=== PATIENT | male | born 1945 | race Caucasian/White ===

== ENCOUNTER 2017-02-03 13:15 | Emergency (ER) | payer OTHER ==
[~2017-02-03] VITALS: Wt 72.0 kg
[~2017-02-03 13:15] MED LIST: FAMO10TA84 PO; GABA100C14 PO
[2017-02-03] MEDS ORDERED: ESOM40CA PO (14:13)
[2017-02-03] MEDS ORDERED: SUCR1TAB56 PO (14:14)
[2017-02-03] MEDS ORDERED: LORA0.5T PO (14:16)
[2017-02-03] MEDS ORDERED: TAMS0.4C2 PO (14:16)
[2017-02-03] MEDS ORDERED: SOD CHLORIDE 0.9% 1,000 ML IV STA (14:27)
[2017-02-03 15:00] LABS: ADD SCAN DIFF NO
[2017-02-03 15:04] LABS: HEMATOCRIT 37.8 % (42.0-52.0); HEMOGLOBIN 12.3 g/dl (14.0-18.0); MEAN CORPUSCULAR HEMOGLOBIN 26.3 pg (29.0-33.0); MEAN CORPUSCULAR HGB CONC 32.5 g/dl (32.0-37.0); MEAN CORPUSCULAR VOLUME 80.8 fl (82.0-101.0); PLATELET COUNT 204 10^3/UL (140-415); RED BLOOD COUNT 4.68 10^6/ul (4.70-6.10); RED CELL DISTRIBUTION WIDTH 15.9 % (11.5-14.5); WHITE BLOOD COUNT 13.4 10^3/ul (4.8-10.8)
[2017-02-03 15:12] LABS: ALBUMIN 3.2 g/dl (3.3-4.9)
[2017-02-03 15:15] LABS: ALBUMIN/GLOBULIN RATIO 0.8; BILIRUBIN,INDIRECT 0.4 mg/dl (0-1.1); BILIRUBIN,TOTAL 0.4 mg/dl (0.2-1.3); CALCIUM 8.5 mg/dl (8.4-10.2); CREATININE 1.13 mg/dl (0.61-1.24); TOTAL PROTEIN 7.2 g/dl (6.1-8.1)
--- NOTE | 2017-02-03 15:30 | RADRPT ---
PROCEDURE: XR Chest. CLINICAL INDICATION: Stroke TECHNIQUE: Chest AP portable. COMPARISON: 06/12/2013 FINDINGS: The mediastinal structures are unremarkable. There is calcification of the thoracic aorta (consiste nt with atherosclerosis). There is mild cardiomegaly. There is pulmonary venous hypertension. There is bibasilar subsegmental atelectasis. The pleural spaces are unremarkable. There are senescent ch anges of the axial skeleton. IMPRESSION: Mild cardiomegaly Mild pulmonary venous hypertension Bibasilar subsegmental atelectasis RPTAT: HGDB .Daniel Brown MD, Date Time Electronically viewed and signed by .Daniel Brown MD, on 02/03/2017 15:30 .B/
--- NOTE | 2017-02-03 16:02 | RADRPT ---
PROCEDURE: CT brain without contrast CLINICAL INDICATION: Stroke TECHNIQUE: CT of the brain without contrast performed on a multidetector CT scanner, with multiplan ar reformats. One or more of the following dose reduction techniques were used: Automated exposure control, adjustment in mA and / or kV according to patient size, use of iterative reconstructive jass hnique. CTDIvol = 45 mGy; DLP = 720 mGy-cm. COMPARISON: None available FINDINGS: No acute intracranial hemorrhage is identified. No extra-axial fluid collection is seen. There is no mass effect. No midline shift is identified. Ventricles and sulci are mildly enlarged compatible with generalized volume loss. The density of the brain appears unremarkable and echavarria-white differentiation is grossly preserved. Osseous structures are unremarkable. Mastoid air cells and imaged paranasal sinuses grossly clear. IMPRESSION: 1. No acute intracranial pathology identified. 2. Mild generalized volume loss. RPTAT: VV .Freedom Calix MD, MD Date Time Electronically viewed and signed by .Freedom Calix MD, on 02/03/2017 16:02 .O/
[2017-02-03 16:44] LABS: ANISOCYTOSIS 1+; LYMPHOCYTES # 2.4 10^3/ul (0.8-2.9); MONOCYTE # 0.3 10^3/ul (0.3-0.9); NEUTROPHIL # 10.2 10^3/ul (1.6-7.5); PLATELET ESTIMATE PLT APPEAR ADEQUATE
[2017-02-03 17:00] VITALS: BP 175/99; PULSE 88; RESP 19
[2017-02-03] MEDS ORDERED: HYDROmorphONE 1 MG/ML SYG IV STA (17:47)
[2017-02-03] MEDS ORDERED: ONDANSETRON 4 MG INJ IV STA (17:47)
[2017-02-03] MEDS ORDERED: FAMOTIDINE 20 MG INJ IV STA (17:47)
--- NOTE | 2017-02-03 18:58 | ERD ---
ER Documentation Chief Complaint Date/Time DATE: 02/03/17 TIME: 18:57 Chief Complaint GEN WEAKNESS AND RECENT TRAVEL FROM [facility] AND HAD CVA 1WK. LETHARGIC HPI This is a 71-year-old man who just arrived here on Monday night from [facility]. The patient is here with his family because they are uncertain of the workup that he had there. He said that last week he was admitted there for several days for a syncopal workup that did not reveal anything particular. However, the patient's family states that he is been more sleepy lately and seems like he is slurring his words for the past 8 days. Patient does not complain of any focal neurological complaints. The patient is somewhat sleepy now because he took 3 of his sleeping pills last night and did not take until early this morning. The patient has a history of chronic insomnia. Patient is denying any weakness or focal neurological complaints no blurry vision no speech change according to him. He has had 3 days of watery diarrhea nonbloody. He denied abdominal pain initially but at the end of his workup states he is having some mid abdominal pain now described as crampy ROS All systems reviewed and are negative except as per history of present illness. Medications Home Meds Reported Medications Tamsulosin Hcl* (Tamsulosin Hcl*) 0.4 Mg Cap.er.24h, 0.4 MG PO HS, CAP 02/03/17 Lorazepam* (Lorazepam*) 0.5 Mg Tablet, 0.5 MG PO HS Y for ANXIETY, TAB 02/03/17 Sucralfate* (Carafate*) 1 Gm Tab, 1 GM PO AC MEALS AND BEDTIME, TAB 02/03/17 Esomeprazole Mag Trihydrate (Nexium) 40 Mg Capsule.dr, 40 MG PO AC BREAKFAST, # 30 CAP 02/03/17 Gabapentin* (Gabapentin*) 100 Mg Capsule, 100 MG PO DAILY 06/12/13 Discontinued Reported Medications Famotidine* (Famotidine*) 10 Mg Tablet, 10 MG PO DAILY 06/12/13 Allergies Allergies: Coded Allergies: Penicillins (Verified Allergy, Mild, 02/03/17) morphine (Verified Allergy, Mild, 02/03/17) aspirin (Verified Allergy, Unknown, RASHES, 06/12/13) Uncoded Allergies: ASA (Allergy, Unknown, 07/02/07) PMhx/Soc History of Surgery: Yes (PROSTATE, SMALL PIECE OF SMALL INTESTINE.) Anesthesia Reaction: No Hx Neurological Disorder: No Hx Respiratory Disorders: No Hx Cardiac Disorders: No Hx Psychiatric Problems: No Hx Miscellaneous Medical Probl: Yes (GERD, ULCER) Hx Alcohol Use: No (Occasional) Hx Substance Use: No Hx Tobacco Use: No Smoking Status: Never smoker FmHx Family History: No coronary disease Physical Exam Vitals Vital Signs Date Time Temp Pulse Resp B/P Pulse Ox O2 Delivery O2 Flow Rate FiO2 02/03/17 17:00 88 19 175/99 97 Room Air 02/03/17 13:23 99.6 82 20 185/87 95 Physical Exam Const: Well-developed, well-nourished Head: Atraumatic, normocephalic Eyes: Normal Conjunctiva, PERRLA, EOMI, normal sclera, no nystagmus ENT: Normal External Ears, Nose and Mouth, moist mucus membranes. Neck: Full range of motion. No meningismus, no lymphadenopathy. Resp: Clear to auscultation bilaterally, no wheezing, rhonchi, rales Cardio: Regular rate and rhythm, no murmurs, S1 S2 present Abd: Soft, non tender x 4, non distended. Normal bowel sounds, no guarding or rebound, no pulsitile abdominal masses or bruits Skin: No petechiae or rashes, no ecchymosis , no maculopapular rash Back: No midline or flank tenderness Ext: No cyanosis, or edema, FROM x 4, normal inspection, neurovascularly intact x 4 Neur: Awake and alert, STR 5/5 x 4, sensation intact x 4, no focal findings, cerebellum intact Psych: Normal Mood and Affect, somewhat sleepy After complaining of abdominal pain: Abdomen: Mild tenderness to the mid abdominal region no rebound Result Diagram: 02/03/17 1457 02/03/17 1457 Results 24 hrs Laboratory Tests Test 02/03/17 14:57 White Blood Count 13.410^3/ul Red Blood Count 4.6810^6/ul Hemoglobin 12.3g/dl Hematocrit 37.8% Mean Corpuscular Volume 80.8fl Mean Corpuscular Hemoglobin 26.3pg Mean Corpuscular Hemoglobin Concent 32.5g/dl Red Cell Distribution Width 15.9% Platelet Count 16038^3/UL Mean Platelet Volume 10.0fl Neutrophils % 76.0% Lymphocytes % 18.0% Reactive Lymphocytes % 4.0% Monocytes % 2.0% Neutrophils # 10.210^3/ul Lymphocytes # 2.410^3/ul Monocytes # 0.310^3/ul Platelet Estimate PLT APPEAR ADEQUATE Anisocytosis 1+ Sodium Level 137mmol/L Potassium Level 4.0mmol/L Chloride Level 101mmol/L Carbon Dioxide Level 24mmol/L Anion Gap 16 Blood Urea Nitrogen 22mg/dl Creatinine 1.13mg/dl Glucose Level 127mg/dl Calcium Level 8.5mg/dl Total Bilirubin 0.4mg/dl Direct Bilirubin 0.00mg/dl Indirect Bilirubin 0.4mg/dl Aspartate Amino Transf (AST/SGOT) 16IU/L Alanine Aminotransferase (ALT/SGPT) 36IU/L Alkaline Phosphatase 139IU/L Total Protein 7.2g/dl Albumin 3.2g/dl Globulin 4.00g/dl Albumin/Globulin Ratio 0.80 Current Medications Medications (Trade) Dose Ordered Sig/Anabelle Route PRN Reason Start Time Stop Time Status Last Admin Dose Admin Sodium Chloride (NS) 1,000 ml @ 1,000 mls/hr Q1H STAT IV 02/03/17 14:27 02/03/17 15:26 DC 02/03/17 15:01 Ondansetron HCl (Zofran Inj) 4 mg ONCE STAT IV 02/03/17 17:47 02/03/17 17:48 DC 02/03/17 17:53 Famotidine (Pepcid Iv) 20 mg ONCE STAT IV 02/03/17 17:47 02/03/17 17:48 DC 02/03/17 17:53 Hydromorphone HCl (Dilaudid) 0.5 mg ONCE STAT IV 02/03/17 17:47 02/03/17 17:48 DC 02/03/17 17:53 Procedures/MDM Family's main concern is that the patient had a stroke or a missed diagnosis and they wanted him checked out see if anything was missed. PROCEDURE: CT brain without contrast CLINICAL INDICATION: Stroke TECHNIQUE: CT of the brain without contrast performed on a multidetector CT scanner, with multiplanar reformats. One or more of the following dose reduction techniques were used: Automated exposure control, adjustment in mA and / or kV according to patient size, use of iterative reconstructive technique. CTDIvol = 45 mGy; DLP = 720 mGy-cm. COMPARISON: None available FINDINGS: No acute intracranial hemorrhage is identified. No extra-axial fluid collection is seen. There is no mass effect. No midline shift is identified. Ventricles and sulci are mildly enlarged compatible with generalized volume loss. The density of the brain appears unremarkable and echavarria-white differentiation is grossly preserved. Osseous structures are unremarkable. Mastoid air cells and imaged paranasal sinuses grossly clear. IMPRESSION: 1. No acute intracranial pathology identified. 2. Mild generalized volume loss. RPTAT: VV .Freedom Calix MD, Date Time Electronically viewed and signed by .Freedom Calix MD, MD on 02/03/2017 16:02 .O/ CC: DINESH CHACON DO PROCEDURE: XR Chest. CLINICAL INDICATION: Stroke TECHNIQUE: Chest AP portable. COMPARISON: 06/12/2013 FINDINGS: The mediastinal structures are unremarkable. There is calcification of the thoracic aorta (consistent with atherosclerosis). There is mild cardiomegaly. There is pulmonary venous hypertension. There is bibasilar subsegmental atelectasis. The pleural spaces are unremarkable. There are senescent changes of the axial skeleton. IMPRESSION: Mild cardiomegaly Mild pulmonary venous hypertension Bibasilar subsegmental atelectasis RPTAT: HGDB .Daniel Brown MD, MD Date Time Electronically viewed and signed by .Daniel Brown MD, on 02/03/2017 15:30 .B/ CC: DINESH CHACON DO PROCEDURE: CT abdomen and pelvis without contrast. CLINICAL INDICATION: Abdominal pain in a patient with history of gastroesophageal reflux, ulcer and prostate carcinoma TECHNIQUE: CT scan of the abdomen and pelvis without contrast was performed on a multislice CT scanner utilizing axial imaging from the lung bases through the pubis symphysis. The patient was scanned without intravenous contrast. Sagittal and coronal reformatted images were made. The CTDIvol is 13.35 mGy and the DLP is 724.19 mGycm. One of the following 3 dose reduction techniques were used during this CT examination: automated exposure control; adjustment of the mA and /or kV according to patient size; or use of iterative reconstruciton technique. COMPARISON: CT abdomen pelvis dated 07/19/2007 FINDINGS: The lung bases are remarkable for right middle lobe and lingular interstitial changes. This may represent atelectasis or early infiltrates. The heart size demonstrates mild cardiomegaly. Vascular calcifications are present of the thoracic aorta and the coronary arteries. No pericardial or pleural effusion is present. The visualized liver demonstrates mild diffuse fatty infiltration. A large hepatic hypodense lesion is present in the left lobe which measures 5.8 cm AP by 6 cm in transverse dimensions. This is incompletely evaluated without contrast and recommend either a dynamic CT or MR of the liver to further evaluate. The visualized spleen, pancreas, and gallbladder are normal. No evidence for intrahepatic or extrahepatic biliary ductal dilatation is noted. The bilateral adrenal glands are normal. The bilateral kidneys are normal. No evidence for hydroureter nephrosis or nephroureterolithiasis is present. The visualized bowel is normal without evidence for obstruction. The appendix is normal. The anastomotic sutures are noted in the mid abdomen compatible with prior small bowel resection for previously noted small bowel obstruction. The aorta demonstrates vascular calcifications without aneurysmal dilatation. The visualized pelvis demonstrates an irregular fluid collection immediately superior to the left reservoir poor for patient's known penile implants. This fluid collection measures approximately 5.2 cm AP by 5.3 cm transverse by 6.3 cm in superior inferior dimensions. This may represent a nonfunctioning and leaking rising for correlation and follow up clinically is advised. Within the pelvis, the bilateral penile implants appear retracted in position to the base of the penis when compared with prior study. The visualized pelvis demonstrates status post prostatectomy changes. The urinary bladder appears decompressed. The imaged osseous structures demonstrate mild spondylosis of the imaged spine. IMPRESSION: 1. Fluid collection 5.2 cm AP by 5.3 cm transverse by 6.3 cm superior inferior dimensions in the left ellen pelvis immediately superior to the reservoir for the penile implant. Recommend correlation with disruption of integrity of reservoir. 2. Retraction of the penile implants to the base of the penis. 3. Large hypodense 5.8 cm AP by 6.0 cm in transverse dimension hepatic lesion. Consider dynamic CT or MR of the liver to further evaluate. 4. Mild cardiomegaly and atherosclerotic vascular disease 5. Degenerative spondylosis of the imaged spine. RPTAT: HDC .Debbie Jang MD, MD Date Time Electronically viewed and signed by .Debbie Jang MD, MD on 02/03/2017 19: 34 .C/ CC: DINESH CHACON DO The patient has left the ER. Apparently he was tired of waiting for his tests and decided to leave. Spoke with urology pmo consultant about the above CT scan finding Dr. Dolan and he will review the CT scan tomorrow. He is unsure what is actually happening with his implant. Does have mild elevated white blood count but nothing else was found acutely hopefully he will return for reevaluation The patient has eloped Departure Diagnosis: Primary Impression: Generalized weakness Additional Impression: Abdominal pain Abdominal location: generalized Qualified Code: R10.84 - Generalized abdominal pain Condition: Fair DINESH CHACON DO Feb 03, 2017 18:58
--- NOTE | 2017-02-03 19:34 | RADRPT ---
PROCEDURE: CT abdomen and pelvis without contrast. CLINICAL INDICATION: Abdominal pain in a patient with history of gastroesophageal reflux, ulcer an d prostate carcinoma TECHNIQUE: CT scan of the abdomen and pelvis without contrast was performed on a multislice CT [facility] utilizing axial imaging from the lung bases through the pubis symphysis. The patient was scann ed without intravenous contrast. Sagittal and coronal reformatted images were made. The CTDIvol is 13.35 mGy and the DLP is 724.19 mGycm. One of the following 3 dose reduction techniques were used during this CT examination: automated exp osure control; adjustment of the mA and /or kV according to patient size; or use of iterative recons truciton technique. COMPARISON: CT abdomen pelvis dated 07/19/2007 FINDINGS: The lung bases are remarkable for right middle lobe and lingular interstitial changes. This may rep resent atelectasis or early infiltrates. The heart size demonstrates mild cardiomegaly. Vascular c alcifications are present of the thoracic aorta and the coronary arteries. No pericardial or pleura l effusion is present. The visualized liver demonstrates mild diffuse fatty infiltration. A large hepatic hypodense lesion is present in the left lobe which measures 5.8 cm AP by 6 cm in transverse dimensions. This is inc ompletely evaluated without contrast and recommend either a dynamic CT or MR of the liver to further evaluate. The visualized spleen, pancreas, and gallbladder are normal. No evidence for intrahepatic or extrah epatic biliary ductal dilatation is noted. The bilateral adrenal glands are normal. The bilateral kidneys are normal. No evidence for hydrour eter nephrosis or nephroureterolithiasis is present. The visualized bowel is normal without evidence for obstruction. The appendix is normal. The anast omotic sutures are noted in the mid abdomen compatible with prior small bowel resection for previous ly noted small bowel obstruction. The aorta demonstrates vascular calcifications without aneurysmal dilatation. The visualized pelvis demonstrates an irregular fluid collection immediately superior to the left re servoir poor for patient's known penile implants. This fluid collection measures approximately 5.2 cm AP by 5.3 cm transverse by 6.3 cm in superior inferior dimensions. This may represent a nonfunct ioning and leaking rising for correlation and follow up clinically is advised. Within the pelvis, t he bilateral penile implants appear retracted in position to the base of the penis when compared wit h prior study. The visualized pelvis demonstrates status post prostatectomy changes. The urinary b ladder appears decompressed. The imaged osseous structures demonstrate mild spondylosis of the imaged spine. IMPRESSION: 1. Fluid collection 5.2 cm AP by 5.3 cm transverse by 6.3 cm superior inferior dimensions in the le ft ellen pelvis immediately superior to the reservoir for the penile implant. Recommend correlation w ith disruption of integrity of reservoir. 2. Retraction of the penile implants to the base of the penis. 3. Large hypodense 5.8 cm AP by 6.0 cm in transverse dimension hepatic lesion. Consider dynamic CT or MR of the liver to further evaluate. 4. Mild cardiomegaly and atherosclerotic vascular disease 5. Degenerative spondylosis of the imaged spine. RPTAT: HDC .Debbie Jang MD, Date Time Electronically viewed and signed by .Debbie Jang MD, on 02/03/2017 19:34 .C/
== END 2017-02-03 23:38 | disposition left against medical advice (07) ==
LOC: E/R 13:15
DX: R53.1 Weakness (principal); R40.2142 Coma scale, eyes open, spontaneous, at arrival to emergency department; R10.84 Generalized abdominal pain; Z85.46 Personal history of malignant neoplasm of prostate
CPT/HCPCS: 36415; 70450; 71010; 74176; 80053; 85025; 96374; 96375; 99285; J1170; J2405; J7030

== ENCOUNTER 2018-02-04 20:06 | Emergency (ER) | END 2018-02-05 03:30 | disposition home or self-care (01) ==

== ENCOUNTER 2018-02-21 20:21 | Emergency (ER) | END 2018-02-21 23:46 | disposition home or self-care (01) ==

== ENCOUNTER 2018-03-05 11:56 | Emergency (ER) | END 2018-03-05 16:11 | disposition home or self-care (01) ==

== ENCOUNTER 2018-06-08 15:08 | Emergency (ER) | END 2018-06-08 21:09 | disposition home or self-care (01) ==

== ENCOUNTER 2019-02-13 18:42 | Inpatient (IN) | payer OTHER ==
[~2019-02-13] VITALS: Ht 170.2 cm; Wt 73.6 kg
[~2019-02-13 18:42] MED LIST changes: +ACET-141 PO; +BENA20TA4 PO; +ESOM40CA PO; -FAMO10TA84 PO; +HYDR-3980 PO; +HYDR-843 PO; +LORA0.5T PO; +NAPR-985 PO; +OMEP40CA6 PO; +ONDA4TAB14 PO; +PRED20TA PO; +SUCR1TAB56 PO; +TAMS0.4C2 PO
[2019-02-13 18:50] VITALS: Ht 170.2 cm; Wt 73.6 kg
[2019-02-13] MEDS ORDERED: SOD CHLORIDE 0.9% 500 ML IV STA (23:00)
[2019-02-13] MEDS ORDERED: HYDROmorphONE 1 MG/ML SYG IV STA (23:00)
[2019-02-13] MEDS ORDERED: ONDANSETRON 4 MG INJ IV STA (23:00)
[2019-02-13] MEDS ORDERED: COMBIG5 BOTH EYES (23:56)
[2019-02-13] MEDS ORDERED: HYDR12.53 PO (23:56)
[2019-02-13] MEDS ORDERED: FURO20TA3 PO (23:56)
[2019-02-13] MEDS ORDERED: BENA40TA56 PO (23:56)
[2019-02-13] MEDS ORDERED: ISOS60TA PO (23:56)
[2019-02-13] MEDS ORDERED: METO-429 PO (23:56)
[2019-02-13] MEDS ORDERED: MULT-105 PO (23:58)
--- NOTE | 2019-02-14 02:43 | ERD ---
ER Documentation Chief Complaint Chief Complaint center abd pain x 3 weeks, vomiting today, BM yesterday HPI This is a very pleasant 73-year-old male comes in with abdominal pain for 3 weeks and vomiting said he has had some coffee-ground in it. Bowel movement yesterday. Pain is mild to moderate intensity no exacerbating relieving factors. Denies any chills. Denies any other current issues. ROS All systems reviewed and are negative except as per history of present illness. Medications Home Meds Active Scripts Ondansetron (Ondansetron Odt) 4 Mg Tab.rapdis, 4 MG PO Q6H PRN for NAUSEA AND/OR VOMITING, #10 TAB Prov:WILLIAM MELCHOR MD 02/21/18 Hydrocodone/Acetaminophen ([place] 10-325 Tablet) 1 Each Tablet, 1 TAB PO Q6H PRN for PAIN, #7 TAB Prov:WILLIAM MELCHOR MD 02/21/18 Omeprazole* (Omeprazole*) 40 Mg Capsule.dr, 40 MG PO DAILY, #30 CAP Prov:DINESH CHACON DO 02/05/18 Reported Medications Multivitamin with Minerals (Multivitamins with Minerals) 1 Each Tablet, 1 EACH PO DAILY, TAB 02/13/19 Brimonidine/Timolol* (Combigan*) 5 Ml Drops, 1 DROP BOTH EYES BID, BOTTLE 02/13/19 Hydrochlorothiazide (Hydrochlorothiazide) 12.5 Mg Capsule, 12.5 MG PO DAILY for 30 Days, #30 02/13/19 Isosorbide Mononitrate* (Isosorbide Mononitrate*) 60 Mg Tab.er.24h, 60 MG PO DAILY for 30 Days, #30 02/13/19 Furosemide* (Furosemide*) 20 Mg Tablet, 20 MG PO BID for 30 Days, #60 02/13/19 Metoprolol Tartrate* (Lopressor*) 50 Mg Tab, 50 MG PO BID for 30 Days, #60 02/13/19 Benazepril Hcl* (Benazepril Hcl*) 40 Mg Tablet, 40 MG PO DAILY for 90 Days, #90 02/13/19 Tamsulosin Hcl* (Tamsulosin Hcl*) 0.4 Mg Cap.er.24h, 0.4 MG PO HS, CAP 02/03/17 Lorazepam* (Lorazepam*) 0.5 Mg Tablet, 0.5 MG PO HS PRN for ANXIETY, TAB 02/03/17 Gabapentin* (Gabapentin*) 100 Mg Capsule, 400 MG PO TID 06/12/13 Discontinued Reported Medications Benazepril Hcl* (Benazepril Hcl*) 20 Mg Tablet, 20 MG PO DAILY, #30 TAB 02/21/18 Sucralfate* (Carafate*) 1 Gm Tab, 1 GM PO AC MEALS AND BEDTIME, TAB 02/03/17 Esomeprazole Mag Trihydrate (Nexium) 40 Mg Capsule.dr, 40 MG PO AC BREAKFAST, #3 0 CAP 02/03/17 Discontinued Scripts Naproxen* (Naprosyn*) 500 Mg Tablet, 500 MG PO BID PRN for PAIN AND/OR INFLAMMATION, #30 TAB Prov:RYAN LAI MD 06/08/18 Acetaminophen* (Acetaminophen*) 500 MG Extra Strength Tablet, 500 MG PO Q4H PRN for PAIN AND OR ELEVATED TEMP, #30 TAB Prov:ATTILA BIGGS PA-C 03/05/18 Hydroxyzine Hcl* (Hydroxyzine Hcl*) 25 Mg Tablet, 25 MG PO Q8H PRN for ITCHING, #30 TAB Prov:ATTILA BIGGS PA-C 03/05/18 Prednisone* (Prednisone*) 20 Mg Tab, 60 MG PO DAILY for 5 Days, TAB Prov:WILLIAM MELCHOR MD 02/21/18 Hydrocodone/Acetaminophen (Manns Choice 10-325 Tablet) 1 Each Tablet, 1 TAB PO Q6H PRN for PAIN, #20 TAB Prov:DINESH CHACON DO 02/05/18 Allergies Allergies: Coded Allergies: No Known Allergy (Unverified , 02/13/19) PMhx/Soc History of Surgery: Yes (prostate sx, biopsy of small intestine,penile implant) Anesthesia Reaction: No Hx Neurological Disorder: No Hx Respiratory Disorders: No Hx Cardiac Disorders: Yes (HTN) Hx Psychiatric Problems: No Hx Miscellaneous Medical Probl: Yes (GERD, PUD, prostate cancer,SBO) Hx Alcohol Use: No Hx Substance Use: No Hx Tobacco Use: No Smoking Status: Never smoker Physical Exam Vitals Vital Signs Date Temp Pulse Resp B/P (MAP) Pulse Ox O2 O2 Flow FiO2 Time Delivery Rate 02/14/19 98.3 59 20 128/69 100 Room Air 02:21 (88) 02/13/19 98.3 68 20 171/91 96 Room Air 22:23 (117) 02/13/19 98.3 69 20 179/79 96 18:50 (112) Physical Exam Const: No acute distress Head: Atraumatic Eyes: Normal Conjunctiva ENT: Normal External Ears, Nose and Mouth. Neck: Full range of motion. No meningismus. Resp: Clear to auscultation bilaterally Cardio: Regular rate and rhythm, no murmurs Abd: Soft, non tender, non distended. Normal bowel sounds Skin: No petechiae or rashes Back: No midline or flank tenderness Ext: No cyanosis, or edema Neur: Awake and alert Psych: Normal Mood and Affect Result Diagram: 02/13/19222002/13/192220 Results 24 hrs Laboratory Tests Test 02/13/19 22:21 White Blood Count 10.7 10^3/ul Red Blood Count 3.77 10^6/ul Hemoglobin 7.7 g/dl Hematocrit 26.1 % Mean Corpuscular Volume 69.2 fl Mean Corpuscular Hemoglobin 20.4 pg Mean Corpuscular Hemoglobin Concent 29.5 g/dl Red Cell Distribution Width 21.6 % Platelet Count 653 10^3/UL Mean Platelet Volume 9.2 fl Immature Granulocytes % 0.600 % Neutrophils % 68.3 % Lymphocytes % 22.5 % Monocytes % 5.9 % Eosinophils % 2.2 % Basophils % 0.5 % Nucleated Red Blood Cells % 0.0 /100WBC Immature Granulocytes # 0.060 10^3/ul Neutrophils # 7.3 10^3/ul Lymphocytes # 2.4 10^3/ul Monocytes # 0.6 10^3/ul Eosinophils # 0.2 10^3/ul Basophils # 0.1 10^3/ul Nucleated Red Blood Cells # 0.0 10^3/ul Sodium Level 142 mmol/L Potassium Level 3.9 mmol/L Chloride Level 108 mmol/L Carbon Dioxide Level 22 mmol/L Anion Gap 12 Blood Urea Nitrogen 16 mg/dl Creatinine 1.19 mg/dl Est Glomerular Filtrat Rate mL/min mL/min Glucose Level 106 mg/dl Calcium Level 9.1 mg/dl Total Bilirubin 0.0 mg/dl Direct Bilirubin 0.00 mg/dl Indirect Bilirubin 0.0 mg/dl Aspartate Amino Transf (AST/SGOT) 31 IU/L Alanine Aminotransferase (ALT/SGPT) 12 IU/L Alkaline Phosphatase 142 IU/L Troponin I < 0.012 ng/ml Total Protein 8.2 g/dl Albumin 3.6 g/dl Globulin 4.60 g/dl Albumin/Globulin Ratio 0.78 Lipase 170 U/L Current Medications Medications Dose Sig/Anabelle Start Time Status Last (Trade) Ordered Route PRN Stop Time Admin Dose Reason Admin Sodium 500 ml @ Q1H STAT 02/13/19 DC 02/13/19 Chloride 500 mls/hr IV 23:00 23:09 02/13/19 23:59 1 mg ONCE STAT 02/13/19 DC 02/13/19 Hydromorphone IV 23:00 23:09 HCl 02/13/19 23:02 (Dilaudid) Ondansetron 4 mg ONCE STAT 02/13/19 DC 02/13/19 HCl (Zofran IV 23:00 23:09 Inj) 02/13/19 23:02 Procedures/MDM EKG: Rate/Rhythm: [Normal Sinus Rhythm] QRS, ST, T-waves: [No changes consistent w/ acute ischemia] Impression: [No evidence of ischemia or arrhythmia] Chest X-ray 1V Interpreted by me: Soft Tissue: No acute ab normalities Bones: No acute abnormalities Mediastinum/Cardiac Silhouette/Lungs: [No acute abnormalities] Medical decision makin-year-old male with possible upper GI bleed. Given Protonix and Dilaudid here. I do not feel he is active gastritis has not vomited here in the ER. But his H&H is low. Type and cross for 1 unit. Patient will be admitted here after the IPA cleared for total observation admission. Hospitalist made aware. Departure Diagnosis: Primary Impression: Abdominal pain Abdominal location: unspecified location Qualified Codes: R10.9 - Unspecified abdominal pain Condition: Serious PAT PEREZ Feb 14, 2019 02:43
[2019-02-14 02:50] VITALS: BP 143/74; PULSE 63; RESP 18
[2019-02-14] MEDS ORDERED: morphine 4 MG/ML VIAL IV ONE (04:32)
[2019-02-14 08:08] VITALS: BP 159/72; PULSE 72; RESP 18
--- NOTE | 2019-02-14 08:17 | HP ---
Date/Time of Note Date/Time of Note DATE: 02/14/19 TIME: 08:09 Assessment/Plan VTE Prophylaxis Risk score (from [facility] [place] risk: 6 SCD applied (from [facility] [place] No SCD contraindicated: low risk/ambulating Pharmacological prophylaxis: NA/contraindicated Pharm contraindication: bleeding Lines/Catheters IV Catheter Type (from [facility]): Saline Lock Assessment/Plan Assessment/Plan 1. Upper GI Bleed, likely gastric in origin -PPI -GI Consult -transfusing PRBCs 2. History of gastritis: See #1 3. History of prostate cancer, status post prostatectomy -Patient also with a history of penile implant -No acute issue Result Diagram: 02/14/190 02/14/190 Results 24hrs Laboratory Tests Test 02/13/19 22:21 02/14/19 04:40 White Blood Count 10.7 7.6 # Red Blood Count 3.77 L 3.35 L Hemoglobin 7.7 L 6.8 *L Hematocrit 26.1 L 23.2 L Mean Corpuscular Volume 69.2 L 69.3 L Mean Corpuscular Hemoglobin 20.4 L 20.3 L Mean Corpuscular Hemoglobin Concent 29.5 L 29.3 L Red Cell Distribution Width 21.6 H 21.5 H Platelet Count 653 #H 568 H Mean Platelet Volume 9.2 9.5 Immature Granulocytes % 0.600 H 0.400 Neutrophils % 68.3 64.3 Lymphocytes % 22.5 26.3 Monocytes % 5.9 6.5 Eosinophils % 2.2 2.2 Basophils % 0.5 0.3 Nucleated Red Blood Cells % 0.0 0.0 Immature Granulocytes # 0.060 H 0.030 Neutrophils # 7.3 4.9 Lymphocytes # 2.4 2.0 Monocytes # 0.6 0.5 Eosinophils # 0.2 0.2 Basophils # 0.1 0.0 Nucleated Red Blood Cells # 0.0 0.0 Sodium Level 142 141 Potassium Level 3.9 3.7 Chloride Level 108 111 H Carbon Dioxide Level 22 24 Anion Gap 12 6 Blood Urea Nitrogen 16 15 Creatinine 1.19 0.98 Est Glomerular Filtrat Rate mL/min Glucose Level 106 95 Calcium Level 9.1 8.1 L Total Bilirubin 0.0 L 0.0 L Direct Bilirubin 0.00 0.00 Indirect Bilirubin 0.0 0.0 Aspartate Amino Transf (AST/SGOT) 31 43 Alanine Aminotransferase (ALT/SGPT) 12 L 20 Alkaline Phosphatase 142 H 105 Troponin I < 0.012 Total Protein 8.2 H 6.8 # Albumin 3.6 3.1 L Globulin 4.60 H 3.70 H Albumin/Globulin Ratio 0.78 0.83 Lipase 170 Iron Level 18 L Total Iron Binding Capacity 280 Percent Iron Saturation 6 L Ferritin 31.8 HPI/ROS Admit Date/Time Admit Date/Time Feb 14, 2019 at 01:56 Hx of Present Illness This is a 73-year-old male with a history of GERD, prostate cancer status post prostatectomy, penile implant, SBO who presents the ER complaining of abdominal pain and vomiting. Abdominal pain is been going on for more than a week. It is mainly located in the epigastric area. He has been vomiting since yesterday, with emesis described as coffee colored. Denied BRBPR or dark stool.. When he presented to ER, he was found to be anemic with a hemoglobin of 7.4, MCV 69. Currently receiving blood transfusion PMH/Family/Social Past Medical History Medical History: other (See HPI) Medications Current Medications Pantoprazole 80 mg/Sodium Chloride 100 ml @ 10 mls/hr Q10H IV ; Start 02/14/19 at 06:00 Ondansetron HCl (Zofran Inj) 4 mg Q6H PRN IV NAUSEA AND/OR VOMITING; Start 02/14/19 at 05:30 Coded Allergies: No Known Allergy (Unverified , 02/13/19) Past Surgical History Past Surgical Hx: other (See HPI) Family History Significant Family History: no pertinent family hx Social History Alcohol Use: none Smoking Status: Never smoker Drug Use: none Exam/Review of Systems Vital Signs Vitals Vital Signs Date Temp Pulse Resp B/P (MAP) Pulse Ox O2 O2 Flow FiO2 Time Delivery Rate 02/14/19 2.0 03:56 02/14/19 98.6 63 18 143/74 100 02:50 (97) 02/14/19 Room Air 02:21 Intake and Output 02/13/19 02/13/19 02/14/19 1515:00 23:00 07:00 OutputOutput Total 150 ml BalanceBalance -150 ml Exam Constitutional: other (Slightly anxious. Otherwise no acute distress) Psych: no complaints, nl mood/affect Head: normocephalic, atraumatic Eyes: EOMI, PERRL Respiratory: clear to auscultation, normal air movement Cardiovascular: regular rate and rhythm, nl pulses Gastrointestinal: soft, other Extremities: normal pulses PAT QUEEN MD Feb 14, 2019 08:17
[2019-02-14] MEDS: morphine 2 MG INJ IV PRN ×5 (08:27→22:21)
[2019-02-14] MEDS: PANTOPRAZOLE IV 80 MG in SOD CHLORIDE 0.9% 100 ML IV SCH ×2 (10:07→16:06)
[2019-02-14 14:51] VITALS: BP 164/76; PULSE 80; RESP 18
[2019-02-14 15:00] VITALS: BP 140/70
--- NOTE | 2019-02-14 15:14 | CONS ---
Assessment/Plan Assessment/Plan Hospital Course (Demo Recall) Summary Assessment and Plan: Assessment: Epigastric/Chest pain Coffee-ground emesis/melena -R/o PUD vs hemorrhagic gastritis versus other Microcytic anemia Recent excessive NSAIDs use Cystic structure within the left lobe of the liver, decreased in size compared with 02/05/2018. History of prostate cancer status post prostatectomy History of penile implant History of small bowel obstruction with surgical repair Plan: Monitor H/H transfuse for hemoglobin less than 7.5 Continue PPI drip/We will add Carafate p.o. 4 times daily EGD after cardiac clearance is obtained- Endoscopy - risks/benefits/alternatives/indications of procedure and sedation/anesthesia discussed with patient who states understanding and gives informed consent to proceed. Patient seen in collaboration with Dr. Yuan CC: EARNESTINE YUAN MD ; Consultation Date/Type/Reason Admit Date/Time Feb 14, 2019 at 01:56 Date/Time of Note DATE: 02/14/19 TIME: 15:09 Hx of Present Illness This is a 73-year-old male with past medical history of prostate cancer status post prostatectomy, penile implant and small bowel obstruction with surgical repair who presented to the emergency department complaining of upper abdominal pain and coffee-ground emesis nausea/vomiting x3 weeks patient notes recently emesis noted to be dark described as coffee-ground he additionally admits to black stools are not for the past 3 weeks. Labs obtained in the ER show a hemoglobin of 7.7, hematocrit 26.1, MCV 69.2, MCH 20.4 was rechecked this morning hemoglobin is noted to be 6.8 hematocrit 23.2 MCV 69.3 platelets are 568 and normal LFTs today. Has been consulted for further evaluation, at time of examination patient complains of shortness of breath, chest pain/epigastric pain. He states he has been taking 4 tablets of ibuprofen daily x4 weeks. Physical exam patient complains of epigastric pain worse with deep palpation additionally complains of chest pain again worse with pushing on the sternum he denies hematochezia, constipation, or diarrhea. Discussed plan for EGD reviewed risk/benefits of both sedation and procedure he verbalized understanding is agreeable to EGD. However given chest pain we must rule out cardiac etiology and will need cardiac clearance. Thus far troponin x1 has been completed and is negative. Given history, chest pain likely secondary to underlying gastric etiology, however to be safe we must proceed with cardiac clearance. Past Medical History Medical History: other (See HPI) Home Meds Active Scripts Ondansetron (Ondansetron Odt) 4 Mg Tab.rapdis, 4 MG PO Q6H PRN for NAUSEA AND/OR VOMITING, #10 TAB Prov:WILLIAM MELCHOR MD 02/21/18 Hydrocodone/Acetaminophen (Wysox 10-325 Tablet) 1 Each Tablet, 1 TAB PO Q6H PRN for PAIN, #7 TAB Prov:WILLIAM MELCHOR MD 02/21/18 Omeprazole* (Omeprazole*) 40 Mg Capsule.dr, 40 MG PO DAILY, #30 CAP Prov:DINESH CHACON DO 02/05/18 Reported Medications Multivitamin with Minerals (Multivitamins with Minerals) 1 Each Tablet, 1 EACH PO DAILY, TAB 02/13/19 Brimonidine/Timolol* (Combigan*) 5 Ml Drops, 1 DROP BOTH EYES BID, BOTTLE 02/13/19 Hydrochlorothiazide (Hydrochlorothiazide) 12.5 Mg Capsule, 12.5 MG PO DAILY for 30 Days, #30 02/13/19 Isosorbide Mononitrate* (Isosorbide Mononitrate*) 60 Mg Tab.er.24h, 60 MG PO DAILY for 30 Days, #30 02/13/19 Furosemide* (Furosemide*) 20 Mg Tablet, 20 MG PO BID for 30 Days, #60 02/13/19 Metoprolol Tartrate* (Lopressor*) 50 Mg Tab, 50 MG PO BID for 30 Days, #60 02/13/19 Benazepril Hcl* (Benazepril Hcl*) 40 Mg Tablet, 40 MG PO DAILY for 90 Days, #90 02/13/19 Tamsulosin Hcl* (Tamsulosin Hcl*) 0.4 Mg Cap.er.24h, 0.4 MG PO HS, CAP 02/03/17 Lorazepam* (Lorazepam*) 0.5 Mg Tablet, 0.5 MG PO HS PRN for ANXIETY, TAB 02/03/17 Gabapentin* (Gabapentin*) 100 Mg Capsule, 400 MG PO TID 06/12/13 Discontinued Reported Medications Benazepril Hcl* (Benazepril Hcl*) 20 Mg Tablet, 20 MG PO DAILY, #30 TAB 02/21/18 Sucralfate* (Carafate*) 1 Gm Tab, 1 GM PO AC MEALS AND BEDTIME, TAB 02/03/17 Esomeprazole Mag Trihydrate (Nexium) 40 Mg Capsule.dr, 40 MG PO AC BREAKFAST, #30 CAP 02/03/17 Discontinued Scripts Naproxen* (Naprosyn*) 500 Mg Tablet, 500 MG PO BID PRN for PAIN AND/OR INFLAMMATION, #30 TAB Prov:RYAN LAI MD 06/08/18 Acetaminophen* (Acetaminophen*) 500 MG Extra Strength Tablet, 500 MG PO Q4H PRN for PAIN AND OR ELEVATED TEMP, #30 TAB Prov:ATTILA BIGGS PA-C 03/05/18 Hydroxyzine Hcl* (Hydroxyzine Hcl*) 25 Mg Tablet, 25 MG PO Q8H PRN for ITCHING, #30 TAB Prov:ATTILA BIGGS PA-C 03/05/18 Prednisone* (Prednisone*) 20 Mg Tab, 60 MG PO DAILY for 5 Days, TAB Prov:WILLIAM MELCHOR MD 02/21/18 Hydrocodone/Acetaminophen (Wysox 10-325 Tablet) 1 Each Tablet, 1 TAB PO Q6H PRN for PAIN, #20 TAB Prov:DINESH CHACON DO 02/05/18 Medications Current Medications Pantoprazole 80 mg/Sodium Chloride 100 ml @ 10 mls/hr Q10H IV Last administered on 02/14/19at 10:07; Admin Dose 10 MLS/HR; Start 02/14/19 at 06:00 Ondansetron HCl (Zofran Inj) 4 mg Q6H PRN IV NAUSEA AND/OR VOMITING; Start 02/14/19 at 05:30 Morphine Sulfate (morphine) 2 mg Q4H PRN IV SEVERE PAIN LEVEL 7-10 Last administered on 02/14/19at 12:44; Admin Dose 2 MG; Start 02/14/19 at 08:30 Allergies: Coded Allergies: No Known Allergy (Unverified , 02/13/19) Past Surgical History Past Surgical Hx: other (See HPI) Social History Alcohol Use: none Smoking Status: Never smoker Drug Use: none Exam/Review of Systems Exam Vitals Vital Signs Date Temp Pulse Resp B/P (MAP) Pulse Ox O2 O2 Flow FiO2 Time Delivery Rate 02/14/19 98.0 80 18 164/76 98 Nasal 3.0 14:51 (105) Cannula Intake and Output 02/13/19 02/13/19 02/14/19 1515:00 23:00 07:00 OutputOutput Total 150 ml BalanceBalance -150 ml Exam PHYSICAL EXAMINATION: GENERAL: Alert & oriented x 3, O2 in place SKIN: No lesions HEAD: Normocephalic, atraumatic, no tenderness. EYES: Pupils equal reactive to light and accommodation, no discharge. EARS/NOSE AND THROAT: Ears normal, nose normal, oropharynx normal NECK: Supple, no masses CHEST: Inspection within normal limits. CARDIOVASCULAR: Heart: Regular rate and rhythm RESPIRATORY: Lungs clear to auscultation GASTROINTESTINAL AND LIVER: Abdomen: Soft, epigastric/chest pain, non-distended, no hernias, no masses, no organomegaly, no ascites, no guarding, no rebound tenderness, normoactive bowel sounds. Rectal: Deferred. Results Result Diagram: 02/14/19 04402/14/19 0440 Results 24hrs Laboratory Tests Test 02/13/19 22:21 02/14/19 04:40 White Blood Count 10.7 7.6 # Red Blood Count 3.77 L 3.35 L Hemoglobin 7.7 L 6.8 *L Hematocrit 26.1 L 23.2 L Mean Corpuscular Volume 69.2 L 69.3 L Mean Corpuscular Hemoglobin 20.4 L 20.3 L Mean Corpuscular Hemoglobin Concent 29.5 L 29.3 L Red Cell Distribution Width 21.6 H 21.5 H Platelet Count 653 #H 568 H Mean Platelet Volume 9.2 9.5 Immature Granulocytes % 0.600 H 0.400 Neutrophils % 68.3 64.3 Lymphocytes % 22.5 26.3 Monocytes % 5.9 6.5 Eosinophils % 2.2 2.2 Basophils % 0.5 0.3 Nucleated Red Blood Cells % 0.0 0.0 Immature Granulocytes # 0.060 H 0.030 Neutrophils # 7.3 4.9 Lymphocytes # 2.4 2.0 Monocytes # 0.6 0.5 Eosinophils # 0.2 0.2 Basophils # 0.1 0.0 Nucleated Red Blood Cells # 0.0 0.0 Sodium Level 142 141 Potassium Level 3.9 3.7 Chloride Level 108 111 H Carbon Dioxide Level 22 24 Anion Gap 12 6 Blood Urea Nitrogen 16 15 Creatinine 1.19 0.98 Est Glomerular Filtrat Rate mL/min Glucose Level 106 95 Calcium Level 9.1 8.1 L Total Bilirubin 0.0 L 0.0 L Direct Bilirubin 0.00 0.00 Indirect Bilirubin 0.0 0.0 Aspartate Amino Transf (AST/SGOT) 31 43 Alanine Aminotransferase (ALT/SGPT) 12 L 20 Alkaline Phosphatase 142 H 105 Troponin I < 0.012 Total Protein 8.2 H 6.8 # Albumin 3.6 3.1 L Globulin 4.60 H 3.70 H Albumin/Globulin Ratio 0.78 0.83 Lipase 170 Iron Level 18 L Total Iron Binding Capacity 280 Percent Iron Saturation 6 L Ferritin 31.8 Medications Medication Current Medications Pantoprazole 80 mg/Sodium Chloride 100 ml @ 10 mls/hr Q10H IV Last administered on 02/14/19at 10:07; Admin Dose 10 MLS/HR; Start 02/14/19 at 06:00 Ondansetron HCl (Zofran Inj) 4 mg Q6H PRN IV NAUSEA AND/OR VOMITING; Start 02/14/19 at 05:30 Morphine Sulfate (morphine) 2 mg Q4H PRN IV SEVERE PAIN LEVEL 7-10 Last administered on 02/14/19at 12:44; Admin Dose 2 MG; Start 02/14/19 at 08:30 RICKY TY Feb 14, 2019 15:14
--- NOTE | 2019-02-14 15:17 | PN ---
Date/Time of Note Date/Time of Note DATE: 02/14/19 TIME: 15:11 Assessment/Plan VTE Prophylaxis Risk score (from [facility] [place])>0 risk: 3 SCD applied (from [facility] [place]): Yes Pharmacological prophylaxis: other Pharm contraindication: bleeding Lines/Catheters IV [facility] ([facility] Peripheral IV Assessment/Plan Assessment/Plan 1. Epigastric pain with upper GI Bleed, gastritis versus PUD, on protonix, follow up with GI 2. Anemia due to GI bleeding, acute, follow up with H/H, transfuse as needed 3. HTN, 4. History of prostate cancer, status post prostatectomy Result Diagram: 02/14/190 02/14/19439 Results 24hrs Laboratory Tests Test 02/13/19 22:21 02/14/19 04:40 White Blood Count 10.7 7.6 # Red Blood Count 3.77 L 3.35 L Hemoglobin 7.7 L 6.8 *L Hematocrit 26.1 L 23.2 L Mean Corpuscular Volume 69.2 L 69.3 L Mean Corpuscular Hemoglobin 20.4 L 20.3 L Mean Corpuscular Hemoglobin Concent 29.5 L 29.3 L Red Cell Distribution Width 21.6 H 21.5 H Platelet Count 653 #H 568 H Mean Platelet Volume 9.2 9.5 Immature Granulocytes % 0.600 H 0.400 Neutrophils % 68.3 64.3 Lymphocytes % 22.5 26.3 Monocytes % 5.9 6.5 Eosinophils % 2.2 2.2 Basophils % 0.5 0.3 Nucleated Red Blood Cells % 0.0 0.0 Immature Granulocytes # 0.060 H 0.030 Neutrophils # 7.3 4.9 Lymphocytes # 2.4 2.0 Monocytes # 0.6 0.5 Eosinophils # 0.2 0.2 Basophils # 0.1 0.0 Nucleated Red Blood Cells # 0.0 0.0 Sodium Level 142 141 Potassium Level 3.9 3.7 Chloride Level 108 111 H Carbon Dioxide Level 22 24 Anion Gap 12 6 Blood Urea Nitrogen 16 15 Creatinine 1.19 0.98 Est Glomerular Filtrat Rate mL/min Glucose Level 106 95 Calcium Level 9.1 8.1 L Total Bilirubin 0.0 L 0.0 L Direct Bilirubin 0.00 0.00 Indirect Bilirubin 0.0 0.0 Aspartate Amino Transf (AST/SGOT) 31 43 Alanine Aminotransferase (ALT/SGPT) 12 L 20 Alkaline Phosphatase 142 H 105 Troponin I < 0.012 Total Protein 8.2 H 6.8 # Albumin 3.6 3.1 L Globulin 4.60 H 3.70 H Albumin/Globulin Ratio 0.78 0.83 Lipase 170 Iron Level 18 L Total Iron Binding Capacity 280 Percent Iron Saturation 6 L Ferritin 31.8 Subjective 24 Hr Interval Summary Free Text/Dictation epigastric pain involving central chest, radiates to the back, along with nausea Exam/Review of Systems Exam Vitals Vital Signs Date Temp Pulse Resp B/P (MAP) Pulse Ox O2 O2 Flow FiO2 Time Delivery Rate 02/14/19 98.0 80 18 164/76 98 Nasal 3.0 14:51 (105) Cannula Intake and Output 02/13/19 02/13/19 02/14/19 1515:00 23:00 07:00 OutputOutput Total 150 ml BalanceBalance -150 ml Constitutional: alert, oriented, well developed Head: normocephalic, atraumatic Eyes: nl conjunctiva, EOMI, nl lids ENMT: nl external ears & nose, nl lips & teeth, nl nasal mucosa & septum Neck: supple, non-tender Respiratory: clear to auscultation, normal air movement; No congested cough, No crackles/rales, No diminished breath sounds, No intercostal retraction, No labored breathing, No respirations, No tactile fremitus, No wheezing, No other Cardiovascular: regular rate and rhythm, nl pulses; No bruits, No diastolic murmur, No edema, No gallop, No irregular rhythm, No jugular venous distention (JVD), No murmurs/extra sounds, No rub, No systolic murmur, No S3, No S4, No other Gastrointestinal: soft, nl liver, spleen, other (epigastric tenderness) Musculoskeletal: nl extremities to inspection Extremities: normal pulses; No calf tenderness, No cyanosis, No clubbing, No edema, No pitting pedal edema, No palpable cord, No tenderness, No other Neurological: [employer] II-XII intact, nl mental status, nl speech, nl strength Results Results 24hrs Laboratory Tests Test 02/13/19 22:21 02/14/19 04:40 White Blood Count 10.7 7.6 # Red Blood Count 3.77 L 3.35 L Hemoglobin 7.7 L 6.8 *L Hematocrit 26.1 L 23.2 L Mean Corpuscular Volume 69.2 L 69.3 L Mean Corpuscular Hemoglobin 20.4 L 20.3 L Mean Corpuscular Hemoglobin Concent 29.5 L 29.3 L Red Cell Distribution Width 21.6 H 21.5 H Platelet Count 653 #H 568 H Mean Platelet Volume 9.2 9.5 Immature Granulocytes % 0.600 H 0.400 Neutrophils % 68.3 64.3 Lymphocytes % 22.5 26.3 Monocytes % 5.9 6.5 Eosinophils % 2.2 2.2 Basophils % 0.5 0.3 Nucleated Red Blood Cells % 0.0 0.0 Immature Granulocytes # 0.060 H 0.030 Neutrophils # 7.3 4.9 Lymphocytes # 2.4 2.0 Monocytes # 0.6 0.5 Eosinophils # 0.2 0.2 Basophils # 0.1 0.0 Nucleated Red Blood Cells # 0.0 0.0 Sodium Level 142 141 Potassium Level 3.9 3.7 Chloride Level 108 111 H Carbon Dioxide Level 22 24 Anion Gap 12 6 Blood Urea Nitrogen 16 15 Creatinine 1.19 0.98 Est Glomerular Filtrat Rate mL/min Glucose Level 106 95 Calcium Level 9.1 8.1 L Total Bilirubin 0.0 L 0.0 L Direct Bilirubin 0.00 0.00 Indirect Bilirubin 0.0 0.0 Aspartate Amino Transf (AST/SGOT) 31 43 Alanine Aminotransferase (ALT/SGPT) 12 L 20 Alkaline Phosphatase 142 H 105 Troponin I < 0.012 Total Protein 8.2 H 6.8 # Albumin 3.6 3.1 L Globulin 4.60 H 3.70 H Albumin/Globulin Ratio 0.78 0.83 Lipase 170 Iron Level 18 L Total Iron Binding Capacity 280 Percent Iron Saturation 6 L Ferritin 31.8 Medications Medication Current Medications Pantoprazole 80 mg/Sodium Chloride 100 ml @ 10 mls/hr Q10H IV Last administered on 02/14/19at 10:07; Admin Dose 10 MLS/HR; Start 02/14/19 at 06:00 Ondansetron HCl (Zofran Inj) 4 mg Q6H PRN IV NAUSEA AND/OR VOMITING; Start 02/14/19 at 05:30 Morphine Sulfate (morphine) 2 mg Q4H PRN IV SEVERE PAIN LEVEL 7-10 Last administered on 02/14/19at 12:44; Admin Dose 2 MG; Start 02/14/19 at 08:30 KARIME MARKS MD Feb 14, 2019 15:17
--- NOTE | 2019-02-14 15:49 | RADRPT ---
Vent Rate: 78 bpm RR Interval: 772 msec MN Interval: 191 msec QRS Duration: 80 msec QT Interval: 370 msec QTC Interval: 421 msec P-R-T [place]: -1 - 60 - 65 degrees Sinus rhythm...normal P axis, V-rate 50- 99 Anteroseptal infarct, age indeterminate...Q >35mS, T neg, V1-V2 Electronically Signed By: Nick Vilchis
[2019-02-14] MEDS: SUCRALFATE (100 MG/ML) 10ML CUP PO SCH ×2 (16:53→20:35)
[2019-02-14] MEDS: D5W-0.45 NACL + KCL 10 MEQ 1,000 ML IV SCH (17:43)
[2019-02-14] MEDS: ONDANSETRON 4 MG INJ IV PRN (17:58)
[2019-02-14 20:05] VITALS: BP 166/71; PULSE 84; RESP 16
[2019-02-14] MEDS ORDERED: PANTOPRAZOLE 40 MG INJ IV SCH (21:00)
[2019-02-15] VITALS (14 sets, daily range): BP systolic 140–173; BP diastolic 59–81; PULSE 71–85; RESP 16–26
[2019-02-15] MEDS: morphine 2 MG INJ IV PRN ×2 (02:31→05:57)
[2019-02-15] MEDS: PANTOPRAZOLE IV 80 MG in SOD CHLORIDE 0.9% 100 ML IV SCH ×3 (02:37→16:49)
[2019-02-15] MEDS: D5W-0.45 NACL + KCL 10 MEQ 1,000 ML IV SCH (07:36)
[2019-02-15] MEDS: SUCRALFATE (100 MG/ML) 10ML CUP PO SCH ×4 (08:20→20:15)
[2019-02-15] MEDS: HYDROmorphONE 1 MG/ML SYG IV PRN ×4 (08:56→20:17)
[2019-02-15] MEDS ORDERED: FUROSEMIDE 20 MG INJ IV ONE (09:00)
--- NOTE | 2019-02-15 09:05 | CONS ---
Assessment/Plan Assessment/Plan Hospital Course (Demo Recall) Chest pain: In setting of epigastric pain/tenderness, upper GI bleed/anemia, suspect this is related to GI pathology such as esophagitis. No objective evidence of ischemia as EKG is normal and trops are negative x 3 despite ongoing constant pain. Acute on ?chronic ?diastolic CHF: on lasix at home so presumably some history of CHF. Pt denies. Had IVF and transfusions and has very mild CHF on exam with normal JVP but some crackles. One dose of lasix should be enough to optimize him for this afternoon. Upper GI bleed Anemia: s/p 2 units HTN Prostate ca -stop IVF -lasix 20mg IV x 1 -should be optimized for EGD this afternoon. He is at intermediate risk for a low risk procedure and can proceed -restart home meds including lasix and antiHTN meds after EGD Consultation Date/Type/Reason Admit Date/Time Feb 14, 2019 at 01:56 Date of Consultation: Feb 15, 2019 Type of Consult Cardiology Reason for Consultation Chest pain, pre-procedural evaluation Requesting Provider: KARIME MARKS MD Date/Time of Note DATE: 02/15/19 TIME: 08:58 Hx of Present Illness 73 yo M with a h/o HTN, probable chronic diastolic CHF (on lasix), prostate ca, who presented with epigastric/chest pain with coffee ground emesis and anemia. He has since required 2 units PRBCs.An premises technician was used for Kiswahili. He complains of significant epigastric and chest pain. It is worse in the epigastric region. His chest feels like it is burning. No prior h/o CAD, NC. He denies "heart problems" but presumably has CHF as he is on lasix. No dyspnea, orthopnea at this time. per HPI Past Medical History per HPI Home Meds Active Scripts Ondansetron (Ondansetron Odt) 4 Mg Tab.rapdis, 4 MG PO Q6H PRN for NAUSEA AND/OR VOMITING, #10 TAB Prov:WILLIAM MELCHOR MD 02/21/18 Hydrocodone/Acetaminophen ([place] 10-325 Tablet) 1 Each Tablet, 1 TAB PO Q6H PRN for PAIN, #7 TAB Prov:WILLIAM MELCHOR MD 02/21/18 Omeprazole* (Omeprazole*) 40 Mg Capsule., 40 MG PO DAILY, #30 CAP Prov:DINESH CHACON DO 02/05/18 Reported Medications Multivitamin with Minerals (Multivitamins with Minerals) 1 Each Tablet, 1 EACH PO DAILY, TAB 02/13/19 Brimonidine/Timolol* (Combigan*) 5 Ml Drops, 1 DROP BOTH EYES BID, BOTTLE 02/13/19 Hydrochlorothiazide (Hydrochlorothiazide) 12.5 Mg Capsule, 12.5 MG PO DAILY for 30 Days, #30 02/13/19 Isosorbide Mononitrate* (Isosorbide Mononitrate*) 60 Mg Tab.er.24h, 60 MG PO DAILY for 30 Days, #30 02/13/19 Furosemide* (Furosemide*) 20 Mg Tablet, 20 MG PO BID for 30 Days, #60 02/13/19 Metoprolol Tartrate* (Lopressor*) 50 Mg Tab, 50 MG PO BID for 30 Days, #60 02/13/19 Benazepril Hcl* (Benazepril Hcl*) 40 Mg Tablet, 40 MG PO DAILY for 90 Days, #90 02/13/19 Tamsulosin Hcl* (Tamsulosin Hcl*) 0.4 Mg Cap.er.24h, 0.4 MG PO HS, CAP 02/03/17 Lorazepam* (Lorazepam*) 0.5 Mg Tablet, 0.5 MG PO HS PRN for ANXIETY, TAB 02/03/17 Gabapentin* (Gabapentin*) 100 Mg Capsule, 400 MG PO TID 06/12/13 Discontinued Reported Medications Benazepril Hcl* (Benazepril Hcl*) 20 Mg Tablet, 20 MG PO DAILY, #30 TAB 02/21/18 Sucralfate* (Carafate*) 1 Gm Tab, 1 GM PO AC MEALS AND BEDTIME, TAB 02/03/17 Esomeprazole Mag Trihydrate (Nexium) 40 Mg Capsule.dr, 40 MG PO AC BREAKFAST, #30 CAP 02/03/17 Discontinued Scripts Naproxen* (Naprosyn*) 500 Mg Tablet, 500 MG PO BID PRN for PAIN AND/OR INFLAMMATION, #30 TAB Prov:RYAN LAI MD 06/08/18 Acetaminophen* (Acetaminophen*) 500 MG Extra Strength Tablet, 500 MG PO Q4H PRN for PAIN AND OR ELEVATED TEMP, #30 TAB Prov:ATTILA BIGGS PA-C 03/05/18 Hydroxyzine Hcl* (Hydroxyzine Hcl*) 25 Mg Tablet, 25 MG PO Q8H PRN for ITCHING, #30 TAB Prov:ATTILA BIGGS PA-C 03/05/18 Prednisone* (Prednisone*) 20 Mg Tab, 60 MG PO DAILY for 5 Days, TAB Prov:WILLIAM MELCHOR MD 02/21/18 Hydrocodone/Acetaminophen ([place] 10-325 Tablet) 1 Each Tablet, 1 TAB PO Q6H PRN for PAIN, #20 TAB Prov:DINESH CHACON DO 02/05/18 Medications Current Medications Pantoprazole 80 mg/Sodium Chloride 100 ml @ 10 mls/hr Q10H IV Last admi nistered on 02/15/19at 02:37; Admin Dose 10 MLS/HR; Start 02/14/19 at 06:00 Ondansetron HCl (Zofran Inj) 4 mg Q6H PRN IV NAUSEA AND/OR VOMITING Last administered on 02/14/19at 17:58; Admin Dose 4 MG; Start 02/14/19 at 05:30 Sucralfate (Carafate Susp) 1 gm QID PO Last administered on 02/15/19at 08:20; Admin Dose 1 GM; Start 02/14/19 at 17:00 Potassium Chloride/Dextrose/ Sod Cl 1,000 ml @ 75 mls/hr [id number] IV Last administered on 02/15/19at 07:36; Admin Dose 75 MLS/HR; Start 02/14/19 at 17:30 Hydromorphone HCl (Dilaudid) 1 mg Q3H PRN IV SEVERE PAIN LEVEL 7-10; Start 02/15/19 at 08:30 Allergies: Coded Allergies: No Known Allergy (Unverified , 02/13/19) Past Surgical History Past Surgical Hx: other (See HPI) Social History Alcohol Use: none Smoking Status: Never smoker Drug Use: none Exam/Review of Systems Vital Signs Vitals Vital Signs Date Temp Pulse Resp B/P (MAP) Pulse Ox O2 O2 Flow FiO2 Time Delivery Rate 02/15/19 98.0 74 18 152/78 92 Room Air 08:10 (102) 02/14/19 3.0 14:51 Intake and Output 02/14/19 02/14/19 02/15/19 1515:00 23:00 07:00 IntakeIntake Total 70 ml 75 ml OutputOutput Total 450 ml 400 ml BalanceBalance -450 ml 70 ml -325 ml Exam Constitutional: alert, distress (mild) Head: normocephalic, atraumatic ENMT: No intubated Neck: supple; No jvd Respiratory: crackles/rales (to 1/3 lungs); No clear to auscultation Cardiovascular: regular rate and rhythm, systolic murmur (2/6 YOSELIN); No edema Gastrointestinal: soft; No non-tender (tender epigastric ), No distended Neurological: nl mental status, nl speech Labs Result Diagram: 02/15/1944602/15/19446 Results 24hrs Laboratory Tests Test 02/14/19 15:38 02/14/19 18:16 02/14/19 20:15 02/15/19 04:47 Troponin I < 0.012 < 0.012 Hemoglobin 9.8 #L 9.3 L Hematocrit 31.8 #L 29.9 L White Blood Count 8.0 Red Blood Count 4.21 #L Mean Corpuscular 71.0 L Volume Mean Corpuscular 22.1 L Hemoglobin Mean Corpuscular 31.1 L Hemoglobin Concen t Red Cell 23.8 H Distribution Width Platelet Count 520 H Mean Platelet 8.8 Volume Immature 0.600 H Granulocytes % Neutrophils % 69.0 Lymphocytes % 21.3 Monocytes % 7.3 Eosinophils % 1.4 Basophils % 0.4 Nucleated Red 0.0 Blood Cells % Immature 0.050 H Granulocytes # Neutrophils # 5.5 Lymphocytes # 1.7 Monocytes # 0.6 Eosinophils # 0.1 Basophils # 0.0 Nucleated Red 0.0 Blood Cells # Sodium Level 140 Potassium Level 4.0 Chloride Level 109 Carbon Dioxide 23 Level Anion Gap 8 Blood Urea 15 Nitrogen Creatinine 0.82 Est Glomerular Filtrat Rate mL/min Glucose Level 106 Calcium Level 8.2 L Test 02/15/19 06:47 Lab Scanned BLOOD TRANSFUSIO Report N Medications Medications Current Medications Pantoprazole 80 mg/Sodium Chloride 100 ml @ 10 mls/hr Q10H IV Last administered on 02/15/19at 02:37; Admin Dose 10 MLS/HR; Start 02/14/19 at 06:00 Ondansetron HCl (Zofran Inj) 4 mg Q6H PRN IV NAUSEA AND/OR VOMITING Last administered on 02/14/19at 17:58; Admin Dose 4 MG; Start 02/14/19 at 05:30 Sucralfate (Carafate Susp) 1 gm QID PO Last administered on 02/15/19at 08:20; Admin Dose 1 GM; Start 02/14/19 at 17:00 Potassium Chloride/Dextrose/ Sod Cl 1,000 ml @ 75 mls/hr [id number] IV Last administered on 02/15/19at 07:36; Admin Dose 75 MLS/HR; Start 02/14/19 at 17:30 Hydromorphone HCl (Dilaudid) 1 mg Q3H PRN IV SEVERE PAIN LEVEL 7-10; Start 02/15/19 at 08:30 JOSUE BARRY Feb 15, 2019 09:05
[2019-02-15] MEDS: ONDANSETRON 4 MG INJ IV PRN (11:01)
--- NOTE | 2019-02-15 12:34 | RADRPT ---
Echocardiogram Report Patient Name: OLI PRITCHARDPatient ID: [id number] : 1945 (73y 2m)Study Date: 02/15/2019 10:09:31 AM Gender: MAccession #: [id number] Tech: Pat Booker RDCS Location: [facility] Ref.Physician: JOSUE BETH Height(Cm): BSA: Weight(Kg): Quality: AdequateAccount #: Procedures: Echocardiographic Report: Transthoracic echocardiogram with complete 2D, M-Mode, and doppler examination. Indications: Congestive Heart Failure. Measurements: 2D/M Mode Doppler Measurement Value Normal Range Measurement Value Normal Range LVIDd 2D 4.2 [ 4.2 - 5.8 ] cm AV Peak Cornelio 1.7 [ 100.0 - 170.0 ] cm/sec LVIDs 2D 2.4 [ 2.5 - 4.0 ] cm AV Peak PG 11.0 [ 2.0 - 9.0 ] mmHg LVPWd 2D 1.2 [ 0.6 - 1.0 ] cm LVOT Peak Cornelio 1.0 [ 70.0 - 110.0 ] cm/sec IVSd 2D 1.1 [ 0.6 - 1.0 ] cm LVOT Peak PG 4.0 [ 2.0 - 6.0 ] mmHg AoR Diam 2D 3.0 [ 2.6 - 3.4 ] cm MV E Peak Cornelio 0.6 [ 60.0 - 130.0 ] cm/sec EDV 2D 77.3 [ 62.0 - 150.0 ] ml MV A Peak Cornelio 0.7 [ 100.0 - 120.0 ] cm/sec ESV 2D 19.3 [ 21.0 - 61.0 ] ml MV E/A 0.9 [ 0.8 - 1.5 ] ratio EF 2D 75.0 [ 52.0 - 72.0 ] percent MV Decel Time 264 [ 104 - 258 ] msec LA Dimen 2D 3.1 [ 3.0 - 4.0 ] cm Lat E` Cornelio 0.1 [ 10.0 - 15.0 ] cm/sec Lateral E/E` 9.1 [ 1.0 - 2.0 ] ratio MV E/A 0.9 [ 0.8 - 1.5 ] ratio TR Peak Cornelio 2.8 [ 100.0 - 280.0 ] cm/sec TR Peak PG 32.0 mmHg RVSP 35.0 [ 10.0 - 36.0 ] mmHg RA Pressure 3.0 mmHg Findings: Left Ventricle: Normal left ventricular systolic function. Normal left ventricular cavity size. Mild concentric left ventricular hypertrophy. Ejection fraction is visually estimated at 60 %. Tissue Doppler/Mitral Doppler indices are consistent with impaired relaxation (Stage I diastolic dysfunction). Right Ventricle: Normal right ventricular size. Normal right ventricular systolic function. Left Atrium: There is mild enlargement of left atrium. Right Atrium: The right atrium is normal in size. Mitral Valve: Normal appearance and function of the mitral valve with trace physiologic regurgitation. Aortic Valve: Normal appearance of the aortic valve. No significant aortic stenosis or insufficiency. Tricuspid Valve: Normal appearance of the tricuspid valve. Estimated peak PA systolic pressure 35 mmHg. There is trace tricuspid regurgitation. Pulmonic Valve: Pulmonic valve not well visualized. Pericardium: Normal pericardium with no significant pericardial effusion. Aorta: Normal aortic root. IVC: Normal size and normal respiratory collapse consistent with normal right atrial pressure. Conclusions: Normal left ventricular systolic function. Normal left ventricular cavity size. Mild concentric left ventricular hypertrophy. Ejection fraction is visually estimated at 60 %. Tissue Doppler/Mitral Doppler indices are consistent with impaired relaxation (Stage I diastolic dysfunction). No significant valvular stenosis or regurgitation seen. Estimated peak PA systolic pressure 35 mmHg. Normal size and normal respiratory collapse consistent with normal right atrial pressure. Electronically Signed By: Josue Beth 2019-02-15 12:33:16 PDT
--- NOTE | 2019-02-15 13:50 | PREAC ---
Date/Time of Note Date/Time of Note DATE: 02/15/19 TIME: 13:48 Anesthesia Eval and Record Evaluation Time Pre-Procedure Interview DATE: 02/15/19 TIME: 13:48 Age 73 Sex male NPO: 8 hrs Preoperative diagnosis UGI bleeding Planned procedure EGD Past Medical History Past Medical History: Includes Cardio: HTN Renal: Other (prostate cancer) Surgery & Anesthesia Issues No known issue Meds Anticoagulation: No Beta Maik within 24 hr: No Reason Beta Maik not given: Pt. not on B-Maik Active Scripts Ondansetron (Ondansetron Odt) 4 Mg Tab.rapdis, 4 MG PO Q6H PRN for NAUSEA AND/OR VOMITING, #10 TAB Prov:WILLIAM MELCHOR MD 02/21/18 Hydrocodone/Acetaminophen ([place] 10-325 Tablet) 1 Each Tablet, 1 TAB PO Q6H PRN for PAIN, #7 TAB Prov:WILLIAM MELCHOR MD 02/21/18 Omeprazole* (Omeprazole*) 40 Mg Capsule.dr, 40 MG PO DAILY, #30 CAP Prov:DINESH CHACON DO 02/05/18 Reported Medications Multivitamin with Minerals (Multivitamins with Minerals) 1 Each Tablet, 1 EACH PO DAILY, TAB 02/13/19 Brimonidine/Timolol* (Combigan*) 5 Ml Drops, 1 DROP BOTH EYES BID, BOTTLE 02/13/19 Hydrochlorothiazide (Hydrochlorothiazide) 12.5 Mg Capsule, 12.5 MG PO DAILY for 30 Days, #30 02/13/19 Isosorbide Mononitrate* (Isosorbide Mononitrate*) 60 Mg Tab.er.24h, 60 MG PO DAILY for 30 Days, #30 02/13/19 Furosemide* (Furosemide*) 20 Mg Tablet, 20 MG PO BID for 30 Days, #60 02/13/19 Metoprolol Tartrate* (Lopressor*) 50 Mg Tab, 50 MG PO BID for 30 Days, #60 02/13/19 Benazepril Hcl* (Benazepril Hcl*) 40 Mg Tablet, 40 MG PO DAILY for 90 Days, #90 02/13/19 Tamsulosin Hcl* (Tamsulosin Hcl*) 0.4 Mg Cap.er.24h, 0.4 MG PO HS, CAP 02/03/17 Lorazepam* (Lorazepam*) 0.5 Mg Tablet, 0.5 MG PO HS PRN for ANXIETY, TAB 02/03/17 Gabapentin* (Gabapentin*) 100 Mg Capsule, 400 MG PO TID 06/12/13 Discontinued Reported Medications Benazepril Hcl* (Benazepril Hcl*) 20 Mg Tablet, 20 MG PO DAILY, #30 TAB 02/21/18 Sucralfate* (Carafate*) 1 Gm Tab, 1 GM PO AC MEALS AND BEDTIME, TAB 02/03/17 Esomeprazole Mag Trihydrate (Nexium) 40 Mg Capsule.dr, 40 MG PO AC BREAKFAST, #30 CAP 02/03/17 Discontinued Scripts Naproxen* (Naprosyn*) 500 Mg Tablet, 500 MG PO BID PRN for PAIN AND/OR INFLAMMATION, #30 TAB Prov:RYAN LAI MD 06/08/18 Acetaminophen* (Acetaminophen*) 500 MG Extra Strength Tablet, 500 MG PO Q4H PRN for PAIN AND OR ELEVATED TEMP, #30 TAB Prov:ATTILA BIGGS PA-C 03/05/18 Hydroxyzine Hcl* (Hydroxyzine Hcl*) 25 Mg Tablet, 25 MG PO Q8H PRN for ITCHING, #30 TAB Prov:ATTILA BIGGS PA-C 03/05/18 Prednisone* (Prednisone*) 20 Mg Tab, 60 MG PO DAILY for 5 Days, TAB Prov:WILLIAM MELCHOR MD 02/21/18 Hydrocodone/Acetaminophen ([place] 10-325 Tablet) 1 Each Tablet, 1 TAB PO Q6H PRN for PAIN, #20 TAB Prov:DINESH CHACON DO 02/05/18 Current Medications Pantoprazole 80 mg/Sodium Chloride 100 ml @ 10 mls/hr Q10H IV Last administered on 02/15/19at 12:02; Admin Dose 10 MLS/HR; Start 02/14/19 at 06:00 Ondansetron HCl (Zofran Inj) 4 mg Q6H PRN IV NAUSEA AND/OR VOMITING Last administered on 02/15/19at 11:01; Admin Dose 4 MG; Start 02/14/19 at 05:30 Sucralfate (Carafate Susp) 1 gm QID PO Last administered on 02/15/19at 12:01; Admin Dose 1 GM; Start 02/14/19 at 17:00 Hydromorphone HCl (Dilaudid) 1 mg Q3H PRN IV SEVERE PAIN LEVEL 7-10 Last administered on 02/15/19at 12:02; Admin Dose 1 MG; Start 02/15/19 at 08:30 Meds reviewed: Yes Allergies Coded Allergies: No Known Allergy (Unverified , 02/13/19) Allergies Reviewed: Yes Labs/Studies Labs Reviewed: Reviewed by anesthesiologist Result Diagram: 02/15/19 0447 02/15/19 0447 Laboratory Tests 02/15/19 04:47 test: N/A Studies: ECG (sr), CXR (b/l marking) Pre-procedure Exam Last vitals Vital Signs Date Temp Pulse Resp B/P (MAP) Pulse Ox O2 O2 Flow FiO2 Time Delivery Rate 02/15/19 98.0 74 18 152/78 92 Room Air 08:10 (102) 02/14/19 3.0 14:51 Airway: Adequate mouth opening Mallampati: Mallampati I Teeth: Normal Lung: Normal Heart: Normal ASA Physical Status ASA physical status: 2 Emergency: None Planned Anesthetic General/MAC: MAC Planned Pain Management Parenteral pain med Pre-operative Attestations Prior to commencing anesthesia and surgery, the patient was re-evaluated, there was verification of: *The patient's identity *The results of appropriate recent lab work and preoperative vital signs *The above evaluation not changing prior to induction *Anesthetic plan, risk benefits, alternative and complications discussed with patient/family; questions answered; patient/family understands, accepts and wis hes to proceed. OLAYINKA AGUILAR MD Feb 15, 2019 13:50
[2019-02-15] MEDS ORDERED: PROPOFOL 20 ML ONE (14:48)
--- NOTE | 2019-02-15 15:07 | HPN ---
Date/Time of Note Date/Time of Note DATE: 02/15/19 TIME: 15:07 Interval H&P Admission Note Pt. seen H&P reviewed: No system changes JUDY ROSAS Feb 15, 2019 15:07
[2019-02-15] MEDS ORDERED: HYDROmorphONE 1 MG/5 ML IV SYRINGE IV ONE (15:21)
[2019-02-15] MEDS ORDERED: FENTAnyl 50 MCG/ML VIAL IV PRN ×3 (15:30)
[2019-02-15] MEDS ORDERED: HYDROmorphONE 1 MG/5 ML IV SYRINGE IV PRN ×3 (15:30)
[2019-02-15] MEDS ORDERED: HYDROCODONE/APAP (10/325) TAB PO PRN (16:00)
[2019-02-15] MEDS ORDERED: LORAZEPAM 0.5 MG TAB PO PRN (16:00)
--- NOTE | 2019-02-15 16:03 | PN ---
Date/Time of Note Date/Time of Note DATE: 02/15/19 TIME: 16:01 Assessment/Plan VTE Prophylaxis Risk score (from [facility])>0 risk: 3 SCD applied (from [facility]): Yes Pharmacological prophylaxis: other Pharm contraindication: bleeding Lines/Catheters IV Catheter Type (from [facility]): Peripheral IV Assessment/Plan Assessment/Plan 1. Peptic ulcer disease, on protonix and carafate, start liquid diet 2. Anemia due to GI bleeding, acute, follow up with H/H, transfuse as needed 3. HTN, resume metoprolol and benazepril 4. History of prostate cancer, status post prostatectomy, on flomax 5. Glaucoma, on eye drops Result Diagram: 02/15/1944602/15/19446 Results 24hrs Laboratory Tests Test 02/14/19 18:16 02/14/19 20:15 02/15/19 04:47 02/15/19 06:47 Hemoglobin 9.8 #L 9.3 L Hematocrit 31.8 #L 29.9 L Troponin I < 0.012 White Blood Count 8.0 Red Blood Count 4.21 #L Mean Corpuscular 71.0 L Volume Mean Corpuscular 22.1 L Hemoglobin Mean Corpuscular 31.1 L Hemoglobin Concen t Red Cell 23.8 H Distribution Width Platelet Count 520 H Mean Platelet 8.8 Volume Immature 0.600 H Granulocytes % Neutrophils % 69.0 Lymphocytes % 21.3 Monocytes % 7.3 Eosinophils % 1.4 Basophils % 0.4 Nucleated Red 0.0 Blood Cells % Immature 0.050 H Granulocytes # Neutrophils # 5.5 Lymphocytes # 1.7 Monocytes # 0.6 Eosinophils # 0.1 Basophils # 0.0 Nucleated Red 0.0 Blood Cells # Sodium Level 140 Potassium Level 4.0 Chloride Level 109 Carbon Dioxide 23 Level Anion Gap 8 Blood Urea 15 Nitrogen Creatinine 0.82 Est Glomerular Filtrat Rate mL/min Glucose Level 106 Calcium Level 8.2 L Lab Scanned BLOOD TRANSFUSIO Report N Subjective 24 Hr Interval Summary Free Text/Dictation epigastric pain Exam/Review of Systems Exam Vitals Vital Signs Date Temp Pulse Resp B/P (MAP) Pulse Ox O2 O2 Flow FiO2 Time Delivery Rate 02/15/19 82 20 158/70 95 Room Air 15:38 (99) 02/15/19 98.3 15:15 02/14/19 3.0 14:51 Intake and Output 02/14/19 02/14/19 02/15/19 1515:00 23:00 07:00 IntakeIntake Total 70 ml 75 ml OutputOutput Total 450 ml 400 ml BalanceBalance -450 ml 70 ml -325 ml Constitutional: alert, oriented, well developed Psych: no complaints, nl mood/affect Head: normocephalic, atraumatic Eyes: nl conjunctiva, EOMI, nl lids ENMT: nl external ears & nose, nl lips & teeth, nl nasal mucosa & septum Neck: supple, non-tender Respiratory: clear to auscultation, normal air movement; No congested cough, No crackles/rales, No diminished breath sounds, No intercostal retraction, No labored breathing, No respirations, No tactile fremitus, No wheezing, No other Cardiovascular: regular rate and rhythm, nl pulses; No bruits, No diastolic murmur, No edema, No gallop, No irregular rhythm, No jugular venous distention (JVD), No murmurs/extra sounds, No rub, No systolic murmur, No S3, No S4, No other Gastrointestinal: soft, nl liver, spleen, tender (epigastric tenderness) Musculoskeletal: nl extremities to inspection Extremities: normal pulses; No calf tenderness, No cyanosis, No clubbing, No edema, No pitting pedal edema, No palpable cord, No tenderness, No other Neurological: REVERSER II-XII intact, nl mental status, nl speech, nl strength Results Results 24hrs Laboratory Tests Test 02/14/19 18:16 02/14/19 20:15 02/15/19 04:47 02/15/19 06:47 Hemoglobin 9.8 #L 9.3 L Hematocrit 31.8 #L 29.9 L Troponin I < 0.012 White Blood Count 8.0 Red Blood Count 4.21 #L Mean Corpuscular 71.0 L Volume Mean Corpuscular 22.1 L Hemoglobin Mean Corpuscular 31.1 L Hemoglobin Concen t Red Cell 23.8 H Distribution Width Platelet Count 520 H Mean Platelet 8.8 Volume Immature 0.600 H Granulocytes % Neutrophils % 69.0 Lymphocytes % 21.3 Monocytes % 7.3 Eosinophils % 1.4 Basophils % 0.4 Nucleated Red 0.0 Blood Cells % Immature 0.050 H Granulocytes # Neutrophils # 5.5 Lymphocytes # 1.7 Monocytes # 0.6 Eosinophils # 0.1 Basophils # 0.0 Nucleated Red 0.0 Blood Cells # Sodium Level 140 Potassium Level 4.0 Chloride Level 109 Carbon Dioxide 23 Level Anion Gap 8 Blood Urea 15 Nitrogen Creatinine 0.82 Est Glomerular Filtrat Rate mL/min Glucose Level 106 Calcium Level 8.2 L Lab Scanned BLOOD TRANSFUSIO Report N Medications Medication Current Medications Pantoprazole 80 mg/Sodium Chloride 100 ml @ 10 mls/hr Q10H IV Last administered on 02/15/19at 12:02; Admin Dose 10 MLS/HR; Start 02/14/19 at 06:00 Ondansetron HCl (Zofran Inj) 4 mg Q6H PRN IV NAUSEA AND/OR VOMITING Last administered on 02/15/19at 11:01; Admin Dose 4 MG; Start 02/14/19 at 05:30 Sucralfate (Carafate Susp) 1 gm QID PO Last administered on 02/15/19at 12:01; Admin Dose 1 GM; Start 02/14/19 at 17:00 Hydromorphone HCl (Dilaudid) 1 mg Q3H PRN IV SEVERE PAIN LEVEL 7-10 Last administered on 02/15/19at 12:02; Admin Dose 1 MG; Start 02/15/19 at 08:30 Hydromorphone HCl (Dilaudid) 0.2 mg PACU PRN IV MILD PAIN 1-3; Start 02/15/19 at 15:30; Stop 02/15/19 at 19:30 Hydromorphone HCl (Dilaudid) 0.4 mg PACU PRN IV MOD PAIN 4-6 Last administered on 02/15/19at 15:26; Admin Dose 0.4 MG; Start 02/15/19 at 15:30; Stop 02/15/19 at 19:30 Hydromorphone HCl (Dilaudid) 0.6 mg PACU PRN IV SEVERE PAIN 7-10; Start 02/15/19 at 15:30; Stop 02/15/19 at 19:30 Fentanyl (Sublimaze) 25 mcg PACU ORDER PRN IV MILD PAIN 1-3; Start 02/15/19 at 15:30; Stop 02/15/19 at 19:30 Fentanyl (Sublimaze) 50 mcg PACU ORDER PRN IV MOD PAIN 4-6; Start 02/15/19 at 15:30; Stop 02/15/19 at 19:30 Fentanyl (Sublimaze) 75 mcg PACU ORDER PRN IV SEVERE PAIN 7-10; Start 02/15/19 at 15:30; Stop 02/15/19 at 19:30 KARIME MARKS MD Feb 15, 2019 16:03
[2019-02-15] MEDS: BENAZEPRIL 40 MG TAB PO SCH (16:15)
[2019-02-15] MEDS: GABAPENTIN 400 MG CAP PO SCH (20:14)
[2019-02-15] MEDS: TAMSULOSIN (SR) 0.4 MG CAP PO SCH (20:14)
[2019-02-15] MEDS: METOPROLOL 50 MG TAB PO SCH (20:15)
[2019-02-15] MEDS: BRIMONIDINE 0.2%-TIMOLOL 0.5% 5ML OPH BOTH EYES SCH (20:16)
[2019-02-15] MEDS ORDERED: FUROSEMIDE 20 MG TAB PO SCH (21:00)
[2019-02-15] MEDS ORDERED: HYDROmorphONE 1 MG/ML SYG IV ONE (22:30)
[2019-02-16] MEDS: HYDROmorphONE 1 MG/ML SYG IV PRN ×7 (00:21→23:54)
[2019-02-16 02:19] VITALS: BP 145/70; PULSE 80; RESP 18
[2019-02-16] MEDS: PANTOPRAZOLE IV 80 MG in SOD CHLORIDE 0.9% 100 ML IV SCH (02:29)
[2019-02-16 07:17] VITALS: BP 146/70; PULSE 77; RESP 15
[2019-02-16] MEDS: SUCRALFATE (100 MG/ML) 10ML CUP PO SCH ×4 (08:32→20:47)
[2019-02-16] MEDS: BENAZEPRIL 40 MG TAB PO SCH (08:33)
[2019-02-16] MEDS: METOPROLOL 50 MG TAB PO SCH ×2 (08:33→20:48)
[2019-02-16] MEDS: ISOSORBIDE MONONITRATE(SR)60 MG TAB PO SCH (08:34)
[2019-02-16] MEDS: GABAPENTIN 400 MG CAP PO SCH ×3 (08:34→20:47)
--- NOTE | 2019-02-16 09:44 | PN ---
Date/Time of Note Date/Time of Note DATE: 02/16/19 TIME: 09:39 Assessment/Plan VTE Prophylaxis Risk score (from Nsg)>0 risk: 2 SCD applied (from Nsg): Yes Pharmacological prophylaxis: other (scds) Lines/Catheters IV Catheter Type (from Nrsg): Peripheral IV Assessment/Plan Hospital Course Summary Assessment and Plan: Assessment: Epigastric/Chest pain EGD 02/15/19 2 gastric ulcers shallow, less than 1 cm, clean base. No current bleeding and no biopsies obtained Coffee-ground emesis/melena -R/o PUD vs hemorrhagic gastritis versus other Microcytic anemia Recent excessive NSAIDs use Cystic structure within the left lobe of the liver, decreased in size compared with 02/05/2018. History of prostate cancer status post prostatectomy History of penile implant History of small bowel obstruction with surgical repair Plan: PPI BID x4 weeks Carafate QID x4 weeks Increase to soft diet Repeat EGD 6 weeks to verify ulcer healing Will order Ct with liver protocol to further assess cystic structure within the left lobe of the liver Patient seen in collaboration with Dr. Yuan Subjective: Course reviewed with nursing staff Patient interviewed and examined All labs, imaging and other results reviewed The patient restingin bed c/o pain with urination, and some epigastric/cp- taking [place] with good relief. Discussed need to avoid NSAIDs- take ppi bid and carafate x4 weeks- pt verbalized understanding PHYSICAL EXAMINATION: GENERAL: Alert & oriented x 3, O2 in place SKIN: No lesions HEAD: Normocephalic, atraumatic, no tenderness. EYES: Pupils equal reactive to light and accommodation, no discharge. EARS/NOSE AND THROAT: Ears normal, nose normal, oropharynx normal NECK: Supple, no masses CHEST: Inspection within normal limits. CARDIOVASCULAR: Heart: Regular rate and rhythm RESPIRATORY: Lungs clear to auscultation GASTROINTESTINAL AND LIVER: Abdomen: Soft, epigastric/chest pain, non-distended, no hernias, no masses, no organomegaly, no ascites, no guarding, no rebound tenderness, normoactive bowel sounds. Rectal: Deferred. Result Diagram: 02/16/19 0439 02/16/19 0439 Results 24hrs Laboratory Tests Test 02/16/19 04:39 White Blood Count 9.9 # Red Blood Count 4.51 L Hemoglobin 10.0 L Hematocrit 32.8 L Mean Corpuscular Volume 72.7 L Mean Corpuscular Hemoglobin 22.2 L Mean Corpuscular Hemoglobin Concent 30.5 L Red Cell Distribution Width 23.8 H Platelet Count 551 H Mean Platelet Volume 9.2 Immature Granulocytes % 0.300 Neutrophils % 73.1 Lymphocytes % 17.6 Monocytes % 7.8 Eosinophils % 0.9 Basophils % 0.3 Nucleated Red Blood Cells % 0.0 Immature Granulocytes # 0.030 Neutrophils # 7.2 Lymphocytes # 1.7 Monocytes # 0.8 Eosinophils # 0.1 Basophils # 0.0 Nucleated Red Blood Cells # 0.0 Sodium Level 138 Potassium Level 3.9 Chloride Level 104 Carbon Dioxide Level 24 Anion Gap 10 Blood Urea Nitrogen 17 Creatinine 0.88 Est Glomerular Filtrat Rate mL/min Glucose Level 107 Calcium Level 8.9 Exam/Review of Systems Exam Vitals Vital Signs Date Temp Pulse Resp B/P (MAP) Pulse Ox O2 O2 Flow FiO2 Time Delivery Rate 02/16/19 98.1 77 15 146/70 100 Room Air 07:17 (95) 02/16/19 2.0 02:19 Intake and Output 02/15/19 02/15/19 02/16/19 1515:00 23:00 07:00 IntakeIntake Total 200 ml 890 ml 325 ml OutputOutput Total 800 ml 550 ml 450 ml BalanceBalance -600 ml 340 ml -125 ml Results Results 24hrs Laboratory Tests Test 02/16/19 04:39 White Blood Count 9.9 # Red Blood Count 4.51 L Hemoglobin 10.0 L Hematocrit 32.8 L Mean Corpuscular Volume 72.7 L Mean Corpuscular Hemoglobin 22.2 L Mean Corpuscular Hemoglobin Concent 30.5 L Red Cell Distribution Width 23.8 H Platelet Count 551 H Mean Platelet Volume 9.2 Immature Granulocytes % 0.300 Neutrophils % 73.1 Lymphocytes % 17.6 Monocytes % 7.8 Eosinophils % 0.9 Basophils % 0.3 Nucleated Red Blood Cells % 0.0 Immature Granulocytes # 0.030 Neutrophils # 7.2 Lymphocytes # 1.7 Monocytes # 0.8 Eosinophils # 0.1 Basophils # 0.0 Nucleated Red Blood Cells # 0.0 Sodium Level 138 Potassium Level 3.9 Chloride Level 104 Carbon Dioxide Level 24 Anion Gap 10 Blood Urea Nitrogen 17 Creatinine 0.88 Est Glomerular Filtrat Rate mL/min Glucose Level 107 Calcium Level 8.9 Medications Medication Current Medications Pantoprazole 80 mg/Sodium Chloride 100 ml @ 10 mls/hr Q10H IV Last administered on 02/16/19 02:29; Admin Dose 10 MLS/HR; Start 02/14/19 at 06:00 Ondansetron HCl (Zofran Inj) 4 mg Q6H PRN IV NAUSEA AND/OR VOMITING Last administered on 02/15/19 11:01; Admin Dose 4 MG; Start 02/14/19 at 05:30 Sucralfate (Carafate Susp) 1 gm QID PO Last administered on 02/16/19 08:32; Admin Dose 1 GM; Start 02/14/19 at 17:00 Hydromorphone HCl (Dilaudid) 1 mg Q3H PRN IV SEVERE PAIN LEVEL 7-10 Last administered on 02/16/19 06:18; Admin Dose 1 MG; Start 02/15/19 at 08:30 Benazepril HCl (Lotensin) 40 mg DAILY PO Last administered on 02/16/19 08:33; Admin Dose 40 MG; Start 02/15/19 at 16:00 Brimonidine/ Timolol (Combigan Oph) 1 drop BID BOTH EYES ; Start 02/15/19 at 21:00 Gabapentin (Neurontin) 400 mg TID PO Last administered on 02/16/19 08:34; Admin Dose 400 MG; Start 02/15/19 at 21:00 Acetaminophen/ Hydrocodone Bitart ([place] (10/325)) 1 tab Q6H PRN PO MILD TO MODERATE PAIN; Start 02/15/19 at 16:00 Isosorbide Mononitrate (Imdur) 60 mg DAILY PO Last administered on 02/16/19 08:34; Admin Dose 60 MG; Start 02/16/19 at 09:00 Lorazepam (Ativan) 0.5 mg HS PRN PO ANXIETY; Start 02/15/19 at 16:00 Metoprolol Tartrate (Lopressor) 50 mg BID PO Last administered on 02/16/19 08:33; Admin Dose 50 MG; Start 02/15/19 at 21:00 Tamsulosin HCl (Flomax) 0.4 mg HS PO Last administered on 02/15/19 20:14; Admin Dose 0.4 MG; Start 02/15/19 at 21:00 RICKY TY Feb 16, 2019 09:44
[2019-02-16] MEDS: BRIMONIDINE 0.2%-TIMOLOL 0.5% 5ML OPH BOTH EYES SCH ×2 (10:30→20:53)
--- NOTE | 2019-02-16 11:59 | CONS ---
Assessment/Plan Assessment/Plan Hospital Course (Demo Recall) Chest pain: Ruled out for cardiac etiology. Likely referred from gastric ulcers. No EGD report available so unclear if also esophageal pathology. Resolved Acute on chronic diastolic CHF: on lasix at home so presumably some history of CHF. Pt denies. Had IVF and transfusions and has very mild CHF on exam, now resolved after stopping fluids and one dose of IV lasix. Upper GI bleed secondary to PUD Anemia: s/p 2 units HTN Prostate ca -lasix 20mg PO daily (can go back to BID home dose on discharge) -metoprolol 50mg BID -benazepril 40mg -imdur 60mg Consultation Date/Type/Reason Admit Date/Time Feb 14, 2019 at 09:06 Initial Consult Date 02/15/19 Type of Consult Cardiology Requesting Provider: KARIME MARKS MD Date/Time of Note DATE: 02/16/19 TIME: 11:55 24 HR Interval Summary Free Text/Dictation EGD showed gastric ulcers. Still with epigastric pain but no chest pain. No SOB. Exam/Review of Systems Vital Signs Vitals Vital Signs Date Temp Pulse Resp B/P (MAP) Pulse Ox O2 O2 Flow FiO2 Time Delivery Rate 02/16/19 98.1 77 15 146/70 100 Room Air 07:17 (95) 02/16/19 2.0 02:19 Intake and Output 02/15/19 02/15/19 02/16/19 1515:00 23:00 07:00 IntakeIntake Total 200 ml 890 ml 325 ml OutputOutput Total 800 ml 550 ml 450 ml BalanceBalance -600 ml 340 ml -125 ml Exam Constitutional: alert, oriented Psych: no complaints, nl mood/affect Neck: supple; No jvd Respiratory: clear to auscultation; No crackles/rales Cardiovascular: regular rate and rhythm; No edema Gastrointestinal: soft; No non-tender (epigastric tenderness), No distended Neurological: nl mental status, nl speech Labs Result Diagram: 02/16/1943802/16/19438 Results 24hrs Laboratory Tests Test 02/16/19 04:39 White Blood Count 9.9 # Red Blood Count 4.51 L Hemoglobin 10.0 L Hematocrit 32.8 L Mean Corpuscular Volume 72.7 L Mean Corpuscular Hemoglobin 22.2 L Mean Corpuscular Hemoglobin Concent 30.5 L Red Cell Distribution Width 23.8 H Platelet Count 551 H Mean Platelet Volume 9.2 Immature Granulocytes % 0.300 Neutrophils % 73.1 Lymphocytes % 17.6 Monocytes % 7.8 Eosinophils % 0.9 Basophils % 0.3 Nucleated Red Blood Cells % 0.0 Immature Granulocytes # 0.030 Neutrophils # 7.2 Lymphocytes # 1.7 Monocytes # 0.8 Eosinophils # 0.1 Basophils # 0.0 Nucleated Red Blood Cells # 0.0 Sodium Level 138 Potassium Level 3.9 Chloride Level 104 Carbon Dioxide Level 24 Anion Gap 10 Blood Urea Nitrogen 17 Creatinine 0.88 Est Glomerular Filtrat Rate mL/min Glucose Level 107 Calcium Level 8.9 Medications Medications Current Medications Ondansetron HCl (Zofran Inj) 4 mg Q6H PRN IV NAUSEA AND/OR VOMITING Last administered on 02/15/19 11:01; Admin Dose 4 MG; Start 02/14/19 at 05:30 Sucralfate (Carafate Susp) 1 gm QID PO Last administered on 02/16/19 08:32; Admin Dose 1 GM; Start 02/14/19 at 17:00 Hydromorphone HCl (Dilaudid) 1 mg Q3H PRN IV SEVERE PAIN LEVEL 7-10 Last administered on 02/16/19 11:51; Admin Dose 1 MG; Start 02/15/19 at 08:30 Benazepril HCl (Lotensin) 40 mg DAILY PO Last administered on 02/16/19 08:33; Admin Dose 40 MG; Start 02/15/19 at 16:00 Brimonidine/ Timolol (Combigan Oph) 1 drop BID BOTH EYES Last administered on 02/16/19 10:30; Admin Dose 1 DROP; Start 02/15/19 at 21:00 Gabapentin (Neurontin) 400 mg TID PO Last administered on 02/16/19 08:34; Admin Dose 400 MG; Start 02/15/19 at 21:00 Acetaminophen/ Hydrocodone Bitart ([place] (10/325)) 1 tab Q6H PRN PO MILD TO MODERATE PAIN; Start 02/15/19 at 16:00 Isosorbide Mononitrate (Imdur) 60 mg DAILY PO Last administered on 02/16/19 08:34; Admin Dose 60 MG; Start 02/16/19 at 09:00 Lorazepam (Ativan) 0.5 mg HS PRN PO ANXIETY; Start 02/15/19 at 16:00 Metoprolol Tartrate (Lopressor) 50 mg BID PO Last administered on 02/16/19at 08:33; Admin Dose 50 MG; Start 02/15/19 at 21:00 Tamsulosin HCl (Flomax) 0.4 mg HS PO Last administered on 02/15/19at 20:14; Admin Dose 0.4 MG; Start 02/15/19 at 21:00 Pantoprazole (Protonix Tab) 40 mg BID@06,18 PO ; Start 02/16/19 at 18:00 JOSUE BARRY Feb 16, 2019 11:59
[2019-02-16] MEDS: FUROSEMIDE 20 MG TAB PO SCH (12:18)
--- NOTE | 2019-02-16 12:31 | PN ---
Date/Time of Note Date/Time of Note DATE: 02/16/19 TIME: 12:31 Objective Vitals Vital Signs Date Temp Pulse Resp B/P (MAP) Pulse Ox O2 O2 Flow FiO2 Time Delivery Rate 02/16/19 98.1 77 15 146/70 100 Room Air 07:17 (95) 02/16/19 2.0 02:19 Intake and Output 02/15/19 02/15/19 02/16/19 1515:00 23:00 07:00 IntakeIntake Total 200 ml 890 ml 325 ml OutputOutput Total 800 ml 550 ml 450 ml BalanceBalance -600 ml 340 ml -125 ml Results Result Diagram: 02/16/19 0439 02/16/19 0439 Medications Medications Current Medications Ondansetron HCl (Zofran Inj) 4 mg Q6H PRN IV NAUSEA AND/OR VOMITING Last administered on 02/15/19 11:01; Admin Dose 4 MG; Start 02/14/19 at 05:30 Sucralfate (Carafate Susp) 1 gm QID PO Last administered on 02/16/19 12:18; Admin Dose 1 GM; Start 02/14/19 at 17:00 Hydromorphone HCl (Dilaudid) 1 mg Q3H PRN IV SEVERE PAIN LEVEL 7-10 Last administered on 02/16/19 11:51; Admin Dose 1 MG; Start 02/15/19 at 08:30 Benazepril HCl (Lotensin) 40 mg DAILY PO Last administered on 02/16/19 08:33; Admin Dose 40 MG; Start 02/15/19 at 16:00 Brimonidine/ Timolol (Combigan Oph) 1 drop BID BOTH EYES Last administered on 02/16/19 10:30; Admin Dose 1 DROP; Start 02/15/19 at 21:00 Gabapentin (Neurontin) 400 mg TID PO Last administered on 02/16/19 12:18; Admin Dose 400 MG; Start 02/15/19 at 21:00 Acetaminophen/ Hydrocodone Bitart ([place] (10/325)) 1 tab Q6H PRN PO MILD TO MODERATE PAIN; Start 02/15/19 at 16:00 Isosorbide Mononitrate (Imdur) 60 mg DAILY PO Last administered on 02/16/19 08:34; Admin Dose 60 MG; Start 02/16/19 at 09:00 Lorazepam (Ativan) 0.5 mg HS PRN PO ANXIETY; Start 02/15/19 at 16:00 Metoprolol Tartrate (Lopressor) 50 mg BID PO Last administered on 02/16/19at 08:33; Admin Dose 50 MG; Start 02/15/19 at 21:00 Tamsulosin HCl (Flomax) 0.4 mg HS PO Last administered on 02/15/19at 20:14; Admin Dose 0.4 MG; Start 02/15/19 at 21:00 Pantoprazole (Protonix Tab) 40 mg BID@06,18 PO ; Start 02/16/19 at 18:00 Furosemide (Lasix) 20 mg DAILY@0600 PO Last administered on 02/16/19at 12:18; Admin Dose 20 MG; Start 02/16/19 at 12:00 VTE Prophylaxis Risk score (from [facility])>0 risk: 3 SCD applied (from [facility]): Yes Lines/Catheters IV Catheter Type: Jane in Place: No Assessment/Plan Hospital Course Subjective Patient still had pretty severe abdominal pain this morning however slightly well-controlled Objective Physical exam General: Patient is laying in bed and answers questions appropriately Mentation: Patient is alert and oriented 4, Head: Normocephalic atraumatic Eyes: EOMI, pupils reactive to light Neck: Supple, nontender, midline Respiratory: Clear to auscultation bilaterally Cardiovascular: regular rate, no obvious murmurs Gastrointestinal: tender to palpation, bowel sounds heard. Neurological: Moves all extremities spontaneously Skin: No new skin lesions Assessment and plan Epigastric abdominal pain -Secondary to gastric ulcers -Pain management as needed -PPI and Carafate Anemia -Secondary to GI bleed -Continue to monitor H&H -No acute bleeding seen on in the upper endoscopy Hypertension -Continue home meds History of prostate cancer, continue home meds Glaucoma -Continue home meds Acute on chronic diastolic CHF -Cardiology consulted, medications adjusted Chest pain -Cardiology consulted, resolved Disposition -Continue current medications, assess for improvement abdominal pain before discharge RYAN JAUREGUI Feb 16, 2019 12:31
[2019-02-16] MEDS ORDERED: IOHEXOL 350MG/ML 50 ML BTL ONE (12:39)
[2019-02-16] MEDS ORDERED: SOD CHLORIDE 0.9% 100 ML ONE (12:39)
[2019-02-16] MEDS ORDERED: IOHEXOL 100 ML ONE (12:39)
[2019-02-16 15:29] VITALS: BP 148/76; PULSE 71; RESP 14
[2019-02-16] MEDS: ONDANSETRON 4 MG INJ IV PRN (17:38)
[2019-02-16] MEDS: PANTOPRAZOLE (EC) 40 MG TAB PO SCH (17:39)
[2019-02-16 19:40] VITALS: BP 137/66; PULSE 72; RESP 15
[2019-02-16] MEDS: TAMSULOSIN (SR) 0.4 MG CAP PO SCH (20:47)
[2019-02-17 02:37] VITALS: BP 143/69; PULSE 60; RESP 15
[2019-02-17] MEDS: HYDROmorphONE 1 MG/ML SYG IV PRN ×3 (03:09→09:11)
[2019-02-17] MEDS: FUROSEMIDE 20 MG TAB PO SCH (06:07)
[2019-02-17] MEDS: PANTOPRAZOLE (EC) 40 MG TAB PO SCH (06:07)
[2019-02-17 07:15] VITALS: BP 161/78; PULSE 72; RESP 16
[2019-02-17] MEDS: ISOSORBIDE MONONITRATE(SR)60 MG TAB PO SCH (09:03)
[2019-02-17] MEDS: GABAPENTIN 400 MG CAP PO SCH ×2 (09:03→12:56)
[2019-02-17] MEDS: METOPROLOL 50 MG TAB PO SCH (09:04)
[2019-02-17] MEDS: BENAZEPRIL 40 MG TAB PO SCH (09:05)
[2019-02-17] MEDS: BRIMONIDINE 0.2%-TIMOLOL 0.5% 5ML OPH BOTH EYES SCH (09:05)
[2019-02-17] MEDS: SUCRALFATE (100 MG/ML) 10ML CUP PO SCH ×2 (09:06→12:56)
--- NOTE | 2019-02-17 10:16 | PDOCDIS ---
Discharge Instructions CONDITION [id number] Patient Condition: [id number] Good HOME CARE INSTRUCTIONS: [id number] Diet Instructions: [id number] Regular ACTIVITY: [id number] Activity Restrictions: [id number] No Restrictions FOLLOW UP/APPOINTMENTS Follow-up Plan FOLLOW UP WITH YOUR PCP IN 1-2 WEEKS DELFINA REILLY Feb 17, 2019 10:16
[2019-02-17] MEDS ORDERED: LIDOCAINE/MYLANTA 4 ML (PO SYG) PO ONE (11:00)
[2019-02-17] MEDS: ONDANSETRON 4 MG INJ IV PRN (11:10)
--- NOTE | 2019-02-17 11:25 | CONS ---
Assessment/Plan Assessment/Plan Hospital Course (Demo Recall) Chest pain: Ruled out for cardiac etiology. Likely referred from gastric ulcers. No EGD report available so unclear if also esophageal pathology. Resolved Acute on chronic diastolic CHF: on lasix at home so presumably some history of CHF. Pt denies. Had IVF and transfusions and has very mild CHF on exam, now resolved after stopping fluids and one dose of IV lasix. Upper GI bleed secondary to PUD Anemia: s/p 2 units HTN Prostate ca -lasix 20mg PO daily (can go back to BID home dose on discharge) -metoprolol 50mg BID -benazepril 40mg -imdur 60mg -ok for d/c from cardiac perspective Consultation Date/Type/Reason Admit Date/Time Feb 14, 2019 at 09:06 Initial Consult Date 02/15/19 Type of Consult Cardiology Requesting Provider: KARIME MARKS MD Date/Time of Note DATE: 02/17/19 TIME: 11:24 24 HR Interval Summary Free Text/Dictation No events. No chest pain. Still with abdominal pain. Exam/Review of Systems Vital Signs Vitals Vital Signs Date Temp Pulse Resp B/P (MAP) Pulse Ox O2 O2 Flow FiO2 Time Delivery Rate 02/17/19 98.0 72 16 161/78 96 Room Air 07:15 (105) 02/16/19 2.0 02:19 Intake and Output 02/16/19 02/16/19 02/17/19 1515:00 23:00 07:00 IntakeIntake Total 505 ml 200 ml OutputOutput Total 400 ml 1 ml BalanceBalance 105 ml 200 ml -1 ml Exam Constitutional: alert, oriented Psych: no complaints, nl mood/affect Head: normocephalic, atraumatic Neck: supple; No jvd Respiratory: clear to auscultation; No crackles/rales Cardiovascular: regular rate and rhythm; No edema Gastrointestinal: soft; No non-tender (tender epigastric), No distended Neurological: nl mental status, nl speech Labs Result Diagram: 02/17/19 0439 02/17/19 0439 Results 24hrs Laboratory Tests Test 02/17/19 04:39 White Blood Count 6.6 # Red Blood Count 4.50 L Hemoglobin 9.9 L Hematocrit 32.7 L Mean Corpuscular Volume 72.7 L Mean Corpuscular Hemoglobin 22.0 L Mean Corpuscular Hemoglobin Concent 30.3 L Red Cell Distribution Width 24.8 H Platelet Count 557 H Mean Platelet Volume 9.2 Immature Granulocytes % 0.300 Neutrophils % 57.3 Lymphocytes % 27.9 Monocytes % 10.4 Eosinophils % 3.5 Basophils % 0.6 Nucleated Red Blood Cells % 0.0 Immature Granulocytes # 0.020 Neutrophils # 3.8 Lymphocytes # 1.8 Monocytes # 0.7 Eosinophils # 0.2 Basophils # 0.0 Nucleated Red Blood Cells # 0.0 Sodium Level 139 Potassium Level 4.0 Chloride Level 102 Carbon Dioxide Level 30 Anion Gap 7 Blood Urea Nitrogen 19 Creatinine 1.01 Est Glomerular Filtrat Rate mL/min Glucose Level 110 Calcium Level 8.8 Phosphorus Level 4.3 Magnesium Level 2.3 Medications Medications Current Medications Ondansetron HCl (Zofran Inj) 4 mg Q6H PRN IV NAUSEA AND/OR VOMITING Last administered on 02/17/19 11:10; Admin Dose 4 MG; Start 02/14/19 at 05:30 Sucralfate (Carafate Susp) 1 gm QID PO Last administered on 02/17/19 09:06; Admin Dose 1 GM; Start 02/14/19 at 17:00 Benazepril HCl (Lotensin) 40 mg DAILY PO Last administered on 02/17/19 09:05; Admin Dose 40 MG; Start 02/15/19 at 16:00 Brimonidine/ Timolol (Combigan Oph) 1 drop BID BOTH EYES Last administered on 02/17/19 09:05; Admin Dose 1 DROP; Start 02/15/19 at 21:00 Gabapentin (Neurontin) 400 mg TID PO Last administered on 02/17/19 09:03; Admin Dose 400 MG; Start 02/15/19 at 21:00 Isosorbide Mononitrate (Imdur) 60 mg DAILY PO Last administered on 02/17/19 09:03; Admin Dose 60 MG; Start 02/16/19 at 09:00 Lorazepam (Ativan) 0.5 mg HS PRN PO ANXIETY; Start 02/15/19 at 16:00 Metoprolol Tartrate (Lopressor) 50 mg BID PO Last administered on 02/17/19 09:04; Admin Dose 50 MG; Start 02/15/19 at 21:00 Tamsulosin HCl (Flomax) 0.4 mg HS PO Last administered on 02/16/19at 20:47; Admin Dose 0.4 MG; Start 02/15/19 at 21:00 Pantoprazole (Protonix Tab) 40 mg BID@06,18 PO Last administered on 02/17/19at 06:07; Admin Dose 40 MG; Start 02/16/19 at 18:00 Furosemide (Lasix) 20 mg DAILY@0600 PO Last administered on 02/17/19at 06:07; Admin Dose 20 MG; Start 02/16/19 at 12:00 JOSUE BARRY Feb 17, 2019 11:25
--- NOTE | 2019-02-17 12:48 | PN ---
Date/Time of Note Date/Time of Note DATE: 02/17/19 TIME: 12:42 Assessment/Plan VTE Prophylaxis Risk score (from Nsg)>0 risk: 0 SCD applied (from Ns): No SCD contraindicated: other (scds) Pharmacological prophylaxis: other (scds) Lines/Catheters IV [facility] Type (from [facility]): Peripheral IV Urinary Cath still in place: No Assessment/Plan Hospital Course Summary Assessment and Plan: Assessment: Epigastric/Chest pain EGD 02/15/19 2 gastric ulcers shallow, less than 1 cm, clean base. No current bleeding and no biopsies obtained Coffee-ground emesis/melena -R/o PUD vs hemorrhagic gastritis versus other Microcytic anemia Recent excessive NSAIDs use Cystic structure within the left lobe of the liver, decreased in size compared with 02/05/2018. History of prostate cancer status post prostatectomy History of penile implant History of small bowel obstruction with surgical repair Plan: PPI BID x4 weeks Carafate QID x4 weeks Increase to soft diet Repeat EGD 6 weeks to verify ulcer healing CT reviewed- patient cleared for discharge from GI point of view Patient seen in collaboration with Dr. Yuan Subjective: Course reviewed with nursing staff Patient interviewed and examined All labs, imaging and other results reviewed CT reviewed- no over night events. Pt to f/u with GI after discharge No c/o n.v or overt signs of GI bleed PHYSICAL EXAMINATION: GENERAL: Alert & oriented x 3, O2 in place SKIN: No lesions HEAD: Normocephalic, atraumatic, no tenderness. EYES: Pupils equal reactive to light and accommodation, no discharge. EARS/NOSE AND THROAT: Ears normal, nose normal, oropharynx normal NECK: Supple, no masses CHEST: Inspection within normal limits. CARDIOVASCULAR: Heart: Regular rate and rhythm RESPIRATORY: Lungs clear to auscultation GASTROINTESTINAL AND LIVER: Abdomen: Soft, epigastric/chest pain, non-distended, no hernias, no masses, no organomegaly, no ascites, no guarding, no rebound tenderness, normoactive bowel sounds. Rectal: Deferred. Result Diagram: 02/17/19 0439 02/17/19 0439 Results 24hrs Laboratory Tests Test 02/17/19 04:39 White Blood Count 6.6 # Red Blood Count 4.50 L Hemoglobin 9.9 L Hematocrit 32.7 L Mean Corpuscular Volume 72.7 L Mean Corpuscular Hemoglobin 22.0 L Mean Corpuscular Hemoglobin Concent 30.3 L Red Cell Distribution Width 24.8 H Platelet Count 557 H Mean Platelet Volume 9.2 Immature Granulocytes % 0.300 Neutrophils % 57.3 Lymphocytes % 27.9 Monocytes % 10.4 Eosinophils % 3.5 Basophils % 0.6 Nucleated Red Blood Cells % 0.0 Immature Granulocytes # 0.020 Neutrophils # 3.8 Lymphocytes # 1.8 Monocytes # 0.7 Eosinophils # 0.2 Basophils # 0.0 Nucleated Red Blood Cells # 0.0 Sodium Level 139 Potassium Level 4.0 Chloride Level 102 Carbon Dioxide Level 30 Anion Gap 7 Blood Urea Nitrogen 19 Creatinine 1.01 Est Glomerular Filtrat Rate mL/min Glucose Level 110 Calcium Level 8.8 Phosphorus Level 4.3 Magnesium Level 2.3 Exam/Review of Systems Exam Vitals Vital Signs Date Temp Pulse Resp B/P (MAP) Pulse Ox O2 O2 Flow FiO2 Time Delivery Rate 02/17/19 98.0 72 16 161/78 96 Room Air 07:15 (105) 02/16/19 2.0 02:19 Intake and Output 02/16/19 02/16/19 02/17/19 1515:00 23:00 07:00 IntakeIntake Total 505 ml 200 ml OutputOutput Total 400 ml 1 ml BalanceBalance 105 ml 200 ml -1 ml Results Results 24hrs Laboratory Tests Test 02/17/19 04:39 White Blood Count 6.6 # Red Blood Count 4.50 L Hemoglobin 9.9 L Hematocrit 32.7 L Mean Corpuscular Volume 72.7 L Mean Corpuscular Hemoglobin 22.0 L Mean Corpuscular Hemoglobin Concent 30.3 L Red Cell Distribution Width 24.8 H Platelet Count 557 H Mean Platelet Volume 9.2 Immature Granulocytes % 0.300 Neutrophils % 57.3 Lymphocytes % 27.9 Monocytes % 10.4 Eosinophils % 3.5 Basophils % 0.6 Nucleated Red Blood Cells % 0.0 Immature Granulocytes # 0.020 Neutrophils # 3.8 Lymphocytes # 1.8 Monocytes # 0.7 Eosinophils # 0.2 Basophils # 0.0 Nucleated Red Blood Cells # 0.0 Sodium Level 139 Potassium Level 4.0 Chloride Level 102 Carbon Dioxide Level 30 Anion Gap 7 Blood Urea Nitrogen 19 Creatinine 1.01 Est Glomerular Filtrat Rate mL/min Glucose Level 110 Calcium Level 8.8 Phosphorus Level 4.3 Magnesium Level 2.3 Medications Medication Current Medications Ondansetron HCl (Zofran Inj) 4 mg Q6H PRN IV NAUSEA AND/OR VOMITING Last administered on 02/17/19 11:10; Admin Dose 4 MG; Start 02/14/19 at 05:30 Sucralfate (Carafate Susp) 1 gm QID PO Last administered on 02/17/19 09:06; Admin Dose 1 GM; Start 02/14/19 at 17:00 Benazepril HCl (Lotensin) 40 mg DAILY PO Last administered on 02/17/19 09:05; Admin Dose 40 MG; Start 02/15/19 at 16:00 Brimonidine/ Timolol (Combigan Oph) 1 drop BID BOTH EYES Last administered on 02/17/19 09:05; Admin Dose 1 DROP; Start 02/15/19 at 21:00 Gabapentin (Neurontin) 400 mg TID PO Last administered on 02/17/19 09:03; Admin Dose 400 MG; Start 02/15/19 at 21:00 Isosorbide Mononitrate (Imdur) 60 mg DAILY PO Last administered on 02/17/19 09:03; Admin Dose 60 MG; Start 02/16/19 at 09:00 Lorazepam (Ativan) 0.5 mg HS PRN PO ANXIETY; Start 02/15/19 at 16:00 Metoprolol Tartrate (Lopressor) 50 mg BID PO Last administered on 02/17/19 09:04; Admin Dose 50 MG; Start 02/15/19 at 21:00 Tamsulosin HCl (Flomax) 0.4 mg HS PO Last administered on 02/16/19 20:47; Admin Dose 0.4 MG; Start 02/15/19 at 21:00 Pantoprazole (Protonix Tab) 40 mg BID@06,18 PO Last administered on 02/17/19 06:07; Admin Dose 40 MG; Start 02/16/19 at 18:00 Furosemide (Lasix) 20 mg DAILY@0600 PO Last administered on 02/17/19 06:07; Admin Dose 20 MG; Start 02/16/19 at 12:00 RICKY TY Feb 17, 2019 12:48
[2019-02-17] MEDS ORDERED: CARAS PO (12:49)
--- NOTE | 2019-02-17 12:53 | DS ---
Date/Time of Note Date/Time of Note DATE: 02/17/19 TIME: 12:46 Discharge Summary Admission/Discharge Info Admit Date/Time Feb 14, 2019 at 09:06 Discharge Date/Time February 17, 2019 Discharge Diagnosis Epigastric abdominal pain -Secondary to gastric ulcers -Per son patient has a history of opioid abuse and hence have recommended discontinuation of his home [facility] -Continue home PPI, DC with Carafate Anemia secondary to acute blood loss from GI bleed-now stable -Status post 2 units of packed red blood cells -No acute bleeding seen on in the upper endoscopy -Continue PPI and Carafate Hypertension -Continue home meds History of prostate cancer, continue home meds Glaucoma -Continue home meds Acute on chronic diastolic CHF -Cardiology consultation appreciated Chest pain -Cardiology consultation appreciated Opiate abuse -Once again patient's son does report a history of opiate abuse Patient Condition: Good Hospital Course Patient is a 73-year-old male with history of hypertension, gastric ulcers, prostate cancer and opiate abuse. Patient presents with abdominal pain and anemia, patient was seen by GI and EGD showed nonbleeding gastric ulcers. Recommend patient was to continue PPI and Carafate was added. Patient continued to request assess amounts of opiates and his pain was out of proportion to his EGD findings, after discussion with patient's son it was reported that he does have a history of opiate abuse and his opiates were hence discontinued. Patient was stable for DC to home, on the day of discharge patient's vitals, labs and physical exam are stable. Home Meds Active Scripts Ondansetron (Ondansetron Odt) 4 Mg Tab.rapdis, 4 MG PO Q6H PRN for NAUSEA AND/OR VOMITING, #10 TAB Prov:WILLIAM MELCHOR MD 02/21/18 Omeprazole* (Omeprazole*) 40 Mg Capsule.dr, 40 MG PO DAILY, #30 CAP Prov:DINESH CHACON DO 02/05/18 Reported Medications Multivitamin with Minerals (Multivitamins with Minerals) 1 Each Tablet, 1 EACH PO DAILY, TAB 02/13/19 Brimonidine/Timolol* (Combigan*) 5 Ml Drops, 1 DROP BOTH EYES BID, BOTTLE 02/13/19 Hydrochlorothiazide (Hydrochlorothiazide) 12.5 Mg Capsule, 12.5 MG PO DAILY for 30 Days, #30 02/13/19 Isosorbide Mononitrate* (Isosorbide Mononitrate*) 60 Mg Tab.er.24h, 60 MG PO DAILY for 30 Days, #30 02/13/19 Furosemide* (Furosemide*) 20 Mg Tablet, 20 MG PO BID for 30 Days, #60 02/13/19 Metoprolol Tartrate* (Lopressor*) 50 Mg Tab, 50 MG PO BID for 30 Days, #60 02/13/19 Benazepril Hcl* (Benazepril Hcl*) 40 Mg Tablet, 40 MG PO DAILY for 90 Days, #90 02/13/19 Tamsulosin Hcl* (Tamsulosin Hcl*) 0.4 Mg Cap.er.24h, 0.4 MG PO HS, CAP 02/03/17 Lorazepam* (Lorazepam*) 0.5 Mg Tablet, 0.5 MG PO HS PRN for ANXIETY, TAB 02/03/17 Gabapentin* (Gabapentin*) 100 Mg Capsule, 400 MG PO TID 06/12/13 Discontinued Reported Medications Benazepril Hcl* (Benazepril Hcl*) 20 Mg Tablet, 20 MG PO DAILY, #30 TAB 02/21/18 Sucralfate* (Carafate*) 1 Gm Tab, 1 GM PO AC MEALS AND BEDTIME, TAB 02/03/17 Esomeprazole Mag Trihydrate (Nexium) 40 Mg Capsule.dr, 40 MG PO AC BREAKFAST, #30 CAP 02/03/17 Discontinued Scripts Hydrocodone/Acetaminophen ([facility] 10-325 Tablet) 1 Each Tablet, 1 TAB PO Q6H PRN for PAIN, #7 TAB Prov:WILLIAM MELCHOR MD 02/21/18 Naproxen* (Naprosyn*) 500 Mg Tablet, 500 MG PO BID PRN for PAIN AND/OR INFLAMMATION, #30 TAB Prov:RYAN LAI MD 06/08/18 Acetaminophen* (Acetaminophen*) 500 MG Extra Strength Tablet, 500 MG PO Q4H PRN for PAIN AND OR ELEVATED TEMP, #30 TAB Prov:ATTILA BIGGS PA-C 03/05/18 Hydroxyzine Hcl* (Hydroxyzine Hcl*) 25 Mg Tablet, 25 MG PO Q8H PRN for ITCHING, #30 TAB Prov:ATTILA BIGGS PA-C 03/05/18 Prednisone* (Prednisone*) 20 Mg Tab, 60 MG PO DAILY for 5 Days, TAB Prov:WILLIAM MELCHOR MD 02/21/18 Hydrocodone/Acetaminophen ([facility] 10-325 Tablet) 1 Each Tablet, 1 TAB PO Q6H PRN for PAIN, #20 TAB Prov:DINESH CHACON DO 02/05/18 Follow-up Plan FOLLOW UP WITH YOUR PCP IN 1-2 WEEKS Primary Care Provider Not On Staff Doctor Time spent on discharge: > 30 minutes DELFINA REILLY Feb 17, 2019 12:53
--- NOTE | 2019-02-18 07:31 | PAC ---
Date/Time of Note Date/Time of Note DATE: 02/16/19 TIME: 07:31 Post-Anesthesia Notes Post-Anesthesia Note Last documented vital signs Vital Signs Date Temp Pulse Resp B/P (MAP) Pulse Ox O2 O2 Flow FiO2 Time Delivery Rate 02/17/19 98.0 72 16 161/78 96 Room Air 07:15 (105) 02/16/19 2.0 02:19 Activity: WNL Respiratory function: WNL Cardiovascular function: WNL Mental status: Baseline Pain reasonably controlled: Yes Hydration appropriate: Yes Nausea/Vomiting absent: No OLAYINKA AGUILAR MD Feb 18, 2019 07:31
== END 2019-02-17 13:15 | disposition home or self-care (01) | DRG 377 ==
LOC: E/R 18:42 → MS1 02-14 01:56 → OBSVTOIN 02-14 09:06
PROVIDERS: ADMIT Internal Medicine; ATTEND Internal Medicine
PROC: 0DB68ZX Excision of Stomach, Via Natural or Artificial Opening Endoscopic, Diagnostic (ICD-10-PCS; principal; 2019-02-15 17:00)
DX: K25.4 Chronic or unspecified gastric ulcer with hemorrhage (principal); I50.33 Acute on chronic diastolic (congestive) heart failure; D50.0 Iron deficiency anemia secondary to blood loss (chronic); Z85.46 Personal history of malignant neoplasm of prostate; I11.0 Hypertensive heart disease with heart failure; H40.9 Unspecified glaucoma
CPT/HCPCS: 36415; 36430; 71045; 74176; 74178; 80048; 80053; 82728; 83540; 83690; 83735; 84100; 84484; 85014; 85018; 85025; 86850; 86900; 86901; 86920; 93005; 93306; 96374; 96375; C9113; G0378; J1170; J1940; J2270; J2405; J3480; J7040; P9016; Q9967

== ENCOUNTER 2019-03-03 10:40 | Inpatient (IN) | payer OTHER ==
[~2019-03-03] VITALS: Ht 167.6 cm; Wt 66.0 kg
[~2019-03-03 10:40] MED LIST changes: -ACET-141 PO; -BENA20TA4 PO; +BENA40TA56 PO; +CARAS PO; +COMBIG5 BOTH EYES; -ESOM40CA PO; +FURO20TA3 PO; -HYDR-3980 PO; -HYDR-843 PO; +HYDR12.53 PO; +ISOS60TA PO; +METO-429 PO; +MULT-105 PO; -NAPR-985 PO; -PRED20TA PO; -SUCR1TAB56 PO
[2019-03-03 10:50] VITALS: Ht 167.6 cm; Wt 66.0 kg
[2019-03-03] MEDS ORDERED: ONDANSETRON 4 MG INJ IV STA (12:31)
[2019-03-03] MEDS ORDERED: SOD CHLORIDE 0.9% 500 ML IV STA (12:31)
[2019-03-03] MEDS ORDERED: SOD CHLORIDE 0.9% 1,000 ML IV SCH (15:26)
[2019-03-03] MEDS ORDERED: ALBUTEROL/IPRATROPIUM (NEB) 3 ML AMP HHN PRN (15:30)
[2019-03-03] MEDS ORDERED: NACL 0.9% 3 ML SYG IV SCH (15:30)
--- NOTE | 2019-03-03 15:40 | CONS ---
Assessment/Plan Assessment/Plan Assessment/Plan (Daily) 1. acute kidney injury due to severe prerenal azotemia + ATN 2. HYponatremia due to Hypovolemic Hyponatremia 3. Severe metabolic acidosis with HCo3 13 4. h/o HTN 5. Intractable nausea/vomiting Plan: s/p IVF NS in ED, S/p one ampoule of NaHCo3 50mEQ given in ED< will start pt on IV bicarbonate drip 100mEQ in D5W at 80 cc/hr Expecting Cr to improve with IVF hydration Renal US to assess for CKD, ot rule out hydronephrosis Continue other Rx for gastric ulcer Thanks for consultation, I will continue to follow up Consultation Date/Type/Reason Admit Date/Time 03/03/2019 Date of Consultation: March 03, 2019 Type of Consult NEPHROLOGY Reason for Consultation Hyponatremia, Acute on chronic renal failure , Metabolic acidosis Requesting Provider: DAMASO ZHENG Date/Time of Note DATE: 03/03/19 TIME: 15:40 Hx of Present Illness 73-year-old male past medical history of gastric ulcers, CHF, anemia, opioid a buse, hypertension, possible pulmonary fibrosis, prostate cancer, glaucoma, who comes in today with different symptoms. He has been complaining of some vomiting symptoms nonbloody non-bilious for the last 3 to 4 days. pt was recently admitted at [facility] from February 14 to February 17, 2019. At that time he was treated for GI bleeding and received blood transfusion at that time and was diagnosed with gastric ulcers at that time, pt had a last Cr of 1.0 on discharge, This time he presented with BUN/Cr 30/3.34, Na 130, HCo3 13- ABG showed PH 7.23 with HCO3 12- Renal has been consulted for Acute kidney injury, Hyponatremia and severe metabolic acidosis. Constitutional: poor po Eyes: no complaints ENT: no complaints Respiratory: no complaints Cardiovascular: no complaints Gastrointestinal: pain, nausea, vomiting Genitourinary: no complaints Musculoskeletal: no complaints Skin: no complaints Neurologic: no complaints Endocrine: no complaints Lymphatic: no complaints Psychological: no complaints Immunologic: no complaints Past Medical History Medical History: hypertension, other (Gastric ulcer recently diagnosed on last admission , h/O GI bleeding ) Home Meds Active Scripts Sucralfate* (Carafate*) 1 Gm/10 Ml Susp, 1 GM PO QID, #60 BOTTLE Prov:DELFINA REILLY 02/17/19 Ondansetron (Ondansetron Odt) 4 Mg Tab.rapdis, 4 MG PO Q6H PRN for NAUSEA AND/OR VOMITING, #10 TAB Prov:WILLIAM MELCHOR MD 02/21/18 Omeprazole* (Omeprazole*) 40 Mg Capsule.dr, 40 MG PO DAILY, #30 CAP Prov:DINESH CHACON DO 02/05/18 Reported Medications Multivitamin with Minerals (Multivitamins with Minerals) 1 Each Tablet, 1 EACH PO DAILY, TAB 02/13/19 Brimonidine/Timolol* (Combigan*) 5 Ml Drops, 1 DROP BOTH EYES BID, BOTTLE 02/13/19 Hydrochlorothiazide (Hydrochlorothiazide) 12.5 Mg Capsule, 12.5 MG PO DAILY for 30 Days, #30 02/13/19 Isosorbide Mononitrate* (Isosorbide Mononitrate*) 60 Mg Tab.er.24h, 60 MG PO DAILY for 30 Days, #30 02/13/19 Furosemide* (Furosemide*) 20 Mg Tablet, 20 MG PO BID for 30 Days, #60 02/13/19 Metoprolol Tartrate* (Lopressor*) 50 Mg Tab, 50 MG PO BID for 30 Days, #60 02/13/19 Benazepril Hcl* (Benazepril Hcl*) 40 Mg Tablet, 40 MG PO DAILY for 90 Days, #90 02/13/19 Tamsulosin Hcl* (Tamsulosin Hcl*) 0.4 Mg Cap.er.24h, 0.4 MG PO HS, CAP 02/03/17 Lorazepam* (Lorazepam*) 0.5 Mg Tablet, 0.5 MG PO HS PRN for ANXIETY, TAB 02/03/17 Gabapentin* (Gabapentin*) 100 Mg Capsule, 400 MG PO TID 06/12/13 Medications Current Medications IV Flush (NS 3 ml) 3 ml PER PROTOCOL IV ; Start 03/03/19 at 15:30; Status UNV Ondansetron HCl (Zofran Inj) 4 mg Q6H PRN IV NAUSEA/VOMITING; Start 03/03/19 at 15:30; Status UNV Acetaminophen (Tylenol Tab) 650 mg Q6H PRN PO .PAIN 1-3 OR TEMP; Start 03/03/19 at 15:30; Status UNV Acetaminophen/ Hydrocodone Bitart ([place] (5/325)) 1 tab Q6H PRN PO .MOD PAIN 4- 6; Start 03/03/19 at 15:30; Status UNV Morphine Sulfate (morphine) 2 mg Q4H PRN IV .SEVERE PAIN 7-10; Start 03/03/19 at 15:30; Status UNV Docusate Sodium (Colace) 100 mg Q12H PRN PO .CONSTIPATION; Start 03/03/19 at 15:30; Status UNV Magnesium Hydroxide (Milk Of Mag) 30 ml DAILY PRN PO .CONSTIPATION; Start 03/03/19 at 15:30; Status UNV Lorazepam (Ativan) 0.5 mg Q6H PRN IV ANXIETY; Start 03/03/19 at 15:30; Status UNV Sodium Chloride 1,000 ml @ 100 mls/hr Q10H IV ; Start 03/03/19 at 15:26; Status UNV Albuterol/ Ipratropium (Duoneb) 3 ml Q4H RESP THERAPY PRN HHN SHORTNESS OF BREATH; Start 03/03/19 at 15:30; Status UNV Hydralazine HCl (Apresoline) 10 mg Q6H PRN IV ELEVATED BLOOD PRESSURE; Start 03/03/19 at 15:30; Status UNV Nitroglycerin (Nitroglycerin (Sl Tab) 0.4 Mg) 1 tab Q5M PRN SL ANGINA; Start 03/03/19 at 15:30; Status UNV Brimonidine/ Timolol (Combigan Oph) 1 drop BID BOTH EYES ; Start 03/03/19 at 21: 00; Status UNV Isosorbide Mononitrate (Imdur) 60 mg DAILY PO ; Start 03/04/19 at 09:00; Status UNV Metoprolol Tartrate (Lopressor) 50 mg BID PO ; Start 03/03/19 at 21:00; Status UNV Miscellaneous Information 1 each DAILY PO ; Start 03/04/19 at 09:00; Status UNV Miscellaneous Information 40 mg DAILY PO ; Start 03/04/19 at 09:00; Status UNV Allergies: Coded Allergies: No Known Allergy (Unverified , 03/03/19) Past Surgical History Past Surgical Hx: endoscopy (EGD on last admission ), other Family History Significant Family History: no pertinent family hx Social History Alcohol Use: none Smoking Status: Never smoker Drug Use: none Exam/Review of Systems Exam Vitals Vital Signs Date Temp Pulse Resp B/P (MAP) Pulse Ox O2 O2 Flow FiO2 Time Delivery Rate 03/03/19 76 17 162/69 100 Room Air 14:44 (100) 03/03/19 97.5 10:50 Constitutional: alert Psych: no complaints Head: normocephalic Eyes: nl conjunctiva ENMT: nl external ears & nose Neck: supple, non-tender Respiratory: clear to auscultation, diminished breath sounds Cardiovascular: regular rate and rhythm, nl pulses Gastrointestinal: soft, non-tender Musculoskeletal: nl extremities to inspection Extremities: normal pulses Neurological: FORMING ACID DUMPER II-XII intact, nl mental status, nl speech, nl strength Skin: nl turgor Lymph: nl lymph nodes Results Result Diagram: 03/03/19 1251 03/03/19 1250 Results 24hrs Laboratory Tests Test 03/03/19 12:50 03/03/19 12:51 Sodium Level 130 L Potassium Level 4.8 Chloride Level 99 Carbon Dioxide Level 13 L Anion Gap 18 H Blood Urea Nitrogen 30 H Creatinine 3.34 H Est Glomerular Filtrat Rate mL/min Glucose Level 108 Calcium Level 8.3 L Total Bilirubin 0.0 L Direct Bilirubin 0.00 Indirect Bilirubin 0.0 Aspartate Amino Transf (AST/SGOT) 32 Alanine Aminotransferase (ALT/SGPT) 12 L Alkaline Phosphatase 78 Total Protein 7.5 Albumin 3.7 Globulin 3.80 H Albumin/Globulin Ratio 0.97 Lipase 123 White Blood Count 11.7 #H Red Blood Count 4.44 L Hemoglobin 10.2 L Hematocrit 33.2 L Mean Corpuscular Volume 74.8 L Mean Corpuscular Hemoglobin 23.0 L Mean Corpuscular Hemoglobin Concent 30.7 L Red Cell Distribution Width 25.2 H Platelet Count 329 # Mean Platelet Volume 9.8 Immature Granulocytes % 0.800 H Neutrophils % 76.2 Lymphocytes % 14.2 L Monocytes % 8.1 Eosinophils % 0.6 Basophils % 0.1 Nucleated Red Blood Cells % 0.0 Immature Granulocytes # 0.090 H Neutrophils # 8.9 H Lymphocytes # 1.7 Monocytes # 0.9 Eosinophils # 0.1 Basophils # 0.0 Nucleated Red Blood Cells # 0.0 Urine Color STRAW Urine Clarity SLIGHTLY CLOUDY A Urine pH 5.0 Urine Specific [place] 1.012 Urine Ketones NEGATIVE Urine Nitrite NEGATIVE Urine Bilirubin NEGATIVE Urine Urobilinogen NEGATIVE Urine Leukocyte Esterase NEGATIVE Urine Microscopic RBC 1 Urine Microscopic WBC 3 Urine Squamous Epithelial Cells FEW Urine Bacteria FEW A Urine Hemoglobin 2+ H Urine Glucose NEGATIVE Urine Total Protein 1+ H Medications Medication Current Medications IV Flush (NS 3 ml) 3 ml PER PROTOCOL IV ; Start 03/03/19 at 15:30; Status UNV Ondansetron HCl (Zofran Inj) 4 mg Q6H PRN IV NAUSEA/VOMITING; Start 03/03/19 at 15:30; Status UNV Acetaminophen (Tylenol Tab) 650 mg Q6H PRN PO .PAIN 1-3 OR TEMP; Start 03/03/19 at 15:30; Status UNV Acetaminophen/ Hydrocodone Bitart ([place] (5/325)) 1 tab Q6H PRN PO .MOD PAIN 4- 6; Start 03/03/19 at 15:30; Status UNV Morphine Sulfate (morphine) 2 mg Q4H PRN IV .SEVERE PAIN 7-10; Start 03/03/19 at 15:30; Status UNV Docusate Sodium (Colace) 100 mg Q12H PRN PO .CONSTIPATION; Start 03/03/19 at 15:30; Status UNV Magnesium Hydroxide (Milk Of Mag) 30 ml DAILY PRN PO .CONSTIPATION; Start 03/03/19 at 15:30; Status UNV Lorazepam (Ativan) 0.5 mg Q6H PRN IV ANXIETY; Start 03/03/19 at 15:30; Status UNV Sodium Chloride 1,000 ml @ 100 mls/hr Q10H IV ; Start 03/03/19 at 15:26; Status UNV Albuterol/ Ipratropium (Duoneb) 3 ml Q4H RESP THERAPY PRN HHN SHORTNESS OF BREATH; Start 03/03/19 at 15:30; Status UNV Hydralazine HCl (Apresoline) 10 mg Q6H PRN IV ELEVATED BLOOD PRESSURE; Start 03/03/19 at 15:30; Status UNV Nitroglycerin (Nitroglycerin (Sl Tab) 0.4 Mg) 1 tab Q5M PRN SL ANGINA; Start 03/03/19 at 15:30; Status UNV Brimonidine/ Timolol (Combigan Oph) 1 drop BID BOTH EYES ; Start 03/03/19 at 21:00; Status UNV Isosorbide Mononitrate (Imdur) 60 mg DAILY PO ; Start 03/04/19 at 09:00; Status UNV Metoprolol Tartrate (Lopressor) 50 mg BID PO ; Start 03/03/19 at 21:00; Status UNV Miscellaneous Information 1 each DAILY PO ; Start 03/04/19 at 09:00; Status UNV Miscellaneous Information 40 mg DAILY PO ; Start 03/04/19 at 09:00; Status UNV SERINA NORIEGA MD March 03, 2019 15:40
--- NOTE | 2019-03-03 16:18 | ERD ---
ER Documentation Chief Complaint Chief Complaint BIB RA FOR EVAL OF AP X 4 DAYS. HPI 73-year-old male brought in by rescue for evaluation of vomiting for the past 4 days. Pain is mild to moderate intensity no exacerbating relieving factors. Is diffuse in location. Denies any fevers chills. Denies vomiting. Has felt nauseous. Denies any other current problems. ROS All systems reviewed and are negative except as per history of present illness. Medications Home Meds Active Scripts Sucralfate* (Carafate*) 1 Gm/10 Ml Susp, 1 GM PO QID, #60 BOTTLE Prov:TOMMIEDELFINA PHAN 02/17/19 Ondansetron (Ondansetron Odt) 4 Mg Tab.rapdis, 4 MG PO Q6H PRN for NAUSEA AND/OR VOMITING, #10 TAB Prov:WILLIAM MELCHOR MD 02/21/18 Omeprazole* (Omeprazole*) 40 Mg Capsule.dr, 40 MG PO DAILY, #30 CAP Prov:DINESH CHACON DO 02/05/18 Reported Medications Multivitamin with Minerals (Multivitamins with Minerals) 1 Each Tablet, 1 EACH PO DAILY, TAB 02/13/19 Brimonidine/Timolol* (Combigan*) 5 Ml Drops, 1 DROP BOTH EYES BID, BOTTLE 02/13/19 Hydrochlorothiazide (Hydrochlorothiazide) 12.5 Mg Capsule, 12.5 MG PO DAILY for 30 Days, #30 02/13/19 Isosorbide Mononitrate* (Isosorbide Mononitrate*) 60 Mg Tab.er.24h, 60 MG PO DAILY for 30 Days, #30 02/13/19 Furosemide* (Furosemide*) 20 Mg Tablet, 20 MG PO BID for 30 Days, #60 02/13/19 Metoprolol Tartrate* (Lopressor*) 50 Mg Tab, 50 MG PO BID for 30 Days, #60 02/13/19 Benazepril Hcl* (Benazepril Hcl*) 40 Mg Tablet, 40 MG PO DAILY for 90 Days, #90 02/13/19 Tamsulosin Hcl* (Tamsulosin Hcl*) 0.4 Mg Cap.er.24h, 0.4 MG PO HS, CAP 02/03/17 Lorazepam* (Lorazepam*) 0.5 Mg Tablet, 0.5 MG PO HS PRN for ANXIETY, TAB 02/03/17 Gabapentin* (Gabapentin*) 100 Mg Capsule, 400 MG PO TID 06/12/13 Allergies Allergies: Coded Allergies: No Known Allergy (Unverified , 03/03/19) PMhx/Soc History of Surgery: Yes (PROSTATECTOMY,PENILE IMPLANT,SMALL INTESTINE BX ) Anesthesia Reaction: No Hx Neurological Disorder: No Hx Respiratory Disorders: No Hx Cardiac Disorders: Yes (htn) Hx Psychiatric Problems: No Hx Miscellaneous Medical Probl: No Hx Alcohol Use: No Hx Substance Use: No Hx Tobacco Use: No Smoking Status: Never smoker Physical Exam Vitals Vital Signs Date Temp Pulse Resp B/P (MAP) Pulse Ox O2 O2 Flow FiO2 Time Delivery Rate 03/03/19 76 17 162/69 100 Room Air 14:44 (100) 03/03/19 72 17 159/79 100 Room Air 12:44 (105) 03/03/19 97.5 75 19 139/65 96 10:50 (89) Physical Exam Const: No acute distress Head: Atraumatic Eyes: Normal Conjunctiva ENT: Normal External Ears, Nose and Mouth. Neck: Full range of motion. No meningismus. Resp: Clear to auscultation bilaterally Cardio: Regular rate and rhythm, no murmurs Abd: Soft, non tender, non distended. Normal bowel sounds Skin: No petechiae or rashes Back: No midline or flank tenderness Ext: No cyanosis, or edema Neur: Awake and alert Psych: Normal Mood and Affect Result Diagram: 03/03/19 1251 03/03/19 1250 Results 24 hrs Laboratory Tests Test 03/03/19 12:50 03/03/19 12:51 Sodium Level 130 mmol/L Potassium Level 4.8 mmol/L Chloride Level 99 mmol/L Carbon Dioxide Level 13 mmol/L Anion Gap 18 Blood Urea Nitrogen 30 mg/dl Creatinine 3.34 mg/dl Est Glomerular Filtrat Rate mL/min mL/min Glucose Level 108 mg/dl Calcium Level 8.3 mg/dl Total Bilirubin 0.0 mg/dl Direct Bilirubin 0.00 mg/dl Indirect Bilirubin 0.0 mg/dl Aspartate Amino Transf (AST/SGOT) 32 IU/L Alanine Aminotransferase (ALT/SGPT) 12 IU/L Alkaline Phosphatase 78 IU/L Total Protein 7.5 g/dl Albumin 3.7 g/dl Globulin 3.80 g/dl Albumin/Globulin Ratio 0.97 Lipase 123 U/L White Blood Count 11.7 10^3/ul Red Blood Count 4.44 10^6/ul Hemoglobin 10.2 g/dl Hematocrit 33.2 % Mean Corpuscular Volume 74.8 fl Mean Corpuscular Hemoglobin 23.0 pg Mean Corpuscular Hemoglobin Concent 30.7 g/dl Red Cell Distribution Width 25.2 % Platelet Count 329 10^3/UL Mean Platelet Volume 9.8 fl Immature Granulocytes % 0.800 % Neutrophils % 76.2 % Lymphocytes % 14.2 % Monocytes % 8.1 % Eosinophils % 0.6 % Basophils % 0.1 % Nucleated Red Blood Cells % 0.0 /100WBC Immature Granulocytes # 0.090 10^3/ul Neutrophils # 8.9 10^3/ul Lymphocytes # 1.7 10^3/ul Monocytes # 0.9 10^3/ul Eosinophils # 0.1 10^3/ul Basophils # 0.0 10^3/ul Nucleated Red Blood Cells # 0.0 10^3/ul Urine Color STRAW Urine Clarity SLIGHTLY CLOUDY Urine pH 5.0 Urine Specific [place] 1.012 Urine Ketones NEGATIVE mg/dL Urine Nitrite NEGATIVE mg/dL Urine Bilirubin NEGATIVE mg/dL Urine Urobilinogen NEGATIVE mg/dL Urine Leukocyte Esterase NEGATIVE [place]/ul Urine Microscopic RBC 1 /HPF Urine Microscopic WBC 3 /HPF Urine Squamous Epithelial Cells FEW /HPF Urine Bacteria FEW /HPF Urine Hemoglobin 2+ mg/dL Urine Glucose NEGATIVE mg/dL Urine Total Protein 1+ mg/dl Free Thyroxine 1.26 ng/dl Current Medications Medications Dose Sig/Anabelle Start Time Status Last (Trade) Ordered Route PRN Stop Time Admin Dose Reason Admin Sodium 500 ml @ Q1H STAT 03/03/19 DC 03/03/19 Chloride 500 mls/hr IV 12:31 12:43 03/03/19 13:30 Ondansetron 4 mg ONCE STAT 03/03/19 DC 03/03/19 HCl (Zofran IV 12:31 12:44 Inj) 03/03/19 12:34 IV Flush 3 ml PER 03/03/19 (NS 3 ml) PROTOCOL IV 15:30 Ondansetron 4 mg Q6H PRN 03/03/19 HCl (Zofran IV 15:30 Inj) NAUSEA/VOMITI NG 650 mg Q6H PRN 03/03/19 Acetaminophen PO .PAIN 1-3 15:30 (Tylenol OR TEMP Tab) 1 tab Q6H PRN 03/03/19 Acetaminophen PO .MOD PAIN 15:30 / 4-6 Hydrocodone Bitart ([place] (5/325)) Morphine 2 mg Q4H PRN 03/03/19 Sulfate IV .SEVERE 15:30 (morphine) PAIN 7-10 Docusate 100 mg Q12H PRN 03/03/19 Sodium PO 15:30 (Colace) .CONSTIPATION Magnesium 30 ml DAILY PRN 03/03/19 Hydroxide PO 15:30 (Milk Of Mag) .CONSTIPATION Lorazepam 0.5 mg Q6H PRN 03/03/19 (Ativan) IV ANXIETY 15:30 Sodium 1,000 ml @ Q10H IV 03/03/19 Chloride 100 mls/hr 15:26 Albuterol/ 3 ml Q4H RESP 03/03/19 Ipratropium THERAPY PRN 15:30 (Duoneb) HHN SHORTNESS OF BREATH Hydralazine 10 mg Q6H PRN 03/03/19 HCl IV ELEVATED 15:30 (Apresoline) BLOOD PRESSURE 1 tab Q5M PRN 03/03/19 Nitroglycerin SL ANGINA 15:30 (Nitroglyceri n (Sl Tab) 0.4 Mg) 1 drop BID BOTH 03/03/19 Brimonidine/ EYES 21:00 Timolol (Combigan Oph) Isosorbide 60 mg DAILY PO 03/04/19 Mononitrate 09:00 (Imdur) Metoprolol 50 mg BID PO 03/03/19 Tartrate 21:00 (Lopressor) 1 tab DAILY PO 03/04/19 Multivitamins 09:00 / Minerals (Theragran-M) 40 mg DAILY PO 03/04/19 Pantoprazole 09:00 (Protonix Tab) Procedures/MDM EKG: Rate/Rhythm: [Normal Sinus Rhythm] QRS, ST, T-waves: [No changes consistent w/ acute ischemia] Impression: [No evidence of ischemia or arrhythmia] Chest X-ray 1V Interpreted by me: Soft Tissue: No acute abnormalities Bones: No acute abnormalities Mediastinum/Cardiac Silhouette/Lungs: [No acute abnormalities] CT shows no acute process. Please see radiologist full dictation for report. Medical decision makin-year male with acute abdominal pain he does not have evidence of surgical abdomen, however his creatinine has more than tripled in the 2 weeks since he has been here. I feel the patient has acute renal failure. I spoke to the [facility] physician and feel the patient should be admitted here. Hospitalist made aware of admission. Departure Diagnosis: Primary Impression: Abdominal pain Abdominal location: unspecified location Qualified Codes: R10.9 - Un specified abdominal pain Additional Impression: Acute renal failure (ARF) Acute renal failure type: unspecified Qualified Codes: N17.9 - Acute kidney failure, unspecified Condition: Serious PAT PEREZ March 03, 2019 16:18
[2019-03-03] MEDS: morphine 2 MG INJ IV PRN ×2 (17:29→20:42)
[2019-03-03 17:38] VITALS: BP 174/81; PULSE 77; RESP 18
--- NOTE | 2019-03-03 18:59 | HP ---
Date/Time of Note Date/Time of Note DATE: 03/03/19 TIME: 18:58 Assessment/Plan VTE Prophylaxis SCD applied (from Nsg): Yes Pharmacological prophylaxis: other Lines/Catheters IV Catheter Type (from Nrsg): Peripheral IV Urinary Cath still in place: No Assessment/Plan Hospital Course Assessment and plan: 73-year-old male coming in with vomiting and acute kidney injury. #Vomiting/BORIS: Suspect his vomiting is secondary to BORIS. Unclear why patient has developed worsening creatinine levels in the last 2 weeks. Again his last known creatinine here at this hospital was February 17, 2019 at that time was 1.0 -Admit patient, aggressive IV fluid hydration, will obtain renal consult -Get PT OT and speech therapy consult as well, check TSH A1c lipid panel -Hold home nephrotoxic medication such as MARLENA inhibitor. #Epigastric pain: Suspect secondary to history of gastric ulcers. No signs of any upper or lower GI bleeding -Restart patient's home Carafate, PPI IV twice daily -Monitor CBC, consider GI consult. Hemoglobin presently stable #Opioid abuse: Counseled on cessation, hold all opiates #CHF: Monitor for now #History of hypertension: Blood pressure stable, monitor for now #History prostate cancer: Monitor for now Result Diagram: 03/03/19 1251 03/03/19 1250 Results 24hrs Laboratory Tests Test 03/03/19 12:50 03/03/19 12:51 Sodium Level 130 L Potassium Level 4.8 Chloride Level 99 Carbon Dioxide Level 13 L Anion Gap 18 H Blood Urea Nitrogen 30 H Creatinine 3.34 H Est Glomerular Filtrat Rate mL/min Glucose Level 108 Calcium Level 8.3 L Total Bilirubin 0.0 L Direct Bilirubin 0.00 Indirect Bilirubin 0.0 Aspartate Amino Transf (AST/SGOT) 32 Alanine Aminotransferase (ALT/SGPT) 12 L Alkaline Phosphatase 78 Total Protein 7.5 Albumin 3.7 Globulin 3.80 H Albumin/Globulin Ratio 0.97 Lipase 123 White Blood Count 11.7 #H Red Blood Count 4.44 L Hemoglobin 10.2 L Hematocrit 33.2 L Mean Corpuscular Volume 74.8 L Mean Corpuscular Hemoglobin 23.0 L Mean Corpuscular Hemoglobin Concent 30.7 L Red Cell Distribution Width 25.2 H Platelet Count 329 # Mean Platelet Volume 9.8 Immature Granulocytes % 0.800 H Neutrophils % 76.2 Lymphocytes % 14.2 L Monocytes % 8.1 Eosinophils % 0.6 Basophils % 0.1 Nucleated Red Blood Cells % 0.0 Immature Granulocytes # 0.090 H Neutrophils # 8.9 H Lymphocytes # 1.7 Monocytes # 0.9 Eosinophils # 0.1 Basophils # 0.0 Nucleated Red Blood Cells # 0.0 Urine Color STRAW Urine Clarity SLIGHTLY CLOUDY A Urine pH 5.0 Urine Specific [place] 1.012 Urine Ketones NEGATIVE Urine Nitrite NEGATIVE Urine Bilirubin NEGATIVE Urine Urobilinogen NEGATIVE Urine Leukocyte Esterase NEGATIVE Urine Microscopic RBC 1 Urine Microscopic WBC 3 Urine Squamous Epithelial Cells FEW Urine Bacteria FEW A Urine Hemoglobin 2+ H Urine Glucose NEGATIVE Urine Total Protein 1+ H Free Thyroxine 1.26 HPI/ROS Admit Date/Time Admit Date/Time 03/03/2019 ROS 73-year-old male past medical history of gastric ulcers, CHF, anemia, opioid abuse, hypertension, possible pulmonary fibrosis, prostate cancer, glaucoma, who comes in today with different symptoms. He has been complaining of some vo miting symptoms nonbloody non-bilious for the last 3 to 4 days. He is also had some generalized abdominal pain. He is also been having some constipation. No signs of any upper or lower GI bleeding, no hematuria, no nausea, no diarrhea no chest pain. Patient has had some mild shortness of breath and some coughing symptoms. With the patient came in today he was found with creatinine 3.5. Denies taking any new medications. Patient was last here to our hospital last month from February 14 to February 17, 2019. At that time he was treated for GI bleeding and received blood transfusion at that time and was diagnosed with gastric ulcers at that time, although it is possible patient may have had a history of this in the past. At that time more importantly his creatinine was 1.0. PMH/Family/Social Past Medical History Medications Current Medications IV Flush (NS 3 ml) 3 ml PER PROTOCOL IV ; Start 03/03/19 at 15:30 Ondansetron HCl (Zofran Inj) 4 mg Q6H PRN IV NAUSEA/VOMITING; Start 03/03/19 at 15:30 Acetaminophen (Tylenol Tab) 650 mg Q6H PRN PO .PAIN 1-3 OR TEMP; Start 03/03/19 at 15:30 Acetaminophen/ Hydrocodone Bitart ([place] (5/325)) 1 tab Q6H PRN PO .MOD PAIN 4- 6; Start 03/03/19 at 15:30 Morphine Sulfate (morphine) 2 mg Q4H PRN IV .SEVERE PAIN 7-10 Last administered on 03/03/19at 17:29; Admin Dose 2 MG; Start 03/03/19 at 15:30 Docusate Sodium (Colace) 100 mg Q12H PRN PO .CONSTIPATION; Start 03/03/19 at 15:30 Magnesium Hydroxide (Milk Of Mag) 30 ml DAILY PRN PO .CONSTIPATION; Start 03/03/19 at 15:30 Lorazepam (Ativan) 0.5 mg Q6H PRN IV ANXIETY; Start 03/03/19 at 15:30 Sodium Chloride 1,000 ml @ 100 mls/hr Q10H IV Last administered on 03/03/19at 17:29; Admin Dose 100 MLS/HR; Start 03/03/19 at 15:26 Albuterol/ Ipratropium (Duoneb) 3 ml Q4H RESP THERAPY PRN HHN SHORTNESS OF BREATH; Start 03/03/19 at 15:30 Hydralazine HCl (Apresoline) 10 mg Q6H PRN IV ELEVATED BLOOD PRESSURE; Start 03/03/19 at 15:30 Nitroglycerin (Nitroglycerin (Sl Tab) 0.4 Mg) 1 tab Q5M PRN SL ANGINA; Start 03/03/19 at 15:30 Brimonidine/ Timolol (Combigan Oph) 1 drop BID BOTH EYES ; Start 03/03/19 at 21:00 Isosorbide Mononitrate (Imdur) 60 mg DAILY PO ; Start 03/04/19 at 09:00 Metoprolol Tartrate (Lopressor) 50 mg BID PO ; Start 03/03/19 at 21:00 Multivitamins/ Minerals (Theragran-M) 1 tab DAILY PO ; Start 03/04/19 at 09:00 Pantoprazole (Protonix Tab) 40 mg DAILY PO ; Start 03/04/19 at 09:00 Coded Allergies: No Known Allergy (Unverified , 03/03/19) Past Surgical History Past Surgical Hx: other (Penile implant, intestine surgery, prostatectomy) Family History Significant Family History: no pertinent family hx Social History Alcohol Use: none Smoking Status: Never smoker Drug Use: none Exam/Review of Systems Vital Signs Vitals Vital Signs Date Temp Pulse Resp B/P (MAP) Pulse Ox O2 O2 Flow FiO2 Time Delivery Rate 03/03/19 98.4 77 18 174/81 99 Room Air 17:38 (112) Exam Exam Gen: No acute distress Head: Atraumatic Eyes: Normal Conjunctiva ENT: Normal External Ears, Nose and Mouth. Neck: Full range of motion. No meningismus. Resp: Clear to auscultation bilaterally Cardio: Regular rate and rhythm, no murmurs Abd: Soft, positive epigastric tenderness, non distended. Normal bowel sounds Ext: No lower extremity edema bilaterally Neuro: No focal deficits DAMASO ZHENG March 03, 2019 18:59
[2019-03-03] MEDS ORDERED: GUAIFENESIN 20 MG/ML 5ML CUP PO PRN (19:30)
[2019-03-03] MEDS ORDERED: CEPASTAT LOZENGE MT PRN (19:30)
[2019-03-03] MEDS: ONDANSETRON 4 MG INJ IV PRN (19:43)
[2019-03-03 19:52] VITALS: BP 130/65; PULSE 78; RESP 18
[2019-03-03] MEDS: SUCRALFATE 1 GM TAB PO SCH ×2 (20:37→23:26)
[2019-03-03] MEDS: METOPROLOL 50 MG TAB PO SCH (20:41)
[2019-03-03] MEDS: NA BICARBONATE 8.4% 50 ML SYG IV ONE ×2 (20:44→23:00)
[2019-03-03] MEDS: PANTOPRAZOLE 40 MG INJ IV SCH (20:46)
[2019-03-03] MEDS: BRIMONIDINE 0.2%-TIMOLOL 0.5% 5ML OPH BOTH EYES SCH (20:51)
[2019-03-03] MEDS ORDERED: SODIUM BICARBONATE IV SCH (21:30)
[2019-03-03] MEDS ORDERED: SOD CHLORIDE 0.9% IV SCH (21:30)
[2019-03-03] MEDS ORDERED: SODIUM BICARBONATE IV ONE (22:30)
[2019-03-03] MEDS ORDERED: SOD CHLORIDE 0.9% IV ONE (22:30)
[2019-03-03] MEDS: NITROGLYCERIN (SL) 0.4 MG TAB SL PRN (22:47)
[2019-03-03] MEDS ORDERED: NITROGLYCERIN (SL) 0.4 MG TAB SL PRN (23:00)
[2019-03-03] MEDS: SODIUM BICARBONATE (IV ADD) 100 MEQ in DEXTROSE 5% 1,000 ML IV SCH (23:22)
[2019-03-04] MEDS: morphine 2 MG INJ IV PRN ×3 (00:36→09:30)
[2019-03-04 01:57] VITALS: BP 138/67; PULSE 60; RESP 16
[2019-03-04] MEDS: HYDROCODONE/APAP (5/325) TAB PO PRN ×4 (03:31→22:55)
[2019-03-04] MEDS: PANTOPRAZOLE 40 MG INJ IV SCH ×2 (05:27→17:53)
[2019-03-04] MEDS: ONDANSETRON 4 MG INJ IV PRN ×2 (05:27→11:55)
[2019-03-04] MEDS: LORAZEPAM 2 MG INJ IV PRN ×2 (07:42→14:48)
[2019-03-04 08:00] VITALS: BP 165/75; PULSE 65; RESP 19
[2019-03-04] MEDS ORDERED: PANTOPRAZOLE (EC) 40 MG TAB PO SCH (09:00)
[2019-03-04] MEDS: BRIMONIDINE 0.2%-TIMOLOL 0.5% 5ML OPH BOTH EYES SCH ×2 (09:00→22:55)
[2019-03-04] MEDS: MULTIVITAMINS/MINERALS TAB PO SCH (09:30)
[2019-03-04] MEDS: SUCRALFATE 1 GM TAB PO SCH ×4 (09:30→20:54)
[2019-03-04] MEDS: SODIUM BICARBONATE (IV ADD) 100 MEQ in DEXTROSE 5% 1,000 ML IV SCH ×2 (09:30→12:57)
[2019-03-04] MEDS: METOPROLOL 50 MG TAB PO SCH ×2 (09:30→20:56)
[2019-03-04] MEDS: ISOSORBIDE MONONITRATE(SR)60 MG TAB PO SCH (09:31)
--- NOTE | 2019-03-04 10:05 | CONS ---
Assessment/Plan Assessment/Plan Assessment/Plan (Daily) 1. acute kidney injury due to severe prerenal azotemia + ATN 2. HYponatremia due to Hypovolemic Hyponatremia 3. Severe metabolic acidosis with HCo3 13 4. h/o HTN 5. Intractable nausea/vomiting Plan: BUN/Cr went upto 37/4.1, Na 133, HCo3 19- Contnue bicarbonate drip 100mEQ in D5W at 80 cc/hr Renally dose all medications, monitor electrolytes and replace as needed Renal US unremarkable, normal size kidneys with normal echogenicity will follow up Consultation Date/Type/Reason Admit Date/Time March 03, 2019 at 14:55 Initial Consult Date 03/03/19 Type of Consult NEPHROLOGY Requesting Provider: DAMASO ZHENG Date/Time of Note DATE: 03/04/19 TIME: 10:05 Exam/Review of Systems Exam Vitals Vital Signs Date Temp Pulse Resp B/P (MAP) Pulse Ox O2 O2 Flow FiO2 Time Delivery Rate 03/04/19 98.0 65 19 165/75 100 08:00 (105) 03/04/19 2.0 02:22 03/04/19 Nasal 01:57 Cannula Intake and Output 03/03/19 03/03/19 03/04/19 1515:00 23:00 07:00 IntakeIntake Total 500 ml 1330 ml BalanceBalance 500 ml 1330 ml Exam Constitutional: alert Respiratory: clear to auscultation, diminished breath sounds Cardiovascular: regular rate and rhythm, nl pulses Gastrointestinal: soft, non-tender Musculoskeletal: nl extremities to inspection Extremities: normal pulses Neurological: COAL UNLOADER II-XII intact, nl mental status, nl speech, nl strength Results Result Diagram: 03/04/19 0430 03/04/19 043 Results 24hrs Laboratory Tests Test 03/03/19 12:50 03/03/19 12:51 03/03/19 18:40 03/03/19 23:12 Sodium Level 130 L Potassium Level 4.8 Chloride Level 99 Carbon Dioxide 13 L Level Anion Gap 18 H Blood Urea 30 H Nitrogen Creatinine 3.34 H Est Glomerular Filtrat Rate mL/min Glucose Level 108 Calcium Level 8.3 L Total Bilirubin 0.0 L Direct Bilirubin 0.00 Indirect 0.0 Bilirubin Aspartate Amino 32 Transf (AST/SGOT ) Alanine 12 L Aminotransferase (ALT/SGPT) Alkaline 78 Phosphatase Total Protein 7.5 Albumin 3.7 Globulin 3.80 H Albumin/Globulin 0.97 Ratio Lipase 123 White Blood 11.7 #H Count Red Blood Count 4.44 L Hemoglobin 10.2 L Hematocrit 33.2 L Mean Corpuscular 74.8 L Volume Mean Corpuscular 23.0 L Hemoglobin Mean Corpuscular 30.7 L Hemoglobin Haley nt Red Cell 25.2 H Distribution Width Platelet Count 329 # Mean Platelet 9.8 Volume Immature 0.800 H Granulocytes % Neutrophils % 76.2 Lymphocytes % 14.2 L Monocytes % 8.1 Eosinophils % 0.6 Basophils % 0.1 Nucleated Red 0.0 Blood Cells % Immature 0.090 H Granulocytes # Neutrophils # 8.9 H Lymphocytes # 1.7 Monocytes # 0.9 Eosinophils # 0.1 Basophils # 0.0 Nucleated Red 0.0 Blood Cells # Urine Color STRAW Urine Clarity SLIGHTLY CLOUDY A Urine pH 5.0 Urine Specific 1.012 [place] Urine Ketones NEGATIVE Urine Nitrite NEGATIVE Urine Bilirubin NEGATIVE Urine NEGATIVE Urobilinogen Urine Leukocyte NEGATIVE Esterase Urine 1 Microscopic RBC Urine 3 Microscopic WBC Urine Squamous FEW Epithelial Cells Urine Bacteria FEW A Urine Hemoglobin 2+ H Urine Glucose NEGATIVE Urine Total 1+ H Protein Free Thyroxine 1.26 Blood Gas Blood arterial Specimen Source Arterial Blood 03/03/2019 7:00: Date Drawn 57 PM Arterial Blood 7.232 *L pH (Temp corrected) Arterial Blood 32.4 L pCO2 (Temp correct) Arterial Blood 118.2 H pO2 (Temp corrected) Arterial Blood 13.3 L HCO3 Arterial Blood -13.0 L Base Excess Arterial Blood 97.8 Oxygen Saturatio n Nish Test ACCEPTAB Arterial Blood Right Radial Gas Puncture Site Arterial 0.5 Blood Carboxyhem oglobin Arterial Blood 0.1 Methemoglobin Blood Gas A-a O2 36.0 H Differential Oxyhemoglobin 97.2 Percent Blood Gas 37.0 Temperature Blood Gas Actual 19 Respiration Rate Blood Gas NASAL CANNULA Modality FiO2 27.0 Blood Gas O SHEFALI WHITAKER Critical Value Read Back Blood Gas KB Notified Whom Blood Gas 03/03/2019 7:09: Notified Time 33 PM Creatine Kinase 201 H Creatine Kinase 3.0 Index Creatinine 6.08 H Kinase MB (Mass) Troponin I < 0.012 Test 03/04/19 04:30 White Blood 6.8 # Count Red Blood Count 3.74 L Hemoglobin 8.5 L Hematocrit 27.0 L Mean Corpuscular 72.2 L Volume Mean Corpuscular 22.7 L Hemoglobin Mean Corpuscular 31.5 L Hemoglobin Haley nt Red Cell 25.1 H Distribution Width Platelet Count 295 Mean Platelet 10.5 H Volume Immature 0.700 H Granulocytes % Neutrophils % 59.6 Lymphocytes % 23.8 Monocytes % 13.1 H Eosinophils % 2.4 Basophils % 0.4 Nucleated Red 0.0 Blood Cells % Immature 0.050 H Granulocytes # Neutrophils # 4.1 Lymphocytes # 1.6 Monocytes # 0.9 Eosinophils # 0.2 Basophils # 0.0 Nucleated Red 0.0 Blood Cells # Sodium Level 133 L Potassium Level 3.7 Chloride Level 103 Carbon Dioxide 19 L Level Anion Gap 11 # Blood Urea 37 H Nitrogen Creatinine 4.11 H Est Glomerular Filtrat Rate mL/min Glucose Level 89 Hemoglobin A1c 5.9 Calcium Level 7.1 L Phosphorus Level 5.0 H Magnesium Level 2.1 Triglycerides 158 H Level Cholesterol 111 Level LDL Cholesterol, 61 Calculated HDL Cholesterol 18 L Cholesterol/HDL 6.1 Ratio Thyroid 1.680 Stimulating Hormone (TSH) Medications Medication Current Medications IV Flush (NS 3 ml) 3 ml PER PROTOCOL IV ; Start 03/03/19 at 15:30 Ondansetron HCl (Zofran Inj) 4 mg Q6H PRN IV NAUSEA/VOMITING Last administered on 03/04/19at 05:27; Admin Dose 4 MG; Start 03/03/19 at 15:30 Acetaminophen (Tylenol Tab) 650 mg Q6H PRN PO .PAIN 1-3 OR TEMP; Start 03/03/19 at 15:30 Acetaminophen/ Hydrocodone Bitart ([place] (5/325)) 1 tab Q6H PRN PO .MOD PAIN 4- 6 Last administered on 03/04/19at 03:31; Admin Dose 1 TAB; Start 03/03/19 at 15 :30 Morphine Sulfate (morphine) 2 mg Q4H PRN IV .SEVERE PAIN 7-10 Last administered on 03/04/19at 09:30; Admin Dose 2 MG; Start 03/03/19 at 15:30 Docusate Sodium (Colace) 100 mg Q12H PRN PO .CONSTIPATION; Start 03/03/19 at 15:30 Magnesium Hydroxide (Milk Of Mag) 30 ml DAILY PRN PO .CONSTIPATION; Start 03/03/19 at 15:30 Lorazepam (Ativan) 0.5 mg Q6H PRN IV ANXIETY Last administered on 03/04/19at 07:42; Admin Dose 0.5 MG; Start 03/03/19 at 15:30 Albuterol/ Ipratropium (Duoneb) 3 ml Q4H RESP THERAPY PRN HHN SHORTNESS OF BREATH; Start 03/03/19 at 15:30 Hydralazine HCl (Apresoline) 10 mg Q6H PRN IV ELEVATED BLOOD PRESSURE; Start 03/03/19 at 15:30 Nitroglycerin (Nitroglycerin (Sl Tab) 0.4 Mg) 1 tab Q5M PRN SL ANGINA Last administered on 03/03/19at 22:47; Admin Dose 1 TAB; Start 03/03/19 at 15:30 Brimonidine/ Timolol (Combigan Oph) 1 drop BID BOTH EYES ; Start 03/03/19 at 21:00 Isosorbide Mononitrate (Imdur) 60 mg DAILY PO Last administered on 03/04/19 09:31; Admin Dose 60 MG; Start 03/04/19 at 09:00 Metoprolol Tartrate (Lopressor) 50 mg BID PO Last administered on 03/04/19 09:30; Admin Dose 50 MG; Start 03/03/19 at 21:00 Multivitamins/ Minerals (Theragran-M) 1 tab DAILY PO Last administered on 03/04/19 09:30; Admin Dose 1 TAB; Start 03/04/19 at 09:00 Sucralfate (Carafate) 1 gm QID PO Last administered on 03/04/19 09:30; Admin Dose 1 GM; Start 03/03/19 at 19:30 Pantoprazole (Protonix Iv) 40 mg BID@06,18 IV Last administered on 03/04/19 05:27; Admin Dose 40 MG; Start 03/03/19 at 19:30 Phenol (Cepastat Lozenge) 1 lozenge Q1H PRN MT COUGH; Start 03/03/19 at 19:30 Guaifenesin (Robitussin Liquid Cup) 200 mg Q4H PRN PO COUGH; Start 03/03/19 at 19:30 Sodium Bicarbonate 100 meq/Dextrose 1,000 ml @ 80 mls/hr [id number] IV Last administered on 03/03/19at 23:22; Admin Dose 80 MLS/HR; Start 03/03/19 at 21:00 Nitroglycerin (Nitroglycerin (Sl Tab) 0.4 Mg) 1 tab Q5M PRN SL ANGINA; Start 03/03/19 at 23:00 SERINA NORIEGA MD March 04, 2019 10:05
--- NOTE | 2019-03-04 10:53 | RADRPT ---
Vent Rate: 59 bpm RR Interval: 0 msec GA Interval: 206 msec QRS Duration: 84 msec QT Interval: 428 msec QTC Interval: 423 msec P-R-T [place]: -18 - 28 - 33 degrees Sinus bradycardia Moderate voltage criteria for LVH, may be normal variant Borderline ECG Electronically Signed By: Aubrey Beth
[2019-03-04 14:00] VITALS: BP 130/69; PULSE 57; RESP 18
--- NOTE | 2019-03-04 18:30 | PN ---
Date/Time of Note Date/Time of Note DATE: 03/04/19 TIME: 18:28 Assessment/Plan VTE Prophylaxis Risk score (from Ns)>0 risk: 7 SCD applied (from Ns): Yes Pharmacological prophylaxis: NA/contraindicated Pharm contraindication: low risk/ambulating Lines/Catheters IV Catheter Type (from Nrsg): Peripheral IV Urinary Cath still in place: No Assessment/Plan Assessment/Plan 73-year-old man coming in with vomiting and acute kidney injury. #Vomiting/BORIS: Suspect his vomiting is secondary to BORIS. Unclear why patient has developed worsening creatinine levels in the last 2 weeks. Again his last known creatinine here at this hospital was February 17, 2019 at that time was 1.0 -Admit patient, aggressive IV fluid hydration, will obtain renal consult -Get PT OT and speech therapy consult as well, check TSH A1c lipid panel -Hold home nephrotoxic medication such as MARLENA inhibitor. - Cautiously advance diet. #Epigastric pain: Suspect secondary to history of gastric ulcers. No signs of any upper or lower GI bleeding -Restart patient's home Carafate, PPI IV twice daily -Monitor CBC, consider GI consult. Hemoglobin presently stable #Opioid abuse: Counseled on cessation, hold all opiates #CHF: Monitor for now #History of hypertension: Blood pressure stable, monitor for now #History prostate cancer: Monitor for now Result Diagram: 03/04/19 0430 03/04/19 0430 Subjective 24 Hr Interval Summary Free Text/Dictation Patient complains of burning L chest pain at rest as well as nausea and mild dysphagia. Exam/Review of Systems Exam Vitals Vital Signs Date Temp Pulse Resp B/P (MAP) Pulse Ox O2 O2 Flow FiO2 Time Delivery Rate 03/04/19 97.8 57 18 130/69 96 14:00 (89) 03/04/19 2.0 02:22 03/04/19 Nasal 01:57 Cannula Intake and Output 03/03/19 03/03/19 03/04/19 1515:00 23:00 07:00 IntakeIntake Total 500 ml 1330 ml BalanceBalance 500 ml 1330 ml Exam Gen: Well appearing man in some discomfort. Head: Atraumatic Eyes: Normal Conjunctiva ENT: Normal External Ears, Nose and Mouth. Neck: Full range of motion. No meningismus. Chest: Tender to palpation across L chest. Resp: Clear to auscultation bilaterally Cardio: Regular rate and rhythm, no murmurs Abd: Soft, positive epigastric tenderness, non distended. Normal bowel sounds Ext: No lower extremity edema bilaterally Results Results 24hrs Laboratory Tests Test 03/03/19 18:40 03/03/19 23:12 03/04/19 04:30 03/04/19 13:32 Blood Gas Blood arterial Specimen Source Arterial Blood 03/03/2019 7:00:5 Date Drawn 7 PM Arterial Blood pH 7.232 *L (Temp corrected) Arterial Blood 32.4 L pCO2 (Temp correct) Arterial Blood 118.2 H pO2 (Temp corrected) Arterial Blood 13.3 L HCO3 Arterial Blood -13.0 L Base Excess Arterial Blood 97.8 Oxygen Saturation Nish Test ACCEPTAB Arterial Blood Right Radial Gas Puncture Site Arterial 0.5 Blood Carboxyhemo globin Arterial Blood 0.1 Methemoglobin Blood Gas A-a O2 36.0 H Differential Oxyhemoglobin 97.2 Percent Blood Gas 37.0 Temperature Blood Gas Actual 19 Respiration Rate Blood Gas NASAL CANNULA Modality FiO2 27.0 Blood Gas O SHEFALI WHITAKER Critical Value Read Back Blood Gas KB Notified Whom Blood Gas 03/03/2019 7:09:3 Notified Time 3 PM Creatine Kinase 201 H Creatine Kinase 3.0 Index Creatinine Kinase 6.08 H MB (Mass) Troponin I < 0.012 < 0.012 White Blood Count 6.8 # Red Blood Count 3.74 L Hemoglobin 8.5 L Hematocrit 27.0 L Mean Corpuscular 72.2 L Volume Mean Corpuscular 22.7 L Hemoglobin Mean Corpuscular 31.5 L Hemoglobin Concen t Red Cell 25.1 H Distribution Width Platelet Count 295 Mean Platelet 10.5 H Volume Immature 0.700 H Granulocytes % Neutrophils % 59.6 Lymphocytes % 23.8 Monocytes % 13.1 H Eosinophils % 2.4 Basophils % 0.4 Nucleated Red 0.0 Blood Cells % Immature 0.050 H Granulocytes # Neutrophils # 4.1 Lymphocytes # 1.6 Monocytes # 0.9 Eosinophils # 0.2 Basophils # 0.0 Nucleated Red 0.0 Blood Cells # Sodium Level 133 L Potassium Level 3.7 Chloride Level 103 Carbon Dioxide 19 L Level Anion Gap 11 # Blood Urea 37 H Nitrogen Creatinine 4.11 H Est Glomerular Filtrat Rate mL/min Glucose Level 89 Hemoglobin A1c 5.9 Calcium Level 7.1 L Phosphorus Level 5.0 H Magnesium Level 2.1 Triglycerides 158 H Level Cholesterol Level 111 LDL Cholesterol, 61 Calculated HDL Cholesterol 18 L Cholesterol/HDL 6.1 Ratio Thyroid 1.680 Stimulating Hormone (TSH) Medications Medication Current Medications IV Flush (NS 3 ml) 3 ml PER PROTOCOL IV ; Start 03/03/19 at 15:30 Ondansetron HCl (Zofran Inj) 4 mg Q6H PRN IV NAUSEA/VOMITING Last administered on 03/04/19at 11:55; Admin Dose 4 MG; Start 03/03/19 at 15:30 Acetaminophen (Tylenol Tab) 650 mg Q6H PRN PO .PAIN 1-3 OR TEMP; Start 03/03/19 at 15:30 Acetaminophen/ Hydrocodone Bitart ([place] (5/325)) 1 tab Q6H PRN PO .MOD PAIN 4- 6 Last administered on 03/04/19at 15:52; Admin Dose 1 TAB; Start 03/03/19 at 15:30 Docusate Sodium (Colace) 100 mg Q12H PRN PO .CONSTIPATION; Start 03/03/19 at 15:30 Magnesium Hydroxide (Milk Of Mag) 30 ml DAILY PRN PO .CONSTIPATION; Start 03/03/19 at 15:30 Lorazepam (Ativan) 0.5 mg Q6H PRN IV ANXIETY Last administered on 03/04/19at 14:48; Admin Dose 0.5 MG; Start 03/03/19 at 15:30 Albuterol/ Ipratropium (Duoneb) 3 ml Q4H RESP THERAPY PRN HHN SHORTNESS OF [place]AN PAUL ATH; Start 03/03/19 at 15:30 Hydralazine HCl (Apresoline) 10 mg Q6H PRN IV ELEVATED BLOOD PRESSURE; Start 03/03/19 at 15:30 Nitroglycerin (Nitroglycerin (Sl Tab) 0.4 Mg) 1 tab Q5M PRN SL ANGINA Last administered on 03/03/19at 22:47; Admin Dose 1 TAB; Start 03/03/19 at 15:30 Brimonidine/ Timolol (Combigan Oph) 1 drop BID BOTH EYES ; Start 03/03/19 at 21:00 Isosorbide Mononitrate (Imdur) 60 mg DAILY PO Last administered on 03/04/19at 09:31; Admin Dose 60 MG; Start 03/04/19 at 09:00 Metoprolol Tartrate (Lopressor) 50 mg BID PO Last administered on 03/04/19 09:30; Admin Dose 50 MG; Start 03/03/19 at 21:00 Multivitamins/ Minerals (Theragran-M) 1 tab DAILY PO Last administered on 03/04/19 09:30; Admin Dose 1 TAB; Start 03/04/19 at 09:00 Sucralfate (Carafate) 1 gm QID PO Last administered on 03/04/19at 17:52; Admin Dose 1 GM; Start 03/03/19 at 19:30 Pantoprazole (Protonix Iv) 40 mg BID@06,18 IV Last administered on 03/04/19at 17:53; Admin Dose 40 MG; Start 03/03/19 at 19:30 Phenol (Cepastat Lozenge) 1 lozenge Q1H PRN MT COUGH; Start 03/03/19 at 19:30 Guaifenesin (Robitussin Liquid Cup) 200 mg Q4H PRN PO COUGH; Start 03/03/19 at 19:30 Sodium Bicarbonate 100 meq/Dextrose 1,000 ml @ 80 mls/hr [id number] IV Last administered on 03/04/19 12:57; Admin Dose 80 MLS/HR; Start 03/03/19 at 21:00 Nitroglycerin (Nitroglycerin (Sl Tab) 0.4 Mg) 1 tab Q5M PRN SL ANGINA; Start 03/03/19 at 23:00 ARIANA PINEDA MD March 04, 2019 18:30
[2019-03-04 20:03] VITALS: BP 155/68; PULSE 67; RESP 18
[2019-03-05] MEDS: LORAZEPAM 2 MG INJ IV PRN ×2 (00:05→11:48)
[2019-03-05] MEDS: NITROGLYCERIN (SL) 0.4 MG TAB SL PRN (00:14)
[2019-03-05] MEDS: ONDANSETRON 4 MG INJ IV PRN ×2 (02:07→07:43)
[2019-03-05 02:25] VITALS: BP 111/57; PULSE 57; RESP 18
[2019-03-05] MEDS: ACETAMINOPHEN 325 MG TAB PO PRN (02:51)
[2019-03-05] MEDS ORDERED: traMADol 50 MG TAB PO PRN (03:30)
[2019-03-05] MEDS: SODIUM BICARBONATE (IV ADD) 100 MEQ in DEXTROSE 5% 1,000 ML IV SCH (05:52)
[2019-03-05] MEDS: PANTOPRAZOLE 40 MG INJ IV SCH ×2 (05:52→18:18)
[2019-03-05] MEDS ORDERED: LORAZEPAM 2 MG INJ IV ONE (06:00)
[2019-03-05 07:32] VITALS: BP 167/73; PULSE 61; RESP 19
[2019-03-05] MEDS: METOPROLOL 50 MG TAB PO SCH ×2 (08:33→21:43)
[2019-03-05] MEDS: SUCRALFATE 1 GM TAB PO SCH ×2 (08:33→12:25)
[2019-03-05] MEDS: MULTIVITAMINS/MINERALS TAB PO SCH (08:33)
[2019-03-05] MEDS: BRIMONIDINE 0.2%-TIMOLOL 0.5% 5ML OPH BOTH EYES SCH ×2 (08:34→21:42)
[2019-03-05] MEDS: ISOSORBIDE MONONITRATE(SR)60 MG TAB PO SCH (08:35)
[2019-03-05] MEDS: HYDROCODONE/APAP (5/325) TAB PO PRN ×2 (08:39→16:52)
--- NOTE | 2019-03-05 10:13 | PN ---
Date/Time of Note Date/Time of Note DATE: 03/05/19 TIME: 10:09 Assessment/Plan VTE Prophylaxis Risk score (from Ns)>0 risk: 7 SCD applied (from Ns): Yes Pharmacological prophylaxis: NA/contraindicated Pharm contraindication: bleeding Lines/Catheters IV Catheter Type (from Nrs): Peripheral IV Urinary Cath still in place: No Assessment/Plan Assessment/Plan 73-year-old man coming in with vomiting and acute kidney injury. #BORIS: -According to son, patient was taking high doses of ibuprofen after going home. -Renal consult -Hold home nephrotoxic medication such as MARLENA inhibitor. #Epigastric pain #Vomiting - Suspect secondary to history of gastric ulcers. No signs of any upper or lower GI bleeding -According to son, patient was taking high doses of ibuprofen after going home. -Cont home Carafate, PPI IV twice daily -Hgb dropping. Pain not improving. Consult GI. #Opioid abuse: - Was started on morphine and norco on admission. Will stop morphine. - Apparently at home patient has a "pill addiction" and will take anything. #CHF: Currently not in exacerbation. #History of hypertension: Blood pressure stable, monitor for now #History prostate cancer: Monitor for now Result Diagram: 03/05/19 0507 03/05/19 0507 Subjective 24 Hr Interval Summary Free Text/Dictation Overnight the patient complained of chest pain. Got trop (negative) and EKG (no ischemic change, unchanged from prior). This morning patient ate very little from tray. Says diet worsens pain. Apparently son called and spoke to nurse; said patient was taking ibuprofen every hour at home. Son is unable to care for patient at home; requesting SNF. Exam/Review of Systems Exam Vitals Vital Signs Date Temp Pulse Resp B/P (MAP) Pulse Ox O2 O2 Flow FiO2 Time Delivery Rate 03/05/19 98.3 61 19 167/73 99 Room Air 07:32 (104) 03/04/19 2.0 02:22 Intake and Output 03/04/19 03/04/19 03/05/19 1515:00 23:00 07:00 IntakeIntake Total 520 ml 480 ml 900 ml BalanceBalance 520 ml 480 ml 900 ml Exam Gen: Well appearing man in some discomfort. Head: Atraumatic Eyes: Normal Conjunctiva ENT: Normal External Ears, Nose and Mouth. Neck: Full range of motion. No meningismus. Chest: Nontender to palpation. Resp: Clear to auscultation bilaterally Cardio: Regular rate and rhythm, no murmurs Abd: Soft, mild epigastric tenderness, non distended, no rebound tenderness. Normal bowel sounds Ext: No lower extremity edema bilaterally Results Results 24hrs Laboratory Tests Test 03/04/19 13:32 03/04/19 19:47 03/05/19 00:53 03/05/19 05:07 Troponin I < 0.012 < 0.012 < 0.012 < 0.012 White Blood Count 6.9 Red Blood Count 3.36 L Hemoglobin 7.8 L Hematocrit 24.2 L Mean Corpuscular 72.0 L Volume Mean Corpuscular 23.2 L Hemoglobin Mean Corpuscular 32.2 Hemoglobin Concent Red Cell 25.0 H Distribution Width Platelet Count 285 Mean Platelet Volume 10.4 Immature 0.400 Granulocytes % Neutrophils % 69.1 Lymphocytes % 16.6 Monocytes % 11.5 H Eosinophils % 2.0 Basophils % 0.4 Nucleated Red Blood 0.0 Cells % Immature 0.030 Granulocytes # Neutrophils # 4.8 Lymphocytes # 1.2 Monocytes # 0.8 Eosinophils # 0.1 Basophils # 0.0 Nucleated Red Blood 0.0 Cells # Sodium Level 132 L Potassium Level 3.4 L Chloride Level 99 Carbon Dioxide Level 20 L Anion Gap 13 Blood Urea Nitrogen 42 H Creatinine 4.63 H Est Glomerular Filtrat Rate mL/min Glucose Level 94 Calcium Level 6.8 L Medications Medication Current Medications IV Flush (NS 3 ml) 3 ml PER PROTOCOL IV ; Start 03/03/19 at 15:30 Ondansetron HCl (Zofran Inj) 4 mg Q6H PRN IV NAUSEA/VOMITING Last administered on 03/05/19at 07:43; Admin Dose 4 MG; Start 03/03/19 at 15:30 Acetaminophen (Tylenol Tab) 650 mg Q6H PRN PO .PAIN 1-3 OR TEMP Last administered on 03/05/19at 02:51; Admin Dose 650 MG; Start 03/03/19 at 15:30 Acetaminophen/ Hydrocodone Bitart ([place] (5/325)) 1 tab Q6H PRN PO .MOD PAIN 4- 6 Last administered on 03/05/19at 08:39; Admin Dose 1 TAB; Start 03/03/19 at 15:30 Docusate Sodium (Colace) 100 mg Q12H PRN PO .CONSTIPATION; Start 03/03/19 at 15:30 Magnesium Hydroxide (Milk Of Mag) 30 ml DAILY PRN PO .CONSTIPATION; Start 03/03/19 at 15:30 Lorazepam (Ativan) 0.5 mg Q6H PRN IV ANXIETY Last administered on 03/05/19 00:05; Admin Dose 0.5 MG; Start 03/03/19 at 15:30 Albuterol/ Ipratropium (Duoneb) 3 ml Q4H RESP THERAPY PRN HHN SHORTNESS OF BREATH; Start 03/03/19 at 15:30 Hydralazine HCl (Apresoline) 10 mg Q6H PRN IV ELEVATED BLOOD PRESSURE; Start 03/03/19 at 15:30 Nitroglycerin (Nitroglycerin (Sl Tab) 0.4 Mg) 1 tab Q5M PRN SL ANGINA Last administered on 03/05/19 00:14; Admin Dose 1 TAB; Start 03/03/19 at 15:30 Brimonidine/ Timolol (Combigan Oph) 1 drop BID BOTH EYES Last administered on 03/05/19 08:34; Admin Dose 1 DROP; Start 03/03/19 at 21:00 Isosorbide Mononitrate (Imdur) 60 mg DAILY PO Last administered on 03/05/19 08:35; Admin Dose 60 MG; Start 03/04/19 at 09:00 Metoprolol Tartrate (Lopressor) 50 mg BID PO Last administered on 03/05/19 08:33; Admin Dose 50 MG; Start 03/03/19 at 21:00 Multivitamins/ Minerals (Theragran-M) 1 tab DAILY PO Last administered on 03/05/19 08:33; Admin Dose 1 TAB; Start 03/04/19 at 09:00 Sucralfate (Carafate) 1 gm QID PO Last administered on 03/05/19 08:33; Admin Dose 1 GM; Start 03/03/19 at 19:30 Pantoprazole (Protonix Iv) 40 mg BID@06,18 IV Last administered on 03/05/19 05:52; Admin Dose 40 MG; Start 03/03/19 at 19:30 Phenol (Cepastat Lozenge) 1 lozenge Q1H PRN MT COUGH; Start 03/03/19 at 19:30 Guaifenesin (Robitussin Liquid Cup) 200 mg Q4H PRN PO COUGH; Start 03/03/19 at 19:30 Sodium Bicarbonate 100 meq/Dextrose 1,000 ml @ 80 mls/hr [id number] IV Last administered on 03/05/19at 05:52; Admin Dose 80 MLS/HR; Start 03/03/19 at 21:00 Nitroglycerin (Nitroglycerin (Sl Tab) 0.4 Mg) 1 tab Q5M PRN SL ANGINA; Start 03/03/19 at 23:00 ARIANA PINEDA MD March 05, 2019 10:13
[2019-03-05] MEDS ORDERED: HALOPERIDOL 5 MG INJ IV PRN (12:30)
--- NOTE | 2019-03-05 12:42 | CONS ---
Assessment/Plan Assessment/Plan Hospital Course (Demo Recall) Summary Assessment and Plan: Assessment: Severe epigastric pain Nausea/Vomiting Microcytic anemia Melena History of Gastric ulcers- last EGD BORIS- Followed by Nephrology CHF HTN Opioid abuse Recent excessive NSAID use Plan: Abdominal x-ray- given severe abdominal pain- r/o perforation Continue PPI/Carafate EGD tomorrow- as patient had a regular diet this am and we will await for abdominal x-ray results Endoscopy - risks/benefits/alternatives/indications of procedure and sedat ion/anesthesia discussed with patient who states understanding and gives informed consent to proceed. Attempted to call patient's son Casey Lizama - no answer, left a message to call back. Patient Seen in collaboration with Dr. Yuan CC: EARNESTINE YUAN MD ; Consultation Date/Type/Reason Admit Date/Time March 03, 2019 at 14:55 Date of Consultation: March 05, 2019 Type of Consult GI Reason for Consultation Severe epigastric pain/ Microcytic anemia Date/Time of Note DATE: 03/05/19 TIME: 12:18 Hx of Present Illness This is a 73-year-old male with past medical history of CHF, opioid abuse, hypertension, possible pulmonary fibrosis, prostate cancer, glaucoma who presented to the hospital with complaints of vomiting and abdominal pain. He was recently hospitalized in January for upper GI bleed he underwent EGD showing x 2 gastric ulcers with clean base. He was discharged on PPI and Carafate with plan to follow-up with GI doctor for repeat EGD. However after discharge according to documentation reports patient was taking excessive amounts of ibuprofen after discharge. With work-up in the ED patient found to have acute kidney injury likely due to excessive NSAID use nephrology is following. His epigastric pain has not improved since admission additionally his hemoglobin has been dropping on admission hemoglobin is 10.2 today at 7.8 patient also notes he is having black stools. GI has been consulted for further evaluation. At time evaluation patient complains of severe epigastric pain no rebound tenderness noted patient's pain seemed to improved while taking medication. Discussed plan for abdominal x-ray rule out perforation negative we will plan to move forward with EGD tomorrow as patient had a regular breakfast this morning. Review of Systems: A 12 system, review was conducted and is negative except as noted in the HPI or here. Past Medical History Medical History: hypertension, other (Gastric ulcer recently diagnosed on last admission , h/O GI bleeding ) Home Meds Active Scripts Sucralfate* (Carafate*) 1 Gm/10 Ml Susp, 1 GM PO QID, #60 BOTTLE Prov:DELFINA REILLY 02/17/19 Ondansetron (Ondansetron Odt) 4 Mg Tab.rapdis, 4 MG PO Q6H PRN for NAUSEA AND/OR VOMITING, #10 TAB Prov:WILLIAM MELCHOR MD 02/21/18 Omeprazole* (Omeprazole*) 40 Mg Capsule.dr, 40 MG PO DAILY, #30 CAP Prov:DINESH CHACON DO 02/05/18 Reported Medications Multivitamin with Minerals (Multivitamins with Minerals) 1 Each Tablet, 1 EACH PO DAILY, TAB 02/13/19 Brimonidine/Timolol* (Combigan*) 5 Ml Drops, 1 DROP BOTH EYES BID, BOTTLE 02/13/19 Hydrochlorothiazide (Hydrochlorothiazide) 12.5 Mg Capsule, 12.5 MG PO DAILY for 30 Days, #30 02/13/19 Isosorbide Mononitrate* (Isosorbide Mononitrate*) 60 Mg Tab.er.24h, 60 MG PO DAILY for 30 Days, #30 02/13/19 Furosemide* (Furosemide*) 20 Mg Tablet, 20 MG PO BID for 30 Days, #60 02/13/19 Metoprolol Tartrate* (Lopressor*) 50 Mg Tab, 50 MG PO BID for 30 Days, #60 02/13/19 Benazepril Hcl* (Benazepril Hcl*) 40 Mg Tablet, 40 MG PO DAILY for 90 Days, #90 02/13/19 Tamsulosin Hcl* (Tamsulosin Hcl*) 0.4 Mg Cap.er.24h, 0.4 MG PO HS, CAP 02/03/17 Lorazepam* (Lorazepam*) 0.5 Mg Tablet, 0.5 MG PO HS PRN for ANXIETY, TAB 02/03/17 Gabapentin* (Gabapentin*) 100 Mg Capsule, 400 MG PO TID 06/12/13 Medications Current Medications IV Flush (NS 3 ml) 3 ml PER PROTOCOL IV ; Start 03/03/19 at 15:30 Ondansetron HCl (Zofran Inj) 4 mg Q6H PRN IV NAUSEA/VOMITING Last administered on 03/05/19 07:43; Admin Dose 4 MG; Start 03/03/19 at 15:30 Acetaminophen (Tylenol Tab) 650 mg Q6H PRN PO .PAIN 1-3 OR TEMP Last administered on 03/05/19 02:51; Admin Dose 650 MG; Start 03/03/19 at 15:30 Acetaminophen/ Hydrocodone Bitart ([place] (5/325)) 1 tab Q6H PRN PO .MOD PAIN 4- 6 Last administered on 03/05/19 08:39; Admin Dose 1 TAB; Start 03/03/19 at 15:30 Docusate Sodium (Colace) 100 mg Q12H PRN PO .CONSTIPATION; Start 03/03/19 at 15:30 Magnesium Hydroxide (Milk Of Mag) 30 ml DAILY PRN PO .CONSTIPATION; Start 03/03/19 at 15:30 Lorazepam (Ativan) 0.5 mg Q6H PRN IV ANXIETY Last administered on 03/05/19 11:48; Admin Dose 0.5 MG; Start 03/03/19 at 15:30 Albuterol/ Ipratropium (Duoneb) 3 ml Q4H RESP THERAPY PRN HHN SHORTNESS OF BREATH; Start 03/03/19 at 15:30 Hydralazine HCl (Apresoline) 10 mg Q6H PRN IV ELEVATED BLOOD PRESSURE; Start 03/03/19 at 15:30 Nitroglycerin (Nitroglycerin (Sl Tab) 0.4 Mg) 1 tab Q5M PRN SL ANGINA Last administered on 03/05/19 00:14; Admin Dose 1 TAB; Start 03/03/19 at 15:30 Brimonidine/ Timolol (Combigan Oph) 1 drop BID BOTH EYES Last administered on 03/05/19 08:34; Admin Dose 1 DROP; Start 03/03/19 at 21:00 Isosorbide Mononitrate (Imdur) 60 mg DAILY PO Last administered on 03/05/19 08 :35; Admin Dose 60 MG; Start 03/04/19 at 09:00 Metoprolol Tartrate (Lopressor) 50 mg BID PO Last administered on 03/05/19 08:33; Admin Dose 50 MG; Start 03/03/19 at 21:00 Multivitamins/ Minerals (Theragran-M) 1 tab DAILY PO Last administered on 03/05/19at 08:33; Admin Dose 1 TAB; Start 03/04/19 at 09:00 Sucralfate (Carafate) 1 gm QID PO Last administered on 03/05/19at 08:33; Admin Dose 1 GM; Start 03/03/19 at 19:30 Pantoprazole (Protonix Iv) 40 mg BID@06,18 IV Last administered on 03/05/19at 0 5:52; Admin Dose 40 MG; Start 03/03/19 at 19:30 Phenol (Cepastat Lozenge) 1 lozenge Q1H PRN MT COUGH; Start 03/03/19 at 19:30 Guaifenesin (Robitussin Liquid Cup) 200 mg Q4H PRN PO COUGH; Start 03/03/19 at 19:30 Sodium Bicarbonate 100 meq/Dextrose 1,000 ml @ 80 mls/hr [id number] IV Last administered on 03/05/19at 05:52; Admin Dose 80 MLS/HR; Start 03/03/19 at 21:00 Nitroglycerin (Nitroglycerin (Sl Tab) 0.4 Mg) 1 tab Q5M PRN SL ANGINA; Start 03/03/19 at 23:00 Haloperidol (Haldol) 1 mg Q6H PRN IV agitation; Start 03/05/19 at 12:30; Status UNV Allergies: Coded Allergies: No Known Allergy (Unverified , 03/03/19) Past Surgical History Past Surgical Hx: endoscopy (EGD on last admission ), other Social History Alcohol Use: none Smoking Status: Never smoker Drug Use: none Exam/Review of Systems Exam Vitals Vital Signs Date Temp Pulse Resp B/P (MAP) Pulse Ox O2 O2 Flow FiO2 Time Delivery Rate 03/05/19 98.3 61 19 167/73 99 Room Air 07:32 (104) 03/04/19 2.0 02:22 Intake and Output 03/04/19 03/04/19 03/05/19 1515:00 23:00 07:00 IntakeIntake Total 520 ml 480 ml 900 ml BalanceBalance 520 ml 480 ml 900 ml Exam PHYSICAL EXAMINATION: GENERAL: Alert & oriented x 3, in no acute distress SKIN: No lesions HEAD: Normocephalic, atraumatic, no tenderness. EYES: Pupils equal reactive to light, no discharge. EARS/NOSE AND THROAT: Ears normal, nose normal. NECK: Supple, no masses, thyroid normal. CHEST: Inspection within normal limits. CARDIOVASCULAR: Heart: Regular rate and rhythm RESPIRATORY: Lungs clear to auscultation and percussion, no wheezing, no rubs GASTROINTESTINAL AND LIVER: Abdomen: Soft, severe epigastric pain, no organomegaly, no ascites, no guarding, no rebound tenderness, normoactive bowel sounds. Rectal: Deferred. GENITOURINARY: Male genitalia within normal limits. EXTREMITIES: No cyanosis, clubbing or edema. Results Result Diagram: 03/05/19 0507 03/05/19 0507 Results 24hrs Laboratory Tests Test 03/04/19 13:32 03/04/19 19:47 03/05/19 00:53 03/05/19 05:07 Troponin I < 0.012 < 0.012 < 0.012 < 0.012 White Blood Count 6.9 Red Blood Count 3.36 L Hemoglobin 7.8 L Hematocrit 24.2 L Mean Corpuscular 72.0 L Volume Mean Corpuscular 23.2 L Hemoglobin Mean Corpuscular 32.2 Hemoglobin Concent Red Cell 25.0 H Distribution Width Platelet Count 285 Mean Platelet Volume 10.4 Immature 0.400 Granulocytes % Neutrophils % 69.1 Lymphocytes % 16.6 Monocytes % 11.5 H Eosinophils % 2.0 Basophils % 0.4 Nucleated Red Blood 0.0 Cells % Immature 0.030 Granulocytes # Neutrophils # 4.8 Lymphocytes # 1.2 Monocytes # 0.8 Eosinophils # 0.1 Basophils # 0.0 Nucleated Red Blood 0.0 Cells # Sodium Level 132 L Potassium Level 3.4 L Chloride Level 99 Carbon Dioxide Level 20 L Anion Gap 13 Blood Urea Nitrogen 42 H Creatinine 4.63 H Est Glomerular Filtrat Rate mL/min Glucose Level 94 Calcium Level 6.8 L Medications Medication Current Medications IV Flush (NS 3 ml) 3 ml PER PROTOCOL IV ; Start 03/03/19 at 15:30 Ondansetron HCl (Zofran Inj) 4 mg Q6H PRN IV NAUSEA/VOMITING Last administered on 03/05/19at 07:43; Admin Dose 4 MG; Start 03/03/19 at 15:30 Acetaminophen (Tylenol Tab) 650 mg Q6H PRN PO .PAIN 1-3 OR TEMP Last administered on 03/05/19 02:51; Admin Dose 650 MG; Start 03/03/19 at 15:30 Acetaminophen/ Hydrocodone Bitart ([place] (5/325)) 1 tab Q6H PRN PO .MOD PAIN 4- 6 Last administered on 03/05/19 08:39; Admin Dose 1 TAB; Start 03/03/19 at 15:30 Docusate Sodium (Colace) 100 mg Q12H PRN PO .CONSTIPATION; Start 03/03/19 at 15:30 Magnesium Hydroxide (Milk Of Mag) 30 ml DAILY PRN PO .CONSTIPATION; Start 03/03/19 at 15:30 Lorazepam (Ativan) 0.5 mg Q6H PRN IV ANXIETY Last administered on 03/05/19at 11:48; Admin Dose 0.5 MG; Start 03/03/19 at 15:30 Albuterol/ Ipratropium (Duoneb) 3 ml Q4H RESP THERAPY PRN HHN SHORTNESS OF BREATH; Start 03/03/19 at 15:30 Hydralazine HCl (Apresoline) 10 mg Q6H PRN IV ELEVATED BLOOD PRESSURE; Start 03/03/19 at 15:30 Nitroglycerin (Nitroglycerin (Sl Tab) 0.4 Mg) 1 tab Q5M PRN SL ANGINA Last administered on 03/05/19 00:14; Admin Dose 1 TAB; Start 03/03/19 at 15:30 Brimonidine/ Timolol (Combigan Oph) 1 drop BID BOTH EYES Last administered on 03/05/19 08:34; Admin Dose 1 DROP; Start 03/03/19 at 21:00 Isosorbide Mononitrate (Imdur) 60 mg DAILY PO Last administered on 03/05/19 08:35; Admin Dose 60 MG; Start 03/04/19 at 09:00 Metoprolol Tartrate (Lopressor) 50 mg BID PO Last administered on 03/05/19 08:33; Admin Dose 50 MG; Start 03/03/19 at 21:00 Multivitamins/ Minerals (Theragran-M) 1 tab DAILY PO Last administered on 03/05/19 08:33; Admin Dose 1 TAB; Start 03/04/19 at 09:00 Sucralfate (Carafate) 1 gm QID PO Last administered on 03/05/19at 08:33; Admin Dose 1 GM; Start 03/03/19 at 19:30 Pantoprazole (Protonix Iv) 40 mg BID@06,18 IV Last administered on 03/05/19at 05:52; Admin Dose 40 MG; Start 03/03/19 at 19:30 Phenol (Cepastat Lozenge) 1 lozenge Q1H PRN MT COUGH; Start 03/03/19 at 19:30 Guaifenesin (Robitussin Liquid Cup) 200 mg Q4H PRN PO COUGH; Start 03/03/19 at 19:30 Sodium Bicarbonate 100 meq/Dextrose 1,000 ml @ 80 mls/hr [id number] IV Last administered on 03/05/19at 05:52; Admin Dose 80 MLS/HR; Start 03/03/19 at 21:00 Nitroglycerin (Nitroglycerin (Sl Tab) 0.4 Mg) 1 tab Q5M PRN SL ANGINA; Start 03/03/19 at 23:00 Haloperidol (Haldol) 1 mg Q6H PRN IV agitation; Start 03/05/19 at 12:30; Status RICKY COX March 05, 2019 12:28
[2019-03-05] MEDS: SUCRALFATE (100 MG/ML) 10ML CUP PO SCH ×3 (13:00→18:18)
--- NOTE | 2019-03-05 13:58 | CONS ---
Assessment/Plan Assessment/Plan Assessment/Plan (Daily) 1. acute kidney injury due to severe prerenal azotemia + ATN 2. HYponatremia due to Hypovolemic Hyponatremia 3. Severe metabolic acidosis with HCo3 13 4. h/o HTN 5. Intractable nausea/vomiting Plan: BUN/Cr went upto 37/4.1, Na 133, HCo3 19- Contnue bicarbonate drip 100mEQ in D5W at 80 cc/hr- ABG in AM and plan is to d/c it in AM depending on ABG result Renally dose all medications, monitor electrolytes and replace as needed Renal US unremarkable, normal size kidneys with normal echogenicity will follow up Consultation Date/Type/Reason Admit Date/Time March 05, 2019 at 12:15 Initial Consult Date 03/03/19 Type of Consult NEPHROLOGY Requesting Provider: DAMASO ZHENG Date/Time of Note DATE: 03/05/19 TIME: 13:58 24 HR Interval Summary Free Text/Dictation BUN/Cr went upto 42/4.63, Na 132, K 3.4, making adequate urine Exam/Review of Systems Exam Vitals Vital Signs Date Temp Pulse Resp B/P (MAP) Pulse Ox O2 O2 Flow FiO2 Time Delivery Rate 03/05/19 98.3 61 19 167/73 99 Room Air 07:32 (104) 03/04/19 2.0 02:22 Intake and Output 03/04/19 03/04/19 03/05/19 1414:59 22:59 06:59 IntakeIntake Total 520 ml 480 ml 820 ml BalanceBalance 520 ml 480 ml 820 ml Exam Constitutional: alert, awake, no acute distress Respiratory: clear to auscultation, diminished breath sounds Cardiovascular: regular rate and rhythm, nl pulses Gastrointestinal: soft, non-tender Musculoskeletal: nl extremities to inspection Extremities: normal pulses Neurological: [employer] II-XII intact, nl mental status, nl speech, nl strength Results Result Diagram: 03/05/19 0507 03/05/19 0507 Results 24hrs Laboratory Tests Test 03/04/19 19:47 03/05/19 00:53 03/05/19 05:07 Troponin I < 0.012 < 0.012 < 0.012 White Blood Count 6.9 Red Blood Count 3.36 L Hemoglobin 7.8 L Hematocrit 24.2 L Mean Corpuscular Volume 72.0 L Mean Corpuscular Hemoglobin 23.2 L Mean Corpuscular Hemoglobin Concent 32.2 Red Cell Distribution Width 25.0 H Platelet Count 285 Mean Platelet Volume 10.4 Immature Granulocytes % 0.400 Neutrophils % 69.1 Lymphocytes % 16.6 Monocytes % 11.5 H Eosinophils % 2.0 Basophils % 0.4 Nucleated Red Blood Cells % 0.0 Immature Granulocytes # 0.030 Neutrophils # 4.8 Lymphocytes # 1.2 Monocytes # 0.8 Eosinophils # 0.1 Basophils # 0.0 Nucleated Red Blood Cells # 0.0 Sodium Level 132 L Potassium Level 3.4 L Chloride Level 99 Carbon Dioxide Level 20 L Anion Gap 13 Blood Urea Nitrogen 42 H Creatinine 4.63 H Est Glomerular Filtrat Rate mL/min Glucose Level 94 Calcium Level 6.8 L Medications Medication Current Medications IV Flush (NS 3 ml) 3 ml PER PROTOCOL IV ; Start 03/03/19 at 15:30 Ondansetron HCl (Zofran Inj) 4 mg Q6H PRN IV NAUSEA/VOMITING Last administered on 03/05/19at 07:43; Admin Dose 4 MG; Start 03/03/19 at 15:30 Acetaminophen (Tylenol Tab) 650 mg Q6H PRN PO .PAIN 1-3 OR TEMP Last administered on 03/05/19at 02:51; Admin Dose 650 MG; Start 03/03/19 at 15:30 Acetaminophen/ Hydrocodone Bitart ([place] (5/325)) 1 tab Q6H PRN PO .MOD PAIN 4- 6 Last administered on 03/05/19at 08:39; Admin Dose 1 TAB; Start 03/03/19 at 15:30 Docusate Sodium (Colace) 100 mg Q12H PRN PO .CONSTIPATION; Start 03/03/19 at 15:30 Magnesium Hydroxide (Milk Of Mag) 30 ml DAILY PRN PO .CONSTIPATION; Start 03/03/19 at 15:30 Lorazepam (Ativan) 0.5 mg Q6H PRN IV ANXIETY Last administered on 03/05/19at 11:48; Admin Dose 0.5 MG; Start 03/03/19 at 15:30 Albuterol/ Ipratropium (Duoneb) 3 ml Q4H RESP THERAPY PRN HHN SHORTNESS OF BREATH; Start 03/03/19 at 15:30 Hydralazine HCl (Apresoline) 10 mg Q6H PRN IV ELEVATED BLOOD PRESSURE; Start 03/03/19 at 15:30 Brimonidine/ Timolol (Combigan Oph) 1 drop BID BOTH EYES Last administered on 03/05/19at 08:34; Admin Dose 1 DROP; Start 03/03/19 at 21:00 Isosorbide Mononitrate (Imdur) 60 mg DAILY PO Last administered on 03/05/19at 08:35; Admin Dose 60 MG; Start 03/04/19 at 09:00 Metoprolol Tartrate (Lopressor) 50 mg BID PO Last administered on 03/05/19 08:33; Admin Dose 50 MG; Start 03/03/19 at 21:00 Multivitamins/ Minerals (Theragran-M) 1 tab DAILY PO Last administered on 03/05/19at 08:33; Admin Dose 1 TAB; Start 03/04/19 at 09:00 Pantoprazole (Protonix Iv) 40 mg BID@06,18 IV Last administered on 03/05/19at 05:52; Admin Dose 40 MG; Start 03/03/19 at 19:30 Phenol (Cepastat Lozenge) 1 lozenge Q1H PRN MT COUGH; Start 03/03/19 at 19:30 Guaifenesin (Robitussin Liquid Cup) 200 mg Q4H PRN PO COUGH; Start 03/03/19 at 19:30 Sodium Bicarbonate 100 meq/Dextrose 1,000 ml @ 80 mls/hr [id number] IV Last administered on 03/05/19at 05:52; Admin Dose 80 MLS/HR; Start 03/03/19 at 21:00 Nitroglycerin (Nitroglycerin (Sl Tab) 0.4 Mg) 1 tab Q5M PRN SL ANGINA; Start 03/03/19 at 23:00 Sucralfate (Carafate Susp) 1 gm QID PO ; Start 03/05/19 at 13:00 Haloperidol (Haldol) 1 mg Q6H PRN IM agitation; Start 03/05/19 at 18:30 SERINA NORIEGA MD March 05, 2019 13:58
[2019-03-05] MEDS ORDERED: POTASSIUM CHLORIDE (SR) 20 MEQ TAB PO STA (13:59)
[2019-03-05] MEDS: HALOPERIDOL 5 MG INJ IM PRN (14:23)
[2019-03-05 14:56] VITALS: BP 175/80; PULSE 67; RESP 18
--- NOTE | 2019-03-05 20:27 | RADRPT ---
Vent Rate: 52 bpm RR Interval: 1152 msec MO Interval: 202 msec QRS Duration: 86 msec QT Interval: 435 msec QTC Interval: 405 msec P-R-T [place]: -21 - 14 - 26 degrees Sinus rhythm...normal P axis, V-rate 50- 99 Electronically Signed By: Aubrey Beth
[2019-03-05 21:00] VITALS: BP 155/70; PULSE 67; RESP 18
[2019-03-06] VITALS (17 sets, daily range): BP systolic 107–189; BP diastolic 59–92; PULSE 59–103; RESP 16–19
[2019-03-06] MEDS: HYDROCODONE/APAP (5/325) TAB PO PRN ×4 (00:13→22:39)
[2019-03-06] MEDS: LORAZEPAM 2 MG INJ IV PRN (01:54)
[2019-03-06] MEDS: hydrALAzine 20 MG INJ IV PRN ×2 (02:35→12:05)
[2019-03-06] MEDS ORDERED: FAMOTIDINE 20 MG INJ IV SCH (07:00)
--- NOTE | 2019-03-06 08:38 | CONS ---
Assessment/Plan Assessment/Plan Assessment/Plan (Daily) 1. acute kidney injury Initially thought due to severe prerenal azotemia + ATN - now pt is volume overloaded 2. HYponatremia due to Hypovolemic Hyponatremia 3. Severe metabolic acidosis with HCo3 13 4. h/o HTN 5. Intractable nausea/vomiting Plan: Crackles on lung exam, ECHO showed EF 55-60% stage I DD on last admission, BUN/Cr trending up - d/c IVF and bicarbonate drip. will give IV lasix 20mg BID for diuresis Renally dose all medications, monitor electrolytes and replace as needed Renal US unremarkable, normal size kidneys with normal echogenicity will follow up Consultation Date/Type/Reason Admit Date/Time March 05, 2019 at 12:15 Initial Consult Date 03/03/19 Type of Consult NEPHROLOGY Requesting Provider: DAMASO ZHENG Date/Time of Note DATE: 03/06/19 TIME: 08:38 24 HR Interval Summary Free Text/Dictation Crackles on lung exam, ECHO showed EF 55-60% stage I DD on last admission, BUN/Cr trending up Exam/Review of Systems Exam Vitals Vital Signs Date Temp Pulse Resp B/P (MAP) Pulse Ox O2 O2 Flow FiO2 Time Delivery Rate 03/06/19 98.5 74 18 181/84 96 Room Air 07:19 (116) 03/04/19 2.0 02:22 Intake and Output 03/05/19 03/05/19 03/06/19 1515:00 23:00 07:00 IntakeIntake Total 240 ml 1280 ml 120 ml OutputOutput Total 300 ml 500 ml 400 ml BalanceBalance -60 ml 780 ml -280 ml Exam Constitutional: alert, awake, mild SOB off oxygen Respiratory: Bilateral basilar crackles, left greater than right Cardiovascular: regular rate and rhythm, nl pulses Gastrointestinal: soft, non-tender Musculoskeletal: 1+ pitting edema, no clubbing/no cyanosis Extremities: normal pulses Neurological: DISTRIBUTION ASSOCIATE II-XII intact, nl mental status, nl speech, nl strength Results Result Diagram: 03/06/19 0452 03/06/19 0452 Results 24hrs Laboratory Tests Test 03/06/19 04:52 03/06/19 07:00 White Blood Count 11.9 #H Red Blood Count 3.91 L Hemoglobin 9.1 L Hematocrit 28.1 L Mean Corpuscular Volume 71.9 L Mean Corpuscular Hemoglobin 23.3 L Mean Corpuscular Hemoglobin Concent 32.4 Red Cell Distribution Width 25.0 H Platelet Count 381 # Mean Platelet Volume 10.5 H Immature Granulocytes % 0.500 H Neutrophils % Lymphocytes % Monocytes % Eosinophils % Basophils % Nucleated Red Blood Cells % 0.0 Immature Granulocytes # 0.060 H Neutrophils # Lymphocytes # Monocytes # Eosinophils # Basophils # Nucleated Red Blood Cells # Sodium Level 137 Potassium Level 3.7 Chloride Level 103 Carbon Dioxide Level 20 L Anion Gap 14 H Blood Urea Nitrogen 46 H Creatinine 4.85 H Est Glomerular Filtrat Rate mL/min Glucose Level 120 Calcium Level 7.7 L Blood Gas Specimen Source Blood arterial Arterial Blood Date Drawn 03/06/2019 7:50:44 AM Arterial Blood pH (Temp corrected) 7.357 Arterial Blood pCO2 (Temp correct) 40.4 Arterial Blood pO2 (Temp corrected) 54.7 *L Arterial Blood HCO3 22.2 Arterial Blood Base Excess -3.1 L Arterial Blood Oxygen Saturation 84.4 L Nish Test ACCEPTAB Arterial Blood Gas Puncture Site Right Radial Arterial Blood Carboxyhemoglobin 0.5 Arterial Blood Methemoglobin 0.1 Blood Gas A-a O2 Differential 46.7 H Oxyhemoglobin Percent 83.9 L Blood Gas Temperature 37.0 Blood Gas Modality ROOM AIR FiO2 21.0 Blood Gas Critical Value Read Back TRIP WHITAKER Blood Gas Notified Whom TM Blood Gas Notified Time 03/06/2019 7:57:35 AM Medications Medication Current Medications IV Flush (NS 3 ml) 3 ml PER PROTOCOL IV ; Start 03/03/19 at 15:30 Ondansetron HCl (Zofran Inj) 4 mg Q6H PRN IV NAUSEA/VOMITING Last administered on 03/05/19at 07:43; Admin Dose 4 MG; Start 03/03/19 at 15:30 Acetaminophen (Tylenol Tab) 650 mg Q6H PRN PO .PAIN 1-3 OR TEMP Last administered on 03/05/19at 02:51; Admin Dose 650 MG; Start 03/03/19 at 15:30 Acetaminophen/ Hydrocodone Bitart ([place] (5/325)) 1 tab Q6H PRN PO .MOD PAIN 4- 6 Last administered on 03/06/19at 00:13; Admin Dose 1 TAB; Start 03/03/19 at 15:30 Docusate Sodium (Colace) 100 mg Q12H PRN PO .CONSTIPATION; Start 03/03/19 at 15:30 Magnesium Hydroxide (Milk Of Mag) 30 ml DAILY PRN PO .CONSTIPATION; Start 03/03/19 at 15:30 Lorazepam (Ativan) 0.5 mg Q6H PRN IV ANXIETY Last administered on 03/06/19 01:54; Admin Dose 0.5 MG; Start 03/03/19 at 15:30 Albuterol/ Ipratropium (Duoneb) 3 ml Q4H RESP THERAPY PRN HHN SHORTNESS OF BREATH; Start 03/03/19 at 15:30 Hydralazine HCl (Apresoline) 10 mg Q6H PRN IV ELEVATED BLOOD PRESSURE Last administered on 03/06/19 02:35; Admin Dose 10 MG; Start 03/03/19 at 15:30 Brimonidine/ Timolol (Combigan Oph) 1 drop BID BOTH EYES Last administered on 03/05/19 21:42; Admin Dose 1 DROP; Start 03/03/19 at 21:00 Isosorbide Mononitrate (Imdur) 60 mg DAILY PO Last administered on 03/05/19 08:35; Admin Dose 60 MG; Start 03/04/19 at 09:00 Metoprolol Tartrate (Lopressor) 50 mg BID PO Last administered on 03/05/19 21:43; Admin Dose 50 MG; Start 03/03/19 at 21:00 Multivitamins/ Minerals (Theragran-M) 1 tab DAILY PO Last administered on 03/05/19 08:33; Admin Dose 1 TAB; Start 03/04/19 at 09:00 Phenol (Cepastat Lozenge) 1 lozenge Q1H PRN MT COUGH; Start 03/03/19 at 19:30 Guaifenesin (Robitussin Liquid Cup) 200 mg Q4H PRN PO COUGH; Start 03/03/19 at 19:30 Sodium Bicarbonate 100 meq/Dextrose 1,000 ml @ 50 mls/hr Q20H IV Last administered on 03/05/19 05:52; Admin Dose 80 MLS/HR; Start 03/03/19 at 21:00 Nitroglycerin (Nitroglycerin (Sl Tab) 0.4 Mg) 1 tab Q5M PRN SL ANGINA; Start 03/03/19 at 23:00 Sucralfate (Carafate Susp) 1 gm QID PO Last administered on 03/05/19at 18:18; Admin Dose 1 GM; Start 03/05/19 at 13:00 Haloperidol (Haldol) 1 mg Q6H PRN IM agitation Last administered on 03/05/19at 14:23; Admin Dose 1 MG; Start 03/05/19 at 14:30 Famotidine (Pepcid Iv) 20 mg Q48H IV Last administered on 03/06/19at 06:46; Admin Dose 20 MG; Start 03/06/19 at 07:00 SERINA NORIEGA MD March 06, 2019 08:38
[2019-03-06] MEDS ORDERED: SOD CHLORIDE 0.45% 1,000 ML IV SCH (09:00)
[2019-03-06] MEDS: SUCRALFATE (100 MG/ML) 10ML CUP PO SCH ×4 (09:29→20:14)
[2019-03-06] MEDS: MULTIVITAMINS/MINERALS TAB PO SCH (09:29)
[2019-03-06] MEDS: ISOSORBIDE MONONITRATE(SR)60 MG TAB PO SCH (09:30)
[2019-03-06] MEDS: BRIMONIDINE 0.2%-TIMOLOL 0.5% 5ML OPH BOTH EYES SCH ×2 (09:31→20:14)
[2019-03-06] MEDS: METOPROLOL 50 MG TAB PO SCH (09:31)
[2019-03-06] MEDS: ONDANSETRON 4 MG INJ IV PRN (11:35)
[2019-03-06] MEDS: FUROSEMIDE 20 MG INJ IV SCH ×2 (11:37→19:21)
[2019-03-06] MEDS: HALOPERIDOL 5 MG INJ IM PRN (11:51)
--- NOTE | 2019-03-06 14:48 | PN ---
Date/Time of Note Date/Time of Note DATE: 03/06/19 TIME: 14:36 Assessment/Plan VTE Prophylaxis Risk score (from Ns)>0 risk: 2 SCD applied (from Ns): Yes Pharmacological prophylaxis: NA/contraindicated Pharm contraindication: low risk/ambulating Lines/Catheters IV Catheter Type (from Nrs): Saline Lock Urinary Cath still in place: No Assessment/Plan Assessment/Plan 73-year-old man coming in with vomiting and acute kidney injury. #BORIS: -According to son, patient was taking high doses of ibuprofen after going home. -Renal consult -Hold home nephrotoxic medication such as MARLENA inhibitor. #Epigastric pain #Vomiting - Suspect secondary to history of gastric ulcers. No signs of any upper or lower GI bleeding -According to son, patient was taking high doses of ibuprofen after going home. -Cont home Carafate, PPI IV twice daily -Hgb dropping. Pain not improving. Consult GI. #Opioid abuse: - Was started on morphine and norco on admission. Will stop morphine. - Apparently at home patient has a "pill addiction" and will take anything. - Stephanie CRIBBER consulted. #CHF: Currently not in exacerbation. #History of hypertension: Blood pressure elevated this hospitalization. Holding ACEi due to BORIS. Will restart home HCTZ and titrate up metoprolol. #History prostate cancer: Monitor for now Result Diagram: 03/06/19 0452 03/06/19 045 Subjective 24 Hr Interval Summary Free Text/Dictation Yesterday the patient was very restless. He seems to calm down when allowed to walk around the halls. Today with occupational therapy he was ambulating well, still holds on to tpaia for support otherwise relatively independent. Exam/Review of Systems Exam Vitals Vital Signs Date Temp Pulse Resp B/P (MAP) Pulse Ox O2 O2 Flow FiO2 Time Delivery Rate 03/06/19 98.3 59 18 189/84 98 Room Air 11:30 (119) 03/06/19 2.0 09:49 Intake and Output 03/05/19 03/05/19 03/06/19 1414:59 22:59 06:59 IntakeIntake Total 320 ml 1280 ml 120 ml OutputOutput Total 300 ml 500 ml 400 ml BalanceBalance 20 ml 780 ml -280 ml Exam Gen: Well appearing man in some discomfort. Head: Atraumatic Eyes: Normal Conjunctiva ENT: Normal External Ears, Nose and Mouth. Neck: Full range of motion. No meningismus. Chest: Nontender to palpation. Resp: Clear to auscultation bilaterally Cardio: Regular rate and rhythm, no murmurs Abd: Soft, mild epigastric tenderness, non distended, no rebound tenderness. Normal bowel sounds Ext: No lower extremity edema bilaterally Neuro: Oriented to name and location only. Disoriented to year, month, day. Results Results 24hrs Laboratory Tests Test 03/06/19 04:52 03/06/19 07:00 White Blood Count 11.9 #H Red Blood Count 3.91 L Hemoglobin 9.1 L Hematocrit 28.1 L Mean Corpuscular Volume 71.9 L Mean Corpuscular Hemoglobin 23.3 L Mean Corpuscular Hemoglobin Concent 32.4 Red Cell Distribution Width 25.0 H Platelet Count 381 # Mean Platelet Volume 10.5 H Immature Granulocytes % 0.500 H Neutrophils % Segmented Neutrophils % (Manual) 81 H Lymphocytes % Lymphocytes % (Manual) 13 L Reactive Lymphocytes % (Manual) 1 H Monocytes % Monocytes % (Manual) 2 Eosinophils % Eosinophils % (Manual) 3 Basophils % Nucleated Red Blood Cells % 1 H Immature Granulocytes # 0.060 H Neutrophils # Lymphocytes (Manual) 1.5 Lymphocytes # Reactive Lymphocytes # 0.1 H Monocytes # Monocytes # (Manual) 0.2 L Eosinophils # Basophils # Nucleated Red Blood Cells # Platelet Estimate NORMAL Giant Platelets 2 H Polychromasia 3+ Hypochromasia 1+ Poikilocytosis 2+ Anisocytosis 2+ Microcytosis 1+ Spherocytes 1+ Ovalocytes 2+ Sodium Level 137 Potassium Level 3.7 Chloride Level 103 Carbon Dioxide Level 20 L Anion Gap 14 H Blood Urea Nitrogen 46 H Creatinine 4.85 H Est Glomerular Filtrat Rate mL/min Glucose Level 120 Calcium Level 7.7 L Blood Gas Specimen Source Blood arterial Arterial Blood Date Drawn 03/06/2019 7:50:44 AM Arterial Blood pH (Temp corrected) 7.357 Arterial Blood pCO2 (Temp correct) 40.4 Arterial Blood pO2 (Temp corrected) 54.7 *L Arterial Blood HCO3 22.2 Arterial Blood Base Excess -3.1 L Arterial Blood Oxygen Saturation 84.4 L Nish Test ACCEPTAB Arterial Blood Gas Puncture Site Right Radial Arterial Blood Carboxyhemoglobin 0.5 Arterial Blood Methemoglobin 0.1 Blood Gas A-a O2 Differential 46.7 H Oxyhemoglobin Percent 83.9 L Blood Gas Temperature 37.0 Blood Gas Modality ROOM AIR FiO2 21.0 Blood Gas Critical Value Read Back TRIP WHITAKER Blood Gas Notified Whom TM Blood Gas Notified Time 03/06/2019 7:57:35 AM Medications Medication Current Medications IV Flush (NS 3 ml) 3 ml PER PROTOCOL IV ; Start 03/03/19 at 15:30 Ondansetron HCl (Zofran Inj) 4 mg Q6H PRN IV NAUSEA/VOMITING Last administered on 03/06/19 11:35; Admin Dose 4 MG; Start 03/03/19 at 15:30 Acetaminophen (Tylenol Tab) 650 mg Q6H PRN PO .PAIN 1-3 OR TEMP Last administered on 03/05/19 02:51; Admin Dose 650 MG; Start 03/03/19 at 15:30 Acetaminophen/ Hydrocodone Bitart ([place] (5/325)) 1 tab Q6H PRN PO .MOD PAIN 4- 6 Last administered on 03/06/19 09:30; Admin Dose 1 TAB; Start 03/03/19 at 15:30 Docusate Sodium (Colace) 100 mg Q12H PRN PO .CONSTIPATION; Start 03/03/19 at 15:30 Magnesium Hydroxide (Milk Of Mag) 30 ml DAILY PRN PO .CONSTIPATION; Start 03/03/19 at 15:30 Albuterol/ Ipratropium (Duoneb) 3 ml Q4H RESP THERAPY PRN HHN SHORTNESS OF BREATH; Start 03/03/19 at 15:30 Hydralazine HCl (Apresoline) 10 mg Q6H PRN IV ELEVATED BLOOD PRESSURE Last administered on 03/06/19 12:05; Admin Dose 10 MG; Start 03/03/19 at 15:30 Brimonidine/ Timolol (Combigan Oph) 1 drop BID BOTH EYES Last administered on 03/06/19 09:31; Admin Dose 1 DROP; Start 03/03/19 at 21:00 Isosorbide Mononitrate (Imdur) 60 mg DAILY PO Last administered on 03/06/19 09:30; Admin Dose 60 MG; Start 03/04/19 at 09:00 Multivitamins/ Minerals (Theragran-M) 1 tab DAILY PO Last administered on 03/06/19 09:29; Admin Dose 1 TAB; Start 03/04/19 at 09:00 Phenol (Cepastat Lozenge) 1 lozenge Q1H PRN MT COUGH; Start 03/03/19 at 19:30 Guaifenesin (Robitussin Liquid Cup) 200 mg Q4H PRN PO COUGH; Start 03/03/19 at 19:30 Nitroglycerin (Nitroglycerin (Sl Tab) 0.4 Mg) 1 tab Q5M PRN SL ANGINA; Start 03/03/19 at 23:00 Sucralfate (Carafate Susp) 1 gm QID PO Last administered on 03/06/19 09:29; Admin Dose 1 GM; Start 03/05/19 at 13:00 Haloperidol (Haldol) 1 mg Q6H PRN IM agitation Last administered on 03/06/19at 11:51; Admin Dose 1 MG; Start 03/05/19 at 14:30 Famotidine (Pepcid Iv) 20 mg Q48H IV Last administered on 03/06/19at 06:46; Admin Dose 20 MG; Start 03/06/19 at 07:00 Furosemide (Lasix) 20 mg BID DIURETICS IV Last administered on 03/06/19 11:37; Admin Dose 20 MG; Start 03/06/19 at 10:30 Metoprolol Tartrate (Lopressor) 100 mg BID PO ; Start 03/06/19 at 21:00 Hydrochlorothiazide (Hydrochlorothiazide) 12.5 mg DAILY PO ; Start 03/07/19 at 09:00 ARIANA PINEDA MD March 06, 2019 14:46
[2019-03-06] MEDS ORDERED: FENTAnyl 50 MCG/ML VIAL IV PRN (17:00)
[2019-03-06] MEDS ORDERED: EPHEDrine 25 MG/5 ML SYG IV PRN (17:00)
[2019-03-06] MEDS ORDERED: ONDANSETRON 4 MG INJ IV PRN (17:00)
[2019-03-06] MEDS ORDERED: LABETALOL HCL 20MG INJ IV PRN (17:00)
[2019-03-06] MEDS ORDERED: hydrALAzine 20 MG INJ IV PRN (17:00)
--- NOTE | 2019-03-06 17:00 | PREAC ---
Date/Time of Note Date/Time of Note DATE: 03/06/19 TIME: 16:59 Anesthesia Eval and Record Evaluation Time Pre-Procedure Interview DATE: 03/06/19 TIME: 16:59 Age 73 Sex male NPO: 8 hrs Preoperative diagnosis EPIGASTRIC PAIN, ANEMIA Planned procedure EGD Past Medical History Past Medical History: Includes Cardio: HTN Renal: BORIS Heme: Anemia Recreational drugs: Other (OPIOD ABUSE) Surgery & Anesthesia Issues No known issue Meds Anticoagulation: No Beta Maik within 24 hr: No Reason Beta Maik not given: Pt. not on B-Maik Active Scripts Sucralfate* (Carafate*) 1 Gm/10 Ml Susp, 1 GM PO QID, #60 BOTTLE Prov:DELFINA REILLY 02/17/19 Ondansetron (Ondansetron Odt) 4 Mg Tab.rapdis, 4 MG PO Q6H PRN for NAUSEA AND/OR VOMITING, #10 TAB Prov:WILLIAM MELCHOR MD 02/21/18 Omeprazole* (Omeprazole*) 40 Mg Capsule.dr, 40 MG PO DAILY, #30 CAP Prov:DINESH CHACON DO 02/05/18 Reported Medications Multivitamin with Minerals (Multivitamins with Minerals) 1 Each Tablet, 1 EACH PO DAILY, TAB 02/13/19 Brimonidine/Timolol* (Combigan*) 5 Ml Drops, 1 DROP BOTH EYES BID, BOTTLE 02/13/19 Hydrochlorothiazide (Hydrochlorothiazide) 12.5 Mg Capsule, 12.5 MG PO DAILY for 30 Days, #30 02/13/19 Isosorbide Mononitrate* (Isosorbide Mononitrate*) 60 Mg Tab.er.24h, 60 MG PO DAILY for 30 Days, #30 02/13/19 Furosemide* (Furosemide*) 20 Mg Tablet, 20 MG PO BID for 30 Days, #60 02/13/19 Metoprolol Tartrate* (Lopressor*) 50 Mg Tab, 50 MG PO BID for 30 Days, #60 02/13/19 Benazepril Hcl* (Benazepril Hcl*) 40 Mg Tablet, 40 MG PO DAILY for 90 Days, #90 02/13/19 Tamsulosin Hcl* (Tamsulosin Hcl*) 0.4 Mg Cap.er.24h, 0.4 MG PO HS, CAP 02/03/17 Lorazepam* (Lorazepam*) 0.5 Mg Tablet, 0.5 MG PO HS PRN for ANXIETY, TAB 02/03/17 Gabapentin* (Gabapentin*) 100 Mg Capsule, 400 MG PO TID 06/12/13 Current Medications IV Flush (NS 3 ml) 3 ml PER PROTOCOL IV ; Start 03/03/19 at 15:30 Ondansetron HCl (Zofran Inj) 4 mg Q6H PRN IV NAUSEA/VOMITING Last administered on 03/06/19 11:35; Admin Dose 4 MG; Start 03/03/19 at 15:30 Acetaminophen (Tylenol Tab) 650 mg Q6H PRN PO .PAIN 1-3 OR TEMP Last administered on 03/05/19 02:51; Admin Dose 650 MG; Start 03/03/19 at 15:30 Acetaminophen/ Hydrocodone Bitart ([place] (5/325)) 1 tab Q6H PRN PO .MOD PAIN 4- 6 Last administered on 03/06/19 09:30; Admin Dose 1 TAB; Start 03/03/19 at 15:30 Docusate Sodium (Colace) 100 mg Q12H PRN PO .CONSTIPATION; Start 03/03/19 at 15:30 Magnesium Hydroxide (Milk Of Mag) 30 ml DAILY PRN PO .CONSTIPATION; Start 03/03/19 at 15:30 Albuterol/ Ipratropium (Duoneb) 3 ml Q4H RESP THERAPY PRN HHN SHORTNESS OF BREATH; Start 03/03/19 at 15:30 Hydralazine HCl (Apresoline) 10 mg Q6H PRN IV ELEVATED BLOOD PRESSURE Last administered on 03/06/19 12:05; Admin Dose 10 MG; Start 03/03/19 at 15:30 Brimonidine/ Timolol (Combigan Oph) 1 drop BID BOTH EYES Last administered on 03/06/19 09:31; Admin Dose 1 DROP; Start 03/03/19 at 21:00 Isosorbide Mononitrate (Imdur) 60 mg DAILY PO Last administered on 03/06/19 09:30; Admin Dose 60 MG; Start 03/04/19 at 09:00 Multivitamins/ Minerals (Theragran-M) 1 tab DAILY PO Last administered on 5/15/19at 09:29; Admin Dose 1 TAB; Start 03/04/19 at 09:00 Phenol (Cepastat Lozenge) 1 lozenge Q1H PRN MT COUGH; Start 03/03/19 at 19:30 Guaifenesin (Robitussin Liquid Cup) 200 mg Q4H PRN PO COUGH; Start 03/03/19 at 19:30 Nitroglycerin (Nitroglycerin (Sl Tab) 0.4 Mg) 1 tab Q5M PRN SL ANGINA; Start 03/03/19 at 23:00 Sucralfate (Carafate Susp) 1 gm QID PO Last administered on 03/06/19at 09:29; A dmin Dose 1 GM; Start 03/05/19 at 13:00 Haloperidol (Haldol) 1 mg Q6H PRN IM agitation Last administered on 03/06/19at 11:51; Admin Dose 1 MG; Start 03/05/19 at 14:30 Famotidine (Pepcid Iv) 20 mg Q48H IV Last administered on 03/06/19at 06:46; Admin Dose 20 MG; Start 03/06/19 at 07:00 Furosemide (Lasix) 20 mg BID DIURETICS IV Last administered on 03/06/19at 11:37; Admin Dose 20 MG; Start 03/06/19 at 10:30 Metoprolol Tartrate (Lopressor) 100 mg BID PO ; Start 03/06/19 at 21:00 Hydrochlorothiazide (Hydrochlorothiazide) 12.5 mg DAILY PO ; Start 03/07/19 at 09:00 Meds reviewed: Yes Allergies Coded Allergies: No Known Allergy (Unverified , 03/03/19) Allergies Reviewed: Yes Labs/Studies Labs Reviewed: Reviewed by anesthesiologist Result Diagram: 03/06/19 0452 03/06/19 0452 Laboratory Tests 03/06/19 04:52 test: N/A Studies: ECG, CXR Pre-procedure Exam Last vitals Vital Signs Date Temp Pulse Resp B/P (MAP) Pulse Ox O2 O2 Flow FiO2 Time Delivery Rate 03/06/19 98.3 71 19 163/92 92 Room Air 16:09 (115) 03/06/19 2.0 09:49 Airway: Adequate mouth opening, Adequate thyromental dist Mallampati: Mallampati II Teeth: Normal Lung: Normal Heart: Normal ASA Physical Status ASA physical status: 3 Emergency: None Planned Anesthetic General/MAC: MAC Planned Pain Management Parenteral pain med Pre-operative Attestations Prior to commencing anesthesia and surgery, the patient was re-evaluated, there was verification of: *The patient's identity *The results of appropriate recent lab work and preoperative vital signs *The above evaluation not changing prior to induction *Anesthetic plan, risk benefits, alternative and complications discussed with patient/family; questions answered; patient/family understands, accepts and wishes to proceed. AC HOLLAND March 06, 2019 17:00
[2019-03-06] MEDS ORDERED: LIDOCAINE 2% (SDV) 5 ML INJ ONE (17:06)
[2019-03-06] MEDS ORDERED: PROPOFOL 40 ML ONE (17:06)
--- NOTE | 2019-03-06 17:07 | HPN ---
Date/Time of Note Date/Time of Note DATE: 03/06/19 TIME: 17:06 Interval H&P Admission Note Pt. seen H&P reviewed: No system changes EARNESTINE MCKEON MD March 06, 2019 17:07
--- NOTE | 2019-03-06 17:26 | PAC ---
Date/Time of Note Date/Time of Note DATE: 03/06/19 TIME: 17:26 Post-Anesthesia Notes Post-Anesthesia Note Last documented vital signs Vital Signs Date Temp Pulse Resp B/P (MAP) Pulse Ox O2 O2 Flow FiO2 Time Delivery Rate 03/06/19 98.3 71 19 163/92 92 Room Air 17:09 (115) 03/06/19 2.0 09:49 Activity: WNL Respiratory function: WNL Cardiovascular function: WNL Mental status: Baseline Pain reasonably controlled: Yes Hydration appropriate: Yes Nausea/Vomiting absent: Yes AC HOLLAND March 06, 2019 17:26
--- NOTE | 2019-03-06 18:21 | OPPN ---
Date/Time of Note Date/Time of Note DATE: 03/06/19 TIME: 18:17 Proc Note GI Free Text/Dictation ENTERED IN ERROR PLEASE DISCARD Procedure Date 03/06/19 Pre-procedure Diagnosis ENTERED IN ERROR PLEASE DISCARD Post-procedure Diagnosis ENTERED IN ERROR PLEASE DISCARD Procedure Performed: Other (ENTERED IN ERROR PLEASE DISCARD) Surgeon see signature line Escort Blind none Anesthesia Type: other Anesthesiologist: AC HOLLAND Tourniquet Time none EBL none Transfusion required none Biopsy 1: none Grafts/Implants none Tubes/Drains none Complication(s) none Procedure Description ENTERED IN ERROR PLEASE DISCARD EARNESTINE MCKEON MD March 06, 2019 18:21
[2019-03-06] MEDS: METOPROLOL 100 MG TAB PO SCH (20:15)
[2019-03-07] VITALS (11 sets, daily range): BP systolic 139–193; BP diastolic 66–90; PULSE 54–86; RESP 16–20
[2019-03-07] MEDS: ONDANSETRON 4 MG INJ IV PRN ×2 (03:57→17:56)
[2019-03-07] MEDS ORDERED: LORAZEPAM 2 MG INJ IV ONE (04:30)
[2019-03-07] MEDS: HYDROCODONE/APAP (5/325) TAB PO PRN ×4 (04:46→23:20)
[2019-03-07] MEDS: FUROSEMIDE 20 MG INJ IV SCH ×2 (05:52→17:52)
[2019-03-07] MEDS: hydrALAzine 20 MG INJ IV PRN (06:18)
[2019-03-07] MEDS ORDERED: POTASSIUM CHLORIDE (SR) 20 MEQ TAB PO ONE (06:30)
[2019-03-07] MEDS: BRIMONIDINE 0.2%-TIMOLOL 0.5% 5ML OPH BOTH EYES SCH ×2 (08:04→21:11)
[2019-03-07] MEDS: SUCRALFATE (100 MG/ML) 10ML CUP PO SCH ×4 (08:04→20:29)
[2019-03-07] MEDS: HYDROCHLOROTHIAZIDE 12.5 MG CAP PO SCH (08:05)
[2019-03-07] MEDS: DOCUSATE SODIUM 100 MG CAP PO PRN (08:05)
[2019-03-07] MEDS: ISOSORBIDE MONONITRATE(SR)60 MG TAB PO SCH (08:05)
[2019-03-07] MEDS: METOPROLOL 100 MG TAB PO SCH ×2 (08:05→21:10)
[2019-03-07] MEDS: MULTIVITAMINS/MINERALS TAB PO SCH (08:05)
--- NOTE | 2019-03-07 11:15 | PSY ---
Date/Time of Note Date/Time of Note DATE: 03/07/19 TIME: 11:14 Psychiatric Subjective Eval Consent Pt consented to telemedicine: No Subjective Evaluation Patient location: inpatient Chief Complaint: BIB RA FOR EVAL OF AP X 4 DAYS. History of present illness Patient is a 73-year-old male with past medical history of hypertension, gastric ulcers, CHF, anemia, opioid abuse, , possible pulmonary fibrosis, prostate cancerand glaucoma, who is currently admitted for abdominal pain. A [id number] evaluation, patient is Greek-speaking only, translation done by the one-to-one staff. Patient states he is increasingly depressed and anxious, because of his severe abdominal pain. He reports feeling hopeless and helpless but denies suicidal ideation, denies irritability and contracted for safety discussed with patient about his constant use of NSAIDs, and he agreed to follow only the prescribed meds. Also discussed with patient risk and benefits of antidepressants and antianxiety and he verbalized understanding.. Past psychiatric history History of depression Hospitalization: other Medical history Problems Medical Problems: (1) Abdominal pain Status: Acute (2) Abdominal pain Status: Acute (3) Abdominal pain Status: Acute (4) Abdominal pain Status: Acute (5) Acute renal failure (ARF) Status: Acute (6) Anemia Status: Acute (7) Chest pain Status: Acute (8) Drug-seeking behavior Status: Acute (9) Esophagitis Status: Acute (10) Gastritis Status: Acute (11) Generalized weakness Status: Acute (12) Headache Status: Acute (13) Rash Status: Acute (14) Vasculitis Status: Acute Allergies: Coded Allergies: No Known Allergy (Unverified , 03/03/19) Substance Abuse Prior substance abuse treatmen: No Social History Marital status: DPA/Conservatorship: No Psychiatric Objective Eval Review of Systems: Review of Systems: Not Applicable Physical Examination: Physical Examination: Applicable Appetite: Adequate Energy: Adequate Mental Status Examination: Appearance: Groomed Eye Contact: Good Psychomotor Activity: Normal Behavior: Cooperative Speech: Clear AFFECT: Appropriate, Flat Mood: Appropriate/Full Thought Content: Normal Orientation: x4 Insight: Intact Judgement: Intact Attention Span: Distractible Laboratory Results Laboratory Tests Test 03/06/19 04:52 03/06/19 07:00 03/07/19 04:29 White Blood Count 11.9 10^3/ul 7.9 10^3/ul Red Blood Count 3.91 10^6/ul 3.75 10^6/ul Hemoglobin 9.1 g/dl 8.6 g/dl Hematocrit 28.1 % 26.9 % Mean Corpuscular Volume 71.9 fl 71.7 fl Mean Corpuscular 23.3 pg 22.9 pg Hemoglobin Mean Corpuscular 32.4 g/dl 32.0 g/dl Hemoglobin Concent Red Cell Distribution 25.0 % 25.2 % Width Platelet Count 381 10^3/UL 360 10^3/UL Mean Platelet Volume 10.5 fl 10.2 fl Immature Granulocytes % 0.500 % 0.500 % Neutrophils % % 63.1 % Segmented Neutrophils 81 % % (Manual) Lymphocytes % % 20.2 % Lymphocytes % (Manual) 13 % Reactive Lymphocytes 1 % % (Manual) Monocytes % % 14.1 % Monocytes % (Manual) 2 % Eosinophils % % 1.5 % Eosinophils % (Manual) 3 % Basophils % % 0.6 % Nucleated Red Blood Cells 1 % 0.0 /100WBC % Immature Granulocytes # 0.060 10^3/ul 0.040 10^3/ul Neutrophils # 10^3/ul 5.0 10^3/ul Lymphocytes (Manual) 1.5 10^3/ul Lymphocytes # 10^3/ul 1.6 10^3/ul Reactive Lymphocytes # 0.1 10^3/ul Monocytes # 10^3/ul 1.1 10^3/ul Monocytes # (Manual) 0.2 10^3/ul Eosinophils # 10^3/ul 0.1 10^3/ul Basophils # 10^3/ul 0.1 10^3/ul Nucleated Red Blood Cells 10^3/ul 0.0 10^3/ul # Platelet Estimate NORMAL Giant Platelets 2 % Polychromasia 3+ Hypochromasia 1+ Poikilocytosis 2+ Anisocytosis 2+ Microcytosis 1+ Spherocytes 1+ Ovalocytes 2+ Sodium Level 137 mmol/L 140 mmol/L Potassium Level 3.7 mmol/L 3.1 mmol/L Chloride Level 103 mmol/L 104 mmol/L Carbon Dioxide Level 20 mmol/L 25 mmol/L Anion Gap 14 11 Blood Urea Nitrogen 46 mg/dl 47 mg/dl Creatinine 4.85 mg/dl 4.52 mg/dl Est Glomerular Filtrat mL/min mL/min Rate mL/min Glucose Level 120 mg/dl 101 mg/dl Calcium Level 7.7 mg/dl 8.4 mg/dl Blood Gas Specimen Source Blood arterial Arterial Blood Date Drawn 03/06/2019 7:50:44 AM Arterial Blood pH 7.357 (Temp corrected) Arterial Blood pCO2 40.4 mmhg (Temp correct) Arterial Blood pO2 54.7 mmHG (Temp corrected) Arterial Blood HCO3 22.2 mmol/L Arterial Blood Base Excess -3.1 mmol/L Arterial Blood 84.4 mmHG Oxygen Saturation Nish Test ACCEPTAB Arterial Blood Gas Right Radial Puncture Site Arterial 0.5 % Blood Carboxyhemoglobin Arterial Blood 0.1 % Methemoglobin Blood Gas A-a O2 46.7 mmHg Differential Oxyhemoglobin Percent 83.9 % Blood Gas Temperature 37.0 C Blood Gas Modality ROOM AIR FiO2 21.0 % Blood Gas Critical Value TRIP RN Read Back Blood Gas Notified Whom TM Blood Gas Notified Time 03/06/2019 7:57:35 AM Total Bilirubin 0.3 mg/dl Direct Bilirubin 0.00 mg/dl Indirect Bilirubin 0.3 mg/dl Aspartate Amino 18 IU/L Transf (AST/SGOT) Alanine 17 IU/L Aminotransferase (ALT/SGPT ) Alkaline Phosphatase 77 IU/L Troponin I < 0.012 ng/ml Total Protein 6.6 g/dl Albumin 3.1 g/dl Assessment and Plan Assessment/Diagnosis Diagnosis Major depressive disorder severe recurrent without psychosis Recommendation/Plan Medication Management Lexapro 5 mg daily, and Klonopin 0.5 mg 3 times daily. Multiple antipsychotics: No Discharge Disposition: Other Legal Status: Voluntary (Does not meet criteria for 5150 hold.) JIAN GONSALVES NP March 07, 2019 11:15
[2019-03-07] MEDS: PAROXETINE 20 MG TAB PO SCH (13:10)
--- NOTE | 2019-03-07 13:40 | PN ---
Date/Time of Note Date/Time of Note DATE: 03/07/19 TIME: 13:30 Assessment/Plan VTE Prophylaxis Risk score (from Nsg)>0 risk: 2 SCD applied (from Nsg): Yes Pharmacological prophylaxis: other (scds) Lines/Catheters IV Catheter Type (from Nrsg): Saline Lock Urinary Cath still in place: No Assessment/Plan Hospital Course Summary Assessment and Plan: Assessment: Severe epigastric pain EGD 03/06/2019 Moderate distal esophagitis Moderate gastritis No evidence of gastric or duodenal ulcers Otherwise normal EGD Nausea/Vomiting Microcytic anemia Melena History of Gastric ulcers- last EGD BORIS- Followed by Nephrology CHF HTN Opioid abuse Recent excessive NSAID use Plan: Avoid opiates Review pathology when available Continue present regimen with PPI/Carafate Monitor Hgb, transfuse for HGB less than 7.5 Add MiraLAX BID PRN Patient Seen in collaboration with Dr. Yuan Subjective: Course reviewed with nursing staff Patient interviewed and examined All labs, imaging and other results reviewed The patient continues to c/o abd pain, discussed results of EGD Encouraged ambulation, sitting up in chair for meals PHYSICAL EXAMINATION: GENERAL: Alert & oriented x 3, in no acute distress SKIN: No lesions HEAD: Normocephalic, atraumatic, no tenderness. EYES: Pupils equal reactive to light, no discharge. EARS/NOSE AND THROAT: Ears normal, nose normal. NECK: Supple, no masses, thyroid normal. CHEST: Inspection within normal limits. CARDIOVASCULAR: Heart: Regular rate and rhythm RESPIRATORY: Lungs clear to auscultation and percussion, no wheezing, no rubs GASTROINTESTINAL AND LIVER: Abdomen: Soft, severe epigastric pain, no organomegaly, no ascites, no guarding, no rebound tenderness, normoactive bowel sounds. Rectal: Deferred. GENITOURINARY: Male genitalia within normal limits. EXTREMITIES: No cyanosis, clubbing or edema. Result Diagram: 03/07/19 0429 03/07/19 0429 Results 24hrs Laboratory Tests Test 03/07/19 04:29 White Blood Count 7.9 # Red Blood Count 3.75 L Hemoglobin 8.6 L Hematocrit 26.9 L Mean Corpuscular Volume 71.7 L Mean Corpuscular Hemoglobin 22.9 L Mean Corpuscular Hemoglobin Concent 32.0 Red Cell Distribution Width 25.2 H Platelet Count 360 Mean Platelet Volume 10.2 Immature Granulocytes % 0.500 H Neutrophils % 63.1 Lymphocytes % 20.2 Monocytes % 14.1 H Eosinophils % 1.5 Basophils % 0.6 Nucleated Red Blood Cells % 0.0 Immature Granulocytes # 0.040 H Neutrophils # 5.0 Lymphocytes # 1.6 Monocytes # 1.1 H Eosinophils # 0.1 Basophils # 0.1 Nucleated Red Blood Cells # 0.0 Sodium Level 140 Potassium Level 3.1 L Chloride Level 104 Carbon Dioxide Level 25 Anion Gap 11 Blood Urea Nitrogen 47 H Creatinine 4.52 H Est Glomerular Filtrat Rate mL/min Glucose Level 101 Calcium Level 8.4 Total Bilirubin 0.3 Direct Bilirubin 0.00 Indirect Bilirubin 0.3 Aspartate Amino Transf (AST/SGOT) 18 Alanine Aminotransferase (ALT/SGPT) 17 Alkaline Phosphatase 77 Troponin I < 0.012 Total Protein 6.6 Albumin 3.1 L Exam/Review of Systems Exam Vitals Vital Signs Date Temp Pulse Resp B/P (MAP) Pulse Ox O2 O2 Flow FiO2 Time Delivery Rate 03/07/19 Nasal 2.0 09:40 Cannula 03/07/19 75 139/74 08:03 (95) 03/07/19 97.5 20 95 07:22 Intake and Output 03/06/19 03/06/19 03/07/19 1515:00 23:00 07:00 IntakeIntake Total 118 ml 860 ml BalanceBalance 118 ml 860 ml Results Results 24hrs Laboratory Tests Test 03/07/19 04:29 White Blood Count 7.9 # Red Blood Count 3.75 L Hemoglobin 8.6 L Hematocrit 26.9 L Mean Corpuscular Volume 71.7 L Mean Corpuscular Hemoglobin 22.9 L Mean Corpuscular Hemoglobin Concent 32.0 Red Cell Distribution Width 25.2 H Platelet Count 360 Mean Platelet Volume 10.2 Immature Granulocytes % 0.500 H Neutrophils % 63.1 Lymphocytes % 20.2 Monocytes % 14.1 H Eosinophils % 1.5 Basophils % 0.6 Nucleated Red Blood Cells % 0.0 Immature Granulocytes # 0.040 H Neutrophils # 5.0 Lymphocytes # 1.6 Monocytes # 1.1 H Eosinophils # 0.1 Basophils # 0.1 Nucleated Red Blood Cells # 0.0 Sodium Level 140 Potassium Level 3.1 L Chloride Level 104 Carbon Dioxide Level 25 Anion Gap 11 Blood Urea Nitrogen 47 H Creatinine 4.52 H Est Glomerular Filtrat Rate mL/min Glucose Level 101 Calcium Level 8.4 Total Bilirubin 0.3 Direct Bilirubin 0.00 Indirect Bilirubin 0.3 Aspartate Amino Transf (AST/SGOT) 18 Alanine Aminotransferase (ALT/SGPT) 17 Alkaline Phosphatase 77 Troponin I < 0.012 Total Protein 6.6 Albumin 3.1 L Medications Medication Current Medications IV Flush (NS 3 ml) 3 ml PER PROTOCOL IV ; Start 03/03/19 at 15:30 Ondansetron HCl (Zofran Inj) 4 mg Q6H PRN IV NAUSEA/VOMITING Last administered on 03/07/19 03:57; Admin Dose 4 MG; Start 03/03/19 at 15:30 Acetaminophen (Tylenol Tab) 650 mg Q6H PRN PO .PAIN 1-3 OR TEMP Last administered on 03/05/19 02:51; Admin Dose 650 MG; Start 03/03/19 at 15:30 Acetaminophen/ Hydrocodone Bitart ([place] (5/325)) 1 tab Q6H PRN PO .MOD PAIN 4- 6 Last administered on 03/07/19 10:38; Admin Dose 1 TAB; Start 03/03/19 at 15:30 Docusate Sodium (Colace) 100 mg Q12H PRN PO .CONSTIPATION Last administered on 03/07/19 08:05; Admin Dose 100 MG; Start 03/03/19 at 15:30 Magnesium Hydroxide (Milk Of Mag) 30 ml DAILY PRN PO .CONSTIPATION; Start 03/03/19 at 15:30 Albuterol/ Ipratropium (Duoneb) 3 ml Q4H RESP THERAPY PRN HHN SHORTNESS OF BREATH; Start 03/03/19 at 15:30 Hydralazine HCl (Apresoline) 10 mg Q6H PRN IV ELEVATED BLOOD PRESSURE Last administered on 03/07/19 06:18; Admin Dose 10 MG; Start 03/03/19 at 15:30 Brimonidine/ Timolol (Combigan Oph) 1 drop BID BOTH EYES Last administered on 03/07/19 08:04; Admin Dose 1 DROP; Start 03/03/19 at 21:00 Isosorbide Mononitrate (Imdur) 60 mg DAILY PO Last administered on 03/07/19 08:05; Admin Dose 60 MG; Start 03/04/19 at 09:00 Multivitamins/ Minerals (Theragran-M) 1 tab DAILY PO Last administered on 03/07/19 08:05; Admin Dose 1 TAB; Start 03/04/19 at 09:00 Phenol (Cepastat Lozenge) 1 lozenge Q1H PRN MT COUGH; Start 03/03/19 at 19:30 Guaifenesin (Robitussin Liquid Cup) 200 mg Q4H PRN PO COUGH; Start 03/03/19 at 19:30 Nitroglycerin (Nitroglycerin (Sl Tab) 0.4 Mg) 1 tab Q5M PRN SL ANGINA Last administered on 03/07/19 04:09; Admin Dose 1 TAB; Start 03/03/19 at 23:00 Sucralfate (Carafate Susp) 1 gm QID PO Last administered on 03/07/19 13:10; Admin Dose 1 GM; Start 03/05/19 at 13:00 Haloperidol (Haldol) 1 mg Q6H PRN IM agitation Last administered on 03/06/19at 11:51; Admin Dose 1 MG; Start 03/05/19 at 14:30 Famotidine (Pepcid Iv) 20 mg Q48H IV Last administered on 03/06/19 06:46; Admin Dose 20 MG; Start 03/06/19 at 07:00 Furosemide (Lasix) 20 mg BID DIURETICS IV Last administered on 03/07/19 05:52; Admin Dose 20 MG; Start 03/06/19 at 10:30 Metoprolol Tartrate (Lopressor) 100 mg BID PO Last administered on 03/07/19 08 :05; Admin Dose 100 MG; Start 03/06/19 at 21:00 Hydrochlorothiazide (Hydrochlorothiazide) 12.5 mg DAILY PO Last administered on 03/07/19 08:05; Admin Dose 12.5 MG; Start 03/07/19 at 09:00 Paroxetine HCl (Paxil) 20 mg DAILY PO Last administered on 03/07/19 13:10; Admin Dose 20 MG; Start 03/07/19 at 12:00 Clonazepam (Klonopin) 0.5 mg Q8 PO ; Start 03/07/19 at 14:00 RICKY TY March 07, 2019 13:40
--- NOTE | 2019-03-07 13:47 | PN ---
Date/Time of Note Date/Time of Note DATE: 03/07/19 TIME: 13:42 Assessment/Plan VTE Prophylaxis Risk score (from Ns)>0 risk: 2 SCD applied (from Ns): Yes Pharmacological prophylaxis: NA/contraindicated Pharm contraindication: low risk/ambulating Lines/Catheters IV Catheter Type (from Nrsg): Saline Lock Urinary Cath still in place: No Assessment/Plan Assessment/Plan 73-year-old man coming in with vomiting and acute kidney injury. #BORIS: -According to son, patient was taking high doses of ibuprofen after going home. -Renal consult -Hold home nephrotoxic medication such as MARLENA inhibitor. #Epigastric pain #Vomiting - Suspect secondary to history of gastric ulcers. No signs of any upper or lower GI bleeding -According to son, patient was taking high doses of ibuprofen after going home. -Cont home Carafate, PPI BID - Continue norco prn pain. #Opioid abuse: - Was started on morphine and norco on admission. Will stop morphine. - Apparently at home patient has a "pill addiction" and will take anything. - Stephanie [employer] consulted. #CHF: Currently not in exacerbation. #History of hypertension: Blood pressure elevated this hospitalization. Holding ACEi due to BORIS. Restarted home HCTZ and titrate up metoprolol. #History prostate cancer: Outpatient followup. DVT: SCDs GI: PPI Result Diagram: 03/07/1942803/07/19428 Subjective 24 Hr Interval Summary Free Text/Dictation Very poor appetite. Did not touch breakfast or lunch today. Continues to complain of severe burning epigastric pain. Taking [place] ATC. Got EGD yesterday showing mild-moderate esophageal and gastric erythema. Biopsies taken. Otherwise patient is up ambulating without problems. Exam/Review of Systems Exam Vitals Vital Signs Date Temp Pulse Resp B/P (MAP) Pulse Ox O2 O2 Flow FiO2 Time Delivery Rate 03/07/19 Nasal 2.0 09:40 Cannula 03/07/19 75 139/74 08:03 (95) 03/07/19 97.5 20 95 07:22 Intake and Output 03/06/19 03/06/19 03/07/19 1515:00 23:00 07:00 IntakeIntake Total 118 ml 860 ml BalanceBalance 118 ml 860 ml Exam Gen: Well appearing man in some discomfort. Head: Atraumatic Eyes: Normal Conjunctiva ENT: Normal External Ears, Nose and Mouth. Neck: Full range of motion. No meningismus. Chest: Nontender to palpation. Resp: Clear to auscultation bilaterally Cardio: Regular rate and rhythm, no murmurs Abd: Soft, mild epigastric tenderness, non distended, no rebound tenderness. Normal bowel sounds Ext: No lower extremity edema bilaterally Results Results 24hrs Laboratory Tests Test 03/07/19 04:29 White Blood Count 7.9 # Red Blood Count 3.75 L Hemoglobin 8.6 L Hematocrit 26.9 L Mean Corpuscular Volume 71.7 L Mean Corpuscular Hemoglobin 22.9 L Mean Corpuscular Hemoglobin Concent 32.0 Red Cell Distribution Width 25.2 H Platelet Count 360 Mean Platelet Volume 10.2 Immature Granulocytes % 0.500 H Neutrophils % 63.1 Lymphocytes % 20.2 Monocytes % 14.1 H Eosinophils % 1.5 Basophils % 0.6 Nucleated Red Blood Cells % 0.0 Immature Granulocytes # 0.040 H Neutrophils # 5.0 Lymphocytes # 1.6 Monocytes # 1.1 H Eosinophils # 0.1 Basophils # 0.1 Nucleated Red Blood Cells # 0.0 Sodium Level 140 Potassium Level 3.1 L Chloride Level 104 Carbon Dioxide Level 25 Anion Gap 11 Blood Urea Nitrogen 47 H Creatinine 4.52 H Est Glomerular Filtrat Rate mL/min Glucose Level 101 Calcium Level 8.4 Total Bilirubin 0.3 Direct Bilirubin 0.00 Indirect Bilirubin 0.3 Aspartate Amino Transf (AST/SGOT) 18 Alanine Aminotransferase (ALT/SGPT) 17 Alkaline Phosphatase 77 Troponin I < 0.012 Total Protein 6.6 Albumin 3.1 L Medications Medication Current Medications IV Flush (NS 3 ml) 3 ml PER PROTOCOL IV ; Start 03/03/19 at 15:30 Ondansetron HCl (Zofran Inj) 4 mg Q6H PRN IV NAUSEA/VOMITING Last administered on 03/07/19at 03:57; Admin Dose 4 MG; Start 03/03/19 at 15:30 Acetaminophen (Tylenol Tab) 650 mg Q6H PRN PO .PAIN 1-3 OR TEMP Last administered on 03/05/19at 02:51; Admin Dose 650 MG; Start 03/03/19 at 15:30 Acetaminophen/ Hydrocodone Bitart ([place] (5/325)) 1 tab Q6H PRN PO .MOD PAIN 4- 6 Last administered on 03/07/19 10:38; Admin Dose 1 TAB; Start 03/03/19 at 15:30 Docusate Sodium (Colace) 100 mg Q12H PRN PO .CONSTIPATION Last administered on 03/07/19 08:05; Admin Dose 100 MG; Start 03/03/19 at 15:30 Magnesium Hydroxide (Milk Of Mag) 30 ml DAILY PRN PO .CONSTIPATION; Start 03/03/19 at 15:30 Albuterol/ Ipratropium (Duoneb) 3 ml Q4H RESP THERAPY PRN HHN SHORTNESS OF BR EATH; Start 03/03/19 at 15:30 Hydralazine HCl (Apresoline) 10 mg Q6H PRN IV ELEVATED BLOOD PRESSURE Last administered on 03/07/19 06:18; Admin Dose 10 MG; Start 03/03/19 at 15:30 Brimonidine/ Timolol (Combigan Oph) 1 drop BID BOTH EYES Last administered on 03/07/19 08:04; Admin Dose 1 DROP; Start 03/03/19 at 21:00 Isosorbide Mononitrate (Imdur) 60 mg DAILY PO Last administered on 03/07/19 08 :05; Admin Dose 60 MG; Start 03/04/19 at 09:00 Multivitamins/ Minerals (Theragran-M) 1 tab DAILY PO Last administered on 03/07/19 08:05; Admin Dose 1 TAB; Start 03/04/19 at 09:00 Phenol (Cepastat Lozenge) 1 lozenge Q1H PRN MT COUGH; Start 03/03/19 at 19:30 Guaifenesin (Robitussin Liquid Cup) 200 mg Q4H PRN PO COUGH; Start 03/03/19 at 19:30 Nitroglycerin (Nitroglycerin (Sl Tab) 0.4 Mg) 1 tab Q5M PRN SL ANGINA Last administered on 03/07/19 04:09; Admin Dose 1 TAB; Start 03/03/19 at 23:00 Sucralfate (Carafate Susp) 1 gm QID PO Last administered on 03/07/19 13:10; Admin Dose 1 GM; Start 03/05/19 at 13:00 Haloperidol (Haldol) 1 mg Q6H PRN IM agitation Last administered on 03/06/19 11:51; Admin Dose 1 MG; Start 03/05/19 at 14:30 Famotidine (Pepcid Iv) 20 mg Q48H IV Last administered on 03/06/19 06:46; Admin Dose 20 MG; Start 03/06/19 at 07:00 Furosemide (Lasix) 20 mg BID DIURETICS IV Last administered on 03/07/19 05:52; Admin Dose 20 MG; Start 03/06/19 at 10:30 Metoprolol Tartrate (Lopressor) 100 mg BID PO Last administered on 03/07/19 08:05; Admin Dose 100 MG; Start 03/06/19 at 21:00 Hydrochlorothiazide (Hydrochlorothiazide) 12.5 mg DAILY PO Last administered on 03/07/19 08:05; Admin Dose 12.5 MG; Start 03/07/19 at 09:00 Paroxetine HCl (Paxil) 20 mg DAILY PO Last administered on 03/07/19 13:10; Admin Dose 20 MG; Start 03/07/19 at 12:00 Clonazepam (Klonopin) 0.5 mg Q8 PO ; Start 03/07/19 at 14:00 ARIANA PINEDA MD March 07, 2019 13:47
[2019-03-07] MEDS: clonAZEPAM 0.5 MG TAB PO SCH ×2 (14:30→21:10)
--- NOTE | 2019-03-07 15:13 | CONS ---
Assessment/Plan Assessment/Plan Assessment/Plan (Daily) 1. acute kidney injury Initially thought due to severe prerenal azotemia + ATN - now pt is volume overloaded 2. HYponatremia due to Hypovolemic Hyponatremia 3. Severe metabolic acidosis with HCo3 13 4. h/o HTN 5. Intractable nausea/vomiting Plan: lasix 20mg IV BID, , ECHO showed EF 55-60% stage I DD on last admissionm, K 3.1, BUN/Cr 47/4.52, BP stable - KCL 40mEQ PO X 1 dose now Renally dose all medications, monitor electrolytes and replace as needed Renal US unremarkable, normal size kidneys with normal echogenicity will follow up Consultation Date/Type/Reason Admit Date/Time March 05, 2019 at 12:15 Initial Consult Date 03/03/19 Type of Consult NEPHROLOGY Requesting Provider: DAMASO ZHENG Date/Time of Note DATE: 03/07/19 TIME: 15:13 24 HR Interval Summary Free Text/Dictation K 3.1, BUN/Cr 47/4.52, BP stable Exam/Review of Systems Exam Vitals Vital Signs Date Temp Pulse Resp B/P (MAP) Pulse Ox O2 O2 Flow FiO2 Time Delivery Rate 03/07/19 Nasal 2.0 09:40 Cannula 03/07/19 75 139/74 08:03 (95) 03/07/19 97.5 20 95 07:22 Intake and Output 03/06/19 03/06/19 03/07/19 1515:00 23:00 07:00 IntakeIntake Total 118 ml 860 ml BalanceBalance 118 ml 860 ml Exam Constitutional: alert, awake, Respiratory: Bilateral basilar crackles, left greater than right Cardiovascular: regular rate and rhythm, nl pulses Gastrointestinal: soft, non-tender Musculoskeletal: 1+ pitting edema, no clubbing/no cyanosis Extremities: normal pulses 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, nl mental status, nl speech, nl strength Results Result Diagram: 03/07/1942803/07/19428 Results 24hrs Laboratory Tests Test 03/07/19 04:29 White Blood Count 7.9 # Red Blood Count 3.75 L Hemoglobin 8.6 L Hematocrit 26.9 L Mean Corpuscular Volume 71.7 L Mean Corpuscular Hemoglobin 22.9 L Mean Corpuscular Hemoglobin Concent 32.0 Red Cell Distribution Width 25.2 H Platelet Count 360 Mean Platelet Volume 10.2 Immature Granulocytes % 0.500 H Neutrophils % 63.1 Lymphocytes % 20.2 Monocytes % 14.1 H Eosinophils % 1.5 Basophils % 0.6 Nucleated Red Blood Cells % 0.0 Immature Granulocytes # 0.040 H Neutrophils # 5.0 Lymphocytes # 1.6 Monocytes # 1.1 H Eosinophils # 0.1 Basophils # 0.1 Nucleated Red Blood Cells # 0.0 Sodium Level 140 Potassium Level 3.1 L Chloride Level 104 Carbon Dioxide Level 25 Anion Gap 11 Blood Urea Nitrogen 47 H Creatinine 4.52 H Est Glomerular Filtrat Rate mL/min Glucose Level 101 Calcium Level 8.4 Total Bilirubin 0.3 Direct Bilirubin 0.00 Indirect Bilirubin 0.3 Aspartate Amino Transf (AST/SGOT) 18 Alanine Aminotransferase (ALT/SGPT) 17 Alkaline Phosphatase 77 Troponin I < 0.012 Total Protein 6.6 Albumin 3.1 L Medications Medication Current Medications IV Flush (NS 3 ml) 3 ml PER PROTOCOL IV ; Start 03/03/19 at 15:30 Ondansetron HCl (Zofran Inj) 4 mg Q6H PRN IV NAUSEA/VOMITING Last administered on 03/07/19at 03:57; Admin Dose 4 MG; Start 03/03/19 at 15:30 Acetaminophen (Tylenol Tab) 650 mg Q6H PRN PO .PAIN 1-3 OR TEMP Last administered on 03/05/19at 02:51; Admin Dose 650 MG; Start 03/03/19 at 15:30 Acetaminophen/ Hydrocodone Bitart ([place] (5/325)) 1 tab Q6H PRN PO .MOD PAIN 4- 6 Last administered on 03/07/19at 10:38; Admin Dose 1 TAB; Start 03/03/19 at 15:30 Docusate Sodium (Colace) 100 mg Q12H PRN PO .CONSTIPATION Last administered on 03/07/19at 08:05; Admin Dose 100 MG; Start 03/03/19 at 15:30 Magnesium Hydroxide (Milk Of Mag) 30 ml DAILY PRN PO .CONSTIPATION; Start 03/03/19 at 15:30 Albuterol/ Ipratropium (Duoneb) 3 ml Q4H RESP THERAPY PRN HHN SHORTNESS OF BREATH; Start 03/03/19 at 15:30 Hydralazine HCl (Apresoline) 10 mg Q6H PRN IV ELEVATED BLOOD PRESSURE Last administered on 03/07/19 06:18; Admin Dose 10 MG; Start 03/03/19 at 15:30 Brimonidine/ Timolol (Combigan Oph) 1 drop BID BOTH EYES Last administered on 03/07/19 08:04; Admin Dose 1 DROP; Start 03/03/19 at 21:00 Isosorbide Mononitrate (Imdur) 60 mg DAILY PO Last administered on 03/07/19 08:05; Admin Dose 60 MG; Start 03/04/19 at 09:00 Multivitamins/ Minerals (Theragran-M) 1 tab DAILY PO Last administered on 03/07/19 08:05; Admin Dose 1 TAB; Start 03/04/19 at 09:00 Phenol (Cepastat Lozenge) 1 lozenge Q1H PRN MT COUGH; Start 03/03/19 at 19:30 Guaifenesin (Robitussin Liquid Cup) 200 mg Q4H PRN PO COUGH; Start 03/03/19 at 19:30 Nitroglycerin (Nitroglycerin (Sl Tab) 0.4 Mg) 1 tab Q5M PRN SL ANGINA Last administered on 03/07/19 04:09; Admin Dose 1 TAB; Start 03/03/19 at 23:00 Sucralfate (Carafate Susp) 1 gm QID PO Last administered on 03/07/19 13:10; Admin Dose 1 GM; Start 03/05/19 at 13:00 Haloperidol (Haldol) 1 mg Q6H PRN IM agitation Last administered on 03/06/19 11:51; Admin Dose 1 MG; Start 03/05/19 at 14:30 Furosemide (Lasix) 20 mg BID DIURETICS IV Last administered on 03/07/19 05:52; Admin Dose 20 MG; Start 03/06/19 at 10:30 Hydrochlorothiazide (Hydrochlorothiazide) 12.5 mg DAILY PO Last administered on 03/07/19 08:05; Admin Dose 12.5 MG; Start 03/07/19 at 09:00 Paroxetine HCl (Paxil) 20 mg DAILY PO Last administered on 03/07/19 13:10; Admin Dose 20 MG; Start 5/16/19 at 12:00 Clonazepam (Klonopin) 0.5 mg Q8 PO Last administered on 03/07/19at 14:30; Admin Dose 0.5 MG; Start 03/07/19 at 14:00 Metoprolol Tartrate (Lopressor) 200 mg BID PO ; Start 03/07/19 at 21:00 Pantoprazole (Protonix Tab) 40 mg BID@06,18 PO ; Start 03/07/19 at 18:00 Polyethylene Glycol (Miralax) 17 gm BID PRN PO constipation; Start 03/07/19 at 14:00 SERINA NORIEGA MD March 07, 2019 15:13
[2019-03-07] MEDS: PANTOPRAZOLE (EC) 40 MG TAB PO SCH (17:48)
[2019-03-07] MEDS: MAGNESIUM HYDROXIDE 30ML CUP PO PRN (20:29)
[2019-03-07] MEDS: POTASSIUM CHLORIDE (SR) 20 MEQ TAB PO SCH (20:29)
[2019-03-08] VITALS (7 sets, daily range): BP systolic 152–185; BP diastolic 69–79; PULSE 54–67; RESP 16–19
[2019-03-08] MEDS ORDERED: LORAZEPAM 2 MG INJ IV ONE (02:30)
[2019-03-08] MEDS: PANTOPRAZOLE (EC) 40 MG TAB PO SCH ×2 (05:16→17:39)
[2019-03-08] MEDS: FUROSEMIDE 20 MG INJ IV SCH (05:21)
[2019-03-08] MEDS: clonAZEPAM 0.5 MG TAB PO SCH ×3 (05:23→21:02)
[2019-03-08] MEDS: HYDROCODONE/APAP (5/325) TAB PO PRN (07:45)
[2019-03-08] MEDS: ISOSORBIDE MONONITRATE(SR)60 MG TAB PO SCH (08:23)
[2019-03-08] MEDS: POTASSIUM CHLORIDE (SR) 20 MEQ TAB PO SCH ×2 (08:23→20:55)
[2019-03-08] MEDS: SUCRALFATE (100 MG/ML) 10ML CUP PO SCH ×4 (08:23→20:55)
[2019-03-08] MEDS: PAROXETINE 20 MG TAB PO SCH (08:23)
[2019-03-08] MEDS: METOPROLOL 100 MG TAB PO SCH ×2 (08:24→21:00)
[2019-03-08] MEDS: BRIMONIDINE 0.2%-TIMOLOL 0.5% 5ML OPH BOTH EYES SCH ×2 (08:24→20:55)
[2019-03-08] MEDS: MULTIVITAMINS/MINERALS TAB PO SCH (08:24)
[2019-03-08] MEDS: HYDROCHLOROTHIAZIDE 12.5 MG CAP PO SCH (08:45)
[2019-03-08] MEDS: ONDANSETRON 4 MG INJ IV PRN ×2 (09:06→18:44)
[2019-03-08] MEDS: HALOPERIDOL 5 MG INJ IM PRN (10:56)
--- NOTE | 2019-03-08 11:21 | CONS ---
Assessment/Plan Assessment/Plan Assessment/Plan (Daily) 1. acute kidney injury Initially thought due to severe prerenal azotemia + ATN - now pt is volume overloaded 2. HYponatremia due to Hypovolemic Hyponatremia 3. Severe metabolic acidosis with HCo3 13 4. h/o HTN 5. Intractable nausea/vomiting 6. Hypertensive urgency Plan: change lasix to 40mg PO BID, stop HCTZ, Uric acid, BNP< CXR in AM albs BUN/Cr 50/4.28,making good urine output , BP running high, avoid ACEI/ARB< will add Nifedipine XL 30mg po daily- one dose now , continue MTP 200mg PO BID ECHO showed EF 55-60% stage I DD on last admissionm Renally dose all medications, monitor electrolytes and replace as needed Renal US unremarkable, normal size kidneys with normal echogenicity will follow up Consultation Date/Type/Reason Admit Date/Time March 05, 2019 at 12:15 Initial Consult Date 03/03/19 Type of Consult NEPHROLOGY Requesting Provider: DAMASO ZHENG Date/Time of Note DATE: 03/08/19 TIME: 11:21 24 HR Interval Summary Free Text/Dictation BUN/Cr 50/4.28, BP stable, making good urine output Exam/Review of Systems Exam Vitals Vital Signs Date Temp Pulse Resp B/P (MAP) Pulse Ox O2 O2 Flow FiO2 Time Delivery Rate 03/08/19 97.9 65 17 185/75 93 Room Air 07:50 (111) 03/08/19 2.0 02:24 Intake and Output 03/07/19 03/07/19 03/08/19 1515:00 23:00 07:00 IntakeIntake Total 118 ml 218 ml BalanceBalance 118 ml 218 ml Exam Constitutional: alert, awake, Respiratory: Bilateral basilar crackles, left greater than right Cardiovascular: regular rate and rhythm, nl pulses Gastrointestinal: soft, non-tender Musculoskeletal: 1+ pitting edema, no clubbing/no cyanosis Extremities: normal pulses 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, nl mental status, nl speech, nl strength Results Result Diagram: 03/08/19 0453 03/08/19 0453 Results 24hrs Laboratory Tests Test 03/08/19 04:53 White Blood Count 8.3 Red Blood Count 3.92 L Hemoglobin 8.9 L Hematocrit 28.1 L Mean Corpuscular Volume 71.7 L Mean Corpuscular Hemoglobin 22.7 L Mean Corpuscular Hemoglobin Concent 31.7 L Red Cell Distribution Width 25.9 H Platelet Count 375 Mean Platelet Volume 10.5 H Immature Granulocytes % 0.400 Neutrophils % 69.8 Lymphocytes % 18.4 Monocytes % 9.8 Eosinophils % 1.2 Basophils % 0.4 Nucleated Red Blood Cells % 0.0 Immature Granulocytes # 0.030 Neutrophils # 5.8 Lymphocytes # 1.5 Monocytes # 0.8 Eosinophils # 0.1 Basophils # 0.0 Nucleated Red Blood Cells # 0.0 Sodium Level 140 Potassium Level 3.6 Chloride Level 101 Carbon Dioxide Level 28 Anion Gap 11 Blood Urea Nitrogen 50 H Creatinine 4.28 H Est Glomerular Filtrat Rate mL/min Glucose Level 123 Calcium Level 9.3 Total Bilirubin 0.3 Direct Bilirubin 0.00 Indirect Bilirubin 0.3 Aspartate Amino Transf (AST/SGOT) 17 Alanine Aminotransferase (ALT/SGPT) 23 Alkaline Phosphatase 97 Total Protein 7.2 Albumin 3.5 Medications Medication Current Medications IV Flush (NS 3 ml) 3 ml PER PROTOCOL IV ; Start 03/03/19 at 15:30 Ondansetron HCl (Zofran Inj) 4 mg Q6H PRN IV NAUSEA/VOMITING Last administered on 03/08/19 09:06; Admin Dose 4 MG; Start 03/03/19 at 15:30 Acetaminophen (Tylenol Tab) 650 mg Q6H PRN PO .PAIN 1-3 OR TEMP Last administered on 03/05/19 02:51; Admin Dose 650 MG; Start 03/03/19 at 15:30 Acetaminophen/ Hydrocodone Bitart ([place] (5/325)) 1 tab Q6H PRN PO .MOD PAIN 4- 6 Last administered on 03/08/19 07:45; Admin Dose 1 TAB; Start 03/03/19 at 15:30 Docusate Sodium (Colace) 100 mg Q12H PRN PO .CONSTIPATION Last administered on 03/07/19 08:05; Admin Dose 100 MG; Start 03/03/19 at 15:30 Magnesium Hydroxide (Milk Of Mag) 30 ml DAILY PRN PO .CONSTIPATION Last administered on 03/07/19 20:29; Admin Dose 30 ML; Start 03/03/19 at 15:30 Albuterol/ Ipratropium (Duoneb) 3 ml Q4H RESP THERAPY PRN HHN SHORTNESS OF BREATH Last administered on 03/08/19 02:11; Admin Dose 3 ML; Start 03/03/19 at 15:30 Hydralazine HCl (Apresoline) 10 mg Q6H PRN IV ELEVATED BLOOD PRESSURE Last administered on 03/07/19 06:18; Admin Dose 10 MG; Start 03/03/19 at 15:30 Brimonidine/ Timolol (Combigan Oph) 1 drop BID BOTH EYES Last administered on 03/08/19 08:24; Admin Dose 1 DROP; Start 03/03/19 at 21:00 Isosorbide Mononitrate (Imdur) 60 mg DAILY PO Last administered on 03/08/19 08:23; Admin Dose 60 MG; Start 03/04/19 at 09:00 Multivitamins/ Minerals (Theragran-M) 1 tab DAILY PO Last administered on 03/08/19 08:24; Admin Dose 1 TAB; Start 03/04/19 at 09:00 Phenol (Cepastat Lozenge) 1 lozenge Q1H PRN MT COUGH; Start 03/03/19 at 19:30 Guaifenesin (Robitussin Liquid Cup) 200 mg Q4H PRN PO COUGH; Start 03/03/19 at 19:30 Nitroglycerin (Nitroglycerin (Sl Tab) 0.4 Mg) 1 tab Q5M PRN SL ANGINA Last administered on 03/07/19 04:09; Admin Dose 1 TAB; Start 03/03/19 at 23:00 Sucralfate (Carafate Susp) 1 gm QID PO Last administered on 03/08/19 08:23; Admin Dose 1 GM; Start 03/05/19 at 13:00 Haloperidol (Haldol) 1 mg Q6H PRN IM agitation Last administered on 03/08/19 10:56; Admin Dose 1 MG; Start 03/05/19 at 14:30 Furosemide (Lasix) 20 mg BID DIURETICS IV Last administered on 03/08/19 05:21; Admin Dose 20 MG; Start 03/06/19 at 10:30 Hydrochlorothiazide (Hydrochlorothiazide) 12.5 mg DAILY PO Last administered on 03/08/19 08:45; Admin Dose 12.5 MG; Start 03/07/19 at 09:00 Paroxetine HCl (Paxil) 20 mg DAILY PO Last administered on 03/08/19 08:23; Admin Dose 20 MG; Start 03/07/19 at 12:00 Clonazepam (Klonopin) 0.5 mg Q8 PO Last administered on 03/08/19 05:23; Admin Dose 0.5 MG; Start 03/07/19 at 14:00 Metoprolol Tartrate (Lopressor) 200 mg BID PO Last administered on 03/08/19at 08:24; Admin Dose 200 MG; Start 03/07/19 at 21:00 Pantoprazole (Protonix Tab) 40 mg BID@06,18 PO Last administered on 03/08/19 05:16; Admin Dose 40 MG; Start 03/07/19 at 18:00 Polyethylene Glycol (Miralax) 17 gm BID PRN PO constipation; Start 03/07/19 at 14:00 Potassium Chloride (Klor-Con 20) 20 meq BID PO Last administered on 03/08/19at 08:23; Admin Dose 20 MEQ; Start 03/07/19 at 21:00 SERINA NORIEGA MD March 08, 2019 11:21
[2019-03-08] MEDS: MAGNESIUM HYDROXIDE 30ML CUP PO PRN (12:07)
[2019-03-08] MEDS: DOCUSATE SODIUM 100 MG CAP PO PRN (12:07)
--- NOTE | 2019-03-08 12:41 | RADRPT ---
Vent Rate: 55 bpm RR Interval: 0 msec AR Interval: 194 msec QRS Duration: 94 msec QT Interval: 414 msec QTC Interval: 396 msec P-R-T [place]: -12 - 18 - 33 degrees Sinus bradycardia Otherwise normal ECG Electronically Signed By: Aubrey Beth
[2019-03-08] MEDS: ACETAMINOPHEN 325 MG TAB PO PRN (14:04)
--- NOTE | 2019-03-08 14:22 | PN ---
Date/Time of Note Date/Time of Note DATE: 03/08/19 TIME: 14:19 Assessment/Plan VTE Prophylaxis Risk score (from Nsg)>0 risk: 2 SCD applied (from Ns): Yes Pharmacological prophylaxis: NA/contraindicated Pharm contraindication: low risk/ambulating Lines/Catheters IV Catheter Type (from Nrsg): Saline Lock Urinary Cath still in place: No Assessment/Plan Assessment/Plan 73-year-old man coming in with vomiting and acute kidney injury. #BORIS: -According to son, patient was taking high doses of ibuprofen after going home. -Renal consult -Hold home nephrotoxic medication such as MARLENA inhibitor. - Currently getting IV diuresis by Dr. Fontaine. - Nephrology following. #Epigastric pain #Vomiting - Suspect secondary to history of gastric ulcers. No signs of any upper or lower GI bleeding -According to son, patient was taking high doses of ibuprofen after going home. -Cont home Carafate, PPI BID - Continue norco prn pain. #Opioid abuse: - Was started on morphine and norco on admission. Will stop both morphine. - Apparently at home patient has a "pill addiction" and will take anything. - Stephanie MOLD SPRAYER consulted. #CHF: Currently not in exacerbation. #History of hypertension: Blood pressure elevated this hospitalization. Holding ACEi due to BORIS. Restarted home HCTZ and titrate up metoprolol. #History prostate cancer: Outpatient followup. DVT: SCDs GI: PPI Dispo: Plan for discharge to SNF. Stopped [place] today; will manage pain with tylenol. Result Diagram: 03/08/19 0453 03/08/19 0453 Subjective 24 Hr Interval Summary Free Text/Dictation Patient transferred to [facility]. Still complaining of intermittent chest and abdominal pain. Getting [place] around the clock. Patient is unable to qualify the nature of the pain. Says it is "ugly, ugly". According to nurses, patient is suspected of embellishing symptoms and has drug- seeking behavior. Exam/Review of Systems Exam Vitals Vital Signs Date Temp Pulse Resp B/P (MAP) Pulse Ox O2 O2 Flow FiO2 Time Delivery Rate 03/08/19 97.9 65 17 185/75 93 Room Air 07:50 (111) 03/08/19 2.0 02:24 Intake and Output 03/07/19 03/07/19 03/08/19 1515:00 23:00 07:00 IntakeIntake Total 118 ml 218 ml BalanceBalance 118 ml 218 ml Exam Gen: Well appearing man in some discomfort. Head: Atraumatic Eyes: Normal Conjunctiva ENT: Normal External Ears, Nose and Mouth. Neck: Full range of motion. No meningismus. Chest: Nontender to palpation. Resp: Clear to auscultation bilaterally Cardio: Regular rate and rhythm, no murmurs Abd: Soft, mild epigastric tenderness, non distended, no rebound tenderness. Normal bowel sounds Ext: No lower extremity edema bilaterally Results Results 24hrs Laboratory Tests Test 03/08/19 04:53 White Blood Count 8.3 Red Blood Count 3.92 L Hemoglobin 8.9 L Hematocrit 28.1 L Mean Corpuscular Volume 71.7 L Mean Corpuscular Hemoglobin 22.7 L Mean Corpuscular Hemoglobin Concent 31.7 L Red Cell Distribution Width 25.9 H Platelet Count 375 Mean Platelet Volume 10.5 H Immature Granulocytes % 0.400 Neutrophils % 69.8 Lymphocytes % 18.4 Monocytes % 9.8 Eosinophils % 1.2 Basophils % 0.4 Nucleated Red Blood Cells % 0.0 Immature Granulocytes # 0.030 Neutrophils # 5.8 Lymphocytes # 1.5 Monocytes # 0.8 Eosinophils # 0.1 Basophils # 0.0 Nucleated Red Blood Cells # 0.0 Sodium Level 140 Potassium Level 3.6 Chloride Level 101 Carbon Dioxide Level 28 Anion Gap 11 Blood Urea Nitrogen 50 H Creatinine 4.28 H Est Glomerular Filtrat Rate mL/min Glucose Level 123 Calcium Level 9.3 Total Bilirubin 0.3 Direct Bilirubin 0.00 Indirect Bilirubin 0.3 Aspartate Amino Transf (AST/SGOT) 17 Alanine Aminotransferase (ALT/SGPT) 23 Alkaline Phosphatase 97 Total Protein 7.2 Albumin 3.5 Medications Medication Current Medications IV Flush (NS 3 ml) 3 ml PER PROTOCOL IV ; Start 03/03/19 at 15:30 Ondansetron HCl (Zofran Inj) 4 mg Q6H PRN IV NAUSEA/VOMITING Last administered on 03/08/19at 09:06; Admin Dose 4 MG; Start 03/03/19 at 15:30 Acetaminophen (Tylenol Tab) 650 mg Q6H PRN PO .PAIN 1-3 OR TEMP Last administered on 03/08/19at 14:04; Admin Dose 650 MG; Start 03/03/19 at 15:30 Docusate Sodium (Colace) 100 mg Q12H PRN PO .CONSTIPATION Last administered on 03/08/19 12:07; Admin Dose 100 MG; Start 03/03/19 at 15:30 Magnesium Hydroxide (Milk Of Mag) 30 ml DAILY PRN PO .CONSTIPATION Last administered on 03/08/19 12:07; Admin Dose 30 ML; Start 03/03/19 at 15:30 Albuterol/ Ipratropium (Duoneb) 3 ml Q4H RESP THERAPY PRN HHN SHORTNESS OF BREATH Last administered on 03/08/19 02:11; Admin Dose 3 ML; Start 03/03/19 at 15:30 Hydralazine HCl (Apresoline) 10 mg Q6H PRN IV ELEVATED BLOOD PRESSURE Last administered on 03/07/19 06:18; Admin Dose 10 MG; Start 03/03/19 at 15:30 Brimonidine/ Timolol (Combigan Oph) 1 drop BID BOTH EYES Last administered on 03/08/19 08:24; Admin Dose 1 DROP; Start 03/03/19 at 21:00 Isosorbide Mononitrate (Imdur) 60 mg DAILY PO Last administered on 03/08/19 08:23; Admin Dose 60 MG; Start 03/04/19 at 09:00 Multivitamins/ Minerals (Theragran-M) 1 tab DAILY PO Last administered on 03/08 08:24; Admin Dose 1 TAB; Start 03/04/19 at 09:00 Phenol (Cepastat Lozenge) 1 lozenge Q1H PRN MT COUGH; Start 03/03/19 at 19:30 Guaifenesin (Robitussin Liquid Cup) 200 mg Q4H PRN PO COUGH; Start 03/03/19 at 19:30 Nitroglycerin (Nitroglycerin (Sl Tab) 0.4 Mg) 1 tab Q5M PRN SL ANGINA Last admi nistered on 03/07/19 04:09; Admin Dose 1 TAB; Start 03/03/19 at 23:00 Sucralfate (Carafate Susp) 1 gm QID PO Last administered on 03/08/19 12:56; Admin Dose 1 GM; Start 03/05/19 at 13:00 Haloperidol (Haldol) 1 mg Q6H PRN IM agitation Last administered on 03/08/19 10:56; Admin Dose 1 MG; Start 03/05/19 at 14:30 Furosemide (Lasix) 20 mg BID DIURETICS IV Last administered on 03/08/19 05:21; Admin Dose 20 MG; Start 03/06/19 at 10:30 Hydrochlorothiazide (Hydrochlorothiazide) 12.5 mg DAILY PO Last administered on 03/08/19 08:45; Admin Dose 12.5 MG; Start 03/07/19 at 09:00 Paroxetine HCl (Paxil) 20 mg DAILY PO Last administered on 03/08/19 08:23; Admin Dose 20 MG; Start 03/07/19 at 12:00 Metoprolol Tartrate (Lopressor) 200 mg BID PO Last administered on 03/08/19 08:24; Admin Dose 200 MG; Start 03/07/19 at 21:00 Pantoprazole (Protonix Tab) 40 mg BID@06,18 PO Last administered on 03/08/19 05:16; Admin Dose 40 MG; Start 03/07/19 at 18:00 Polyethylene Glycol (Miralax) 17 gm BID PRN PO constipation; Start 03/07/19 at 14:00 Potassium Chloride (Klor-Con 20) 20 meq BID PO Last administered on 03/08/19 08:23; Admin Dose 20 MEQ; Start 03/07/19 at 21:00 Clonazepam (Klonopin) 1 mg Q8 PO Last administered on 03/08/19 14:04; Admin Dose 1 MG; Start 03/08/19 at 14:00 ARIANA PINEDA MD March 08, 2019 14:22
--- NOTE | 2019-03-08 15:08 | PN ---
Date/Time of Note Date/Time of Note DATE: 03/08/19 TIME: 15:05 Assessment/Plan VTE Prophylaxis Risk score (from Ns)>0 risk: 2 SCD applied (from Ns): Yes Pharmacological prophylaxis: NA/contraindicated Pharm contraindication: bleeding Lines/Catheters [facility]from [facility] Saline Lock Urinary Cath still in place: No Assessment/Plan Assessment/Plan Assessment: Severe epigastric pain EGD 03/06/2019 Moderate distal esophagitis Moderate gastritis No evidence of gastric or duodenal ulcers Otherwise normal EGD -biopsies are negative for H. pylori or metaplasia Nausea/Vomiting Microcytic anemia Melena History of Gastric ulcers- last EGD BORIS- Followed by Nephrology CHF HTN Opioid abuse Recent excessive NSAID use Plan: Avoid opiates Continue present regimen with PPI/Carafate Monitor Hgb, transfuse for HGB less than 7.5 Add MiraLAX BID PRN Patient Seen in collaboration with Dr. Yuan Subjective: Course reviewed with nursing staff Patient interviewed and examined All labs, imaging and other results reviewed The patient continues to c/o epigastric pain,. Patient is tolerating diet well. Denies nausea or vomiting. No bowel movements today. Hemoglobin is trending up. Continue observation. PHYSICAL EXAMINATION: GENERAL: Alert & oriented x 3, in no acute distress SKIN: No lesions HEAD: Normocephalic, atraumatic, no tenderness. EYES: Pupils equal reactive to light, no discharge. EARS/NOSE AND THROAT: Ears normal, nose normal. NECK: Supple, no masses, thyroid normal. CHEST: Inspection within normal limits. CARDIOVASCULAR: Heart: Regular rate and rhythm RESPIRATORY: Lungs clear to auscultation and percussion, no wheezing, no rubs GASTROINTESTINAL AND LIVER: Abdomen: Soft, moderate epigastric pain, no organomegaly, no ascites, no guarding, no rebound tenderness, normoactive bowel sounds. Rectal: Deferred. GENITOURINARY: Male genitalia within normal limits. EXTREMITIES: No cyanosis, clubbing or edema. Result Diagram: 03/08/19 0453 03/08/19 0453 Results 24hrs Laboratory Tests Test 03/08/19 04:53 White Blood Count 8.3 Red Blood Count 3.92 L Hemoglobin 8.9 L Hematocrit 28.1 L Mean Corpuscular Volume 71.7 L Mean Corpuscular Hemoglobin 22.7 L Mean Corpuscular Hemoglobin Concent 31.7 L Red Cell Distribution Width 25.9 H Platelet Count 375 Mean Platelet Volume 10.5 H Immature Granulocytes % 0.400 Neutrophils % 69.8 Lymphocytes % 18.4 Monocytes % 9.8 Eosinophils % 1.2 Basophils % 0.4 Nucleated Red Blood Cells % 0.0 Immature Granulocytes # 0.030 Neutrophils # 5.8 Lymphocytes # 1.5 Monocytes # 0.8 Eosinophils # 0.1 Basophils # 0.0 Nucleated Red Blood Cells # 0.0 Sodium Level 140 Potassium Level 3.6 Chloride Level 101 Carbon Dioxide Level 28 Anion Gap 11 Blood Urea Nitrogen 50 H Creatinine 4.28 H Est Glomerular Filtrat Rate mL/min Glucose Level 123 Calcium Level 9.3 Total Bilirubin 0.3 Direct Bilirubin 0.00 Indirect Bilirubin 0.3 Aspartate Amino Transf (AST/SGOT) 17 Alanine Aminotransferase (ALT/SGPT) 23 Alkaline Phosphatase 97 Total Protein 7.2 Albumin 3.5 CC: EARNESTINE YUAN MD ; Exam/Review of Systems Exam Vitals Vital Signs Date Temp Pulse Resp B/P (MAP) Pulse Ox O2 O2 Flow FiO2 Time Delivery Rate 03/08/19 97.7 54 16 171/73 95 Room Air 14:39 (105) 03/08/19 2.0 02:24 Intake and Output 03/07/19 03/07/19 03/08/19 1414:59 22:59 06:59 IntakeIntake Total 118 ml 218 ml BalanceBalance 118 ml 218 ml Results Results 24hrs Laboratory Tests Test 03/08/19 04:53 White Blood Count 8.3 Red Blood Count 3.92 L Hemoglobin 8.9 L Hematocrit 28.1 L Mean Corpuscular Volume 71.7 L Mean Corpuscular Hemoglobin 22.7 L Mean Corpuscular Hemoglobin Concent 31.7 L Red Cell Distribution Width 25.9 H Platelet Count 375 Mean Platelet Volume 10.5 H Immature Granulocytes % 0.400 Neutrophils % 69.8 Lymphocytes % 18.4 Monocytes % 9.8 Eosinophils % 1.2 Basophils % 0.4 Nucleated Red Blood Cells % 0.0 Immature Granulocytes # 0.030 Neutrophils # 5.8 Lymphocytes # 1.5 Monocytes # 0.8 Eosinophils # 0.1 Basophils # 0.0 Nucleated Red Blood Cells # 0.0 Sodium Level 140 Potassium Level 3.6 Chloride Level 101 Carbon Dioxide Level 28 Anion Gap 11 Blood Urea Nitrogen 50 H Creatinine 4.28 H Est Glomerular Filtrat Rate mL/min Glucose Level 123 Calcium Level 9.3 Total Bilirubin 0.3 Direct Bilirubin 0.00 Indirect Bilirubin 0.3 Aspartate Amino Transf (AST/SGOT) 17 Alanine Aminotransferase (ALT/SGPT) 23 Alkaline Phosphatase 97 Total Protein 7.2 Albumin 3.5 Medications Medication Current Medications IV Flush (NS 3 ml) 3 ml PER PROTOCOL IV ; Start 03/03/19 at 15:30 Ondansetron HCl (Zofran Inj) 4 mg Q6H PRN IV NAUSEA/VOMITING Last administered on 03/08/19 09:06; Admin Dose 4 MG; Start 03/03/19 at 15:30 Acetaminophen (Tylenol Tab) 650 mg Q6H PRN PO .PAIN 1-3 OR TEMP Last administered on 03/08/19 14:04; Admin Dose 650 MG; Start 03/03/19 at 15:30 Docusate Sodium (Colace) 100 mg Q12H PRN PO .CONSTIPATION Last administered on 03/08/19 12:07; Admin Dose 100 MG; Start 03/03/19 at 15:30 Magnesium Hydroxide (Milk Of Mag) 30 ml DAILY PRN PO .CONSTIPATION Last administered on 03/08/19 12:07; Admin Dose 30 ML; Start 03/03/19 at 15:30 Albuterol/ Ipratropium (Duoneb) 3 ml Q4H RESP THERAPY PRN HHN SHORTNESS OF BREATH Last administered on 03/08/19 02:11; Admin Dose 3 ML; Start 03/03/19 at 15:30 Hydralazine HCl (Apresoline) 10 mg Q6H PRN IV ELEVATED BLOOD PRESSURE Last administered on 03/07/19 06:18; Admin Dose 10 MG; Start 03/03/19 at 15:30 Brimonidine/ Timolol (Combigan Oph) 1 drop BID BOTH EYES Last administered on 03/08/19 08:24; Admin Dose 1 DROP; Start 03/03/19 at 21:00 Isosorbide Mononitrate (Imdur) 60 mg DAILY PO Last administered on 03/08/19 08:23; Admin Dose 60 MG; Start 03/04/19 at 09:00 Multivitamins/ Minerals (Theragran-M) 1 tab DAILY PO Last administered on 03/08/19 08:24; Admin Dose 1 TAB; Start 03/04/19 at 09:00 Phenol (Cepastat Lozenge) 1 lozenge Q1H PRN MT COUGH; Start 03/03/19 at 19:30 Guaifenesin (Robitussin Liquid Cup) 200 mg Q4H PRN PO COUGH; Start 03/03/19 at 19:30 Nitroglycerin (Nitroglycerin (Sl Tab) 0.4 Mg) 1 tab Q5M PRN SL ANGINA Last administered on 03/07/19 04:09; Admin Dose 1 TAB; Start 03/03/19 at 23:00 Sucralfate (Carafate Susp) 1 gm QID PO Last administered on 03/08/19 12:56; Admin Dose 1 GM; Start 03/05/19 at 13:00 Haloperidol (Haldol) 1 mg Q6H PRN IM agitation Last administered on 03/08/19 10:56; Admin Dose 1 MG; Start 03/05/19 at 14:30 Furosemide (Lasix) 20 mg BID DIURETICS IV Last administered on 03/08/19 05:21; Admin Dose 20 MG; Start 03/06/19 at 10:30 Hydrochlorothiazide (Hydrochlorothiazide) 12.5 mg DAILY PO Last administered on 03/08/19 08:45; Admin Dose 12.5 MG; Start 03/07/19 at 09:00 Paroxetine HCl (Paxil) 20 mg DAILY PO Last administered on 03/08/19 08:23; Admin Dose 20 MG; Start 03/07/19 at 12:00 Metoprolol Tartrate (Lopressor) 200 mg BID PO Last administered on 03/08/19 08:24; Admin Dose 200 MG; Start 03/07/19 at 21:00 Pantoprazole (Protonix Tab) 40 mg BID@06,18 PO Last administered on 03/08/19 0 5:16; Admin Dose 40 MG; Start 03/07/19 at 18:00 Polyethylene Glycol (Miralax) 17 gm BID PRN PO constipation; Start 03/07/19 at 14:00 Potassium Chloride (Klor-Con 20) 20 meq BID PO Last administered on 03/08/19 08:23; Admin Dose 20 MEQ; Start 03/07/19 at 21:00 Clonazepam (Klonopin) 1 mg Q8 PO Last administered on 03/08/19at 14:04; Admin Dose 1 MG; Start 03/08/19 at 14:00 NITHYA CHAVEZ NP March 08, 2019 15:08
[2019-03-08] MEDS ORDERED: NIFEdipine (XL) 30 MG TAB PO STA (16:33)
[2019-03-08] MEDS: FUROSEMIDE 40 MG TAB PO SCH (17:39)
[2019-03-08] MEDS: hydrALAzine 20 MG INJ IV PRN (21:02)
[2019-03-09] MEDS: ACETAMINOPHEN 325 MG TAB PO PRN ×3 (00:16→17:11)
[2019-03-09] MEDS: POLYETHYLENE GLYCOL 17 GM PACKET PO PRN ×2 (00:56→08:48)
[2019-03-09 02:00] VITALS: BP 162/77; PULSE 72; RESP 19
[2019-03-09] MEDS: HALOPERIDOL 5 MG INJ IM PRN (03:00)
[2019-03-09] MEDS: PANTOPRAZOLE (EC) 40 MG TAB PO SCH ×2 (05:21→17:08)
[2019-03-09 05:23] VITALS: BP 170/86
[2019-03-09] MEDS: FUROSEMIDE 40 MG TAB PO SCH ×2 (05:25→17:07)
[2019-03-09] MEDS: clonAZEPAM 0.5 MG TAB PO SCH ×3 (05:30→21:46)
[2019-03-09 08:00] VITALS: BP 175/81; PULSE 79; RESP 18
[2019-03-09] MEDS: SUCRALFATE (100 MG/ML) 10ML CUP PO SCH ×4 (08:48→20:07)
[2019-03-09] MEDS: METOPROLOL 100 MG TAB PO SCH ×2 (08:48→20:07)
[2019-03-09] MEDS: BRIMONIDINE 0.2%-TIMOLOL 0.5% 5ML OPH BOTH EYES SCH ×2 (08:48→20:06)
[2019-03-09] MEDS: NIFEdipine (XL) 30 MG TAB PO SCH (08:49)
[2019-03-09] MEDS: ISOSORBIDE MONONITRATE(SR)60 MG TAB PO SCH (08:49)
[2019-03-09] MEDS: MULTIVITAMINS/MINERALS TAB PO SCH (08:50)
[2019-03-09] MEDS: PAROXETINE 20 MG TAB PO SCH (08:50)
[2019-03-09] MEDS: POTASSIUM CHLORIDE (SR) 20 MEQ TAB PO SCH ×2 (08:50→20:07)
[2019-03-09] MEDS ORDERED: POTASSIUM CHLORIDE (SR) 20 MEQ TAB PO STA (10:48)
[2019-03-09] MEDS ORDERED: ALLOPURINOL 100 MG TAB PO ONE (11:00)
--- NOTE | 2019-03-09 13:46 | PN ---
Date/Time of Note Date/Time of Note DATE: 03/09/19 TIME: 13:40 Assessment/Plan VTE Prophylaxis Risk score (from Nsg)>0 risk: 2 SCD applied (from Nsg): Yes Pharmacological prophylaxis: heparin Lines/Catheters IV Catheter Type (from Nrsg): Saline Lock Urinary Cath still in place: No Assessment/Plan Assessment/Plan Assessment: Severe epigastric pain EGD 03/06/2019 Moderate distal esophagitis Moderate gastritis No evidence of gastric or duodenal ulcers Otherwise normal EGD -biopsies are negative for H. pylori or metaplasia Nausea/Vomiting Microcytic anemia Melena History of Gastric ulcers- last EGD BORIS- Followed by Nephrology CHF HTN Opioid abuse Recent excessive NSAID use Plan: Avoid opiates Continue present regimen with PPI/Carafate Monitor Hgb, transfuse for HGB less than 7.5 Continue MiraLAX BID PRN Patient Seen in collaboration with Dr. Rosas Subjective: Course reviewed with nursing staff Patient interviewed and examined All labs, imaging and other results reviewed The patient continues to c/o epigastric pain. However resting in bed and appears comfortable. Patient is tolerating diet well. Denies nausea or vomiting. He had a bm today, will continue bowel regimen. Hemoglobin is trending up, stable otherwise. Continue observation. PHYSICAL EXAMINATION: GENERAL: Alert & oriented x 3, in no acute distress SKIN: No lesions HEAD: Normocephalic, atraumatic, no tenderness. EYES: Pupils equal reactive to light, no discharge. EARS/NOSE AND THROAT: Ears normal, nose normal. NECK: Supple, no masses, thyroid normal. CHEST: Inspection within normal limits. CARDIOVASCULAR: Heart: Regular rate and rhythm RESPIRATORY: Lungs clear to auscultation and percussion, no wheezing, no rubs GASTROINTESTINAL AND LIVER: Abdomen: Soft, moderate epigastric pain, no organomegaly, no ascites, no guarding, no rebound tenderness, normoactive bowel sounds. Rectal: Deferred. GENITOURINARY: Male genitalia within normal limits. EXTREMITIES: No cyanosis, clubbing or edema. Result Diagram: 03/09/19 0603/09/19 0624 Results 24hrs Laboratory Tests Test 03/09/19 06:24 03/09/19 06:25 Sodium Level 140 Potassium Level 3.4 L Chloride Level 101 Carbon Dioxide Level 29 Anion Gap 10 Blood Urea Nitrogen 53 H Creatinine 3.79 H Est Glomerular Filtrat Rate mL/min Glucose Level 162 Calcium Level 9.5 White Blood Count 10.0 # Red Blood Count 4.17 L Hemoglobin 9.6 L Hematocrit 30.2 L Mean Corpuscular Volume 72.4 L Mean Corpuscular Hemoglobin 23.0 L Mean Corpuscular Hemoglobin Concent 31.8 L Red Cell Distribution Width 26.2 H Platelet Count 374 Mean Platelet Volume 9.8 Immature Granulocytes % 0.500 H Neutrophils % 77.0 Lymphocytes % 14.5 L Monocytes % 7.5 Eosinophils % 0.2 Basophils % 0.3 Nucleated Red Blood Cells % 0.0 Immature Granulocytes # 0.050 H Neutrophils # 7.7 H Lymphocytes # 1.5 Monocytes # 0.8 Eosinophils # 0.0 Basophils # 0.0 Nucleated Red Blood Cells # 0.0 Uric Acid 10.8 H Total Bilirubin 0.3 Direct Bilirubin 0.00 Indirect Bilirubin 0.3 Aspartate Amino Transf (AST/SGOT) 29 # Alanine Aminotransferase (ALT/SGPT) 25 Alkaline Phosphatase 102 B-Type Natriuretic Peptide 2430 H Total Protein 7.9 Albumin 4.0 CC: JUDY ROSAS ; Exam/Review of Systems Exam Vitals Vital Signs Date Temp Pulse Resp B/P (MAP) Pulse Ox O2 O2 Flow FiO2 Time Delivery Rate 03/09/19 98.7 79 18 175/81 91 Room Air 08:00 (112) 03/09/19 2.0 04:24 Intake and Output 03/08/19 03/08/19 03/09/19 1515:00 23:00 07:00 IntakeIntake Total 200 ml 240 ml BalanceBalance 200 ml 240 ml Results Results 24hrs Laboratory Tests Test 03/09/19 06:24 03/09/19 06:25 Sodium Level 140 Potassium Level 3.4 L Chloride Level 101 Carbon Dioxide Level 29 Anion Gap 10 Blood Urea Nitrogen 53 H Creatinine 3.79 H Est Glomerular Filtrat Rate mL/min Glucose Level 162 Calcium Level 9.5 White Blood Count 10.0 # Red Blood Count 4.17 L Hemoglobin 9.6 L Hematocrit 30.2 L Mean Corpuscular Volume 72.4 L Mean Corpuscular Hemoglobin 23.0 L Mean Corpuscular Hemoglobin Concent 31.8 L Red Cell Distribution Width 26.2 H Platelet Count 374 Mean Platelet Volume 9.8 Immature Granulocytes % 0.500 H Neutrophils % 77.0 Lymphocytes % 14.5 L Monocytes % 7.5 Eosinophils % 0.2 Basophils % 0.3 Nucleated Red Blood Cells % 0.0 Immature Granulocytes # 0.050 H Neutrophils # 7.7 H Lymphocytes # 1.5 Monocytes # 0.8 Eosinophils # 0.0 Basophils # 0.0 Nucleated Red Blood Cells # 0.0 Uric Acid 10.8 H Total Bilirubin 0.3 Direct Bilirubin 0.00 Indirect Bilirubin 0.3 Aspartate Amino Transf (AST/SGOT) 29 # Alanine Aminotransferase (ALT/SGPT) 25 Alkaline Phosphatase 102 B-Type Natriuretic Peptide 2430 H Total Protein 7.9 Albumin 4.0 Medications Medication Current Medications IV Flush (NS 3 ml) 3 ml PER PROTOCOL IV ; Start 03/03/19 at 15:30 Ondansetron HCl (Zofran Inj) 4 mg Q6H PRN IV NAUSEA/VOMITING Last administered on 03/08/19 18:44; Admin Dose 4 MG; Start 03/03/19 at 15:30 Acetaminophen (Tylenol Tab) 650 mg Q6H PRN PO .PAIN 1-3 OR TEMP Last administered on 03/09/19 08:51; Admin Dose 650 MG; Start 03/03/19 at 15:30 Docusate Sodium (Colace) 100 mg Q12H PRN PO .CONSTIPATION Last administered on 03/08/19 12:07; Admin Dose 100 MG; Start 03/03/19 at 15:30 Magnesium Hydroxide (Milk Of Mag) 30 ml DAILY PRN PO .CONSTIPATION Last administered on 03/08/19 12:07; Admin Dose 30 ML; Start 03/03/19 at 15:30 Albuterol/ Ipratropium (Duoneb) 3 ml Q4H RESP THERAPY PRN HHN SHORTNESS OF BREATH Last administered on 03/08/19 02:11; Admin Dose 3 ML; Start 03/03/19 at 15:30 Hydralazine HCl (Apresoline) 10 mg Q6H PRN IV ELEVATED BLOOD PRESSURE Last administered on 03/08/19 21:02; Admin Dose 10 MG; Start 03/03/19 at 15:30 Brimonidine/ Timolol (Combigan Oph) 1 drop BID BOTH EYES Last administered on 03/09/19 08:48; Admin Dose 1 DROP; Start 03/03/19 at 21:00 Isosorbide Mononitrate (Imdur) 60 mg DAILY PO Last administered on 03/09/19 08:49; Admin Dose 60 MG; Start 03/04/19 at 09:00 Multivitamins/ Minerals (Theragran-M) 1 tab DAILY PO Last administered on 03/09/19 08:50; Admin Dose 1 TAB; Start 03/04/19 at 09:00 Phenol (Cepastat Lozenge) 1 lozenge Q1H PRN MT COUGH; Start 03/03/19 at 19:30 Guaifenesin (Robitussin Liquid Cup) 200 mg Q4H PRN PO COUGH; Start 03/03/19 at 19:30 Nitroglycerin (Nitroglycerin (Sl Tab) 0.4 Mg) 1 tab Q5M PRN SL ANGINA Last administered on 03/07/19 04:09; Admin Dose 1 TAB; Start 03/03/19 at 23:00 Sucralfate (Carafate Susp) 1 gm QID PO Last administered on 03/09/19 12:21; Admin Dose 1 GM; Start 03/05/19 at 13:00 Haloperidol (Haldol) 1 mg Q6H PRN IM agitation Last administered on 03/09/19 03:00; Admin Dose 1 MG; Start 03/05/19 at 14:30 Paroxetine HCl (Paxil) 20 mg DAILY PO Last administered on 03/09/19 08:50; Admin Dose 20 MG; Start 03/07/19 at 12:00 Metoprolol Tartrate (Lopressor) 200 mg BID PO Last administered on 03/09/19 08:48; Admin Dose 200 MG; Start 03/07/19 at 21:00 Pantoprazole (Protonix Tab) 40 mg BID@06,18 PO Last administered on 03/09/19 05:21; Admin Dose 40 MG; Start 03/07/19 at 18:00 Polyethylene Glycol (Miralax) 17 gm BID PRN PO constipation Last administered on 03/09/19 08:48; Admin Dose 17 GM; Start 03/07/19 at 14:00 Potassium Chloride (Klor-Con 20) 20 meq BID PO Last administered on 03/09/19 08:50; Admin Dose 20 MEQ; Start 03/07/19 at 21:00 Clonazepam (Klonopin) 1 mg Q8 PO Last administered on 03/09/19at 13:21; Admin D ose 1 MG; Start 03/08/19 at 14:00 Furosemide (Lasix) 40 mg BID DIURETICS PO Last administered on 03/09/19at 05:25; Admin Dose 40 MG; Start 03/08/19 at 18:00 Nifedipine (Procardia Xl) 30 mg DAILY PO Last administered on 03/09/19at 08:49; Admin Dose 30 MG; Start 03/09/19 at 09:00 Allopurinol (Zyloprim) 100 mg DAILY PO ; Start 03/10/19 at 09:00 CATHERINE GUEVARA NP March 09, 2019 13:46
--- NOTE | 2019-03-09 13:58 | PN ---
Date/Time of Note Date/Time of Note DATE: 03/09/19 TIME: 13:56 Assessment/Plan VTE Prophylaxis Risk score (from Ns)>0 risk: 2 SCD applied (from Ns): Yes Pharmacological prophylaxis: NA/contraindicated Pharm contraindication: low risk/ambulating Lines/Catheters IV [facility]from [facility] Saline Lock Urinary Cath still in place: No Assessment/Plan Hospital Course 73-year-old man coming in with vomiting and acute kidney injury. #BORIS: -According to son, patient was taking high doses of ibuprofen after going home. -Renal consult -Hold home nephrotoxic medication such as MARLENA inhibitor. - Currently getting IV diuresis by Dr. Fontaine. - Nephrology following. #Epigastric pain #Vomiting - Suspect secondary to history of gastric ulcers. No signs of any upper or lower GI bleeding -According to son, patient was taking high doses of ibuprofen after going home, patient with history of opiate abuse -Cont home Carafate, PPI BID #Opioid abuse: -Avoid opiates - Stephanie WAIT STAFF consulted. #CHF: Currently not in exacerbation #History of hypertension: Blood pressure elevated this hospitalization. Holding ACEi due to BORIS. Restarted home HCTZ and titrate up metoprolol. #History prostate cancer: Outpatient followup. DVT: SCDs GI: PPI Dispo: Plan for discharge to SNF Result Diagram: 03/09/19 0625 03/09/19 0624 Results 24hrs Laboratory Tests Test 03/09/19 06:24 03/09/19 06:25 Sodium Level 140 Potassium Level 3.4 L Chloride Level 101 Carbon Dioxide Level 29 Anion Gap 10 Blood Urea Nitrogen 53 H Creatinine 3.79 H Est Glomerular Filtrat Rate mL/min Glucose Level 162 Calcium Level 9.5 White Blood Count 10.0 # Red Blood Count 4.17 L Hemoglobin 9.6 L Hematocrit 30.2 L Mean Corpuscular Volume 72.4 L Mean Corpuscular Hemoglobin 23.0 L Mean Corpuscular Hemoglobin Concent 31.8 L Red Cell Distribution Width 26.2 H Platelet Count 374 Mean Platelet Volume 9.8 Immature Granulocytes % 0.500 H Neutrophils % 77.0 Lymphocytes % 14.5 L Monocytes % 7.5 Eosinophils % 0.2 Basophils % 0.3 Nucleated Red Blood Cells % 0.0 Immature Granulocytes # 0.050 H Neutrophils # 7.7 H Lymphocytes # 1.5 Monocytes # 0.8 Eosinophils # 0.0 Basophils # 0.0 Nucleated Red Blood Cells # 0.0 Uric Acid 10.8 H Total Bilirubin 0.3 Direct Bilirubin 0.00 Indirect Bilirubin 0.3 Aspartate Amino Transf (AST/SGOT) 29 # Alanine Aminotransferase (ALT/SGPT) 25 Alkaline Phosphatase 102 B-Type Natriuretic Peptide 2430 H Total Protein 7.9 Albumin 4.0 Subjective 24 Hr Interval Summary Constitutional: disoriented Exam/Review of Systems Exam Vitals Vital Signs Date Temp Pulse Resp B/P (MAP) Pulse Ox O2 O2 Flow FiO2 Time Delivery Rate 03/09/19 98.7 79 18 175/81 91 Room Air 08:00 (112) 03/09/19 2.0 04:24 Intake and Output 03/08/19 03/08/19 03/09/19 1515:00 23:00 07:00 IntakeIntake Total 200 ml 240 ml BalanceBalance 200 ml 240 ml Constitutional: alert Psych: confusion Respiratory: clear to auscultation Cardiovascular: regular rate and rhythm Gastrointestinal: soft; No distended Musculoskeletal: nl extremities to inspection Results Results 24hrs Laboratory Tests Test 03/09/19 06:24 03/09/19 06:25 Sodium Level 140 Potassium Level 3.4 L Chloride Level 101 Carbon Dioxide Level 29 Anion Gap 10 Blood Urea Nitrogen 53 H Creatinine 3.79 H Est Glomerular Filtrat Rate mL/min Glucose Level 162 Calcium Level 9.5 White Blood Count 10.0 # Red Blood Count 4.17 L Hemoglobin 9.6 L Hematocrit 30.2 L Mean Corpuscular Volume 72.4 L Mean Corpuscular Hemoglobin 23.0 L Mean Corpuscular Hemoglobin Concent 31.8 L Red Cell Distribution Width 26.2 H Platelet Count 374 Mean Platelet Volume 9.8 Immature Granulocytes % 0.500 H Neutrophils % 77.0 Lymphocytes % 14.5 L Monocytes % 7.5 Eosinophils % 0.2 Basophils % 0.3 Nucleated Red Blood Cells % 0.0 Immature Granulocytes # 0.050 H Neutrophils # 7.7 H Lymphocytes # 1.5 Monocytes # 0.8 Eosinophils # 0.0 Basophils # 0.0 Nucleated Red Blood Cells # 0.0 Uric Acid 10.8 H Total Bilirubin 0.3 Direct Bilirubin 0.00 Indirect Bilirubin 0.3 Aspartate Amino Transf (AST/SGOT) 29 # Alanine Aminotransferase (ALT/SGPT) 25 Alkaline Phosphatase 102 B-Type Natriuretic Peptide 2430 H Total Protein 7.9 Albumin 4.0 Medications Medication Current Medications IV Flush (NS 3 ml) 3 ml PER PROTOCOL IV ; Start 03/03/19 at 15:30 Ondansetron HCl (Zofran Inj) 4 mg Q6H PRN IV NAUSEA/VOMITING Last administered on 03/08/19 18:44; Admin Dose 4 MG; Start 03/03/19 at 15:30 Acetaminophen (Tylenol Tab) 650 mg Q6H PRN PO .PAIN 1-3 OR TEMP Last administered on 03/09/19 08:51; Admin Dose 650 MG; Start 03/03/19 at 15:30 Docusate Sodium (Colace) 100 mg Q12H PRN PO .CONSTIPATION Last administered on 03/08/19 12:07; Admin Dose 100 MG; Start 03/03/19 at 15:30 Magnesium Hydroxide (Milk Of Mag) 30 ml DAILY PRN PO .CONSTIPATION Last administered on 03/08/19 12:07; Admin Dose 30 ML; Start 03/03/19 at 15:30 Albuterol/ Ipratropium (Duoneb) 3 ml Q4H RESP THERAPY PRN HHN SHORTNESS OF BREATH Last administered on 03/08/19 02:11; Admin Dose 3 ML; Start 03/03/19 at 15:30 Hydralazine HCl (Apresoline) 10 mg Q6H PRN IV ELEVATED BLOOD PRESSURE Last administered on 03/08/19 21:02; Admin Dose 10 MG; Start 03/03/19 at 15:30 Brimonidine/ Timolol (Combigan Oph) 1 drop BID BOTH EYES Last administered on 03/09/19 08:48; Admin Dose 1 DROP; Start 03/03/19 at 21:00 Isosorbide Mononitrate (Imdur) 60 mg DAILY PO Last administered on 03/09/19 08:49; Admin Dose 60 MG; Start 03/04/19 at 09:00 Multivitamins/ Minerals (Theragran-M) 1 tab DAILY PO Last administered on 03/09/19 08:50; Admin Dose 1 TAB; Start 03/04/19 at 09:00 Phenol (Cepastat Lozenge) 1 lozenge Q1H PRN MT COUGH; Start 03/03/19 at 19:30 Guaifenesin (Robitussin Liquid Cup) 200 mg Q4H PRN PO COUGH; Start 03/03/19 at 19:30 Nitroglycerin (Nitroglycerin (Sl Tab) 0.4 Mg) 1 tab Q5M PRN SL ANGINA Last administered on 03/07/19 04:09; Admin Dose 1 TAB; Start 03/03/19 at 23:00 Sucralfate (Carafate Susp) 1 gm QID PO Last administered on 03/09/19 12:21; Admin Dose 1 GM; Start 03/05/19 at 13:00 Haloperidol (Haldol) 1 mg Q6H PRN IM agitation Last administered on 03/09/19 03:00; Admin Dose 1 MG; Start 03/05/19 at 14:30 Paroxetine HCl (Paxil) 20 mg DAILY PO Last administered on 03/09/19 08:50; Admin Dose 20 MG; Start 03/07/19 at 12:00 Metoprolol Tartrate (Lopressor) 200 mg BID PO Last administered on 03/09/19 08:48; Admin Dose 200 MG; Start 03/07/19 at 21:00 Pantoprazole (Protonix Tab) 40 mg BID@06,18 PO Last administered on 03/09/19 05:21; Admin Dose 40 MG; Start 03/07/19 at 18:00 Polyethylene Glycol (Miralax) 17 gm BID PRN PO constipation Last administered on 03/09/19 08:48; Admin Dose 17 GM; Start 03/07/19 at 14:00 Potassium Chloride (Klor-Con 20) 20 meq BID PO Last administered on 03/09/19 08:50; Admin Dose 20 MEQ; Start 03/07/19 at 21:00 Clonazepam (Klonopin) 1 mg Q8 PO Last administered on 03/09/19 13:21; Admin Dose 1 MG; Start 03/08/19 at 14:00 Furosemide (Lasix) 40 mg BID DIURETICS PO Last administered on 03/09/19 05:25; Admin Dose 40 MG; Start 03/08/19 at 18:00 Nifedipine (Procardia Xl) 30 mg DAILY PO Last administered on 03/09/19 08:49; Admin Dose 30 MG; Start 03/09/19 at 09:00 Allopurinol (Zyloprim) 100 mg DAILY PO ; Start 03/10/19 at 09:00 DELFINA REILLY March 09, 2019 13:58
[2019-03-09 14:00] VITALS: BP 155/72; PULSE 65; RESP 18
--- NOTE | 2019-03-09 14:25 | CONS ---
Assessment/Plan Assessment/Plan Assessment/Plan (Daily) - Hypokalemia- replaced; BMP am 1. acute kidney injury Initially thought due to severe prerenal azotemia + ATN - now pt is volume overloaded 2. HYponatremia due to Hypovolemic Hyponatremia 3. Severe metabolic acidosis with HCo3 13 4. h/o HTN 5. Intractable nausea/vomiting 6. Hypertensive urgency Plan: change lasix to 40mg PO BID, stop HCTZ, Uric acid, BNP< CXR in AM albs BUN/Cr 53/3.79,making good urine output BP running high, avoid ACEI/ARB< will add Nifedipine XL 30mg po daily- one dose now , continue MTP 200mg PO BID ECHO showed EF 55-60% stage I DD on last admissionm Renally dose all medications, monitor electrolytes and replace as needed Renal US unremarkable, normal size kidneys with normal echogenicity will follow up Patient seen in collaboration with Dr Carolin Fontaine/ dW Staff Consultation Date/Type/Reason Admit Date/Time March 05, 2019 at 12:15 Initial Consult Date 03/05/19 Type of Consult NEPHROLOGY Reason for Consultation BORIS Requesting Provider: DAMASO ZHENG Date/Time of Note DATE: 03/09/19 TIME: 14:25 24 HR Interval Summary Free Text/Dictation Resting in bed; c/o low appetite afebrile low K- replsced; am BMP UO X 6 /24hrs bun/ cr trended down to 53/3.78 dw staff Detailed Summary Eyes: no complaints ENT: no complaints Respiratory: no complaints Cardiovascular: no complaints Gastrointestinal: decreased appetite Genitourinary: no complaints Musculoskeletal: no complaints Skin: no complaints Neurologic: no complaints Psychological: nl mood/affect Immunologic: no complaints Exam/Review of Systems Exam Vitals Vital Signs Date Temp Pulse Resp B/P (MAP) Pulse Ox O2 O2 Flow FiO2 Time Delivery Rate 03/09/19 98.7 79 18 175/81 91 Room Air 08:00 (112) 03/09/19 2.0 04:24 Intake and Output 03/08/19 03/08/19 03/09/19 1515:00 23:00 07:00 IntakeIntake Total 200 ml 240 ml BalanceBalance 200 ml 240 ml Constitutional: alert, well developed Psych: nl mood/affect Head: normocephalic Eyes: nl lids ENMT: nl external ears & nose Neck: supple Respiratory: clear to auscultation Cardiovascular: nl pulses, other (s1s2) Gastrointestinal: soft, non-tender Musculoskeletal: nl extremities to inspection Extremities: normal pulses Neurological: nl speech Lymph: nontender Results Result Diagram: 03/09/19 0625 03/09/19 0624 Results 24hrs Laboratory Tests Test 03/09/19 06:24 03/09/19 06:25 Sodium Level 140 Potassium Level 3.4 L Chloride Level 101 Carbon Dioxide Level 29 Anion Gap 10 Blood Urea Nitrogen 53 H Creatinine 3.79 H Est Glomerular Filtrat Rate mL/min Glucose Level 162 Calcium Level 9.5 White Blood Count 10.0 # Red Blood Count 4.17 L Hemoglobin 9.6 L Hematocrit 30.2 L Mean Corpuscular Volume 72.4 L Mean Corpuscular Hemoglobin 23.0 L Mean Corpuscular Hemoglobin Concent 31.8 L Red Cell Distribution Width 26.2 H Platelet Count 374 Mean Platelet Volume 9.8 Immature Granulocytes % 0.500 H Neutrophils % 77.0 Lymphocytes % 14.5 L Monocytes % 7.5 Eosinophils % 0.2 Basophils % 0.3 Nucleated Red Blood Cells % 0.0 Immature Granulocytes # 0.050 H Neutrophils # 7.7 H Lymphocytes # 1.5 Monocytes # 0.8 Eosinophils # 0.0 Basophils # 0.0 Nucleated Red Blood Cells # 0.0 Uric Acid 10.8 H Total Bilirubin 0.3 Direct Bilirubin 0.00 Indirect Bilirubin 0.3 Aspartate Amino Transf (AST/SGOT) 29 # Alanine Aminotransferase (ALT/SGPT) 25 Alkaline Phosphatase 102 B-Type Natriuretic Peptide 2430 H Total Protein 7.9 Albumin 4.0 Medications Medication Current Medications IV Flush (NS 3 ml) 3 ml PER PROTOCOL IV ; Start 03/03/19 at 15:30 Ondansetron HCl (Zofran Inj) 4 mg Q6H PRN IV NAUSEA/VOMITING Last administered on 03/08/19at 18:44; Admin Dose 4 MG; Start 03/03/19 at 15:30 Acetaminophen (Tylenol Tab) 650 mg Q6H PRN PO .PAIN 1-3 OR TEMP Last administered on 03/09/19at 08:51; Admin Dose 650 MG; Start 03/03/19 at 15:30 Docusate Sodium (Colace) 100 mg Q12H PRN PO .CONSTIPATION Last administered on 03/08/19 12:07; Admin Dose 100 MG; Start 03/03/19 at 15:30 Magnesium Hydroxide (Milk Of Mag) 30 ml DAILY PRN PO .CONSTIPATION Last administered on 03/08/19 12:07; Admin Dose 30 ML; Start 03/03/19 at 15:30 Albuterol/ Ipratropium (Duoneb) 3 ml Q4H RESP THERAPY PRN HHN SHORTNESS OF BREATH Last administered on 03/08/19 02:11; Admin Dose 3 ML; Start 03/03/19 at 15:30 Hydralazine HCl (Apresoline) 10 mg Q6H PRN IV ELEVATED BLOOD PRESSURE Last administered on 03/08/19 21:02; Admin Dose 10 MG; Start 03/03/19 at 15:30 Brimonidine/ Timolol (Combigan Oph) 1 drop BID BOTH EYES Last administered on 08:48; Admin Dose 1 DROP; Start 03/03/19 at 21:00 Isosorbide Mononitrate (Imdur) 60 mg DAILY PO Last administered on 03/09/19 08:49; Admin Dose 60 MG; Start 03/04/19 at 09:00 Multivitamins/ Minerals (Theragran-M) 1 tab DAILY PO Last administered on 03/09/19 08:50; Admin Dose 1 TAB; Start 03/04/19 at 09:00 Phenol (Cepastat Lozenge) 1 lozenge Q1H PRN MT COUGH; Start 03/03/19 at 19:30 Guaifenesin (Robitussin Liquid Cup) 200 mg Q4H PRN PO COUGH; Start 03/03/19 at 19:30 Nitroglycerin (Nitroglycerin (Sl Tab) 0.4 Mg) 1 tab Q5M PRN SL ANGINA Last administered on 03/07/19 04:09; Admin Dose 1 TAB; Start 03/03/19 at 23:00 Sucralfate (Carafate Susp) 1 gm QID PO Last administered on 03/09/19 12:21; Admin Dose 1 GM; Start 03/05/19 at 13:00 Haloperidol (Haldol) 1 mg Q6H PRN IM agitation Last administered on 03/09/19 03:00; Admin Dose 1 MG; Start 03/05/19 at 14:30 Paroxetine HCl (Paxil) 20 mg DAILY PO Last administered on 03/09/19 08:50; Admin Dose 20 MG; Start 03/07/19 at 12:00 Metoprolol Tartrate (Lopressor) 200 mg BID PO Last administered on 03/09/19 08:48; Admin Dose 200 MG; Start 03/07/19 at 21:00 Pantoprazole (Protonix Tab) 40 mg BID@,18 PO Last administered on 03/09/19 05:21; Admin Dose 40 MG; Start 03/07/19 at 18:00 Polyethylene Glycol (Miralax) 17 gm BID PRN PO constipation Last administered on 03/09/19 08:48; Admin Dose 17 GM; Start 03/07/19 at 14:00 Potassium Chloride (Klor-Con 20) 20 meq BID PO Last administered on 03/09/19 08:50; Admin Dose 20 MEQ; Start 03/07/19 at 21:00 Clonazepam (Klonopin) 1 mg Q8 PO Last administered on 03/09/19 13:21; Admin Dose 1 MG; Start 03/08/19 at 14:00 Furosemide (Lasix) 40 mg BID DIURETICS PO Last administered on 03/09/19 05:25; Admin Dose 40 MG; Start 03/08/19 at 18:00 Nifedipine (Procardia Xl) 30 mg DAILY PO Last administered on 03/09/19 08:49; Admin Dose 30 MG; Start 03/09/19 at 09:00 Allopurinol (Zyloprim) 100 mg DAILY PO ; Start 03/10/19 at 09:00 BENJY JASSO March 09, 2019 14:25
[2019-03-09 20:00] VITALS: BP 157/78; PULSE 58; RESP 20
[2019-03-10] VITALS: BP 155/78; PULSE 60; RESP 18
[2019-03-10] MEDS: ACETAMINOPHEN 325 MG TAB PO PRN ×3 (00:09→20:25)
[2019-03-10] MEDS: ONDANSETRON 4 MG INJ IV PRN ×2 (03:53→12:18)
[2019-03-10 04:00] VITALS: BP 164/81; PULSE 57; RESP 20
[2019-03-10] MEDS: FUROSEMIDE 40 MG TAB PO SCH ×2 (05:01→18:29)
[2019-03-10] MEDS: PANTOPRAZOLE (EC) 40 MG TAB PO SCH ×2 (05:01→18:27)
[2019-03-10] MEDS: clonAZEPAM 0.5 MG TAB PO SCH ×3 (05:01→21:01)
[2019-03-10 07:22] VITALS: BP 164/84; PULSE 58; RESP 18
[2019-03-10] MEDS ORDERED: MEGESTROL 40 MG TAB PO SCH (09:00)
[2019-03-10] MEDS: ALLOPURINOL 100 MG TAB PO SCH (09:15)
[2019-03-10] MEDS: POTASSIUM CHLORIDE (SR) 20 MEQ TAB PO SCH ×2 (09:16→20:26)
[2019-03-10] MEDS: METOPROLOL 100 MG TAB PO SCH ×2 (09:16→20:26)
[2019-03-10] MEDS: PAROXETINE 20 MG TAB PO SCH (09:16)
[2019-03-10] MEDS: SUCRALFATE (100 MG/ML) 10ML CUP PO SCH ×4 (09:16→20:25)
[2019-03-10] MEDS: ISOSORBIDE MONONITRATE(SR)60 MG TAB PO SCH (09:16)
[2019-03-10] MEDS: MULTIVITAMINS/MINERALS TAB PO SCH (09:16)
[2019-03-10] MEDS: NIFEdipine (XL) 30 MG TAB PO SCH (09:16)
[2019-03-10] MEDS: BRIMONIDINE 0.2%-TIMOLOL 0.5% 5ML OPH BOTH EYES SCH ×2 (09:17→20:25)
--- NOTE | 2019-03-10 09:59 | CONS ---
Assessment/Plan Assessment/Plan Assessment/Plan (Daily) - Hypokalemia- resolved - poor po intake- will start Megace daily 1. acute kidney injury Initially thought due to severe prerenal azotemia + ATN - now pt is volume overloaded 2. HYponatremia due to Hypovolemic Hyponatremia 3. Severe metabolic acidosis with HCo3 13 4. h/o HTN 5. Intractable nausea/vomiting 6. Hypertensive urgency 7. Hyperuricemia- start on Allopurinol 100 mg daily Plan: change lasix to 40mg PO BID, stop HCTZ Uric acid- 10.8, will start on Allopurinol daily BNP< CXR in AM BUN/Cr 55/3.27 making good urine output - x19/24 hrs BP running high-to 164/84 , avoid ACEI/ARB< will add Nifedipine XL 30mg po daily- one dose now , continue MTP 200mg PO BID ECHO showed EF 55-60% stage I DD on last admission Renally dose all medications, monitor electrolytes and replace as needed Renal US unremarkable, normal size kidneys with normal echogenicity will follow up Patient seen in collaboration with Dr Carolin Fontaine/ Thania Staff Consultation Date/Type/Reason Admit Date/Time March 05, 2019 at 12:15 Initial Consult Date 03/05/19 Type of Consult NEPHROLOGY Requesting Provider: DAMASO ZHENG Date/Time of Note DATE: 03/10/19 TIME: 09:57 24 HR Interval Summary Free Text/Dictation Uric acid- 10.8, will start on Allopurinol daily BUN/Cr 55/3.27 today sitter at bed side No new events reported last night dw staff Exam/Review of Systems Exam Vitals Vital Signs Date Temp Pulse Resp B/P (MAP) Pulse Ox O2 O2 Flow FiO2 Time Delivery Rate 03/10/19 98.1 58 18 164/84 92 Room Air 07:22 (110) 03/09/19 21 18:49 03/09/19 2.0 04:24 Intake and Output 03/09/19 03/09/19 03/10/19 1515:00 23:00 07:00 IntakeIntake Total 580 ml 880 ml 360 ml BalanceBalance 580 ml 880 ml 360 ml Constitutional: alert, well developed Psych: nl mood/affect Eyes: nl lids, nl sclera ENMT: nl external ears & nose Neck: non-tender Respiratory: clear to auscultation Cardiovascular: nl pulses, other (s1s2) Gastrointestinal: soft, non-tender Musculoskeletal: nl extremities to inspection Extremities: normal pulses Neurological: nl speech, other (alert/reponsive) Skin: nl turgor Lymph: nontender Results Result Diagram: 03/10/19 0545 03/10/19 0545 Results 24hrs Laboratory Tests Test 03/10/19 05:45 White Blood Count 8.1 Red Blood Count 3.90 L Hemoglobin 9.0 L Hematocrit 28.5 L Mean Corpuscular Volume 73.1 L Mean Corpuscular Hemoglobin 23.1 L Mean Corpuscular Hemoglobin Concent 31.6 L Red Cell Distribution Width 26.2 H Platelet Count 384 Mean Platelet Volume 10.0 Immature Granulocytes % 0.500 H Neutrophils % 57.0 Lymphocytes % 27.0 Monocytes % 14.4 H Eosinophils % 0.7 Basophils % 0.4 Nucleated Red Blood Cells % 0.0 Immature Granulocytes # 0.040 H Neutrophils # 4.6 Lymphocytes # 2.2 Monocytes # 1.2 H Eosinophils # 0.1 Basophils # 0.0 Nucleated Red Blood Cells # 0.0 Sodium Level 142 Potassium Level 4.1 Chloride Level 102 Carbon Dioxide Level 31 Anion Gap 9 Blood Urea Nitrogen 55 H Creatinine 3.27 H Est Glomerular Filtrat Rate mL/min Glucose Level 144 Calcium Level 9.2 Medications Medication Current Medications IV Flush (NS 3 ml) 3 ml PER PROTOCOL IV ; Start 03/03/19 at 15:30 Ondansetron HCl (Zofran Inj) 4 mg Q6H PRN IV NAUSEA/VOMITING Last administered on 03/10/19at 03:53; Admin Dose 4 MG; Start 03/03/19 at 15:30 Acetaminophen (Tylenol Tab) 650 mg Q6H PRN PO .PAIN 1-3 OR TEMP Last administered on 03/10/19at 07:20; Admin Dose 650 MG; Start 03/03/19 at 15:30 Docusate Sodium (Colace) 100 mg Q12H PRN PO .CONSTIPATION Last administered on 03/08/19at 12:07; Admin Dose 100 MG; Start 03/03/19 at 15:30 Magnesium Hydroxide (Milk Of Mag) 30 ml DAILY PRN PO .CONSTIPATION Last administered on 03/08/19at 12:07; Admin Dose 30 ML; Start 03/03/19 at 15:30 Albuterol/ Ipratropium (Duoneb) 3 ml Q4H RESP THERAPY PRN HHN SHORTNESS OF BREATH Last administered on 03/08/19 02:11; Admin Dose 3 ML; Start 03/03/19 at 15:30 Hydralazine HCl (Apresoline) 10 mg Q6H PRN IV ELEVATED BLOOD PRESSURE Last administered on 03/08/19 21:02; Admin Dose 10 MG; Start 03/03/19 at 15:30 Brimonidine/ Timolol (Combigan Oph) 1 drop BID BOTH EYES Last administered on 03/10/19 09:17; Admin Dose 1 DROP; Start 03/03/19 at 21:00 Isosorbide Mononitrate (Imdur) 60 mg DAILY PO Last administered on 03/10/19 09:16; Admin Dose 60 MG; Start 03/04/19 at 09:00 Multivitamins/ Minerals (Theragran-M) 1 tab DAILY PO Last administered on 03/10/19 09:16; Admin Dose 1 TAB; Start 03/04/19 at 09:00 Phenol (Cepastat Lozenge) 1 lozenge Q1H PRN MT COUGH; Start 03/03/19 at 19:30 Guaifenesin (Robitussin Liquid Cup) 200 mg Q4H PRN PO COUGH; Start 03/03/19 at 19:30 Nitroglycerin (Nitroglycerin (Sl Tab) 0.4 Mg) 1 tab Q5M PRN SL ANGINA Last administered on 03/07/19 04:09; Admin Dose 1 TAB; Start 03/03/19 at 23:00 Sucralfate (Carafate Susp) 1 gm QID PO Last administered on 03/10/19 09:16; Admin Dose 1 GM; Start 03/05/19 at 13:00 Haloperidol (Haldol) 1 mg Q6H PRN IM agitation Last administered on 03/09/19 03:00; Admin Dose 1 MG; Start 03/05/19 at 14:30 Paroxetine HCl (Paxil) 20 mg DAILY PO Last administered on 03/10/19 09:16; Admin Dose 20 MG; Start 03/07/19 at 12:00 Metoprolol Tartrate (Lopressor) 200 mg BID PO Last administered on 03/10/19 09:16; Admin Dose 200 MG; Start 03/07/19 at 21:00 Pantoprazole (Protonix Tab) 40 mg BID@,18 PO Last administered on 03/10/19 05:01; Admin Dose 40 MG; Start 03/07/19 at 18:00 Polyethylene Glycol (Miralax) 17 gm BID PRN PO constipation Last administered on 03/09/19 08:48; Admin Dose 17 GM; Start 03/07/19 at 14:00 Potassium Chloride (Klor-Con 20) 20 meq BID PO Last administered on 03/10/19 09:16; Admin Dose 20 MEQ; Start 03/07/19 at 21:00 Clonazepam (Klonopin) 1 mg Q8 PO Last administered on 03/10/19 05:01; Admin Dose 1 MG; Start 03/08/19 at 14:00 Furosemide (Lasix) 40 mg BID DIURETICS PO Last administered on 03/10/19 05:01; Admin Dose 40 MG; Start 03/08/19 at 18:00 Nifedipine (Procardia Xl) 30 mg DAILY PO Last administered on 03/10/19 09:16; Admin Dose 30 MG; Start 03/09/19 at 09:00 Allopurinol (Zyloprim) 100 mg DAILY PO Last administered on 03/10/19 09:15; Admin Dose 100 MG; Start 03/10/19 at 09:00 BENJY JASSO March 10, 2019 09:59
[2019-03-10] MEDS ORDERED: MEGESTROL 40 MG TAB PO ONE (10:00)
--- NOTE | 2019-03-10 11:48 | PN ---
Date/Time of Note Date/Time of Note DATE: 03/10/19 TIME: 11:48 Assessment/Plan VTE Prophylaxis Risk score (from Ns)>0 risk: 4 SCD applied (from Ns): Yes Pharmacological prophylaxis: NA/contraindicated Pharm contraindication: low risk/ambulating Lines/Catheters IV [facility] Type (from [facility] Peripheral IV Urinary Cath still in place: No Assessment/Plan Hospital Course 73-year-old man coming in with vomiting and acute kidney injury. #BORIS: -According to son, patient was taking high doses of ibuprofen after going home. -Renal consult -Hold home nephrotoxic medication such as MARLENA inhibitor. - Currently getting IV diuresis by Dr. Fontaine. - Nephrology following. #Epigastric pain #Vomiting - Suspect secondary to history of gastric ulcers. No signs of any upper or lower GI bleeding -According to son, patient was taking high doses of ibuprofen after going home, patient with history of opiate abuse -Cont home Carafate, PPI BID #Opioid abuse: -Avoid opiates - Stephanie BASS SINGER consulted. #CHF: Currently not in exacerbation #History of hypertension: Blood pressure elevated this hospitalization. Holding ACEi due to BORIS. Restarted home HCTZ and titrate up metoprolol. #History prostate cancer: Outpatient followup. DVT: SCDs GI: PPI Dispo: Plan for discharge to SNF Result Diagram: 03/10/19 0545 03/10/19 0545 Results 24hrs Laboratory Tests Test 03/10/19 05:45 White Blood Count 8.1 Red Blood Count 3.90 L Hemoglobin 9.0 L Hematocrit 28.5 L Mean Corpuscular Volume 73.1 L Mean Corpuscular Hemoglobin 23.1 L Mean Corpuscular Hemoglobin Concent 31.6 L Red Cell Distribution Width 26.2 H Platelet Count 384 Mean Platelet Volume 10.0 Immature Granulocytes % 0.500 H Neutrophils % 57.0 Lymphocytes % 27.0 Monocytes % 14.4 H Eosinophils % 0.7 Basophils % 0.4 Nucleated Red Blood Cells % 0.0 Immature Granulocytes # 0.040 H Neutrophils # 4.6 Lymphocytes # 2.2 Monocytes # 1.2 H Eosinophils # 0.1 Basophils # 0.0 Nucleated Red Blood Cells # 0.0 Sodium Level 142 Potassium Level 4.1 Chloride Level 102 Carbon Dioxide Level 31 Anion Gap 9 Blood Urea Nitrogen 55 H Creatinine 3.27 H Est Glomerular Filtrat Rate mL/min Glucose Level 144 Calcium Level 9.2 Subjective 24 Hr Interval Summary Gastrointestinal: pain Exam/Review of Systems Exam Vitals Vital Signs Date Temp Pulse Resp B/P (MAP) Pulse Ox O2 O2 Flow FiO2 Time Delivery Rate 03/10/19 98.1 58 18 164/84 92 Room Air 07:22 (110) 03/09/19 21 18:49 03/09/19 2.0 04:24 Intake and Output 03/09/19 03/09/19 03/10/19 1515:00 23:00 07:00 IntakeIntake Total 580 ml 880 ml 360 ml BalanceBalance 580 ml 880 ml 360 ml Constitutional: alert, oriented Respiratory: clear to auscultation Cardiovascular: regular rate and rhythm Gastrointestinal: soft; No distended Musculoskeletal: nl extremities to inspection Results Results 24hrs Laboratory Tests Test 03/10/19 05:45 White Blood Count 8.1 Red Blood Count 3.90 L Hemoglobin 9.0 L Hematocrit 28.5 L Mean Corpuscular Volume 73.1 L Mean Corpuscular Hemoglobin 23.1 L Mean Corpuscular Hemoglobin Concent 31.6 L Red Cell Distribution Width 26.2 H Platelet Count 384 Mean Platelet Volume 10.0 Immature Granulocytes % 0.500 H Neutrophils % 57.0 Lymphocytes % 27.0 Monocytes % 14.4 H Eosinophils % 0.7 Basophils % 0.4 Nucleated Red Blood Cells % 0.0 Immature Granulocytes # 0.040 H Neutrophils # 4.6 Lymphocytes # 2.2 Monocytes # 1.2 H Eosinophils # 0.1 Basophils # 0.0 Nucleated Red Blood Cells # 0.0 Sodium Level 142 Potassium Level 4.1 Chloride Level 102 Carbon Dioxide Level 31 Anion Gap 9 Blood Urea Nitrogen 55 H Creatinine 3.27 H Est Glomerular Filtrat Rate mL/min Glucose Level 144 Calcium Level 9.2 Medications Medication Current Medications IV Flush (NS 3 ml) 3 ml PER PROTOCOL IV ; Start 03/03/19 at 15:30 Ondansetron HCl (Zofran Inj) 4 mg Q6H PRN IV NAUSEA/VOMITING Last administered on 03/10/19at 03:53; Admin Dose 4 MG; Start 03/03/19 at 15:30 Acetaminophen (Tylenol Tab) 650 mg Q6H PRN PO .PAIN 1-3 OR TEMP Last administered on 03/10/19at 07:20; Admin Dose 650 MG; Start 03/03/19 at 15:30 Docusate Sodium (Colace) 100 mg Q12H PRN PO .CONSTIPATION Last administered on 03/08/19 12:07; Admin Dose 100 MG; Start 03/03/19 at 15:30 Magnesium Hydroxide (Milk Of Mag) 30 ml DAILY PRN PO .CONSTIPATION Last administered on 03/08/19 12:07; Admin Dose 30 ML; Start 03/03/19 at 15:30 Albuterol/ Ipratropium (Duoneb) 3 ml Q4H RESP THERAPY PRN HHN SHORTNESS OF BREATH Last administered on 03/08/19 02:11; Admin Dose 3 ML; Start 03/03/19 at 15:30 Hydralazine HCl (Apresoline) 10 mg Q6H PRN IV ELEVATED BLOOD PRESSURE Last administered on 03/08/19 21:02; Admin Dose 10 MG; Start 03/03/19 at 15:30 Brimonidine/ Timolol (Combigan Oph) 1 drop BID BOTH EYES Last administered on 03/10/19 09:17; Admin Dose 1 DROP; Start 03/03/19 at 21:00 Isosorbide Mononitrate (Imdur) 60 mg DAILY PO Last administered on 03/10/19 09:16; Admin Dose 60 MG; Start 03/04/19 at 09:00 Multivitamins/ Minerals (Theragran-M) 1 tab DAILY PO Last administered on 03/10/19 09:16; Admin Dose 1 TAB; Start 03/04/19 at 09:00 Phenol (Cepastat Lozenge) 1 lozenge Q1H PRN MT COUGH; Start 03/03/19 at 19:30 Guaifenesin (Robitussin Liquid Cup) 200 mg Q4H PRN PO COUGH; Start 03/03/19 at 19:30 Nitroglycerin (Nitroglycerin (Sl Tab) 0.4 Mg) 1 tab Q5M PRN SL ANGINA Last administered on 03/07/19 04:09; Admin Dose 1 TAB; Start 03/03/19 at 23:00 Sucralfate (Carafate Susp) 1 gm QID PO Last administered on 03/10/19 09:16; Admin Dose 1 GM; Start 03/05/19 at 13:00 Haloperidol (Haldol) 1 mg Q6H PRN IM agitation Last administered on 03/09/19 03:00; Admin Dose 1 MG; Start 03/05/19 at 14:30 Paroxetine HCl (Paxil) 20 mg DAILY PO Last administered on 03/10/19 09:16; Admin Dose 20 MG; Start 03/07/19 at 12:00 Metoprolol Tartrate (Lopressor) 200 mg BID PO Last administered on 03/10/19 09:16; Admin Dose 200 MG; Start 03/07/19 at 21:00 Pantoprazole (Protonix Tab) 40 mg BID@06,18 PO Last administered on 03/10/19 05:01; Admin Dose 40 MG; Start 03/07/19 at 18:00 Polyethylene Glycol (Miralax) 17 gm BID PRN PO constipation Last administered on 03/09/19 08:48; Admin Dose 17 GM; Start 03/07/19 at 14:00 Potassium Chloride (Klor-Con 20) 20 meq BID PO Last administered on 03/10/19 09:16; Admin Dose 20 MEQ; Start 03/07/19 at 21:00 Clonazepam (Klonopin) 1 mg Q8 PO Last administered on 03/10/19 05:01; Admin Dose 1 MG; Start 03/08/19 at 14:00 Furosemide (Lasix) 40 mg BID DIURETICS PO Last administered on 03/10/19 05:01; Admin Dose 40 MG; Start 03/08/19 at 18:00 Nifedipine (Procardia Xl) 30 mg DAILY PO Last administered on 03/10/19 09:16; Admin Dose 30 MG; Start 03/09/19 at 09:00 Allopurinol (Zyloprim) 100 mg DAILY PO Last administered on 03/10/19 09:15; Admin Dose 100 MG; Start 03/10/19 at 09:00 Megestrol Acetate (Megace Susp) 400 mg DAILY PO ; Start 03/10/19 at 11:00 DELFINA REILLY March 10, 2019 11:48
[2019-03-10] MEDS: MEGESTROL (40 MG/ML) 10ML CUP PO SCH (12:09)
[2019-03-10 13:48] VITALS: BP 121/65; PULSE 53; RESP 18
--- NOTE | 2019-03-10 15:21 | PN ---
Date/Time of Note Date/Time of Note DATE: 03/10/19 TIME: 15: Assessment/Plan VTE Prophylaxis Risk score (from Nsg)>0 risk: 4 SCD applied (from Nsg): Yes Pharmacological prophylaxis: heparin Lines/Catheters IV Catheter Type (from Nrsg): Peripheral IV Urinary Cath still in place: No Assessment/Plan Assessment/Plan Assessment: Severe epigastric pain EGD 03/06/2019 Moderate distal esophagitis Moderate gastritis No evidence of gastric or duodenal ulcers Otherwise normal EGD -biopsies are negative for H. pylori or metaplasia Nausea/Vomiting Microcytic anemia Melena History of Gastric ulcers- last EGD BORIS- Followed by Nephrology CHF HTN Opioid abuse Recent excessive NSAID use Plan: Avoid opiates Continue present regimen with PPI/Carafate Monitor Hgb, transfuse for HGB less than 7.5 Continue MiraLAX BID PRN Patient Seen in collaboration with Dr. Rosas Subjective: Course reviewed with nursing staff Patient interviewed and examined All labs, imaging and other results reviewed The patient continues to c/o epigastric pain. However resting in bed and appears comfortable. Patient is tolerating diet well. Denies nausea or vomiting. Hemoglobin is stable. Continue treatment plan. PHYSICAL EXAMINATION: GENERAL: Alert & oriented x 3, in no acute distress SKIN: No lesions HEAD: Normocephalic, atraumatic, no tenderness. EYES: Pupils equal reactive to light, no discharge. EARS/NOSE AND THROAT: Ears normal, nose normal. NECK: Supple, no masses, thyroid normal. CHEST: Inspection within normal limits. CARDIOVASCULAR: Heart: Regular rate and rhythm RESPIRATORY: Lungs clear to auscultation and percussion, no wheezing, no rubs GASTROINTESTINAL AND LIVER: Abdomen: Soft, moderate epigastric pain, no organomegaly, no ascites, no guarding, no rebound tenderness, normoactive bowel sounds. Rectal: Deferred. GENITOURINARY: Male genitalia within normal limits. EXTREMITIES: No cyanosis, clubbing or edema. Result Diagram: 03/10/19 0545 03/10/19 0545 Results 24hrs Laboratory Tests Test 03/10/19 05:45 White Blood Count 8.1 Red Blood Count 3.90 L Hemoglobin 9.0 L Hematocrit 28.5 L Mean Corpuscular Volume 73.1 L Mean Corpuscular Hemoglobin 23.1 L Mean Corpuscular Hemoglobin Concent 31.6 L Red Cell Distribution Width 26.2 H Platelet Count 384 Mean Platelet Volume 10.0 Immature Granulocytes % 0.500 H Neutrophils % 57.0 Lymphocytes % 27.0 Monocytes % 14.4 H Eosinophils % 0.7 Basophils % 0.4 Nucleated Red Blood Cells % 0.0 Immature Granulocytes # 0.040 H Neutrophils # 4.6 Lymphocytes # 2.2 Monocytes # 1.2 H Eosinophils # 0.1 Basophils # 0.0 Nucleated Red Blood Cells # 0.0 Sodium Level 142 Potassium Level 4.1 Chloride Level 102 Carbon Dioxide Level 31 Anion Gap 9 Blood Urea Nitrogen 55 H Creatinine 3.27 H Est Glomerular Filtrat Rate mL/min Glucose Level 144 Calcium Level 9.2 CC: JUDY ROSAS ; Exam/Review of Systems Exam Vitals Vital Signs Date Temp Pulse Resp B/P (MAP) Pulse Ox O2 O2 Flow FiO2 Time Delivery Rate 03/10/19 98.0 53 18 121/65 95 Room Air 13:48 (83) 03/09/19 21 18:49 03/09/19 2.0 04:24 Intake and Output 03/09/19 03/09/19 03/10/19 1515:00 23:00 07:00 IntakeIntake Total 580 ml 880 ml 360 ml BalanceBalance 580 ml 880 ml 360 ml Results Results 24hrs Laboratory Tests Test 03/10/19 05:45 White Blood Count 8.1 Red Blood Count 3.90 L Hemoglobin 9.0 L Hematocrit 28.5 L Mean Corpuscular Volume 73.1 L Mean Corpuscular Hemoglobin 23.1 L Mean Corpuscular Hemoglobin Concent 31.6 L Red Cell Distribution Width 26.2 H Platelet Count 384 Mean Platelet Volume 10.0 Immature Granulocytes % 0.500 H Neutrophils % 57.0 Lymphocytes % 27.0 Monocytes % 14.4 H Eosinophils % 0.7 Basophils % 0.4 Nucleated Red Blood Cells % 0.0 Immature Granulocytes # 0.040 H Neutrophils # 4.6 Lymphocytes # 2.2 Monocytes # 1.2 H Eosinophils # 0.1 Basophils # 0.0 Nucleated Red Blood Cells # 0.0 Sodium Level 142 Potassium Level 4.1 Chloride Level 102 Carbon Dioxide Level 31 Anion Gap 9 Blood Urea Nitrogen 55 H Creatinine 3.27 H Est Glomerular Filtrat Rate mL/min Glucose Level 144 Calcium Level 9.2 Medications Medication Current Medications IV Flush (NS 3 ml) 3 ml PER PROTOCOL IV ; Start 03/03/19 at 15:30 Ondansetron HCl (Zofran Inj) 4 mg Q6H PRN IV NAUSEA/VOMITING Last administered on 03/10/19 12:18; Admin Dose 4 MG; Start 03/03/19 at 15:30 Acetaminophen (Tylenol Tab) 650 mg Q6H PRN PO .PAIN 1-3 OR TEMP Last administered on 03/10/19 07:20; Admin Dose 650 MG; Start 03/03/19 at 15:30 Docusate Sodium (Colace) 100 mg Q12H PRN PO .CONSTIPATION Last administered on 03/08/19 12:07; Admin Dose 100 MG; Start 03/03/19 at 15:30 Magnesium Hydroxide (Milk Of Mag) 30 ml DAILY PRN PO .CONSTIPATION Last adminis tered on 03/08/19 12:07; Admin Dose 30 ML; Start 03/03/19 at 15:30 Albuterol/ Ipratropium (Duoneb) 3 ml Q4H RESP THERAPY PRN HHN SHORTNESS OF BREATH Last administered on 03/08/19 02:11; Admin Dose 3 ML; Start 03/03/19 at 15:30 Hydralazine HCl (Apresoline) 10 mg Q6H PRN IV ELEVATED BLOOD PRESSURE Last administered on 03/08/19 21:02; Admin Dose 10 MG; Start 03/03/19 at 15:30 Brimonidine/ Timolol (Combigan Oph) 1 drop BID BOTH EYES Last administered on 03/10/19 09:17; Admin Dose 1 DROP; Start 03/03/19 at 21:00 Isosorbide Mononitrate (Imdur) 60 mg DAILY PO Last administered on 03/10/19 09 :16; Admin Dose 60 MG; Start 03/04/19 at 09:00 Multivitamins/ Minerals (Theragran-M) 1 tab DAILY PO Last administered on 03/10/19 09:16; Admin Dose 1 TAB; Start 03/04/19 at 09:00 Phenol (Cepastat Lozenge) 1 lozenge Q1H PRN MT COUGH; Start 03/03/19 at 19:30 Guaifenesin (Robitussin Liquid Cup) 200 mg Q4H PRN PO COUGH; Start 03/03/19 at 19:30 Nitroglycerin (Nitroglycerin (Sl Tab) 0.4 Mg) 1 tab Q5M PRN SL ANGINA Last administered on 03/07/19 04:09; Admin Dose 1 TAB; Start 03/03/19 at 23:00 Sucralfate (Carafate Susp) 1 gm QID PO Last administered on 03/10/19 12:09; Admin Dose 1 GM; Start 03/05/19 at 13:00 Haloperidol (Haldol) 1 mg Q6H PRN IM agitation Last administered on 03/09/19 03:00; Admin Dose 1 MG; Start 03/05/19 at 14:30 Paroxetine HCl (Paxil) 20 mg DAILY PO Last administered on 03/10/19 09:16; Admin Dose 20 MG; Start 03/07/19 at 12:00 Metoprolol Tartrate (Lopressor) 200 mg BID PO Last administered on 03/10/19 09:16; Admin Dose 200 MG; Start 03/07/19 at 21:00 Pantoprazole (Protonix Tab) 40 mg BID@06,18 PO Last administered on 03/10/19 05:01; Admin Dose 40 MG; Start 03/07/19 at 18:00 Polyethylene Glycol (Miralax) 17 gm BID PRN PO constipation Last administered on 03/09/19 08:48; Admin Dose 17 GM; Start 03/07/19 at 14:00 Potassium Chloride (Klor-Con 20) 20 meq BID PO Last administered on 03/10/19 09:16; Admin Dose 20 MEQ; Start 03/07/19 at 21:00 Clonazepam (Klonopin) 1 mg Q8 PO Last administered on 03/10/19 13:46; Admin Dose 1 MG; Start 03/08/19 at 14:00 Furosemide (Lasix) 40 mg BID DIURETICS PO Last administered on 03/10/19 05:01; Admin Dose 40 MG; Start 03/08/19 at 18:00 Nifedipine (Procardia Xl) 30 mg DAILY PO Last administered on 03/10/19 09:16; Admin Dose 30 MG; Start 03/09/19 at 09:00 Allopurinol (Zyloprim) 100 mg DAILY PO Last administered on 03/10/19 09:15; Admin Dose 100 MG; Start 03/10/19 at 09:00 Megestrol Acetate (Megace Susp) 400 mg DAILY PO Last administered on 03/10/19at 12:09; Admin Dose 400 MG; Start 03/10/19 at 11:00 CATHERINE GUEVARA NP March 10, 2019 15:21
[2019-03-10] MEDS: traMADol 50 MG TAB PO PRN ×2 (16:38→23:02)
[2019-03-10 19:55] VITALS: BP 139/67; PULSE 54; RESP 20
[2019-03-11 01:23] VITALS: BP 121/73; PULSE 51; RESP 18
[2019-03-11] MEDS: ACETAMINOPHEN 325 MG TAB PO PRN ×2 (02:30→23:13)
[2019-03-11] MEDS: traMADol 50 MG TAB PO PRN ×3 (04:53→19:43)
[2019-03-11] MEDS: clonAZEPAM 0.5 MG TAB PO SCH ×3 (05:02→21:13)
[2019-03-11] MEDS: PANTOPRAZOLE (EC) 40 MG TAB PO SCH ×2 (05:02→17:09)
[2019-03-11] MEDS: FUROSEMIDE 40 MG TAB PO SCH (05:03)
[2019-03-11 07:25] VITALS: BP 174/74; PULSE 49; RESP 16
[2019-03-11] MEDS: ALLOPURINOL 100 MG TAB PO SCH (09:40)
[2019-03-11] MEDS: METOPROLOL 100 MG TAB PO SCH ×2 (09:40→21:00)
[2019-03-11] MEDS: NIFEdipine (XL) 30 MG TAB PO SCH (09:41)
[2019-03-11] MEDS: MULTIVITAMINS/MINERALS TAB PO SCH (09:41)
[2019-03-11] MEDS: PAROXETINE 20 MG TAB PO SCH (09:41)
[2019-03-11] MEDS: SUCRALFATE (100 MG/ML) 10ML CUP PO SCH ×4 (09:41→21:13)
[2019-03-11] MEDS: POTASSIUM CHLORIDE (SR) 20 MEQ TAB PO SCH ×2 (09:41→21:13)
[2019-03-11] MEDS: MEGESTROL (40 MG/ML) 10ML CUP PO SCH (09:41)
[2019-03-11] MEDS: ISOSORBIDE MONONITRATE(SR)60 MG TAB PO SCH (09:41)
--- NOTE | 2019-03-11 11:12 | PN ---
Date/Time of Note Date/Time of Note DATE: 03/11/19 TIME: 11:11 Assessment/Plan VTE Prophylaxis Risk score (from Nsg)>0 risk: 5 Pharmacological prophylaxis: NA/contraindicated Pharm contraindication: low risk/ambulating Lines/Catheters IV Catheter Type (from Nrsg): Peripheral IV Urinary Cath still in place: No Assessment/Plan Hospital Course 73-year-old man coming in with vomiting and acute kidney injury, patient with dementia and opiate abuse #BORIS: -According to son, patient was taking high doses of ibuprofen after going home. -Renal consult -Hold home nephrotoxic medication such as MARLENA inhibitor. - Currently getting IV diuresis by Dr. Fontaine. - Nephrology following. #Epigastric pain #Vomiting - Suspect secondary to history of gastric ulcers. No signs of any upper or lower GI bleeding -According to son, patient was taking high doses of ibuprofen after going home, patient with history of opiate abuse -Cont home Carafate, PPI BID #Opioid abuse: -Avoid opiates - Stephanie ENGINEER [employer] MA[employer] consulted. #CHF: Currently not in exacerbation #History of hypertension: Blood pressure elevated this hospitalization. Holding ACEi due to BORIS. Restarted home HCTZ and titrate up metoprolol. #History prostate cancer: Outpatient followup #Likely dementia Patient requires placement DVT: SCDs GI: PPI Dispo: Plan for discharge to SNF Result Diagram: 03/11/19 0548 03/11/19 0548 Results 24hrs Laboratory Tests Test 03/11/19 05:48 White Blood Count 10.0 # Red Blood Count 4.21 L Hemoglobin 9.8 L Hematocrit 31.2 L Mean Corpuscular Volume 74.1 L Mean Corpuscular Hemoglobin 23.3 L Mean Corpuscular Hemoglobin Concent 31.4 L Red Cell Distribution Width 25.9 H Platelet Count 399 Mean Platelet Volume 10.1 Immature Granulocytes % 0.300 Neutrophils % 58.4 Lymphocytes % 29.4 Monocytes % 9.8 Eosinophils % 1.5 Basophils % 0.6 Nucleated Red Blood Cells % 0.0 Immature Granulocytes # 0.030 Neutrophils # 5.9 Lymphocytes # 2.9 Monocytes # 1.0 H Eosinophils # 0.2 Basophils # 0.1 Nucleated Red Blood Cells # 0.0 Sodium Level 141 Potassium Level 4.0 Chloride Level 100 Carbon Dioxide Level 31 Anion Gap 10 Blood Urea Nitrogen 68 H Creatinine 3.09 H Est Glomerular Filtrat Rate mL/min Glucose Level 126 Calcium Level 9.2 Subjective 24 Hr Interval Summary Gastrointestinal: pain Exam/Review of Systems Exam Vitals Vital Signs Date Temp Pulse Resp B/P (MAP) Pulse Ox O2 O2 Flow FiO2 Time Delivery Rate 03/11/19 98.6 49 16 174/74 93 Room Air 07:25 (107) 03/09/19 21 18:49 03/09/19 2.0 04:24 Intake and Output 03/10/19 03/10/19 03/11/19 1515:00 23:00 07:00 IntakeIntake Total 360 ml BalanceBalance 360 ml Constitutional: alert Respiratory: clear to auscultation Cardiovascular: regular rate and rhythm Gastrointestinal: soft; No distended Musculoskeletal: nl extremities to inspection Results Results 24hrs Laboratory Tests Test 03/11/19 05:48 White Blood Count 10.0 # Red Blood Count 4.21 L Hemoglobin 9.8 L Hematocrit 31.2 L Mean Corpuscular Volume 74.1 L Mean Corpuscular Hemoglobin 23.3 L Mean Corpuscular Hemoglobin Concent 31.4 L Red Cell Distribution Width 25.9 H Platelet Count 399 Mean Platelet Volume 10.1 Immature Granulocytes % 0.300 Neutrophils % 58.4 Lymphocytes % 29.4 Monocytes % 9.8 Eosinophils % 1.5 Basophils % 0.6 Nucleated Red Blood Cells % 0.0 Immature Granulocytes # 0.030 Neutrophils # 5.9 Lymphocytes # 2.9 Monocytes # 1.0 H Eosinophils # 0.2 Basophils # 0.1 Nucleated Red Blood Cells # 0.0 Sodium Level 141 Potassium Level 4.0 Chloride Level 100 Carbon Dioxide Level 31 Anion Gap 10 Blood Urea Nitrogen 68 H Creatinine 3.09 H Est Glomerular Filtrat Rate mL/min Glucose Level 126 Calcium Level 9.2 Medications Medication Current Medications IV Flush (NS 3 ml) 3 ml PER PROTOCOL IV ; Start 03/03/19 at 15:30 Ondansetron HCl (Zofran Inj) 4 mg Q6H PRN IV NAUSEA/VOMITING Last administered on 03/10/19at 12:18; Admin Dose 4 MG; Start 03/03/19 at 15:30 Acetaminophen (Tylenol Tab) 650 mg Q6H PRN PO .PAIN 1-3 OR TEMP Last administered on 03/11/19at 02:30; Admin Dose 650 MG; Start 03/03/19 at 15:30 Docusate Sodium (Colace) 100 mg Q12H PRN PO .CONSTIPATION Last administered on 03/08/19 12:07; Admin Dose 100 MG; Start 03/03/19 at 15:30 Magnesium Hydroxide (Milk Of Mag) 30 ml DAILY PRN PO .CONSTIPATION Last administered on 03/08/19 12:07; Admin Dose 30 ML; Start 03/03/19 at 15:30 Albuterol/ Ipratropium (Duoneb) 3 ml Q4H RESP THERAPY PRN HHN SHORTNESS OF BREATH Last administered on 03/08/19 02:11; Admin Dose 3 ML; Start 03/03/19 at 15:30 Hydralazine HCl (Apresoline) 10 mg Q6H PRN IV ELEVATED BLOOD PRESSURE Last administered on 03/08/19 21:02; Admin Dose 10 MG; Start 03/03/19 at 15:30 Brimonidine/ Timolol (Combigan Oph) 1 drop BID BOTH EYES Last administered on 03/10/19 20:25; Admin Dose 1 DROP; Start 03/03/19 at 21:00 Isosorbide Mononitrate (Imdur) 60 mg DAILY PO Last administered on 03/11/19 09:41; Admin Dose 60 MG; Start 03/04/19 at 09:00 Multivitamins/ Minerals (Theragran-M) 1 tab DAILY PO Last administered on 03/11/19 09:41; Admin Dose 1 TAB; Start 03/04/19 at 09:00 Phenol (Cepastat Lozenge) 1 lozenge Q1H PRN MT COUGH; Start 03/03/19 at 19:30 Guaifenesin (Robitussin Liquid Cup) 200 mg Q4H PRN PO COUGH; Start 03/03/19 at 19:30 Nitroglycerin (Nitroglycerin (Sl Tab) 0.4 Mg) 1 tab Q5M PRN SL ANGINA Last administered on 03/07/19 04:09; Admin Dose 1 TAB; Start 03/03/19 at 23:00 Sucralfate (Carafate Susp) 1 gm QID PO Last administered on 03/11/19 09:41; Admin Dose 1 GM; Start 03/05/19 at 13:00 Haloperidol (Haldol) 1 mg Q6H PRN IM agitation Last administered on 03/09/19 03:00; Admin Dose 1 MG; Start 03/05/19 at 14:30 Paroxetine HCl (Paxil) 20 mg DAILY PO Last administered on 03/11/19 09:41; Admin Dose 20 MG; Start 03/07/19 at 12:00 Metoprolol Tartrate (Lopressor) 200 mg BID PO Last administered on 03/11/19 09:40; Admin Dose 200 MG; Start 03/07/19 at 21:00 Pantoprazole (Protonix Tab) 40 mg BID@06,18 PO Last administered on 03/11/19 05:02; Admin Dose 40 MG; Start 03/07/19 at 18:00 Polyethylene Glycol (Miralax) 17 gm BID PRN PO constipation Last administered on 03/09/19 08:48; Admin Dose 17 GM; Start 03/07/19 at 14:00 Potassium Chloride (Klor-Con 20) 20 meq BID PO Last administered on 03/11/19 09:41; Admin Dose 20 MEQ; Start 03/07/19 at 21:00 Clonazepam (Klonopin) 1 mg Q8 PO Last administered on 03/11/19 05:02; Admin Dose 1 MG; Start 03/08/19 at 14:00 Furosemide (Lasix) 40 mg BID DIURETICS PO Last administered on 03/11/19 05:03; Admin Dose 40 MG; Start 03/08/19 at 18:00 Nifedipine (Procardia Xl) 30 mg DAILY PO Last administered on 03/11/19 09:41; Admin Dose 30 MG; Start 03/09/19 at 09:00 Allopurinol (Zyloprim) 100 mg DAILY PO Last administered on 03/11/19 09:40; Admin Dose 100 MG; Start 03/10/19 at 09:00 Megestrol Acetate (Megace Susp) 400 mg DAILY PO Last administered on 03/11/19 09:41; Admin Dose 400 MG; Start 03/10/19 at 11:00 Tramadol HCl (Ultram) 50 mg Q6H PRN PO MODERATE PAIN LEVEL 4-6 Last administered on 03/11/19 04:53; Admin Dose 50 MG; Start 03/10/19 at 16:30 DELFINA REILLY March 11, 2019 11:12
--- NOTE | 2019-03-11 11:52 | CONS ---
Assessment/Plan Assessment/Plan Assessment/Plan (Daily) 1. acute kidney injury Initially thought due to severe prerenal azotemia + ATN - now pt is volume overloaded 2. HYponatremia due to Hypovolemic Hyponatremia 3. Severe metabolic acidosis with HCo3 13 4. h/o HTN 5. Intractable nausea/vomiting 6. Hypertensive urgency Plan: BUN/Cr 68/3.09- decrease lasix to 20mg PO BID BP now controlled wiht Nifedipine XL 30mg po daily- and MTP 200mg PO BID ECHO showed EF 55-60% stage I DD on last admissionm Renally dose all medications, monitor electrolytes and replace as needed Renal US unremarkable, normal size kidneys with normal echogenicity will follow up Consultation Date/Type/Reason Admit Date/Time March 05, 2019 at 12:15 Initial Consult Date 03/03/19 Type of Consult NEPHROLOGY Requesting Provider: DAMASO ZHENG Date/Time of Note DATE: 03/11/19 TIME: 11:52 Exam/Review of Systems Exam Vitals Vital Signs Date Temp Pulse Resp B/P (MAP) Pulse Ox O2 O2 Flow FiO2 Time Delivery Rate 03/11/19 98.6 49 16 174/74 93 Room Air 07:25 (107) 03/09/19 21 18:49 03/09/19 2.0 04:24 Intake and Output 03/10/19 03/10/19 03/11/19 1515:00 23:00 07:00 IntakeIntake Total 360 ml BalanceBalance 360 ml Exam Constitutional: alert, awake, Respiratory: Bilateral basilar crackles, left greater than right Cardiovascular: regular rate and rhythm, nl pulses Gastrointestinal: soft, non-tender Musculoskeletal: 1+ pitting edema, no clubbing/no cyanosis Extremities: normal pulses Neurological: EMR ANALYST II-XII intact, nl mental status, nl speech, nl strength Results Result Diagram: 03/11/19 0548 03/11/19 0548 Results 24hrs Laboratory Tests Test 03/11/19 05:48 White Blood Count 10.0 # Red Blood Count 4.21 L Hemoglobin 9.8 L Hematocrit 31.2 L Mean Corpuscular Volume 74.1 L Mean Corpuscular Hemoglobin 23.3 L Mean Corpuscular Hemoglobin Concent 31.4 L Red Cell Distribution Width 25.9 H Platelet Count 399 Mean Platelet Volume 10.1 Immature Granulocytes % 0.300 Neutrophils % 58.4 Lymphocytes % 29.4 Monocytes % 9.8 Eosinophils % 1.5 Basophils % 0.6 Nucleated Red Blood Cells % 0.0 Immature Granulocytes # 0.030 Neutrophils # 5.9 Lymphocytes # 2.9 Monocytes # 1.0 H Eosinophils # 0.2 Basophils # 0.1 Nucleated Red Blood Cells # 0.0 Sodium Level 141 Potassium Level 4.0 Chloride Level 100 Carbon Dioxide Level 31 Anion Gap 10 Blood Urea Nitrogen 68 H Creatinine 3.09 H Est Glomerular Filtrat Rate mL/min Glucose Level 126 Calcium Level 9.2 Medications Medication Current Medications IV Flush (NS 3 ml) 3 ml PER PROTOCOL IV ; Start 03/03/19 at 15:30 Ondansetron HCl (Zofran Inj) 4 mg Q6H PRN IV NAUSEA/VOMITING Last administered on 03/10/19 12:18; Admin Dose 4 MG; Start 03/03/19 at 15:30 Acetaminophen (Tylenol Tab) 650 mg Q6H PRN PO .PAIN 1-3 OR TEMP Last administered on 03/11/19 02:30; Admin Dose 650 MG; Start 03/03/19 at 15:30 Docusate Sodium (Colace) 100 mg Q12H PRN PO .CONSTIPATION Last administered on 03/08/19 12:07; Admin Dose 100 MG; Start 03/03/19 at 15:30 Magnesium Hydroxide (Milk Of Mag) 30 ml DAILY PRN PO .CONSTIPATION Last administered on 03/08/19 12:07; Admin Dose 30 ML; Start 03/03/19 at 15:30 Albuterol/ Ipratropium (Duoneb) 3 ml Q4H RESP THERAPY PRN HHN SHORTNESS OF BREATH Last administered on 03/08/19 02:11; Admin Dose 3 ML; Start 03/03/19 at 15:30 Hydralazine HCl (Apresoline) 10 mg Q6H PRN IV ELEVATED BLOOD PRESSURE Last administered on 03/08/19 21:02; Admin Dose 10 MG; Start 03/03/19 at 15:30 Brimonidine/ Timolol (Combigan Oph) 1 drop BID BOTH EYES Last administered on 03/10/19 20:25; Admin Dose 1 DROP; Start 03/03/19 at 21:00 Isosorbide Mononitrate (Imdur) 60 mg DAILY PO Last administered on 03/11/19 09:41; Admin Dose 60 MG; Start 03/04/19 at 09:00 Multivitamins/ Minerals (Theragran-M) 1 tab DAILY PO Last administered on 03/11/19 09:41; Admin Dose 1 TAB; Start 03/04/19 at 09:00 Phenol (Cepastat Lozenge) 1 lozenge Q1H PRN MT COUGH; Start 03/03/19 at 19:30 Guaifenesin (Robitussin Liquid Cup) 200 mg Q4H PRN PO COUGH; Start 03/03/19 at 19:30 Nitroglycerin (Nitroglycerin (Sl Tab) 0.4 Mg) 1 tab Q5M PRN SL ANGINA Last administered on 03/07/19 04:09; Admin Dose 1 TAB; Start 03/03/19 at 23:00 Sucralfate (Carafate Susp) 1 gm QID PO Last administered on 03/11/19 09:41; Admin Dose 1 GM; Start 03/05/19 at 13:00 Haloperidol (Haldol) 1 mg Q6H PRN IM agitation Last administered on 03/09/19 03:00; Admin Dose 1 MG; Start 03/05/19 at 14:30 Paroxetine HCl (Paxil) 20 mg DAILY PO Last administered on 03/11/19 09:41; Admin Dose 20 MG; Start 03/07/19 at 12:00 Metoprolol Tartrate (Lopressor) 200 mg BID PO Last administered on 03/11/19 09:40; Admin Dose 200 MG; Start 03/07/19 at 21:00 Pantoprazole (Protonix Tab) 40 mg BID@06,18 PO Last administered on 03/11/19 05:02; Admin Dose 40 MG; Start 03/07/19 at 18:00 Polyethylene Glycol (Miralax) 17 gm BID PRN PO constipation Last administered on 03/09/19 08:48; Admin Dose 17 GM; Start 03/07/19 at 14:00 Potassium Chloride (Klor-Con 20) 20 meq BID PO Last administered on 03/11/19 09:41; Admin Dose 20 MEQ; Start 03/07/19 at 21:00 Clonazepam (Klonopin) 1 mg Q8 PO Last administered on 03/11/19 05:02; Admin Dose 1 MG; Start 03/08/19 at 14:00 Furosemide (Lasix) 40 mg BID DIURETICS PO Last administered on 03/11/19 05:03; Admin Dose 40 MG; Start 03/08/19 at 18:00 Nifedipine (Procardia Xl) 30 mg DAILY PO Last administered on 03/11/19 09:41; Admin Dose 30 MG; Start 03/09/19 at 09:00 Allopurinol (Zyloprim) 100 mg DAILY PO Last administered on 03/11/19 09:40; Admin Dose 100 MG; Start 03/10/19 at 09:00 Megestrol Acetate (Megace Susp) 400 mg DAILY PO Last administered on 03/11/19 09:41; Admin Dose 400 MG; Start 03/10/19 at 11:00 Tramadol HCl (Ultram) 50 mg Q6H PRN PO MODERATE PAIN LEVEL 4-6 Last administered on 03/11/19 04:53; Admin Dose 50 MG; Start 03/10/19 at 16:30 SERINA NORIEGA MD March 11, 2019 11:52
[2019-03-11] MEDS: BRIMONIDINE 0.2%-TIMOLOL 0.5% 5ML OPH BOTH EYES SCH ×2 (12:00→21:13)
[2019-03-11 14:30] VITALS: BP 84/51; PULSE 50; RESP 16
--- NOTE | 2019-03-11 15:07 | PN ---
Date/Time of Note Date/Time of Note DATE: 03/11/19 TIME: 15:06 Assessment/Plan VTE Prophylaxis Risk score (from Nsg)>0 risk: 4 Pharmacological prophylaxis: other (scds) Lines/Catheters IV Catheter Type (from Nrsg): Peripheral IV Urinary Cath still in place: No Assessment/Plan Hospital Course Assessment: Severe epigastric pain EGD 03/06/2019 Moderate distal esophagitis Moderate gastritis No evidence of gastric or duodenal ulcers Otherwise normal EGD -biopsies are negative for H. pylori or metaplasia Nausea/Vomiting- resolved Microcytic anemia - stable Melena- resolved History of Gastric ulcers- last EGD BORIS- Followed by Nephrology CHF HTN Opioid abuse Recent excessive NSAID use Plan: Avoid opiates Continue present regimen with PPI/Carafate x4 weeks Monitor Hgb, transfuse for HGB less than 7.5 Continue MiraLAX BID PRN GI will sign off, but will be available upon reconsult as needed Patient Seen in collaboration with Dr. Blanco/Lissy Subjective: Course reviewed with nursing staff Patient interviewed and examined All labs, imaging and other results reviewed Patient in bed resting well until he walked in and then started complain of abdominal pain. Patient states last bowel movement was yesterday no complaints of nausea or vomiting. Hemoglobin is stable without overt signs of GI bleed. PHYSICAL EXAMINATION: GENERAL: Alert & oriented x 3, in no acute distress SKIN: No lesions HEAD: Normocephalic, atraumatic, no tenderness. EYES: Pupils equal reactive to light, no discharge. EARS/NOSE AND THROAT: Ears normal, nose normal. NECK: Supple, no masses, thyroid normal. CHEST: Inspection within normal limits. CARDIOVASCULAR: Heart: Regular rate and rhythm RESPIRATORY: Lungs clear to auscultation and percussion, no wheezing, no rubs GASTROINTESTINAL AND LIVER: Abdomen: Soft, moderate epigastric pain, no organomegaly, no ascites, no guarding, no rebound tenderness, normoactive bowel sounds. Rectal: Deferred. GENITOURINARY: Male genitalia within normal limits. EXTREMITIES: No cyanosis, clubbing or edema. Result Diagram: 03/11/19 0548 03/11/19 0548 Results 24hrs Laboratory Tests Test 03/11/19 05:48 White Blood Count 10.0 # Red Blood Count 4.21 L Hemoglobin 9.8 L Hematocrit 31.2 L Mean Corpuscular Volume 74.1 L Mean Corpuscular Hemoglobin 23.3 L Mean Corpuscular Hemoglobin Concent 31.4 L Red Cell Distribution Width 25.9 H Platelet Count 399 Mean Platelet Volume 10.1 Immature Granulocytes % 0.300 Neutrophils % 58.4 Lymphocytes % 29.4 Monocytes % 9.8 Eosinophils % 1.5 Basophils % 0.6 Nucleated Red Blood Cells % 0.0 Immature Granulocytes # 0.030 Neutrophils # 5.9 Lymphocytes # 2.9 Monocytes # 1.0 H Eosinophils # 0.2 Basophils # 0.1 Nucleated Red Blood Cells # 0.0 Sodium Level 141 Potassium Level 4.0 Chloride Level 100 Carbon Dioxide Level 31 Anion Gap 10 Blood Urea Nitrogen 68 H Creatinine 3.09 H Est Glomerular Filtrat Rate mL/min Glucose Level 126 Calcium Level 9.2 Exam/Review of Systems Exam Vitals Vital Signs Date Temp Pulse Resp B/P (MAP) Pulse Ox O2 O2 Flow FiO2 Time Delivery Rate 03/11/19 97.9 50 16 84/51 (62) 94 Room Air 14:30 03/09/19 21 18:49 03/09/19 2.0 04:24 Intake and Output 03/10/19 03/10/19 03/11/19 1515:00 23:00 07:00 IntakeIntake Total 360 ml BalanceBalance 360 ml Results Results 24hrs Laboratory Tests Test 03/11/19 05:48 White Blood Count 10.0 # Red Blood Count 4.21 L Hemoglobin 9.8 L Hematocrit 31.2 L Mean Corpuscular Volume 74.1 L Mean Corpuscular Hemoglobin 23.3 L Mean Corpuscular Hemoglobin Concent 31.4 L Red Cell Distribution Width 25.9 H Platelet Count 399 Mean Platelet Volume 10.1 Immature Granulocytes % 0.300 Neutrophils % 58.4 Lymphocytes % 29.4 Monocytes % 9.8 Eosinophils % 1.5 Basophils % 0.6 Nucleated Red Blood Cells % 0.0 Immature Granulocytes # 0.030 Neutrophils # 5.9 Lymphocytes # 2.9 Monocytes # 1.0 H Eosinophils # 0.2 Basophils # 0.1 Nucleated Red Blood Cells # 0.0 Sodium Level 141 Potassium Level 4.0 Chloride Level 100 Carbon Dioxide Level 31 Anion Gap 10 Blood Urea Nitrogen 68 H Creatinine 3.09 H Est Glomerular Filtrat Rate mL/min Glucose Level 126 Calcium Level 9.2 Medications Medication Current Medications IV Flush (NS 3 ml) 3 ml PER PROTOCOL IV ; Start 03/03/19 at 15:30 Ondansetron HCl (Zofran Inj) 4 mg Q6H PRN IV NAUSEA/VOMITING Last administered on 03/10/19 12:18; Admin Dose 4 MG; Start 03/03/19 at 15:30 Acetaminophen (Tylenol Tab) 650 mg Q6H PRN PO .PAIN 1-3 OR TEMP Last administered on 03/11/19 02:30; Admin Dose 650 MG; Start 03/03/19 at 15:30 Docusate Sodium (Colace) 100 mg Q12H PRN PO .CONSTIPATION Last administered on 03/08/19 12:07; Admin Dose 100 MG; Start 03/03/19 at 15:30 Magnesium Hydroxide (Milk Of Mag) 30 ml DAILY PRN PO .CONSTIPATION Last administered on 03/08/19 12:07; Admin Dose 30 ML; Start 03/03/19 at 15:30 Albuterol/ Ipratropium (Duoneb) 3 ml Q4H RESP THERAPY PRN HHN SHORTNESS OF BREATH Last administered on 03/08/19 02:11; Admin Dose 3 ML; Start 03/03/19 at 15:30 Hydralazine HCl (Apresoline) 10 mg Q6H PRN IV ELEVATED BLOOD PRESSURE Last administered on 03/08/19 21:02; Admin Dose 10 MG; Start 03/03/19 at 15:30 Brimonidine/ Timolol (Combigan Oph) 1 drop BID BOTH EYES Last administered on 03/11/19 12:00; Admin Dose 1 DROP; Start 03/03/19 at 21:00 Isosorbide Mononitrate (Imdur) 60 mg DAILY PO Last administered on 03/11/19 09:41; Admin Dose 60 MG; Start 03/04/19 at 09:00 Multivitamins/ Minerals (Theragran-M) 1 tab DAILY PO Last administered on 03/11/19 09:41; Admin Dose 1 TAB; Start 03/04/19 at 09:00 Phenol (Cepastat Lozenge) 1 lozenge Q1H PRN MT COUGH; Start 03/03/19 at 19:30 Guaifenesin (Robitussin Liquid Cup) 200 mg Q4H PRN PO COUGH; Start 03/03/19 at 19:30 Nitroglycerin (Nitroglycerin (Sl Tab) 0.4 Mg) 1 tab Q5M PRN SL ANGINA Last administered on 03/07/19 04:09; Admin Dose 1 TAB; Start 03/03/19 at 23:00 Sucralfate (Carafate Susp) 1 gm QID PO Last administered on 03/11/19 12:00; A dmin Dose 1 GM; Start 03/05/19 at 13:00 Haloperidol (Haldol) 1 mg Q6H PRN IM agitation Last administered on 03/09/19 03:00; Admin Dose 1 MG; Start 03/05/19 at 14:30 Paroxetine HCl (Paxil) 20 mg DAILY PO Last administered on 03/11/19 09:41; Admin Dose 20 MG; Start 03/07/19 at 12:00 Metoprolol Tartrate (Lopressor) 200 mg BID PO Last administered on 03/11/19 09:40; Admin Dose 200 MG; Start 03/07/19 at 21:00 Pantoprazole (Protonix Tab) 40 mg BID@06,18 PO Last administered on 03/11/19 05:02; Admin Dose 40 MG; Start 03/07/19 at 18:00 Polyethylene Glycol (Miralax) 17 gm BID PRN PO constipation Last administered on 03/09/19 08:48; Admin Dose 17 GM; Start 03/07/19 at 14:00 Potassium Chloride (Klor-Con 20) 20 meq BID PO Last administered on 03/11/19 09:41; Admin Dose 20 MEQ; Start 03/07/19 at 21:00 Clonazepam (Klonopin) 1 mg Q8 PO Last administered on 03/11/19 14:09; Admin Dose 1 MG; Start 03/08/19 at 14:00 Nifedipine (Procardia Xl) 30 mg DAILY PO Last administered on 03/11/19 09:41; Admin Dose 30 MG; Start 03/09/19 at 09:00 Allopurinol (Zyloprim) 100 mg DAILY PO Last administered on 03/11/19 09:40; Admin Dose 100 MG; Start 03/10/19 at 09:00 Megestrol Acetate (Megace Susp) 400 mg DAILY PO Last administered on 03/11/19 09:41; Admin Dose 400 MG; Start 03/10/19 at 11:00 Tramadol HCl (Ultram) 50 mg Q6H PRN PO MODERATE PAIN LEVEL 4-6 Last administered on 03/11/19at 11:59; Admin Dose 50 MG; Start 03/10/19 at 16:30 Furosemide (Lasix) 20 mg BID DIURETICS PO ; Start 03/11/19 at 18:00 RICKY TY March 11, 2019 15:07
[2019-03-11 15:25] VITALS: BP 105/64; PULSE 47
[2019-03-11] MEDS: FUROSEMIDE 20 MG TAB PO SCH (17:08)
[2019-03-11 19:47] VITALS: BP 119/59; PULSE 51; RESP 17
[2019-03-12] MEDS: traMADol 50 MG TAB PO PRN ×3 (01:26→17:17)
[2019-03-12 02:00] VITALS: BP 147/68; PULSE 54; RESP 19
[2019-03-12] MEDS: PANTOPRAZOLE (EC) 40 MG TAB PO SCH ×2 (05:18→17:16)
[2019-03-12] MEDS: clonAZEPAM 0.5 MG TAB PO SCH ×2 (05:18→13:56)
[2019-03-12] MEDS: FUROSEMIDE 20 MG TAB PO SCH ×2 (05:19→17:19)
[2019-03-12 07:41] VITALS: BP 133/65; PULSE 53; RESP 18
[2019-03-12] MEDS: METOPROLOL 100 MG TAB PO SCH (08:24)
[2019-03-12] MEDS: SUCRALFATE (100 MG/ML) 10ML CUP PO SCH ×3 (08:35→16:05)
[2019-03-12] MEDS: MEGESTROL (40 MG/ML) 10ML CUP PO SCH (08:35)
[2019-03-12] MEDS: NIFEdipine (XL) 30 MG TAB PO SCH (08:35)
[2019-03-12] MEDS: POTASSIUM CHLORIDE (SR) 20 MEQ TAB PO SCH (08:35)
[2019-03-12] MEDS: ISOSORBIDE MONONITRATE(SR)60 MG TAB PO SCH (08:35)
[2019-03-12] MEDS: PAROXETINE 20 MG TAB PO SCH (08:35)
[2019-03-12] MEDS: BRIMONIDINE 0.2%-TIMOLOL 0.5% 5ML OPH BOTH EYES SCH (08:36)
[2019-03-12] MEDS: ALLOPURINOL 100 MG TAB PO SCH (08:36)
[2019-03-12] MEDS: MULTIVITAMINS/MINERALS TAB PO SCH (08:36)
[2019-03-12] MEDS: ACETAMINOPHEN 325 MG TAB PO PRN ×2 (11:58→18:35)
[2019-03-12 14:00] VITALS: BP 109/60; PULSE 60; RESP 18
[2019-03-12] MEDS ORDERED: POTA20TA15 PO (14:02)
[2019-03-12] MEDS ORDERED: UDMOM PO (14:02)
[2019-03-12] MEDS ORDERED: PARO-37 PO (14:02)
[2019-03-12] MEDS ORDERED: DOCU-144 PO (14:02)
[2019-03-12] MEDS ORDERED: TRAM50TA2 PO (14:02)
--- NOTE | 2019-03-12 16:25 | CONS ---
Assessment/Plan Assessment/Plan Assessment/Plan (Daily) 1. acute kidney injury Initially thought due to severe prerenal azotemia + ATN - now pt is volume overloaded 2. HYponatremia due to Hypovolemic Hyponatremia 3. Severe metabolic acidosis with HCo3 13 4. h/o HTN 5. Intractable nausea/vomiting 6. Hypertensive urgency Plan: BUN/Cr 68/3.09- decrease lasix to 20mg PO BID - possible d/c plannig today BP now controlled wiht Nifedipine XL 30mg po daily- and MTP 200mg PO BID ECHO showed EF 55-60% stage I DD on last admissionm Renally dose all medications, monitor electrolytes and replace as needed Renal US unremarkable, normal size kidneys with normal echogenicity will follow up Consultation Date/Type/Reason Admit Date/Time March 05, 2019 at 12:15 Initial Consult Date 03/03/19 Type of Consult NEPHROLOGY Requesting Provider: DAMASO ZHENG Date/Time of Note DATE: 03/12/19 TIME: 16:25 Exam/Review of Systems Exam Vitals Vital Signs Date Temp Pulse Resp B/P (MAP) Pulse Ox O2 O2 Flow FiO2 Time Delivery Rate 03/12/19 97.7 60 18 109/60 96 Room Air 14:00 (76) 03/09/19 18:49 03/09/19 2.0 04:24 Intake and Output 03/11/19 03/11/19 03/12/19 1515:00 23:00 07:00 IntakeIntake Total 200 ml 720 ml BalanceBalance 200 ml 720 ml Results Result Diagram: 03/11/19 0548 03/11/19 0548 Medications Medication Current Medications IV Flush (NS 3 ml) 3 ml PER PROTOCOL IV ; Start 03/03/19 at 15:30 Ondansetron HCl (Zofran Inj) 4 mg Q6H PRN IV NAUSEA/VOMITING Last administered on 03/10/19at 12:18; Admin Dose 4 MG; Start 03/03/19 at 15:30 Acetaminophen (Tylenol Tab) 650 mg Q6H PRN PO .PAIN 1-3 OR TEMP Last administered on 03/12/19at 11:58; Admin Dose 650 MG; Start 03/03/19 at 15:30 Docusate Sodium (Colace) 100 mg Q12H PRN PO .CONSTIPATION Last administered on 03/08/19 12:07; Admin Dose 100 MG; Start 03/03/19 at 15:30 Magnesium Hydroxide (Milk Of Mag) 30 ml DAILY PRN PO .CONSTIPATION Last administered on 03/08/19 12:07; Admin Dose 30 ML; Start 03/03/19 at 15:30 Albuterol/ Ipratropium (Duoneb) 3 ml Q4H RESP THERAPY PRN HHN SHORTNESS OF BREATH Last administered on 03/08/19 02:11; Admin Dose 3 ML; Start 03/03/19 at 15:30 Hydralazine HCl (Apresoline) 10 mg Q6H PRN IV ELEVATED BLOOD PRESSURE Last administered on 03/08/19 21:02; Admin Dose 10 MG; Start 03/03/19 at 15:30 Brimonidine/ Timolol (Combigan Oph) 1 drop BID BOTH EYES Last administered on 03/12/19 08:36; Admin Dose 1 DROP; Start 03/03/19 at 21:00 Isosorbide Mononitrate (Imdur) 60 mg DAILY PO Last administered on 03/12/19 08:35; Admin Dose 60 MG; Start 03/04/19 at 09:00 Multivitamins/ Minerals (Theragran-M) 1 tab DAILY PO Last administered on 03/12/19 08:36; Admin Dose 1 TAB; Start 03/04/19 at 09:00 Phenol (Cepastat Lozenge) 1 lozenge Q1H PRN MT COUGH; Start 03/03/19 at 19:30 Guaifenesin (Robitussin Liquid Cup) 200 mg Q4H PRN PO COUGH; Start 03/03/19 at 19:30 Nitroglycerin (Nitroglycerin (Sl Tab) 0.4 Mg) 1 tab Q5M PRN SL ANGINA Last administered on 03/07/19 04:09; Admin Dose 1 TAB; Start 03/03/19 at 23:00 Sucralfate (Carafate Susp) 1 gm QID PO Last administered on 03/12/19 16:05; Admin Dose 1 GM; Start 03/05/19 at 13:00 Haloperidol (Haldol) 1 mg Q6H PRN IM agitation Last administered on 03/09/19 03:00; Admin Dose 1 MG; Start 03/05/19 at 14:30 Paroxetine HCl (Paxil) 20 mg DAILY PO Last administered on 03/12/19 08:35; Admin Dose 20 MG; Start 03/07/19 at 12:00 Metoprolol Tartrate (Lopressor) 200 mg BID PO Last administered on 03/11/19 09:40; Admin Dose 200 MG; Start 03/07/19 at 21:00 Pantoprazole (Protonix Tab) 40 mg BID@06,18 PO Last administered on 03/12/19 05:18; Admin Dose 40 MG; Start 03/07/19 at 18:00 Polyethylene Glycol (Miralax) 17 gm BID PRN PO constipation Last administered on 03/09/19 08:48; Admin Dose 17 GM; Start 03/07/19 at 14:00 Potassium Chloride (Klor-Con 20) 20 meq BID PO Last administered on 03/12/19 08:35; Admin Dose 20 MEQ; Start 03/07/19 at 21:00 Clonazepam (Klonopin) 1 mg Q8 PO Last administered on 03/12/19 13:56; Admin Dose 1 MG; Start 03/08/19 at 14:00 Nifedipine (Procardia Xl) 30 mg DAILY PO Last administered on 03/12/19 08:35; Admin Dose 30 MG; Start 03/09/19 at 09:00 Allopurinol (Zyloprim) 100 mg DAILY PO Last administered on 03/12/19 08:36; Admin Dose 100 MG; Start 03/10/19 at 09:00 Megestrol Acetate (Megace Susp) 400 mg DAILY PO Last administered on 03/12/19 08:35; Admin Dose 400 MG; Start 03/10/19 at 11:00 Tramadol HCl (Ultram) 50 mg Q6H PRN PO MODERATE PAIN LEVEL 4-6 Last administered on 03/12/19 10:42; Admin Dose 50 MG; Start 03/10/19 at 16:30 Furosemide (Lasix) 20 mg BID DIURETICS PO Last administered on 03/12/19 05:19; Admin Dose 20 MG; Start 03/11/19 at 18:00 SERINA NORIEGA MD March 12, 2019 16:25
== END 2019-03-12 19:01 | DRG 683 ==
LOC: E/R 10:40 → MS1 14:55 → OBSVTOIN 03-05 12:15 → 5EC 03-07 17:28
PROVIDERS: ADMIT Hospitalist; ATTEND Internal Medicine
PROC: 0DB68ZX Excision of Stomach, Via Natural or Artificial Opening Endoscopic, Diagnostic (ICD-10-PCS; principal; 2019-03-06 16:30)
DX: N17.0 Acute kidney failure with tubular necrosis (principal); E87.1 Hypo-osmolality and hyponatremia; E87.2 Acidosis; F33.2 Major depressive disorder, recurrent severe without psychotic features; I11.0 Hypertensive heart disease with heart failure; I50.9 Heart failure, unspecified; D50.9 Iron deficiency anemia, unspecified; F11.10 Opioid abuse, uncomplicated; E86.1 Hypovolemia; I16.0 Hypertensive urgency; E87.70 Fluid overload, unspecified; Z87.11 Personal history of peptic ulcer disease; E79.0 Hyperuricemia without signs of inflammatory arthritis and tophaceous disease; Z85.46 Personal history of malignant neoplasm of prostate; R11.2 Nausea with vomiting, unspecified; K20.9 Esophagitis, unspecified; K29.70 Gastritis, unspecified, without bleeding
CPT/HCPCS: 36415; 36600; 71045; 74018; 74176; 76775; 80048; 80053; 80061; 80076; 81001; 82550; 82553; 82803; 83036; 83690; 83735; 83880; 84100; 84439; 84443; 84484; 84560; 85025; 88305; 88312; 92610; 93005; 94664; 96361; 96374; 97116; 97161; 97167; 97530; 97535; 99217; C9113; G0378; J0360; J1630; J1940; J2060; J2270; J2405; J3010; J7030; J7040; J7070

== ENCOUNTER 2019-03-29 12:26 | Inpatient (IN) | payer OTHER ==
[~2019-03-29] VITALS: Ht 165.1 cm; Wt 64.0 kg
[~2019-03-29 12:26] MED LIST changes: +DOCU-144 PO; +PARO-37 PO; +POTA20TA15 PO; +TRAM50TA2 PO; +UDMOM PO
[2019-03-29 12:47] VITALS: Ht 165.1 cm; Wt 64.0 kg
[2019-03-29] MEDS ORDERED: SOD CHLORIDE 0.9% 1,000 ML IV STA ×2 (12:58→14:30)
[2019-03-29] MEDS ORDERED: ASPIRIN 325 MG TAB PO STA (13:02)
--- NOTE | 2019-03-29 14:44 | ERD ---
ER Documentation Chief Complaint Chief Complaint HYPOTENSION WITH ALOC THAT HAS SINCE RESOLVED HPI This is a 73-year-old male with a past medical history of hypertension and recent diagnosis of peptic ulcer disease. The patient has a recent hospital admission roughly 2 weeks prior to arrival at [facility]. At that time he had been admitted for intractable nausea and vomiting and treated for prerenal azotemia. The patient had echocardiogram that showed ejection fraction of 55 to 60%. The patient also had a renal ultrasound that was unremarkable. The patient today was brought in by EMS as his son had called as the patient appeared confused and lightheaded and stated he was going to pass out. The patient also had stated to his son that he was experiencing some chest pressure. This occurred just prior to arrival. He states the chest pressure was intermittent and did not radiate to the neck arm back or jaw. When EMS arrived they indicated the patient was hypotensive. The patient stated he had several episodes of nonbloody nonbilious emesis. He denied any hemoptysis hematemesis or melanotic stools. He is felt weak but states he has had no fevers or shaking no chills. He denies a headache. ROS All systems reviewed and are negative except as per history of present illness. Medications Home Meds Active Scripts Magnesium Hydroxide* (Chavez' MOM*) 30 Ml Susp, 30 ML PO DAILY PRN for .CONSTIPATION, #30 Prov:DELFINA REILLY 03/12/19 Docusate Sodium* (Colace*) 100 Mg Capsule, 100 MG PO Q12H PRN for .CONSTIPATION, #60 CAP Prov:DELFINA REILLY 03/12/19 Potassium Chloride* (K-Dur*) 20 Meq Tab.prt.sr, 20 MEQ PO BID, #60 Prov:DELFINA REILLY 03/12/19 Tramadol HCl (Tramadol HCl) 50 Mg Tablet, 50 MG PO Q6H PRN for MODERATE PAIN LEVEL 4-6, #60 TAB Prov:DELFINA REILLY 03/12/19 Paroxetine Hcl* (Paroxetine*) 20 Mg Tablet, 20 MG PO DAILY, #60 TAB Prov:DELFINA REILLY 03/12/19 Sucralfate* (Carafate*) 1 Gm/10 Ml Susp, 1 GM PO QID, #60 BOTTLE Prov:DELFINA REILLY 02/17/19 Ondansetron (Ondansetron Odt) 4 Mg Tab.rapdis, 4 MG PO Q6H PRN for NAUSEA AND/OR VOMITING, #10 TAB Prov:WILLIAM MELCHOR MD 02/21/18 Omeprazole* (Omeprazole*) 40 Mg Capsule.dr, 40 MG PO DAILY, #30 CAP Prov:DINESH CHACON DO 02/05/18 Reported Medications Multivitamin with Minerals (Multivitamins with Minerals) 1 Each Tablet, 1 EACH PO DAILY, TAB 02/13/19 Brimonidine/Timolol* (Combigan*) 5 Ml Drops, 1 DROP BOTH EYES BID, BOTTLE 02/13/19 Hydrochlorothiazide (Hydrochlorothiazide) 12.5 Mg Capsule, 12.5 MG PO DAILY for 30 Days, #30 02/13/19 Isosorbide Mononitrate* (Isosorbide Mononitrate*) 60 Mg Tab.er.24h, 60 MG PO DAILY for 30 Days, #30 02/13/19 Furosemide* (Furosemide*) 20 Mg Tablet, 20 MG PO BID for 30 Days, #60 02/13/19 Metoprolol Tartrate* (Lopressor*) 50 Mg Tab, 50 MG PO BID for 30 Days, #60 02/13/19 Benazepril Hcl* (Benazepril Hcl*) 40 Mg Tablet, 40 MG PO DAILY for 90 Days, #90 02/13/19 Tamsulosin Hcl* (Tamsulosin Hcl*) 0.4 Mg Cap.er.24h, 0.4 MG PO HS, CAP 02/03/17 Lorazepam* (Lorazepam*) 0.5 Mg Tablet, 0.5 MG PO HS PRN for ANXIETY, TAB 02/03/17 Gabapentin* (Gabapentin*) 100 Mg Capsule, 400 MG PO TID 06/12/13 Allergies Allergies: Coded Allergies: No Known Allergy (Unverified , 03/03/19) PMhx/Soc History of Surgery: Yes (prostatectomy) Anesthesia Reaction: No Hx Neurological Disorder: No Hx Respiratory Disorders: No Hx Cardiac Disorders: Yes (HTN) Hx Psychiatric Problems: No Hx Miscellaneous Medical Probl: Yes (gastric ulcers, CHF, anemia, opiod abuse, HTN, possible pulmonary fibrosis,) Hx Alcohol Use: No Hx Substance Use: No Hx Tobacco Use: No Smoking Status: Never smoker Physical Exam Vitals Vital Signs Date Temp Pulse Resp B/P (MAP) Pulse Ox O2 O2 Flow FiO2 Time Delivery Rate 03/29/19 97.6 62 16 95/50 (65) 96 Room Air 15:00 03/29/19 56 94/58 (70) 96 Room Air 13:11 85/54 (64) 87/69 (75) 03/29/19 97.6 55 16 84/51 (62) 98 12:47 Physical Exam Constitutional:Well-developed. Well-nourished. HEENT:Normocephalic. Atraumatic.Pupils were equal round reactive to light. Dry mucous membranes.No tonsillar exudates. Neck: No nuchal rigidity. No lymphadenopathy. No posterior cervical spine tenderness or step-offs. Respiratory: Not using accessory muscles of respiration.Lungs were clear to auscultation bilaterally. No rhonchi. No rales. No wheezing. Cardiovascular: Regular rate regular rhythm.No murmurs. No rubs were appreciated.S1, S2 normal. Distal pulses are palpable 2+ bilaterally. GI: Abdomen was soft. Nontender. Non Distended. No pulsatile abdominal masses or bruits. No rebound. No guarding. Bowel sounds were present and normal. Muscle skeletal: Full range of motion of both the upper and lower extremities bilaterally.Normal muscle tone.No assymetrical calf tenderness or swelling. Skin: No petechia, no purpura. No lesions on the palms or the soles of the feet. No maculopapular rash. NEURO: Patient was alert, awake, orientated x3.No facial droop. Gait not observed as patient is too weak to ambulate.Speech had regular rate and rhythm. No focal neurological deficits. Result Diagram: 03/29/19 1237 03/29/19 1237 Results 24 hrs Laboratory Tests Test 03/29/19 12:37 03/29/19 13:25 White Blood Count 7.5 10^3/ul Red Blood Count 3.02 10^6/ul Hemoglobin 7.3 g/dl Hematocrit 23.1 % Mean Corpuscular Volume 76.5 fl Mean Corpuscular Hemoglobin 24.2 pg Mean Corpuscular Hemoglobin Concent 31.6 g/dl Red Cell Distribution Width 24.9 % Platelet Count 219 10^3/UL Mean Platelet Volume 11.0 fl Immature Granulocytes % 0.300 % Neutrophils % 54.3 % Lymphocytes % 33.0 % Monocytes % 9.3 % Eosinophils % 2.6 % Basophils % 0.5 % Nucleated Red Blood Cells % 0.0 /100WBC Immature Granulocytes # 0.020 10^3/ul Neutrophils # 4.1 10^3/ul Lymphocytes # 2.5 10^3/ul Monocytes # 0.7 10^3/ul Eosinophils # 0.2 10^3/ul Basophils # 0.0 10^3/ul Nucleated Red Blood Cells # 0.0 10^3/ul Prothrombin Time 14.2 Sec Prothrombin Time Ratio 1.1 INR International Normalized Ratio 1.09 Activated Partial Thromboplast Time 28.6 Sec Sodium Level 139 mmol/L Potassium Level 4.8 mmol/L Chloride Level 110 mmol/L Carbon Dioxide Level 18 mmol/L Anion Gap 11 Blood Urea Nitrogen 53 mg/dl Creatinine 2.40 mg/dl Est Glomerular Filtrat Rate mL/min mL/min Glucose Level 102 mg/dl Calcium Level 8.3 mg/dl Total Bilirubin 0.3 mg/dl Direct Bilirubin 0.00 mg/dl Indirect Bilirubin 0.3 mg/dl Aspartate Amino Transf (AST/SGOT) 21 IU/L Alanine Aminotransferase (ALT/SGPT) 33 IU/L Alkaline Phosphatase 79 IU/L Troponin I < 0.012 ng/ml B-Type Natriuretic Peptide 276 PG/ML Total Protein 6.9 g/dl Albumin 3.2 g/dl Globulin 3.70 g/dl Albumin/Globulin Ratio 0.86 Amylase Level 113 U/L Lipase 394 U/L Urine Color YELLOW Urine Clarity CLEAR Urine pH 6.0 Urine Specific Wagner 1.009 Urine Ketones NEGATIVE mg/dL Urine Nitrite NEGATIVE mg/dL Urine Bilirubin NEGATIVE mg/dL Urine Urobilinogen NEGATIVE mg/dL Urine Leukocyte Esterase NEGATIVE Lesvia/ul Urine Microscopic RBC 0 /HPF Urine Microscopic WBC 0 /HPF Urine Hemoglobin 1+ mg/dL Urine Glucose NEGATIVE mg/dL Urine Total Protein NEGATIVE mg/dl Current Medications Medications Dose Sig/Anabelle Start Time Status Last (Trade) Ordered Route PRN Stop Time Admin Dose Reason Admin Sodium 1,000 ml @ Q1H STAT 03/29/19 DC 03/29/19 Chloride 1,000 mls/hr IV 12:58 03/29/19 13:21 13:57 Aspirin 325 mg ONCE STAT 03/29/19 DC 03/29/19 (Aspirin) PO 13:02 03/29/19 13:20 13:03 Sodium 1,000 ml @ Q1H STAT 03/29/19 DC 03/29/19 Chloride 1,000 mls/hr IV 14:30 03/29/19 14:35 15:29 Sodium 1,000 ml @ Q20H IV 03/29/19 UNV Chloride 50 mls/hr 17:20 03/30/19 13:19 IV Flush 3 ml PER 03/29/19 UNV (NS 3 ml) PROTOCOL IV 17:30 Ondansetron 4 mg Q6H PRN 03/29/19 UNV HCl (Zofran IV 17:30 Inj) NAUSEA/VOMITI NG 650 mg Q6H PRN 03/29/19 UNV Acetaminophen PO .PAIN 1-3 17:30 (Tylenol OR TEMP Tab) 40 mg BID PO 03/29/19 DC Pantoprazole 21:00 03/29/19 (Protonix 21:00 Tab) Ondansetron 4 mg ER BRIDGE 03/29/19 HCl (Zofran PRN IV 17:30 03/30/19 Inj) NAUSEA/VOMITI 17:29 NG 650 mg ER BRIDGE 03/29/19 Acetaminophen PRN PO 17:30 03/30/19 (Tylenol .MILD PAIN 17:29 Tab) 1-3 OR TEMP Famotidine 20 mg ONCE STAT 03/29/19 DC (Pepcid Iv) IV 17:27 03/29/19 17:28 Pantoprazole 100 ml @ ONCE ONCE 03/29/19 DC 80 mg/Sodium 400 mls/hr IVPB 17:30 03/29/19 Chloride 17:30 Pantoprazole 100 ml @ Q10H IV 03/29/19 DC 80 mg/Sodium 10 mls/hr 17:30 03/29/19 Chloride 17:30 80 mg HS PO 03/29/19 UNV Atorvastatin 21:00 Calcium (Lipitor) 40 mg BID@06,18 03/29/19 UNV Pantoprazole IV 18:00 (Protonix Iv) Sucralfate 1 gm QID PO 03/29/19 UNV (Carafate 21:00 Susp) Cefepime HCl 50 ml @ Q12 IVPB 03/29/19 UNV 100 mls/hr 21:00 1 drop BID BOTH 03/29/19 UNV Brimonidine/ EYES 21:00 Timolol (Combigan Oph) Docusate 100 mg Q12H PO 03/29/19 UNV Sodium 18:00 (Colace) Furosemide 20 mg BID PO 03/29/19 UNV (Lasix) 21:00 Gabapentin 100 mg TID PO 03/29/19 UNV (Neurontin) 21:00 Isosorbide 60 mg DAILY PO 03/30/19 UNV Mononitrate 09:00 (Imdur) Metoprolol 50 mg BID PO 03/29/19 UNV Tartrate 21:00 (Lopressor) Paroxetine 20 mg DAILY PO 03/30/19 UNV HCl (Paxil) 09:00 Tamsulosin 0.4 mg HS PO 03/29/19 UNV HCl 21:00 (Flomax) Tramadol 50 mg Q6H PRN 03/29/19 UNV HCl PO MODERATE 18:00 (Ultram) PAIN LEVEL 4-6 Procedures/MDM The patient presented to the emergency department with an acute and persistent change in their mental status with near syncope. The differential diagnosis is diverse however reversible causes such as hypoglycemia, opiate overdose, thiamine deficiency were immediately considered. The patient was placed on a director of cardiac cath lab, continuous pulse oximetry and IV access was established. The patients airway was secure however hypoxic events such as anemia, shock, or severe pulmonary disease were all considered as etiologies in this patients presentation. Circulation assessed with good cap refill and did not require fluids or pressure support. Finger stick for rapid glucose determined to be normal. I obtained a 12-lead EKG tracing to evaluate for atypical myocardial infarction: 12 Lead EKG tracing ordered and reviewed by myself showed: Sinus bradycardia 54 bpm and no arrhythmia. GA interval normal. QRS duration normal. No ST segment elevation No ST segment depression. No changes consistent with acute ischemia. I obtained a CT scan the patient's head which showed no intracerebral hemorrhage mass-effect or midline shift I reviewed the patient's laboratory work taken from previous admission on March 11. The patient's BUN at that time was 68 creatinine was 3.09. Today on March 29 the patient's BUN was 53 creatinine was 2.40. The patient was also anemic with hemoglobin of 7.3. On March 11, 2019 the patient's hemoglobin was 9.8. A type and screen was obtained. There is no signs of an active upper or lower gas intestinal bleed but given that he does have a history of peptic ulcer disease he was started on PPIs. The patient was hypotensive and did receive a liter bolus of normal saline. The patient will be admitted for observation under the care of the hospitalist. He will go to the telemetry service given that the patient also complained of chest pain and will receive serial twelve-lead EKG tracings and cardiac set of enzymes. He was given aspirin in the emergency department but nitroglycerin was not given as he was hypotensive. Departure Diagnosis: Primary Impression: Hypotension Hypotension type: unspecified hypotension type Qualified Codes: I95.9 - Hypotension, unspecified Additional Impressions: Near syncope Chest pain Chest pain type: unspecified Qualified Codes: R07.9 - Chest pain, unspecified Condition: Serious JUDIE BAUTISTA MD Mar 29, 2019 14:44
[2019-03-29] MEDS ORDERED: SOD CHLORIDE 0.9% 1,000 ML IV SCH (17:20)
[2019-03-29] MEDS ORDERED: FAMOTIDINE 20 MG INJ IV STA (17:27)
[2019-03-29] MEDS ORDERED: PANTOPRAZOLE IV 80 MG in SOD CHLORIDE 0.9% 100 ML IV SCH (17:30)
[2019-03-29] MEDS ORDERED: ONDANSETRON 4 MG INJ IV PRN ×2 (17:30)
[2019-03-29] MEDS ORDERED: PANTOPRAZOLE IV 80 MG in SOD CHLORIDE 0.9% 100 ML IVPB ONE (17:30)
[2019-03-29] MEDS ORDERED: NACL 0.9% 3 ML SYG IV SCH (17:30)
[2019-03-29] MEDS ORDERED: ACETAMINOPHEN 325 MG TAB PO PRN (17:30)
--- NOTE | 2019-03-29 18:17 | HP ---
Date/Time of Note Date/Time of Note DATE: 03/29/19 TIME: 18:16 Assessment/Plan VTE Prophylaxis Pharmacological prophylaxis: other Lines/Catheters IV Catheter Type (from [facility]): Peripheral IV Assessment/Plan Hospital Course Patient is a male with a past medical history significant for acute renal failure secondary to NSAIDs, gastric ulcers diagnosed in January, opiate abuse, CHF, hypertension, history of prostate cancer, glaucoma, mild dementia who presents to [facility] as brought in by ambulance for mild confusion and near syncope with hypotension. According to EMS son called ambulance as patient appeared confused and lightheaded and almost passed out. There is no word on whether or not he actually did pass out or fell however patient states that he might have fallen and hit his head. Currently patient is back to his baseline and oriented and hypotension has been resolved with IV fluids. Patient states that he does have some residual epigastric abdominal pain that he has always had for many weeks now secondary to his gastric ulcers and has no new abdominal issues. Patient stated he had some nausea/vomting b efore, but feels fine now. Patient also complains of a very slight chest discomfort but no severe chest pain. Patient states that he feels near his baseline. Patient also states that he does have a headache but has no issues with vision and no nausea or vomiting. Patient does also not have any leg pain. Objective Physical exam General: Patient is laying in bed and answers questions appropriately Mentation: Patient is alert and oriented 4, Head: Normocephalic atraumatic Eyes: EOMI, pupils reactive to light Neck: Supple, nontender, midline Respiratory: Clear to auscultation bilaterally Cardiovascular: regular rate, no obvious murmurs Gastrointestinal: Very minimal epigastric tenderness to palpation, bowel sounds heard. Neurological: Moves all extremities spontaneously Skin: No new skin lesions Assessment and plan Hypotension -Patient negative for orthostatics, blood pressure is already improved significantly with IV fluid bolus, patient likely volume depleted -Urine drug screen pending -Possible infection, chest x-ray showing signs of possible pneumonia however patient not having significant respiratory distress, will start antibiotics as patient was recently had an extensive inpatient stay -Monitor closely Anemia -Patient's hemoglobin is lower than when he was discharged last time, patient denies any GI bleed whether it be rectal or hematemesis, patient states his erin l movements have been yellow to brown -PPI twice daily for now with Carafate -GI consulted as patient still has mild chronic epigastric pain with reduced hemoglobin -Continue to closely monitor hemoglobin for now, transfuse if less than 7 Chest pain -Chest pain rule out, initial troponin negative -EKG noted -Echo done during previous admission -Chest pain is very mild, doubt ACS -Trend troponin -Aspirin was given by ED physician, hold aspirin for now with concern for GI issues, will resume if ACS is more likely -Statin, will stop statin if ACS is unlikely Epigastric abdominal pain -Patient states this exact same pain that he has had for the past couple months, he actually states that this is mildly improving -PPI and Carafate with GI consultation Elevated lipase -Unlikely pancreatitis as patient states that abdominal pain has been chronic for the past weeks to months and is actually improving from his chronic state, -No new abdominal pain Chronic kidney disease -Patient was previously admitted for acute renal failure secondary to NSAID use, patient does not take NSAIDs anymore, patient's creatinine is improved from his discharge level -We will ask nephrology to come back on board to monitor creatinine closely Questionable pneumonia versus pulmonary edema -Continue cefepime for now, will de-escalate as more information is found throughout this admission -BNP is very mildly elevated at 276, monitor closely, patient is not having any acute respiratory distress CHF -Continue home meds Opiate abuse -Patient has a history of chronic opiate abuse, spoke with son during previous admission, patient is to have absolutely no opiates as he will constantly asked for opiates however he appears very comfortable -Tylenol and tramadol only for now History of prostate cancer -Follow-up outpatient Questionable dementia -Monitor closely patient appears oriented but may have some memory loss Hypertension -Continue home meds with parameters as patient did originally present with hypotension. Disposition -Continue monitoring, continue PPI, pending GI consultation and ACS rule out. Result Diagram: 03/29/19 1237 03/29/19 1237 Results 24hrs Laboratory Tests Test 03/29/19 12:37 03/29/19 13:25 White Blood Count 7.5 # Red Blood Count 3.02 #L Hemoglobin 7.3 #L Hematocrit 23.1 #L Mean Corpuscular Volume 76.5 L Mean Corpuscular Hemoglobin 24.2 L Mean Corpuscular Hemoglobin Concent 31.6 L Red Cell Distribution Width 24.9 H Platelet Count 219 # Mean Platelet Volume 11.0 H Immature Granulocytes % 0.300 Neutrophils % 54.3 Lymphocytes % 33.0 Monocytes % 9.3 Eosinophils % 2.6 Basophils % 0.5 Nucleated Red Blood Cells % 0.0 Immature Granulocytes # 0.020 Neutrophils # 4.1 Lymphocytes # 2.5 Monocytes # 0.7 Eosinophils # 0.2 Basophils # 0.0 Nucleated Red Blood Cells # 0.0 Prothrombin Time 14.2 Prothrombin Time Ratio 1.1 INR International Normalized Ratio 1.09 Activated Partial Thromboplast Time 28.6 Sodium Level 139 Potassium Level 4.8 Chloride Level 110 Carbon Dioxide Level 18 L Anion Gap 11 Blood Urea Nitrogen 53 H Creatinine 2.40 H Est Glomerular Filtrat Rate mL/min Glucose Level 102 Calcium Level 8.3 L Total Bilirubin 0.3 Direct Bilirubin 0.00 Indirect Bilirubin 0.3 Aspartate Amino Transf (AST/SGOT) 21 Alanine Aminotransferase (ALT/SGPT) 33 Alkaline Phosphatase 79 Troponin I < 0.012 B-Type Natriuretic Peptide 276 H Total Protein 6.9 Albumin 3.2 L Globulin 3.70 H Albumin/Globulin Ratio 0.86 Amylase Level 113 Lipase 394 H Urine Color YELLOW Urine Clarity CLEAR Urine pH 6.0 Urine Specific [place] 1.009 Urine Ketones NEGATIVE Urine Nitrite NEGATIVE Urine Bilirubin NEGATIVE Urine Urobilinogen NEGATIVE Urine Leukocyte Esterase NEGATIVE Urine Microscopic RBC 0 Urine Microscopic WBC 0 Urine Hemoglobin 1+ H Urine Glucose NEGATIVE Urine Total Protein NEGATIVE HPI/ROS Admit Date/Time Admit Date/Time Mar 29, 2019 at 17:27 PMH/Family/Social Past Medical History Medications Current Medications Sodium Chloride 1,000 ml @ 50 mls/hr Q20H IV ; Start 03/29/19 at 17:20; Stop 03/30/19 at 13:19; Status UNV IV Flush (NS 3 ml) 3 ml PER PROTOCOL IV ; Start 03/29/19 at 17:30; Status UNV Ondansetron HCl (Zofran Inj) 4 mg Q6H PRN IV NAUSEA/VOMITING; Start 03/29/19 at 17:30; Status UNV Acetaminophen (Tylenol Tab) 650 mg Q6H PRN PO .PAIN 1-3 OR TEMP; Start 03/29/19 at 17:30 Ondansetron HCl (Zofran Inj) 4 mg ER BRIDGE PRN IV NAUSEA/VOMITING; Start 03/29/19 at 17:30; Stop 03/30/19 at 17:29 Acetaminophen (Tylenol Tab) 650 mg ER BRIDGE PRN PO .MILD PAIN 1-3 OR TEMP; Start 03/29/19 at 17:30; Stop 03/30/19 at 17:29 Atorvastatin Calcium (Lipitor) 80 mg HS PO ; Start 03/29/19 at 21:00 Pantoprazole (Protonix Iv) 40 mg BID@06,18 IV ; Start 03/29/19 at 18:00; Status UNV Sucralfate (Carafate Susp) 1 gm QID PO ; Start 03/29/19 at 21:00; Status UNV Cefepime HCl 50 ml @ 100 mls/hr Q12 IVPB ; Start 03/29/19 at 21:00; Status UNV Brimonidine/ Timolol (Combigan Oph) 1 drop BID BOTH EYES ; Start 03/29/19 at 21 :00; Status UNV Docusate Sodium (Colace) 100 mg Q12H PO ; Start 03/29/19 at 18:00; Status UNV Furosemide (Lasix) 20 mg BID PO ; Start 03/29/19 at 21:00; Status UNV Gabapentin (Neurontin) 100 mg TID PO ; Start 03/29/19 at 21:00; Status UNV Isosorbide Mononitrate (Imdur) 60 mg DAILY PO ; Start 03/30/19 at 09:00; Status UNV Metoprolol Tartrate (Lopressor) 50 mg BID PO ; Start 03/29/19 at 21:00; Status UNV Paroxetine HCl (Paxil) 20 mg DAILY PO ; Start 03/30/19 at 09:00; Status UNV Tamsulosin HCl (Flomax) 0.4 mg HS PO ; Start 03/29/19 at 21:00; Status UNV Tramadol HCl (Ultram) 50 mg Q6H PRN PO MODERATE PAIN LEVEL 4-6; Start 03/29/19 at 18:00; Status UNV Coded Allergies: No Known Allergy (Unverified , 03/03/19) Past Surgical History Past Surgical Hx: endoscopy, other Family History Significant Family History: no pertinent family hx Social History Smoking Status: Never smoker Exam/Review of Systems Vital Signs Vitals Vital Signs Date Temp Pulse Resp B/P (MAP) Pulse Ox O2 O2 Flow FiO2 Time Delivery Rate 03/29/19 97.6 62 16 95/50 (80) 96 Room Air 15:00 RYAN JAUREGUI Mar 29, 2019 18:17
[2019-03-29 18:31] VITALS: BP 140/67; PULSE 62; RESP 20
[2019-03-29 19:14] VITALS: BP 132/63; PULSE 60; RESP 18
--- NOTE | 2019-03-29 20:06 | CONS ---
Assessment/Plan Assessment/Plan Assessment/Plan (Daily) 1. acute kidney injury 2/2 Prerenal azotemia + 2. HYponatremia due to Hypovolemic Hyponatremia 3. Severe metabolic acidosis with HCo3 13 4. h/o HTN 5. Intractable nausea/vomiting 6. Hypertensive urgency Plan: ECHO showed EF 55-60% stage I DD in January 2019 Renally dose all medications, monitor electrolytes and replace as needed Renal US unremarkable, normal size kidneys with normal echogenicity will follow up Consultation Date/Type/Reason Admit Date/Time Mar 29, 2019 at 17:27 Date of Consultation: Mar 29, 2019 Type of Consult NEPHROLOGY Reason for Consultation Acute on chronic renal failure Requesting Provider: RYAN JAUREGUI Date/Time of Note DATE: 03/29/19 TIME: 20:06 Hx of Present Illness 73 M wiht past medical history significant for acute renal failure secondary to NSAIDs, gastric ulcers diagnosed in January, opiate abuse, CHF, hypertension, history of prostate cancer, glaucoma, mild dementia who presents to [facility] as brought in by ambulance for mild confusion and near syncope with hypotension. pt had a syncopal episode at home, it is unclear if he lost Consciousness. He was noted to have BUN/Cr 53/2.4 On admisison. Renal has been consulted to assess for acute vs acute on chronic renal failure. Reviewing old labs, pt had a normal BUN/Cr in January 2019- then when he was admitted in February 2019 he had a BORIS due to ATn and prerenal azotemia, Since then he had elevated BUN and Cr. he denies now use of NSAIDs, no h/o Kidney stone, no h/o kidney cyst Constitutional: diaphoresis, poor po ENT: no complaints Respiratory: no complaints Cardiovascular: chest pain Gastrointestinal: pain, decreased appetite, nausea Genitourinary: no complaints Musculoskeletal: back pain, bone/joint pain Skin: no complaints Neurologic: no complaints Endocrine: no complaints Lymphatic: no complaints Psychological: no complaints Immunologic: no complaints Past Medical History Medical History: other (H/o acute renal failure secondary to NSAIDs, gastric ulcers diagnosed in January, opiate abuse, CHF, hypertension, history of prostate cancer, glaucoma, mild dementia) Home Meds Active Scripts Magnesium Hydroxide* (Chavez' MOM*) 30 Ml Susp, 30 ML PO DAILY PRN for .CONSTIPATION, #30 Prov:DELFINA REILLY 03/12/19 Docusate Sodium* (Colace*) 100 Mg Capsule, 100 MG PO Q12H PRN for .CONSTIPATION, #60 CAP Prov:DELFINA REILLY 03/12/19 Potassium Chloride* (K-Dur*) 20 Meq Tab.prt.sr, 20 MEQ PO BID, #60 Prov:DELFINA REILLY 03/12/19 Tramadol HCl (Tramadol HCl) 50 Mg Tablet, 50 MG PO Q6H PRN for MODERATE PAIN LEVEL 4-6, #60 TAB Prov:DELFINA REILLY 03/12/19 Paroxetine Hcl* (Paroxetine*) 20 Mg Tablet, 20 MG PO DAILY, #60 TAB Prov:DELFINA REILLY 03/12/19 Sucralfate* (Carafate*) 1 Gm/10 Ml Susp, 1 GM PO QID, #60 BOTTLE Prov:DELFINA REILLY 02/17/19 Ondansetron (Ondansetron Odt) 4 Mg Tab.rapdis, 4 MG PO Q6H PRN for NAUSEA AND/OR VOMITING, #10 TAB Prov:WILLIAM MELCHOR MD 02/21/18 Omeprazole* (Omeprazole*) 40 Mg Capsule.dr, 40 MG PO DAILY, #30 CAP Prov:DINESH CHACON DO 02/05/18 Reported Medications Multivitamin with Minerals (Multivitamins with Minerals) 1 Each Tablet, 1 EACH PO DAILY, TAB 02/13/19 Brimonidine/Timolol* (Combigan*) 5 Ml Drops, 1 DROP BOTH EYES BID, BOTTLE 02/13/19 Hydrochlorothiazide (Hydrochlorothiazide) 12.5 Mg Capsule, 12.5 MG PO DAILY for 30 Days, #30 02/13/19 Isosorbide Mononitrate* (Isosorbide Mononitrate*) 60 Mg Tab.er.24h, 60 MG PO DAILY for 30 Days, #30 02/13/19 Furosemide* (Furosemide*) 20 Mg Tablet, 20 MG PO BID for 30 Days, #60 02/13/19 Metoprolol Tartrate* (Lopressor*) 50 Mg Tab, 50 MG PO BID for 30 Days, #60 02/13/19 Benazepril Hcl* (Benazepril Hcl*) 40 Mg Tablet, 40 MG PO DAILY for 90 Days, #90 02/13/19 Tamsulosin Hcl* (Tamsulosin Hcl*) 0.4 Mg Cap.er.24h, 0.4 MG PO HS, CAP 02/03/17 Lorazepam* (Lorazepam*) 0.5 Mg Tablet, 0.5 MG PO HS PRN for ANXIETY, TAB 02/03/17 Gabapentin* (Gabapentin*) 100 Mg Capsule, 400 MG PO TID 06/12/13 Medications Current Medications Sodium Chloride 1,000 ml @ 50 mls/hr Q20H IV ; Start 03/29/19 at 17:20; Stop 03/30/19 at 13:19 IV Flush (NS 3 ml) 3 ml PER PROTOCOL IV ; Start 03/29/19 at 17:30 Ondansetron HCl (Zofran Inj) 4 mg Q6H PRN IV NAUSEA/VOMITING; Start 03/29/19 at 17:30 Acetaminophen (Tylenol Tab) 650 mg Q6H PRN PO .PAIN 1-3 OR TEMP; Start 03/29/19 at 17:30 Atorvastatin Calcium (Lipitor) 80 mg HS PO ; Start 03/29/19 at 21:00 Pantoprazole (Protonix Iv) 40 mg BID@06,18 IV ; Start 03/29/19 at 18:00 Sucralfate (Carafate Susp) 1 gm QID PO ; Start 03/29/19 at 21:00 Brimonidine/ Timolol (Combigan Oph) 1 drop BID BOTH EYES ; Start 03/29/19 at 21:00 Docusate Sodium (Colace) 100 mg Q12H PO ; Start 03/29/19 at 18:00 Furosemide (Lasix) 20 mg BID DIURETICS PO ; Start 03/29/19 at 18:32 Gabapentin (Neurontin) 100 mg TID PO ; Start 03/29/19 at 21:00 Isosorbide Mononitrate (Imdur) 60 mg DAILY PO ; Start 03/30/19 at 09:00 Metoprolol Tartrate (Lopressor) 50 mg BID PO ; Start 03/29/19 at 21:00 Paroxetine HCl (Paxil) 20 mg DAILY PO ; Start 03/30/19 at 09:00 Tamsulosin HCl (Flomax) 0.4 mg HS PO ; Start 03/29/19 at 21:00 Tramadol HCl (Ultram) 50 mg Q6H PRN PO MODERATE PAIN LEVEL 4-6; Start 03/29/19 at 18:00 Cefepime HCl 50 ml @ 100 mls/hr Q24H IVPB ; Start 03/29/19 at 21:00 Allergies: Coded Allergies: No Known Allergy (Unverified , 03/03/19) Past Surgical History Past Surgical Hx: endoscopy, other Social History Smoking Status: Never smoker Exam/Review of Systems Exam Vitals Vital Signs Date Temp Pulse Resp B/P (MAP) Pulse Ox O2 O2 Flow FiO2 Time Delivery Rate 03/29/19 97.7 60 18 132/63 97 Room Air 19:14 (86) Exam Constitutional: alert, awake, mild SOB off oxygen Respiratory: Bilateral basilar crackles, left greater than right Cardiovascular: regular rate and rhythm, nl pulses Gastrointestinal: soft, non-tender Musculoskeletal: 1+ pitting edema, no clubbing/no cyanosis Extremities: normal pulses Neurological: SYSTEMS DEVELOPER II-XII intact, nl mental status, nl speech, nl strength Results Result Diagram: 03/29/19 1237 03/29/19 1237 Results 24hrs Laboratory Tests Test 03/29/19 12:37 03/29/19 13:25 03/29/19 19:18 White Blood Count 7.5 # Red Blood Count 3.02 #L Hemoglobin 7.3 #L Hematocrit 23.1 #L Mean Corpuscular Volume 76.5 L Mean Corpuscular Hemoglobin 24.2 L Mean Corpuscular Hemoglobin Concent 31.6 L Red Cell Distribution Width 24.9 H Platelet Count 219 # Mean Platelet Volume 11.0 H Immature Granulocytes % 0.300 Neutrophils % 54.3 Lymphocytes % 33.0 Monocytes % 9.3 Eosinophils % 2.6 Basophils % 0.5 Nucleated Red Blood Cells % 0.0 Immature Granulocytes # 0.020 Neutrophils # 4.1 Lymphocytes # 2.5 Monocytes # 0.7 Eosinophils # 0.2 Basophils # 0.0 Nucleated Red Blood Cells # 0.0 Prothrombin Time 14.2 Prothrombin Time Ratio 1.1 INR International Normalized Ratio 1.09 Activated Partial Thromboplast Time 28.6 Sodium Level 139 Potassium Level 4.8 Chloride Level 110 Carbon Dioxide Level 18 L Anion Gap 11 Blood Urea Nitrogen 53 H Creatinine 2.40 H Est Glomerular Filtrat Rate mL/min Glucose Level 102 Calcium Level 8.3 L Total Bilirubin 0.3 Direct Bilirubin 0.00 Indirect Bilirubin 0.3 Aspartate Amino Transf (AST/SGOT) 21 Alanine Aminotransferase (ALT/SGPT) 33 Alkaline Phosphatase 79 Troponin I < 0.012 < 0.012 B-Type Natriuretic Peptide 276 H Total Protein 6.9 Albumin 3.2 L Globulin 3.70 H Albumin/Globulin Ratio 0.86 Amylase Level 113 Lipase 394 H Urine Color YELLOW Urine Clarity CLEAR Urine pH 6.0 Urine Specific [place] 1.009 Urine Ketones NEGATIVE Urine Nitrite NEGATIVE Urine Bilirubin NEGATIVE Urine Urobilinogen NEGATIVE Urine Leukocyte Esterase NEGATIVE Urine Microscopic RBC 0 Urine Microscopic WBC 0 Urine Hemoglobin 1+ H Urine Glucose NEGATIVE Urine Total Protein NEGATIVE Urine Opiates Screen Negative Urine Barbiturates Negative Urine Amphetamines Screen Negative Urine Benzodiazepines Screen Negative Urine Cocaine Screen Negative Urine Cannabinoids Negative Creatine Kinase 175 Creatine Kinase Index 1.8 Creatinine Kinase MB (Mass) 3.15 H Medications Medication Current Medications Sodium Chloride 1,000 ml @ 50 mls/hr Q20H IV ; Start 03/29/19 at 17:20; Stop 03/30/19 at 13:19 IV Flush (NS 3 ml) 3 ml PER PROTOCOL IV ; Start 03/29/19 at 17:30 Ondansetron HCl (Zofran Inj) 4 mg Q6H PRN IV NAUSEA/VOMITING; Start 03/29/19 at 17:30 Acetaminophen (Tylenol Tab) 650 mg Q6H PRN PO .PAIN 1-3 OR TEMP; Start 03/29/19 at 17:30 Atorvastatin Calcium (Lipitor) 80 mg HS PO ; Start 03/29/19 at 21:00 Pantoprazole (Protonix Iv) 40 mg BID@06,18 IV ; Start 03/29/19 at 18:00 Sucralfate (Carafate Susp) 1 gm QID PO ; Start 03/29/19 at 21:00 Brimonidine/ Timolol (Combigan Oph) 1 drop BID BOTH EYES ; Start 03/29/19 at 21:00 Docusate Sodium (Colace) 100 mg Q12H PO ; Start 03/29/19 at 18:00 Furosemide (Lasix) 20 mg BID DIURETICS PO ; Start 03/29/19 at 18:32 Gabapentin (Neurontin) 100 mg TID PO ; Start 03/29/19 at 21:00 Isosorbide Mononitrate (Imdur) 60 mg DAILY PO ; Start 03/30/19 at 09:00 Metoprolol Tartrate (Lopressor) 50 mg BID PO ; Start 03/29/19 at 21:00 Paroxetine HCl (Paxil) 20 mg DAILY PO ; Start 03/30/19 at 09:00 Tamsulosin HCl (Flomax) 0.4 mg HS PO ; Start 03/29/19 at 21:00 Tramadol HCl (Ultram) 50 mg Q6H PRN PO MODERATE PAIN LEVEL 4-6; Start 03/29/19 at 18:00 Cefepime HCl 50 ml @ 100 mls/hr Q24H IVPB ; Start 03/29/19 at 21:00 SERINA NORIEGA MD Mar 29, 2019 20:06
[2019-03-29 20:23] VITALS: PULSE 62
[2019-03-29] MEDS: SUCRALFATE (100 MG/ML) 10ML CUP PO SCH (20:41)
[2019-03-29] MEDS: DOCUSATE SODIUM 100 MG CAP PO SCH (20:41)
[2019-03-29] MEDS: GABAPENTIN 100 MG CAP PO SCH (20:42)
[2019-03-29] MEDS: TAMSULOSIN (SR) 0.4 MG CAP PO SCH (20:42)
[2019-03-29] MEDS: METOPROLOL 50 MG TAB PO SCH (20:42)
[2019-03-29] MEDS: FUROSEMIDE 20 MG TAB PO SCH (20:42)
[2019-03-29] MEDS: BRIMONIDINE 0.2%-TIMOLOL 0.5% 5ML OPH BOTH EYES SCH (20:43)
[2019-03-29] MEDS: traMADol 50 MG TAB PO PRN (20:43)
[2019-03-29] MEDS: PANTOPRAZOLE 40 MG INJ IV SCH (20:43)
[2019-03-29] MEDS: CEFEPIME 1GM/50 ML (PMX) 50 ML IVPB SCH (20:44)
[2019-03-29] MEDS ORDERED: PANTOPRAZOLE (EC) 40 MG TAB PO SCH (21:00)
[2019-03-29] MEDS ORDERED: CEFEPIME 1GM/50 ML (PMX) 50 ML IVPB SCH (21:00)
[2019-03-29] MEDS ORDERED: ATORVASTATIN 80 MG TAB PO SCH (21:00)
[2019-03-29 23:48] VITALS: BP 107/56; PULSE 62; RESP 18
[2019-03-30] VITALS (20 sets, daily range): BP systolic 67–150; BP diastolic 35–67; PULSE 52–65; RESP 16–25
[2019-03-30] MEDS: DOCUSATE SODIUM 100 MG CAP PO SCH ×2 (05:21→17:17)
[2019-03-30] MEDS: FUROSEMIDE 20 MG TAB PO SCH ×2 (05:21→17:17)
[2019-03-30] MEDS: PANTOPRAZOLE 40 MG INJ IV SCH ×2 (05:28→17:17)
--- NOTE | 2019-03-30 08:39 | CONS ---
Assessment/Plan Assessment/Plan Assessment/Plan (Daily) 1. acute kidney injury 2/2 Prerenal azotemia + 2. HYponatremia due to Hypovolemic Hyponatremia 3. Severe metabolic acidosis with HCo3 13 4. h/o HTN 5. Intractable nausea/vomiting 6. Hypertensive urgency Plan: ECHO showed EF 55-60% stage I DD in January 2019 - BUN/Cr Improved to 36/1.44, Continue IVF, will follow up Renally dose all medications, monitor electrolytes and replace as needed Renal US unremarkable, normal size kidneys with normal echogenicity will follow up Consultation Date/Type/Reason Admit Date/Time Mar 29, 2019 at 17:27 Initial Consult Date 03/29/19 Type of Consult NEPHROLOGY Requesting Provider: RYAN JAUREGUI Date/Time of Note DATE: 03/30/19 TIME: 08:39 Exam/Review of Systems Exam Vitals Vital Signs Date Temp Pulse Resp B/P (MAP) Pulse Ox O2 O2 Flow FiO2 Time Delivery Rate 03/30/19 98.2 59 18 126/60 96 07:19 (82) 03/30/19 Room Air 03:31 Intake and Output 03/29/19 03/29/19 03/30/19 1515:00 23:00 07:00 IntakeIntake Total 1050 ml BalanceBalance 1050 ml Results Result Diagram: 03/30/19 0041 03/29/19 1237 Results 24hrs Laboratory Tests Test 03/29/19 12:37 03/29/19 13:25 03/29/19 19:18 03/30/19 00:41 White Blood Count 7.5 # Red Blood Count 3.02 #L Hemoglobin 7.3 #L 8.1 L Hematocrit 23.1 #L 26.2 L Mean Corpuscular Volume 76.5 L Mean Corpuscular 24.2 L Hemoglobin Mean Corpuscular 31.6 L Hemoglobin Concent Red Cell Distribution 24.9 H Width Platelet Count 219 # Mean Platelet Volume 11.0 H Immature Granulocytes % 0.300 Neutrophils % 54.3 Lymphocytes % 33.0 Monocytes % 9.3 Eosinophils % 2.6 Basophils % 0.5 Nucleated Red Blood 0.0 Cells % Immature Granulocytes # 0.020 Neutrophils # 4.1 Lymphocytes # 2.5 Monocytes # 0.7 Eosinophils # 0.2 Basophils # 0.0 Nucleated Red Blood 0.0 Cells # Prothrombin Time 14.2 Prothrombin Time Ratio 1.1 INR International 1.09 Normalized Ratio Activated 28.6 Partial Thromboplast Time Sodium Level 139 Potassium Level 4.8 Chloride Level 110 Carbon Dioxide Level 18 L Anion Gap 11 Blood Urea Nitrogen 53 H Creatinine 2.40 H Est Glomerular Filtrat Rate mL/min Glucose Level 102 Calcium Level 8.3 L Total Bilirubin 0.3 Direct Bilirubin 0.00 Indirect Bilirubin 0.3 Aspartate Amino 21 Transf (AST/SGOT) Alanine 33 Aminotransferase (ALT/SG PT) Alkaline Phosphatase 79 Troponin I < 0.012 < 0.012 < 0.012 B-Type Natriuretic 276 H Peptide Total Protein 6.9 Albumin 3.2 L Globulin 3.70 H Albumin/Globulin Ratio 0.86 Amylase Level 113 Lipase 394 H Urine Color YELLOW Urine Clarity CLEAR Urine pH 6.0 Urine Specific [place] 1.009 Urine Ketones NEGATIVE Urine Nitrite NEGATIVE Urine Bilirubin NEGATIVE Urine Urobilinogen NEGATIVE Urine Leukocyte Esterase NEGATIVE Urine Microscopic RBC 0 Urine Microscopic WBC 0 Urine Hemoglobin 1+ H Urine Glucose NEGATIVE Urine Total Protein NEGATIVE Urine Opiates Screen Negative Urine Barbiturates Negative Urine Amphetamines Negative Screen Urine Benzodiazepines Negative Screen Urine Cocaine Screen Negative Urine Cannabinoids Negative Creatine Kinase 175 147 Creatine Kinase Index 1.8 1.5 Creatinine Kinase MB 3.15 H 2.16 (Mass) Test 03/30/19 07:51 White Blood Count Pending Red Blood Count Pending Hemoglobin Pending Hematocrit Pending Mean Corpuscular Volume Pending Mean Corpuscular Pending Hemoglobin Mean Corpuscular Pending Hemoglobin Concent Red Cell Distribution Pending Width Platelet Count Pending Mean Platelet Volume Pending Medications Medication Current Medications Sodium Chloride 1,000 ml @ 50 mls/hr Q20H IV Last administered on 03/29/19at 20:43; Admin Dose 50 MLS/HR; Start 03/29/19 at 17:20; Stop 03/30/19 at 13:19 IV Flush (NS 3 ml) 3 ml PER PROTOCOL IV ; Start 03/29/19 at 17:30 Ondansetron HCl (Zofran Inj) 4 mg Q6H PRN IV NAUSEA/VOMITING; Start 03/29/19 at 17:30 Acetaminophen (Tylenol Tab) 650 mg Q6H PRN PO .PAIN 1-3 OR TEMP; Start 03/29/19 at 17:30 Atorvastatin Calcium (Lipitor) 80 mg HS PO Last administered on 03/29/19 20:42; Admin Dose 80 MG; Start 03/29/19 at 21:00 Pantoprazole (Protonix Iv) 40 mg BID@06,18 IV Last administered on 03/30/19 05:28; Admin Dose 40 MG; Start 03/29/19 at 18:00 Sucralfate (Carafate Susp) 1 gm QID PO Last administered on 03/29/19 20:41; Admin Dose 1 GM; Start 03/29/19 at 21:00 Brimonidine/ Timolol (Combigan Oph) 1 drop BID BOTH EYES Last administered on 03/29/19 20:43; Admin Dose 1 DROP; Start 03/29/19 at 21:00 Docusate Sodium (Colace) 100 mg Q12H PO Last administered on 03/29/19 20:41; Admin Dose 100 MG; Start 03/29/19 at 18:00 Furosemide (Lasix) 20 mg BID DIURETICS PO Last administered on 03/29/19 20:42; Admin Dose 20 MG; Start 03/29/19 at 18:32 Gabapentin (Neurontin) 100 mg TID PO Last administered on 03/29/19 20:42; Admin Dose 100 MG; Start 03/29/19 at 21:00 Isosorbide Mononitrate (Imdur) 60 mg DAILY PO ; Start 03/30/19 at 09:00 Metoprolol Tartrate (Lopressor) 50 mg BID PO ; Start 03/29/19 at 21:00 Paroxetine HCl (Paxil) 20 mg DAILY PO ; Start 03/30/19 at 09:00 Tamsulosin HCl (Flomax) 0.4 mg HS PO Last administered on 03/29/19 20:42; Admin Dose 0.4 MG; Start 03/29/19 at 21:00 Tramadol HCl (Ultram) 50 mg Q6H PRN PO MODERATE PAIN LEVEL 4-6 Last administere d on 03/29/19 20:43; Admin Dose 50 MG; Start 03/29/19 at 18:00 Cefepime HCl 50 ml @ 100 mls/hr Q24H IVPB Last administered on 03/29/19 20:44; Admin Dose 100 MLS/HR; Start 03/29/19 at 21:00 SERINA NORIEGA MD Mar 30, 2019 08:39
[2019-03-30] MEDS: PAROXETINE 20 MG TAB PO SCH (09:09)
[2019-03-30] MEDS: ISOSORBIDE MONONITRATE(SR)60 MG TAB PO SCH (09:09)
[2019-03-30] MEDS: GABAPENTIN 100 MG CAP PO SCH ×3 (09:09→20:36)
[2019-03-30] MEDS: SUCRALFATE (100 MG/ML) 10ML CUP PO SCH ×4 (09:09→20:36)
[2019-03-30] MEDS: traMADol 50 MG TAB PO PRN ×2 (09:09→20:38)
[2019-03-30] MEDS: METOPROLOL 50 MG TAB PO SCH ×2 (09:10→20:37)
[2019-03-30] MEDS: BRIMONIDINE 0.2%-TIMOLOL 0.5% 5ML OPH BOTH EYES SCH ×2 (09:14→20:37)
[2019-03-30] MEDS ORDERED: SOD CHLORIDE 0.45% 1,000 ML IV SCH (10:30)
--- NOTE | 2019-03-30 11:32 | PREAC ---
Date/Time of Note Date/Time of Note DATE: 03/30/19 TIME: 11:30 Anesthesia Eval and Record Evaluation Time Pre-Procedure Interview DATE: 03/30/19 TIME: 11:30 Age 73 Sex male NPO: 8 hrs Preoperative diagnosis anemia Planned procedure egd Past Medical History Past Medical History: Includes Cardio: HTN, CHF Renal: BORIS, Other (prostate ca) Psych: Other (dementia) Surgery & Anesthesia Issues No known issue Meds Anticoagulation: No Beta Maik within 24 hr: Yes Active Scripts Magnesium Hydroxide* (Chavez' MOM*) 30 Ml Susp, 30 ML PO DAILY PRN for .CONSTIPATION, #30 Prov:DELFINA REILLY 03/12/19 Docusate Sodium* (Colace*) 100 Mg Capsule, 100 MG PO Q12H PRN for .CONSTIPATION, #60 CAP Prov:DELFINA REILLY 03/12/19 Potassium Chloride* (K-Dur*) 20 Meq Tab.prt.sr, 20 MEQ PO BID, #60 Prov:DELFINA REILLY 03/12/19 Tramadol HCl (Tramadol HCl) 50 Mg Tablet, 50 MG PO Q6H PRN for MODERATE PAIN LEVEL 4-6, #60 TAB Prov:DELFINA REILLY 03/12/19 Paroxetine Hcl* (Paroxetine*) 20 Mg Tablet, 20 MG PO DAILY, #60 TAB Prov:DELFINA REILLY 03/12/19 Sucralfate* (Carafate*) 1 Gm/10 Ml Susp, 1 GM PO QID, #60 BOTTLE Prov:DELFINA REILLY 02/17/19 Ondansetron (Ondansetron Odt) 4 Mg Tab.rapdis, 4 MG PO Q6H PRN for NAUSEA AND/OR VOMITING, #10 TAB Prov:WILLIAM MELCHOR MD 02/21/18 Omeprazole* (Omeprazole*) 40 Mg Capsule.dr, 40 MG PO DAILY, #30 CAP Prov:DINESH CHACON DO 02/05/18 Reported Medications Multivitamin with Minerals (Multivitamins with Minerals) 1 Each Tablet, 1 EACH PO DAILY, TAB 02/13/19 Brimonidine/Timolol* (Combigan*) 5 Ml Drops, 1 DROP BOTH EYES BID, BOTTLE 02/13/19 Hydrochlorothiazide (Hydrochlorothiazide) 12.5 Mg Capsule, 12.5 MG PO DAILY for 30 Days, #30 02/13/19 Isosorbide Mononitrate* (Isosorbide Mononitrate*) 60 Mg Tab.er.24h, 60 MG PO DAILY for 30 Days, #30 02/13/19 Furosemide* (Furosemide*) 20 Mg Tablet, 20 MG PO BID for 30 Days, #60 02/13/19 Metoprolol Tartrate* (Lopressor*) 50 Mg Tab, 50 MG PO BID for 30 Days, #60 02/13/19 Benazepril Hcl* (Benazepril Hcl*) 40 Mg Tablet, 40 MG PO DAILY for 90 Days, #90 02/13/19 Tamsulosin Hcl* (Tamsulosin Hcl*) 0.4 Mg Cap.er.24h, 0.4 MG PO HS, CAP 02/03/17 Lorazepam* (Lorazepam*) 0.5 Mg Tablet, 0.5 MG PO HS PRN for ANXIETY, TAB 02/03/17 Gabapentin* (Gabapentin*) 100 Mg Capsule, 400 MG PO TID 06/12/13 Current Medications IV Flush (NS 3 ml) 3 ml PER PROTOCOL IV ; Start 03/29/19 at 17:30 Ondansetron HCl (Zofran Inj) 4 mg Q6H PRN IV NAUSEA/VOMITING; Start 03/29/19 at 17:30 Acetaminophen (Tylenol Tab) 650 mg Q6H PRN PO .PAIN 1-3 OR TEMP; Start 03/29/19 at 17:30 Atorvastatin Calcium (Lipitor) 80 mg HS PO Last administered on 03/29/19at 20:42; Admin Dose 80 MG; Start 03/29/19 at 21:00 Pantoprazole (Protonix Iv) 40 mg BID@06,18 IV Last administered on 03/30/19at 05 :28; Admin Dose 40 MG; Start 03/29/19 at 18:00 Sucralfate (Carafate Susp) 1 gm QID PO Last administered on 03/30/19at 09:09; Admin Dose 1 GM; Start 03/29/19 at 21:00 Brimonidine/ Timolol (Combigan Oph) 1 drop BID BOTH EYES Last administered on 03/30/19at 09:14; Admin Dose 1 DROP; Start 03/29/19 at 21:00 Docusate Sodium (Colace) 100 mg Q12H PO Last administered on 03/29/19 20:41; Admin Dose 100 MG; Start 03/29/19 at 18:00 Furosemide (Lasix) 20 mg BID DIURETICS PO Last administered on 03/29/19 20:42; Admin Dose 20 MG; Start 03/29/19 at 18:32 Gabapentin (Neurontin) 100 mg TID PO Last administered on 03/30/19 09:09; Admin Dose 100 MG; Start 03/29/19 at 21:00 Isosorbide Mononitrate (Imdur) 60 mg DAILY PO Last administered on 03/30/19 09:09; Admin Dose 60 MG; Start 03/30/19 at 09:00 Metoprolol Tartrate (Lopressor) 50 mg BID PO Last administered on 03/30/19 09:10; Admin Dose 50 MG; Start 03/29/19 at 21:00 Paroxetine HCl (Paxil) 20 mg DAILY PO Last administered on 03/30/19 09:09; Admin Dose 20 MG; Start 03/30/19 at 09:00 Tamsulosin HCl (Flomax) 0.4 mg HS PO Last administered on 03/29/19 20:42; Admin Dose 0.4 MG; Start 03/29/19 at 21:00 Tramadol HCl (Ultram) 50 mg Q6H PRN PO MODERATE PAIN LEVEL 4-6 Last administered on 03/30/19 09:09; Admin Dose 50 MG; Start 03/29/19 at 18:00 Cefepime HCl 50 ml @ 100 mls/hr Q24H IVPB Last administered on 03/29/19 20:44; Admin Dose 100 MLS/HR; Start 03/29/19 at 21:00 Sodium Chloride 1,000 ml @ 50 mls/hr Q20H IV ; Start 03/30/19 at 10:30 Meds reviewed: Yes Allergies Coded Allergies: No Known Allergy (Unverified , 03/03/19) Allergies Reviewed: Yes Labs/Studies Labs Reviewed: Reviewed by anesthesiologist Result Diagram: 03/30/19 0751 03/30/19 0751 Laboratory Tests 03/30/19 07:51 test: N/A Studies: ECG, CXR Pre-procedure Exam Last vitals Vital Signs Date Temp Pulse Resp B/P (MAP) Pulse Ox O2 O2 Flow FiO2 Time Delivery Rate 03/30/19 59 08:00 03/30/19 98.2 18 126/60 96 07:19 (82) 03/30/19 Room Air 03:31 Airway: Adequate mouth opening, Adequate thyromental dist Mallampati: Mallampati II Teeth: Normal Lung: Normal Heart: Normal ASA Physical Status ASA physical status: 3 Emergency: None Planned Anesthetic General/MAC: MAC Planned Pain Management Parenteral pain med Pre-operative Attestations Prior to commencing anesthesia and surgery, the patient was re-evaluated, there was verification of: *The patient's identity *The results of appropriate recent lab work and preoperative vital signs *The above evaluation not changing prior to induction *Anesthetic plan, risk benefits, alternative and complications discussed with patient/family; questions answered; patient/family understands, accepts and wishes to proceed. AC HOLLAND Mar 30, 2019 11:32
[2019-03-30] MEDS ORDERED: PROPOFOL 20 ML ONE (11:33)
[2019-03-30] MEDS ORDERED: LIDOCAINE 2% (SDV) 5 ML INJ ONE (11:33)
--- NOTE | 2019-03-30 11:37 | HPN ---
Date/Time of Note Date/Time of Note DATE: 03/30/19 TIME: 11:37 Interval H&P Admission Note Pt. seen H&P reviewed: No system changes EARNESTINE MCKEON MD Mar 30, 2019 11:37
--- NOTE | 2019-03-30 12:01 | PAC ---
Date/Time of Note Date/Time of Note DATE: 03/30/19 TIME: 12:01 Post-Anesthesia Notes Post-Anesthesia Note Last documented vital signs Vital Signs Date Time Temp Pulse Resp B/P (MAP) Pulse Ox O2 Delivery O2 Flow Rate 03/30/19 1200 98.2 18 126/60 (82) 96 03/30/19 Room Air 03:31 Activity: WNL Respiratory function: WNL Cardiovascular function: WNL Mental status: Baseline Pain reasonably controlled: Yes Hydration appropriate: Yes Nausea/Vomiting absent: Yes AC HOLLAND Mar 30, 2019 12:01
--- NOTE | 2019-03-30 12:06 | CONS ---
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 History of mild dementia Plan: Reevaluate with EGD. Further recommendations pending our findings. Consultation Date/Type/Reason Admit Date/Time Mar 29, 2019 at 17:27 Date of Consultation: Mar 30, 2019 Type of Consult Gastroenterology Reason for Consultation Persistent nausea and vomiting and pain Date/Time of Note DATE: 03/30/19 TIME: 11:58 Hx of Present Illness 73-year-old male known to the GI service. The patient was evaluated previously at some point in time he had multiple gastric ulcers. The most recent evaluation March 06, 2019 included endoscopy that showed gastritis no evidence of active ulceration. The patient has been treated with PPIs plus Carafate and in spite of this continues to complain of severe epigastric abdominal pain and persistent nausea and vomiting. There is no evidence of overt gastrointestinal bleeding. The patient denies use of ulcerogenic drugs. There is moderate anemia which is slightly worse than previous measurement on his last hospitalization suggesting possibility of bleeding. 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 History of mild dementia Medical History: other (H/o acute renal failure secondary to NSAIDs, gastric ulcers diagnosed in January, opiate abuse, CHF, hypertension, history of prostate cancer, glaucoma, mild dementia) Home Meds Active Scripts Magnesium Hydroxide* (Chavez' MOM*) 30 Ml Susp, 30 ML PO DAILY PRN for .CONSTIPATION, #30 Prov:DELFINA REILLY 03/12/19 Docusate Sodium* (Colace*) 100 Mg Capsule, 100 MG PO Q12H PRN for .CONSTIPATION, #60 CAP Prov:DELFINA REILLY 03/12/19 Potassium Chloride* (K-Dur*) 20 Meq Tab.prt.sr, 20 MEQ PO BID, #60 Prov:DELFINA REILLY 03/12/19 Tramadol HCl (Tramadol HCl) 50 Mg Tablet, 50 MG PO Q6H PRN for MODERATE PAIN LEVEL 4-6, #60 TAB Prov:DELFINA REILLY 03/12/19 Paroxetine Hcl* (Paroxetine*) 20 Mg Tablet, 20 MG PO DAILY, #60 TAB Prov:DELFINA REILLY 03/12/19 Sucralfate* (Carafate*) 1 Gm/10 Ml Susp, 1 GM PO QID, #60 BOTTLE Prov:DELFINA REILLY 02/17/19 Ondansetron (Ondansetron Odt) 4 Mg Tab.rapdis, 4 MG PO Q6H PRN for NAUSEA AND/OR VOMITING, #10 TAB Prov:WILLIAM MELCHOR MD 02/21/18 Omeprazole* (Omeprazole*) 40 Mg Capsule.dr, 40 MG PO DAILY, #30 CAP Prov:DINESH CHACON DO 02/05/18 Reported Medications Multivitamin with Minerals (Multivitamins with Minerals) 1 Each Tablet, 1 EACH PO DAILY, TAB 02/13/19 Brimonidine/Timolol* (Combigan*) 5 Ml Drops, 1 DROP BOTH EYES BID, BOTTLE 02/13/19 Hydrochlorothiazide (Hydrochlorothiazide) 12.5 Mg Capsule, 12.5 MG PO DAILY for 30 Days, #30 02/13/19 Isosorbide Mononitrate* (Isosorbide Mononitrate*) 60 Mg Tab.er.24h, 60 MG PO DAILY for 30 Days, #30 02/13/19 Furosemide* (Furosemide*) 20 Mg Tablet, 20 MG PO BID for 30 Days, #60 02/13/19 Metoprolol Tartrate* (Lopressor*) 50 Mg Tab, 50 MG PO BID for 30 Days, #60 02/13/19 Benazepril Hcl* (Benazepril Hcl*) 40 Mg Tablet, 40 MG PO DAILY for 90 Days, #90 02/13/19 Tamsulosin Hcl* (Tamsulosin Hcl*) 0.4 Mg Cap.er.24h, 0.4 MG PO HS, CAP 02/03/17 Lorazepam* (Lorazepam*) 0.5 Mg Tablet, 0.5 MG PO HS PRN for ANXIETY, TAB 02/03/17 Gabapentin* (Gabapentin*) 100 Mg Capsule, 400 MG PO TID 06/12/13 Medications Current Medications IV Flush (NS 3 ml) 3 ml PER PROTOCOL IV ; Start 03/29/19 at 17:30 Ondansetron HCl (Zofran Inj) 4 mg Q6H PRN IV NAUSEA/VOMITING; Start 03/29/19 at 17:30 Acetaminophen (Tylenol Tab) 650 mg Q6H PRN PO .PAIN 1-3 OR TEMP; Start 03/29/19 at 17:30 Atorvastatin Calcium (Lipitor) 80 mg HS PO Last administered on 03/29/19 20:42; Admin Dose 80 MG; Start 03/29/19 at 21:00 Pantoprazole (Protonix Iv) 40 mg BID@,18 IV Last administered on 03/30/19 05:28; Admin Dose 40 MG; Start 03/29/19 at 18:00 Sucralfate (Carafate Susp) 1 gm QID PO Last administered on 03/30/19 09:09; Admin Dose 1 GM; Start 03/29/19 at 21:00 Brimonidine/ Timolol (Combigan Oph) 1 drop BID BOTH EYES Last administered on 03/30/19 09:14; Admin Dose 1 DROP; Start 03/29/19 at 21:00 Docusate Sodium (Colace) 100 mg Q12H PO Last administered on 03/29/19 20:41; Admin Dose 100 MG; Start 03/29/19 at 18:00 Furosemide (Lasix) 20 mg BID DIURETICS PO Last administered on 03/29/19 20:42; Admin Dose 20 MG; Start 03/29/19 at 18:32 Gabapentin (Neurontin) 100 mg TID PO Last administered on 03/30/19 09:09; Admin Dose 100 MG; Start 03/29/19 at 21:00 Isosorbide Mononitrate (Imdur) 60 mg DAILY PO Last administered on 03/30/19 09:09; Admin Dose 60 MG; Start 03/30/19 at 09:00 Metoprolol Tartrate (Lopressor) 50 mg BID PO Last administered on 03/30/19 09:10; Admin Dose 50 MG; Start 03/29/19 at 21:00 Paroxetine HCl (Paxil) 20 mg DAILY PO Last administered on 03/30/19 09:09; Admin Dose 20 MG; Start 03/30/19 at 09:00 Tamsulosin HCl (Flomax) 0.4 mg HS PO Last administered on 03/29/19 20:42; Admin Dose 0.4 MG; Start 03/29/19 at 21:00 Tramadol HCl (Ultram) 50 mg Q6H PRN PO MODERATE PAIN LEVEL 4-6 Last administered on 03/30/19 09:09; Admin Dose 50 MG; Start 03/29/19 at 18:00 Cefepime HCl 50 ml @ 100 mls/hr Q24H IVPB Last administered on 03/29/19 20:44; Admin Dose 100 MLS/HR; Start 03/29/19 at 21:00 Sodium Chloride 1,000 ml @ 50 mls/hr Q20H IV ; Start 03/30/19 at 10:30 Metoclopramide HCl (Reglan) 10 mg Q6 IV ; Start 03/30/19 at 12:00 Allergies: Coded Allergies: No Known Allergy (Unverified , 03/03/19) Past Surgical History Past Surgical Hx: no surgical history, endoscopy, other Family History Significant Family History: no pertinent family hx Social History Alcohol Use: rarely Smoking Status: Never smoker Drug Use: none Exam/Review of Systems Exam Vitals Vital Signs Date Temp Pulse Resp B/P (MAP) Pulse Ox O2 O2 Flow FiO2 Time Delivery Rate 03/30/19 59 08:00 03/30/19 98.2 18 126/60 96 07:19 (82) 03/30/19 Room Air 03:31 Intake and Output 03/29/19 03/29/19 03/30/19 1515:00 23:00 07:00 IntakeIntake Total 1050 ml BalanceBalance 1050 ml Exam PHYSICAL EXAMINATION: GENERAL: Well developed, well nourished, alert & oriented x 3, in no acute distress SKIN: No lesions, no stigmata chronic liver disease, no evidence of bleeding diathesis LYMPHATIC: No palpable lymphadenopathy. HEAD: Normocephalic, atraumatic, no tenderness. EYES: Pupils equal reactive to light and accommodation, full extraocular movements, sclera clear, non-icteric, no discharge. EARS/NOSE AND THROAT: Ears normal, nose normal, oropharynx normal, oral membranes well hydrated without lesions. NECK: Supple, no masses, thyroid normal, JVP within normal limits, carotids normal without bruits. CHEST: Inspection within normal limits. CARDIOVASCULAR: Heart: Regular rate and rhythm, no murmurs, gallops or rubs. Peripheral pulses present within normal limits, no cyanosis, clubbing or edemas. No pulsatile abdominal mass RESPIRATORY: Lungs clear to auscultation and percussion, no wheezing, no rubs GASTROINTESTINAL AND LIVER: Abdomen: Soft, moderate epigastric tenderness, non- distended, no hernias, no masses, no organomegaly, no ascites, no guarding, no rebound tenderness, normoactive bowel sounds. Rectal: Deferred. GENITOURINARY: [Male genitalia within normal limits.] EXTREMITIES: No cyanosis, clubbing or edema. [MUSCULO-SKELETAL: Gait and station within normal limits, range of motion adequate.] [NEUROLOGIC: Cranial nerves II-XII intact, Motor within normal limits, Sensory within normal limits. Reflexes within normal limits. PSYCHIATRIC: Alert & oriented x 3, mood/affect/judgement adequate] Results Result Diagram: 03/30/19 0751 03/30/19 0751 Results 24hrs Laboratory Tests Test 03/29/19 12:37 03/29/19 13:25 03/29/19 19:18 03/30/19 00:41 White Blood Count 7.5 # Red Blood Count 3.02 #L Hemoglobin 7.3 #L 8.1 L Hematocrit 23.1 #L 26.2 L Mean Corpuscular Volume 76.5 L Mean Corpuscular 24.2 L Hemoglobin Mean Corpuscular 31.6 L Hemoglobin Concent Red Cell Distribution 24.9 H Width Platelet Count 219 # Mean Platelet Volume 11.0 H Immature Granulocytes % 0.300 Neutrophils % 54.3 Lymphocytes % 33.0 Monocytes % 9.3 Eosinophils % 2.6 Basophils % 0.5 Nucleated Red Blood 0.0 Cells % Immature Granulocytes # 0.020 Neutrophils # 4.1 Lymphocytes # 2.5 Monocytes # 0.7 Eosinophils # 0.2 Basophils # 0.0 Nucleated Red Blood 0.0 Cells # Prothrombin Time 14.2 Prothrombin Time Ratio 1.1 INR International 1.09 Normalized Ratio Activated 28.6 Partial Thromboplast Time Sodium Level 139 Potassium Level 4.8 Chloride Level 110 Carbon Dioxide Level 18 L Anion Gap 11 Blood Urea Nitrogen 53 H Creatinine 2.40 H Est Glomerular Filtrat Rate mL/min Glucose Level 102 Calcium Level 8.3 L Total Bilirubin 0.3 Direct Bilirubin 0.00 Indirect Bilirubin 0.3 Aspartate Amino 21 Transf (AST/SGOT) Alanine 33 Aminotransferase (ALT/SG PT) Alkaline Phosphatase 79 Troponin I < 0.012 < 0.012 < 0.012 B-Type Natriuretic 276 H Peptide Total Protein 6.9 Albumin 3.2 L Globulin 3.70 H Albumin/Globulin Ratio 0.86 Amylase Level 113 Lipase 394 H Urine Color YELLOW Urine Clarity CLEAR Urine pH 6.0 Urine Specific [place] 1.009 Urine Ketones NEGATIVE Urine Nitrite NEGATIVE Urine Bilirubin NEGATIVE Urine Urobilinogen NEGATIVE Urine Leukocyte Esterase NEGATIVE Urine Microscopic RBC 0 Urine Microscopic WBC 0 Urine Hemoglobin 1+ H Urine Glucose NEGATIVE Urine Total Protein NEGATIVE Urine Opiates Screen Negative Urine Barbiturates Negative Urine Amphetamines Negative Screen Urine Benzodiazepines Negative Screen Urine Cocaine Screen Negative Urine Cannabinoids Negative Creatine Kinase 175 147 Creatine Kinase Index 1.8 1.5 Creatinine Kinase MB 3.15 H 2.16 (Mass) Test 03/30/19 07:51 White Blood Count 6.5 Red Blood Count 3.70 #L Hemoglobin 8.7 L Hematocrit 28.0 L Mean Corpuscular Volume 75.7 L Mean Corpuscular 23.5 L Hemoglobin Mean Corpuscular 31.1 L Hemoglobin Concent Red Cell Distribution 24.7 H Width Platelet Count 222 Mean Platelet Volume 10.5 H Immature Granulocytes % 0.300 Neutrophils % 48.4 Lymphocytes % 38.5 Monocytes % 8.8 Eosinophils % 3.5 Basophils % 0.5 Nucleated Red Blood 0.0 Cells % Immature Granulocytes # 0.020 Neutrophils # 3.1 Lymphocytes # 2.5 Monocytes # 0.6 Eosinophils # 0.2 Basophils # 0.0 Nucleated Red Blood 0.0 Cells # Sodium Level 141 Potassium Level 4.0 Chloride Level 112 H Carbon Dioxide Level 20 L Anion Gap 9 Blood Urea Nitrogen 36 #H Creatinine 1.44 H Est Glomerular Filtrat Rate mL/min Glucose Level 92 Hemoglobin A1c 6.2 H Calcium Level 9.2 Magnesium Level 2.1 Total Bilirubin 0.6 Direct Bilirubin 0.00 Indirect Bilirubin 0.6 Aspartate Amino 21 Transf (AST/SGOT) Alanine 30 Aminotransferase (ALT/SG PT) Alkaline Phosphatase 85 B-Type Natriuretic 543 H Peptide Total Protein 7.2 Albumin 3.5 Globulin 3.70 H Albumin/Globulin Ratio 0.94 Triglycerides Level 150 H Cholesterol Level 143 LDL Cholesterol, 92 Calculated HDL Cholesterol 21 L Cholesterol/HDL Ratio 6.8 Thyroid Stimulating Pending Hormone (TSH) Medications Medication Current Medications IV Flush (NS 3 ml) 3 ml PER PROTOCOL IV ; Start 03/29/19 at 17:30 Ondansetron HCl (Zofran Inj) 4 mg Q6H PRN IV NAUSEA/VOMITING; Start 03/29/19 at 17:30 Acetaminophen (Tylenol Tab) 650 mg Q6H PRN PO .PAIN 1-3 OR TEMP; Start 03/29/19 at 17:30 Atorvastatin Calcium (Lipitor) 80 mg HS PO Last administered on 03/29/19 20:42; Admin Dose 80 MG; Start 03/29/19 at 21:00 Pantoprazole (Protonix Iv) 40 mg BID@06,18 IV Last administered on 03/30/19 05:28; Admin Dose 40 MG; Start 03/29/19 at 18:00 Sucralfate (Carafate Susp) 1 gm QID PO Last administered on 03/30/19 09:09; Admin Dose 1 GM; Start 03/29/19 at 21:00 Brimonidine/ Timolol (Combigan Oph) 1 drop BID BOTH EYES Last administered on 03/30/19 09:14; Admin Dose 1 DROP; Start 03/29/19 at 21:00 Docusate Sodium (Colace) 100 mg Q12H PO Last administered on 03/29/19 20:41; Admin Dose 100 MG; Start 03/29/19 at 18:00 Furosemide (Lasix) 20 mg BID DIURETICS PO Last administered on 03/29/19 20:42; Admin Dose 20 MG; Start 03/29/19 at 18:32 Gabapentin (Neurontin) 100 mg TID PO Last administered on 03/30/19 09:09; Admin Dose 100 MG; Start 03/29/19 at 21:00 Isosorbide Mononitrate (Imdur) 60 mg DAILY PO Last administered on 03/30/19 09:09; Admin Dose 60 MG; Start 03/30/19 at 09:00 Metoprolol Tartrate (Lopressor) 50 mg BID PO Last administered on 03/30/19 09:10; Admin Dose 50 MG; Start 03/29/19 at 21:00 Paroxetine HCl (Paxil) 20 mg DAILY PO Last administered on 03/30/19 09:09; Admin Dose 20 MG; Start 03/30/19 at 09:00 Tamsulosin HCl (Flomax) 0.4 mg HS PO Last administered on 03/29/19 20:42; Admin Dose 0.4 MG; Start 03/29/19 at 21:00 Tramadol HCl (Ultram) 50 mg Q6H PRN PO MODERATE PAIN LEVEL 4-6 Last administered on 03/30/19 09:09; Admin Dose 50 MG; Start 03/29/19 at 18:00 Cefepime HCl 50 ml @ 100 mls/hr Q24H IVPB Last administered on 03/29/19 20:44; Admin Dose 100 MLS/HR; Start 03/29/19 at 21:00 Sodium Chloride 1,000 ml @ 50 mls/hr Q20H IV ; Start 03/30/19 at 10:30 Metoclopramide HCl (Reglan) 10 mg Q6 IV ; Start 03/30/19 at 12:00 EARNESTINE MCKEON MD Mar 30, 2019 12:06
[2019-03-30] MEDS: METOCLOPRAMIDE 10 MG INJ IV SCH ×2 (12:53→17:17)
--- NOTE | 2019-03-30 15:28 | PN ---
Date/Time of Note Date/Time of Note DATE: 03/30/19 TIME: 15:25 Objective Vitals Vital Signs Date Temp Pulse Resp B/P (MAP) Pulse Ox O2 O2 Flow FiO2 Time Delivery Rate 03/30/19 56 25 98/54 (69) 97 Room Air 12:11 03/30/19 98.0 11:55 Intake and Output 03/29/19 03/29/19 03/30/19 1515:00 23:00 07:00 IntakeIntake Total 1050 ml BalanceBalance 1050 ml Results Result Diagram: 03/30/19 0751 03/30/19 0751 Medications Medications Current Medications IV Flush (NS 3 ml) 3 ml PER PROTOCOL IV ; Start 03/29/19 at 17:30 Ondansetron HCl (Zofran Inj) 4 mg Q6H PRN IV NAUSEA/VOMITING; Start 03/29/19 at 17:30 Acetaminophen (Tylenol Tab) 650 mg Q6H PRN PO .PAIN 1-3 OR TEMP; Start 03/29/19 at 17:30 Atorvastatin Calcium (Lipitor) 80 mg HS PO Last administered on 03/29/19 20:42; Admin Dose 80 MG; Start 03/29/19 at 21:00 Pantoprazole (Protonix Iv) 40 mg BID@06,18 IV Last administered on 03/30/19 05:28; Admin Dose 40 MG; Start 03/29/19 at 18:00 Sucralfate (Carafate Susp) 1 gm QID PO Last administered on 03/30/19 12:53; Admin Dose 1 GM; Start 03/29/19 at 21:00 Brimonidine/ Timolol (Combigan Oph) 1 drop BID BOTH EYES Last administered on 03/30/19 09:14; Admin Dose 1 DROP; Start 03/29/19 at 21:00 Docusate Sodium (Colace) 100 mg Q12H PO Last administered on 03/29/19 20:41; Admin Dose 100 MG; Start 03/29/19 at 18:00 Furosemide (Lasix) 20 mg BID DIURETICS PO Last administered on 03/29/19 20:42; Admin Dose 20 MG; Start 03/29/19 at 18:32 Gabapentin (Neurontin) 100 mg TID PO Last administered on 03/30/19 12:53; Admin Dose 100 MG; Start 03/29/19 at 21:00 Isosorbide Mononitrate (Imdur) 60 mg DAILY PO Last administered on 03/30/19 09:09; Admin Dose 60 MG; Start 03/30/19 at 09:00 Metoprolol Tartrate (Lopressor) 50 mg BID PO Last administered on 03/30/19 09:10; Admin Dose 50 MG; Start 03/29/19 at 21:00 Paroxetine HCl (Paxil) 20 mg DAILY PO Last administered on 03/30/19 09:09; Admin Dose 20 MG; Start 03/30/19 at 09:00 Tamsulosin HCl (Flomax) 0.4 mg HS PO Last administered on 03/29/19 20:42; Admin Dose 0.4 MG; Start 03/29/19 at 21:00 Tramadol HCl (Ultram) 50 mg Q6H PRN PO MODERATE PAIN LEVEL 4-6 Last admini stered on 03/30/19 09:09; Admin Dose 50 MG; Start 03/29/19 at 18:00 Cefepime HCl 50 ml @ 100 mls/hr Q24H IVPB Last administered on 03/29/19 20:44; Admin Dose 100 MLS/HR; Start 03/29/19 at 21:00 Sodium Chloride 1,000 ml @ 50 mls/hr Q20H IV ; Start 03/30/19 at 10:30 Metoclopramide HCl (Reglan) 10 mg Q6 IV Last administered on 03/30/19 12:53; Admin Dose 10 MG; Start 03/30/19 at 12:00 VTE Prophylaxis Risk score (from Nsg)>0 risk: 3 SCD applied (from Nsg): Yes Lines/Catheters IV Catheter Type: Jane in Place: No Assessment/Plan Hospital Course Subjective Patient's epigastric pain has mildly improved, no chest pain Objective Physical exam General: Patient is laying in bed and answers questions appropriately Mentation: Patient is alert and oriented 4, Head: Normocephalic atraumatic Eyes: EOMI, pupils reactive to light Neck: Supple, nontender, midline Respiratory: Clear to auscultation bilaterally Cardiovascular: regular rate, no obvious murmurs Gastrointestinal: Very minimal epigastric tenderness to palpation, bowel sounds heard. Neurological: Moves all extremities spontaneously Skin: No new skin lesions Assessment and plan Hypotension, resolved -Patient negative for orthostatics, patient likely volume depleted -Urine drug screen negative -Possible infection, chest x-ray showing signs of possible pneumonia however patient not having significant respiratory distress, will start antibiotics as patient was recently had an extensive inpatient stay, continue to monitor -Monitor closely Anemia -Patient's hemoglobin is lower than when he was discharged last time, patient denies any GI bleed whether it be rectal or hematemesis, patient states his bowel movements have been yellow to brown -PPI twice daily for now with Carafate -GI consulted as patient still has mild chronic epigastric pain with reduced hemoglobin -Hemoglobin appears to have rebounded, possibly lab error prior, repeat EGD done today shows gastritis but no overt bleed, continue PPI and Carafate for now. Chest pain, resolved -acs ruled out, troponins negative -EKG noted -Echo done during previous admission -Chest pain is very mild and has now resolved, doubt ACS -Trend troponin Epigastric abdominal pain -Patient states this exact same pain that he has had for the past couple months, he actually states that this is mildly improving -PPI and Carafate with GI consultation Elevated lipase -Unlikely pancreatitis as patient states that abdominal pain has been chronic for the past weeks to months and is actually improving from his chronic state, -No new abdominal pain Chronic kidney disease, improving -Patient was previously admitted for acute renal failure secondary to NSAID use, patient does not take NSAIDs anymore, patient's creatinine is improved from his discharge level -We will ask nephrology to come back on board to monitor creatinine closely Questionable pneumonia versus pulmonary edema -Continue cefepime for now, will de-escalate as more information is found t hroughout this admission -BNP is mildly elevated monitor closely, patient is not having any acute re spiratory distress CHF -Continue home meds Opiate abuse -Patient has a history of chronic opiate abuse, spoke with son during previous admission, patient is to have absolutely no opiates as he will constantly asked for opiates however he appears very comfortable -Tylenol and tramadol only for now History of prostate cancer -Follow-up outpatient Questionable dementia -Monitor closely patient appears oriented but may have some memory loss Hypertension -Continue home meds with parameters as patient did originally present with hypotension. Disposition -Continue monitoring, continue PPI, monitor patient overnight if patient stable plan for DC tomorrow. RYAN JAUREGUI Mar 30, 2019 15:28
[2019-03-30] MEDS: TAMSULOSIN (SR) 0.4 MG CAP PO SCH (20:36)
[2019-03-30] MEDS: CEFEPIME 1GM/50 ML (PMX) 50 ML IVPB SCH (20:37)
[2019-03-31 00:17] VITALS: PULSE 60
[2019-03-31] MEDS: METOCLOPRAMIDE 10 MG INJ IV SCH ×4 (00:30→19:07)
[2019-03-31 04:00] VITALS: PULSE 62
[2019-03-31] MEDS: PANTOPRAZOLE 40 MG INJ IV SCH ×2 (06:00→19:07)
[2019-03-31] MEDS: FUROSEMIDE 20 MG TAB PO SCH ×2 (06:16→19:08)
[2019-03-31] MEDS: DOCUSATE SODIUM 100 MG CAP PO SCH ×2 (06:16→19:07)
[2019-03-31 07:11] VITALS: BP 141/70; PULSE 68; RESP 35
[2019-03-31] MEDS: SUCRALFATE (100 MG/ML) 10ML CUP PO SCH ×4 (07:55→20:51)
[2019-03-31] MEDS: METOPROLOL 50 MG TAB PO SCH ×2 (07:56→20:52)
[2019-03-31] MEDS: GABAPENTIN 100 MG CAP PO SCH ×3 (07:56→20:52)
[2019-03-31] MEDS: ISOSORBIDE MONONITRATE(SR)60 MG TAB PO SCH (07:56)
[2019-03-31] MEDS: BRIMONIDINE 0.2%-TIMOLOL 0.5% 5ML OPH BOTH EYES SCH ×2 (07:56→21:06)
[2019-03-31] MEDS: PAROXETINE 20 MG TAB PO SCH (07:56)
[2019-03-31 08:00] VITALS: PULSE 79
[2019-03-31] MEDS: LEVOFLOXACIN 500 MG TAB PO SCH (10:15)
[2019-03-31 11:03] VITALS: BP 108/64; PULSE 62; RESP 16
[2019-03-31] MEDS: traMADol 50 MG TAB PO PRN ×2 (12:38→20:51)
--- NOTE | 2019-03-31 13:11 | PN ---
Date/Time of Note Date/Time of Note DATE: 03/31/19 TIME: 13:09 Objective Vitals Vital Signs Date Temp Pulse Resp B/P (MAP) Pulse Ox O2 O2 Flow FiO2 Time Delivery Rate 03/31/19 97.7 62 16 108/64 96 11:03 (79) 03/30/19 Room Air 23:34 Intake and Output 03/30/19 03/30/19 03/31/19 1515:00 23:00 07:00 IntakeIntake Total 650 ml 650 ml OutputOutput Total 400 ml BalanceBalance 250 ml 650 ml Results Result Diagram: 03/31/1936 03/31/19535 Medications Medications Current Medications IV Flush (NS 3 ml) 3 ml PER PROTOCOL IV ; Start 03/29/19 at 17:30 Ondansetron HCl (Zofran Inj) 4 mg Q6H PRN IV NAUSEA/VOMITING Last administered on 03/31/19at 10:16; Admin Dose 4 MG; Start 03/29/19 at 17:30 Acetaminophen (Tylenol Tab) 650 mg Q6H PRN PO .PAIN 1-3 OR TEMP; Start 03/29/19 at 17:30 Pantoprazole (Protonix Iv) 40 mg BID@06,18 IV Last administered on 03/30/19 17:17; Admin Dose 40 MG; Start 03/29/19 at 18:00 Sucralfate (Carafate Susp) 1 gm QID PO Last administered on 03/31/19 12:37; Admin Dose 1 GM; Start 03/29/19 at 21:00 Brimonidine/ Timolol (Combigan Oph) 1 drop BID BOTH EYES Last administered on 03/31/19 07:56; Admin Dose 1 DROP; Start 03/29/19 at 21:00 Docusate Sodium (Colace) 100 mg Q12H PO Last administered on 03/31/19 06:16; Admin Dose 100 MG; Start 03/29/19 at 18:00 Furosemide (Lasix) 20 mg BID DIURETICS PO Last administered on 03/31/19 06:16; Admin Dose 20 MG; Start 03/29/19 at 18:32 Gabapentin (Neurontin) 100 mg TID PO Last administered on 03/31/19 12:38; Admin Dose 100 MG; Start 03/29/19 at 21:00 Isosorbide Mononitrate (Imdur) 60 mg DAILY PO Last administered on 03/31/19 07:56; Admin Dose 60 MG; Start 03/30/19 at 09:00 Metoprolol Tartrate (Lopressor) 50 mg BID PO Last administered on 03/31/19 07:56; Admin Dose 50 MG; Start 03/29/19 at 21:00 Paroxetine HCl (Paxil) 20 mg DAILY PO Last administered on 03/31/19 07:56; Admin Dose 20 MG; Start 03/30/19 at 09:00 Tamsulosin HCl (Flomax) 0.4 mg HS PO Last administered on 03/30/19 20:36; Admin Dose 0.4 MG; Start 03/29/19 at 21:00 Tramadol HCl (Ultram) 50 mg Q6H PRN PO MODERATE PAIN LEVEL 4-6 Last administered on 03/31/19 12:38; Admin Dose 50 MG; Start 03/29/19 at 18:00 Metoclopramide HCl (Reglan) 10 mg Q6 IV Last administered on 03/31/19 12:38; Admin Dose 10 MG; Start 03/30/19 at 12:00 Levofloxacin (Levaquin) 500 mg DAILY@06 PO Last administered on 03/31/19 10:15; Admin Dose 500 MG; Start 03/31/19 at 09:30 VTE Prophylaxis Risk score (from Ns)>0 risk: 2 [place] [facility] [place]/Catheters IV Catheter Type: Jane in Place: No Assessment/Plan Hospital Course Subjective Patient's epigastric pain has mildly improved, no chest pain Objective Physical exam General: Patient is laying in bed and answers questions appropriately Mentation: Patient is alert and oriented 4, Head: Normocephalic atraumatic Eyes: EOMI, pupils reactive to light Neck: Supple, nontender, midline Respiratory: Clear to auscultation bilaterally Cardiovascular: regular rate, no obvious murmurs Gastrointestinal: Very minimal epigastric tenderness to palpation, bowel sounds heard. Neurological: Moves all extremities spontaneously Skin: No new skin lesions Assessment and plan Hypotension, resolved -Patient negative for orthostatics, patient likely volume depleted -Urine drug screen negative -Possible infection, chest x-ray showing signs of possible pneumonia however patient not having significant respiratory distress, will start antibiotics as patient was recently had an extensive inpatient stay, continue to monitor -Monitor closely Anemia -Patient's hemoglobin is lower than when he was discharged last time, patient denies any GI bleed whether it be rectal or hematemesis, patient states his bowel movements have been yellow to brown -PPI twice daily for now with Carafate -GI consulted as patient still has mild chronic epigastric pain with reduced hemoglobin -Hemoglobin appears to have rebounded, possibly lab error prior, repeat EGD done shows gastritis but no overt bleed, continue PPI and Carafate for now. Chest pain, resolved -acs ruled out, troponins negative -EKG noted -Echo done during previous admission -Chest pain is very mild and has now resolved, doubt ACS -Trend troponin Epigastric abdominal pain -Patient states this exact same pain that he has had for the past couple months, he actually states that this is mildly improving -PPI and Carafate with GI consultation Elevated lipase -Unlikely pancreatitis as patient states that abdominal pain has been chronic for the past weeks to months and is actually improving from his chronic state, -No new abdominal pain Chronic kidney disease, improving -Patient was previously admitted for acute renal failure secondary to NSAID use, patient does not take NSAIDs anymore, patient's creatinine is improved from his discharge level -We will ask nephrology to come back on board to monitor creatinine closely Questionable pneumonia versus pulmonary edema -Continue cefepime for now, will de-escalate as more information is found throughout this admission -BNP is mildly elevated monitor closely, patient is not having any acute respiratory distress CHF -Continue home meds Opiate abuse -Patient has a history of chronic opiate abuse, spoke with son during previous admission, patient is to have absolutely no opiates as he will constantly asked for opiates however he appears very comfortable -Tylenol and tramadol only for now History of prostate cancer -Follow-up outpatient Questionable dementia -Monitor closely patient appears oriented but may have some memory loss Hypertension -Continue home meds with parameters as patient did originally present with hypotension. Disposition -Upon speaking with patient's son it turns out patient was recently discharged from a rehab or intermediate facility and did not fair well at home, deniz mixon's son requests that patient be placed in an appropriate facility as he is unable to take care of himself and is too high needs at home as son works on a regular basis., Case management order in. RYAN JAUREGUI Mar 31, 2019 13:11
[2019-03-31] MEDS: ACETAMINOPHEN 325 MG TAB PO PRN (14:36)
--- NOTE | 2019-03-31 14:49 | PN ---
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 History of mild dementia Plan: Follow up results of biopsies when available. Continue PPI and carafate Continue reglan Continue regular diet Avoid NSAIDs Patient seen in collaboration with Dr. Yuan Subjective: Patient complains of minimal epigastric pain. Denies nausea or vomiting, tolerating diet. Discussed results of EGD yesterday. Discussed treatment plan. PHYSICAL EXAMINATION: GENERAL: Well developed, well nourished, alert & oriented x 3, in no acute distress SKIN: No lesions, no stigmata chronic liver disease, no evidence of bleeding diathesis HEAD: Normocephalic, atraumatic, no tenderness. EYES: Pupils equal reactive to light and accommodation, full extraocular movements, sclera clear, non-icteric, no discharge. EARS/NOSE AND THROAT: Ears normal, nose normal, oropharynx normal, oral membranes well hydrated without lesions. NECK: Supple, no masses, thyroid normal, JVP within normal limits, carotids normal without bruits. CHEST: Inspection within normal limits. Normal air movement. CARDIOVASCULAR: Heart: Regular rate and rhythm, no murmurs, gallops or rubs. Peripheral pulses present within normal limits, no cyanosis, clubbing or edemas. No pulsatile abdominal mass RESPIRATORY: Lungs clear to auscultation and percussion, no wheezing, no rubs GASTROINTESTINAL AND LIVER: Abdomen: Soft, no tenderness, non-distended, no hernias, no masses, no organomegaly, no ascites, no guarding, no rebound tenderness, normoactive bowel sounds. Rectal: Deferred. EXTREMITIES: No cyanosis, clubbing or edema. [MUSCULO-SKELETAL: Gait and station within normal limits, range of motion adequate.] [NEUROLOGIC: Cranial nerves II-XII intact, Motor within normal limits, Sensory within normal limits. Reflexes within normal limits. PSYCHIATRIC: Alert & oriented x 3, mood/affect/judgement adequate] Result Diagram: 03/31/19 0536 03/31/19 0536 Results 24hrs Laboratory Tests Test 03/31/19 05:36 White Blood Count 6.2 Red Blood Count 3.48 L Hemoglobin 8.2 L Hematocrit 25.7 L Mean Corpuscular Volume 73.9 L Mean Corpuscular Hemoglobin 23.6 L Mean Corpuscular Hemoglobin Concent 31.9 L Red Cell Distribution Width 23.7 H Platelet Count 222 Mean Platelet Volume 10.5 H Immature Granulocytes % 0.300 Neutrophils % 54.6 Lymphocytes % 33.7 Monocytes % 8.3 Eosinophils % 2.6 Basophils % 0.5 Nucleated Red Blood Cells % 0.0 Immature Granulocytes # 0.020 Neutrophils # 3.4 Lymphocytes # 2.1 Monocytes # 0.5 Eosinophils # 0.2 Basophils # 0.0 Nucleated Red Blood Cells # 0.0 Sodium Level 139 Potassium Level 3.6 Chloride Level 111 H Carbon Dioxide Level 20 L Anion Gap 8 Blood Urea Nitrogen 30 H Creatinine 1.05 Est Glomerular Filtrat Rate mL/min Glucose Level 98 Calcium Level 9.0 Phosphorus Level 4.0 Magnesium Level 2.0 CC: EARNESTINE YUAN MD ; Exam/Review of Systems Exam Vitals Vital Signs Date Temp Pulse Resp B/P (MAP) Pulse Ox O2 O2 Flow FiO2 Time Delivery Rate 03/31/19 97.7 62 16 108/64 96 11:03 (79) 03/30/19 Room Air 23:34 Intake and Output 03/30/19 03/30/19 03/31/19 1515:00 23:00 07:00 IntakeIntake Total 650 ml 650 ml OutputOutput Total 400 ml BalanceBalance 250 ml 650 ml Results Results 24hrs Laboratory Tests Test 03/31/19 05:36 White Blood Count 6.2 Red Blood Count 3.48 L Hemoglobin 8.2 L Hematocrit 25.7 L Mean Corpuscular Volume 73.9 L Mean Corpuscular Hemoglobin 23.6 L Mean Corpuscular Hemoglobin Concent 31.9 L Red Cell Distribution Width 23.7 H Platelet Count 222 Mean Platelet Volume 10.5 H Immature Granulocytes % 0.300 Neutrophils % 54.6 Lymphocytes % 33.7 Monocytes % 8.3 Eosinophils % 2.6 Basophils % 0.5 Nucleated Red Blood Cells % 0.0 Immature Granulocytes # 0.020 Neutrophils # 3.4 Lymphocytes # 2.1 Monocytes # 0.5 Eosinophils # 0.2 Basophils # 0.0 Nucleated Red Blood Cells # 0.0 Sodium Level 139 Potassium Level 3.6 Chloride Level 111 H Carbon Dioxide Level 20 L Anion Gap 8 Blood Urea Nitrogen 30 H Creatinine 1.05 Est Glomerular Filtrat Rate mL/min Glucose Level 98 Calcium Level 9.0 Phosphorus Level 4.0 Magnesium Level 2.0 Medications Medication Current Medications IV Flush (NS 3 ml) 3 ml PER PROTOCOL IV ; Start 03/29/19 at 17:30 Ondansetron HCl (Zofran Inj) 4 mg Q6H PRN IV NAUSEA/VOMITING Last administered on 03/31/19 10:16; Admin Dose 4 MG; Start 03/29/19 at 17:30 Acetaminophen (Tylenol Tab) 650 mg Q6H PRN PO .PAIN 1-3 OR TEMP Last administered on 03/31/19 14:36; Admin Dose 650 MG; Start 03/29/19 at 17:30 Pantoprazole (Protonix Iv) 40 mg BID@06,18 IV Last administered on 03/30/19 17:17; Admin Dose 40 MG; Start 03/29/19 at 18:00 Sucralfate (Carafate Susp) 1 gm QID PO Last administered on 03/31/19 12:37; Admin Dose 1 GM; Start 03/29/19 at 21:00 Brimonidine/ Timolol (Combigan Oph) 1 drop BID BOTH EYES Last administered on 03/31/19 07:56; Admin Dose 1 DROP; Start 03/29/19 at 21:00 Docusate Sodium (Colace) 100 mg Q12H PO Last administered on 03/31/19 06:16; Admin Dose 100 MG; Start 03/29/19 at 18:00 Furosemide (Lasix) 20 mg BID DIURETICS PO Last administered on 03/31/19 06:16; Admin Dose 20 MG; Start 03/29/19 at 18:32 Gabapentin (Neurontin) 100 mg TID PO Last administered on 03/31/19 12:38; Admin Dose 100 MG; Start 03/29/19 at 21:00 Isosorbide Mononitrate (Imdur) 60 mg DAILY PO Last administered on 03/31/19 07:56; Admin Dose 60 MG; Start 03/30/19 at 09:00 Metoprolol Tartrate (Lopressor) 50 mg BID PO Last administered on 03/31/19 07:56; Admin Dose 50 MG; Start 03/29/19 at 21:00 Paroxetine HCl (Paxil) 20 mg DAILY PO Last administered on 03/31/19 07:56; Admin Dose 20 MG; Start 03/30/19 at 09:00 Tamsulosin HCl (Flomax) 0.4 mg HS PO Last administered on 03/30/19 20:36; Admin Dose 0.4 MG; Start 03/29/19 at 21:00 Tramadol HCl (Ultram) 50 mg Q6H PRN PO MODERATE PAIN LEVEL 4-6 Last administered on 03/31/19 12:38; Admin Dose 50 MG; Start 03/29/19 at 18:00 Metoclopramide HCl (Reglan) 10 mg Q6 IV Last administered on 03/31/19 12:38; Admin Dose 10 MG; Start 03/30/19 at 12:00 Levofloxacin (Levaquin) 500 mg DAILY@06 PO Last administered on 03/31/19 10:15; Admin Dose 500 MG; Start 03/31/19 at 09:30 CATHERINE GUEVARA NP Mar 31, 2019 14:49
--- NOTE | 2019-03-31 16:57 | CONS ---
Assessment/Plan Assessment/Plan Assessment/Plan (Daily) 1. Acute kidney injury 2/2 Prerenal azotemia + 2. HYponatremia due to CHF + hypovolemic hyponatremia 3. Severe metabolic acidosis with HCo3 13 4. h/o HTN 5. Intractable nausea/vomiting 6. Hypertensive urgency Plan: ECHO showed EF 55-60% stage I DD in January 2019 - BUN/Cr Improved to 30/1.05, Continue lasix 20mg pO BID Renally dose all medications, monitor electrolytes and replace as needed Renal US unremarkable, normal size kidneys with normal echogenicity will follow up Consultation Date/Type/Reason Admit Date/Time Mar 30, 2019 at 10:27 Initial Consult Date 03/29/19 Type of Consult NEPHROLOGY Requesting Provider: RYAN JAUREGUI Date/Time of Note DATE: 03/31/19 TIME: 16:57 24 HR Interval Summary Free Text/Dictation BUN/Cr improved to 30/1.05, BP stable, Exam/Review of Systems Exam Vitals Vital Signs Date Temp Pulse Resp B/P (MAP) Pulse Ox O2 O2 Flow FiO2 Time Delivery Rate 03/31/19 97.7 62 16 108/64 96 11:03 (79) 03/30/19 Room Air 23:34 Intake and Output 03/30/19 03/30/19 03/31/19 1515:00 23:00 07:00 IntakeIntake Total 650 ml 650 ml OutputOutput Total 400 ml BalanceBalance 250 ml 650 ml Exam Constitutional: alert, awake, mild SOB off oxygen Respiratory: Bilateral basilar crackles, left greater than right Cardiovascular: regular rate and rhythm, nl pulses Gastrointestinal: soft, non-tender Musculoskeletal: 1+ pitting edema, no clubbing/no cyanosis Extremities: normal pulses Neurological: PRODUCT CONTROL AND LOGISTICS ANALYST II-XII intact, nl mental status, nl speech, nl strength Results Result Diagram: 03/31/19 0536 03/31/19 0536 Results 24hrs Laboratory Tests Test 03/31/19 05:36 White Blood Count 6.2 Red Blood Count 3.48 L Hemoglobin 8.2 L Hematocrit 25.7 L Mean Corpuscular Volume 73.9 L Mean Corpuscular Hemoglobin 23.6 L Mean Corpuscular Hemoglobin Concent 31.9 L Red Cell Distribution Width 23.7 H Platelet Count 222 Mean Platelet Volume 10.5 H Immature Granulocytes % 0.300 Neutrophils % 54.6 Lymphocytes % 33.7 Monocytes % 8.3 Eosinophils % 2.6 Basophils % 0.5 Nucleated Red Blood Cells % 0.0 Immature Granulocytes # 0.020 Neutrophils # 3.4 Lymphocytes # 2.1 Monocytes # 0.5 Eosinophils # 0.2 Basophils # 0.0 Nucleated Red Blood Cells # 0.0 Sodium Level 139 Potassium Level 3.6 Chloride Level 111 H Carbon Dioxide Level 20 L Anion Gap 8 Blood Urea Nitrogen 30 H Creatinine 1.05 Est Glomerular Filtrat Rate mL/min Glucose Level 98 Calcium Level 9.0 Phosphorus Level 4.0 Magnesium Level 2.0 Medications Medication Current Medications IV Flush (NS 3 ml) 3 ml PER PROTOCOL IV ; Start 03/29/19 at 17:30 Ondansetron HCl (Zofran Inj) 4 mg Q6H PRN IV NAUSEA/VOMITING Last administered on 03/31/19 10:16; Admin Dose 4 MG; Start 03/29/19 at 17:30 Acetaminophen (Tylenol Tab) 650 mg Q6H PRN PO .PAIN 1-3 OR TEMP Last a dministered on 03/31/19 14:36; Admin Dose 650 MG; Start 03/29/19 at 17:30 Pantoprazole (Protonix Iv) 40 mg BID@06,18 IV Last administered on 03/30/19 17:17; Admin Dose 40 MG; Start 03/29/19 at 18:00 Sucralfate (Carafate Susp) 1 gm QID PO Last administered on 03/31/19 12:37; Admin Dose 1 GM; Start 03/29/19 at 21:00 Brimonidine/ Timolol (Combigan Oph) 1 drop BID BOTH EYES Last administered on 03/31/19 07:56; Admin Dose 1 DROP; Start 03/29/19 at 21:00 Docusate Sodium (Colace) 100 mg Q12H PO Last administered on 03/31/19 06:16; Admin Dose 100 MG; Start 03/29/19 at 18:00 Furosemide (Lasix) 20 mg BID DIURETICS PO Last administered on 03/31/19 06:16; Admin Dose 20 MG; Start 03/29/19 at 18:32 Gabapentin (Neurontin) 100 mg TID PO Last administered on 03/31/19 12:38; Admin Dose 100 MG; Start 03/29/19 at 21:00 Isosorbide Mononitrate (Imdur) 60 mg DAILY PO Last administered on 03/31/19 07:56; Admin Dose 60 MG; Start 03/30/19 at 09:00 Metoprolol Tartrate (Lopressor) 50 mg BID PO Last administered on 03/31/19 07:56; Admin Dose 50 MG; Start 03/29/19 at 21:00 Paroxetine HCl (Paxil) 20 mg DAILY PO Last administered on 03/31/19 07:56; Admin Dose 20 MG; Start 03/30/19 at 09:00 Tamsulosin HCl (Flomax) 0.4 mg HS PO Last administered on 03/30/19 20:36; Admin Dose 0.4 MG; Start 03/29/19 at 21:00 Tramadol HCl (Ultram) 50 mg Q6H PRN PO MODERATE PAIN LEVEL 4-6 Last administered on 03/31/19 12:38; Admin Dose 50 MG; Start 03/29/19 at 18:00 Metoclopramide HCl (Reglan) 10 mg Q6 IV Last administered on 03/31/19 12:38; Admin Dose 10 MG; Start 03/30/19 at 12:00 Levofloxacin (Levaquin) 500 mg DAILY@06 PO Last administered on 03/31/19 10:15; Admin Dose 500 MG; Start 03/31/19 at 09:30 SERINA NORIEGA MD Mar 31, 2019 16:57
[2019-03-31 20:22] VITALS: BP 126/64; PULSE 63; RESP 16
[2019-03-31] MEDS: TAMSULOSIN (SR) 0.4 MG CAP PO SCH (20:51)
[2019-03-31] MEDS ORDERED: ZOLPIDEM 5 MG TAB PO PRN (21:00)
[2019-04-01] MEDS: METOCLOPRAMIDE 10 MG INJ IV SCH ×4 (00:31→17:46)
[2019-04-01] MEDS: ACETAMINOPHEN 325 MG TAB PO PRN ×2 (00:31→19:51)
[2019-04-01 02:21] VITALS: BP 116/65; PULSE 60; RESP 16
[2019-04-01] MEDS: DOCUSATE SODIUM 100 MG CAP PO SCH ×2 (05:33→17:46)
[2019-04-01] MEDS: LEVOFLOXACIN 500 MG TAB PO SCH (05:33)
[2019-04-01] MEDS: PANTOPRAZOLE 40 MG INJ IV SCH ×2 (05:36→17:46)
[2019-04-01] MEDS: FUROSEMIDE 20 MG TAB PO SCH ×2 (05:36→17:47)
[2019-04-01] MEDS: traMADol 50 MG TAB PO PRN ×3 (05:46→18:23)
[2019-04-01 08:13] VITALS: BP 142/73; PULSE 63; RESP 18
[2019-04-01] MEDS: BRIMONIDINE 0.2%-TIMOLOL 0.5% 5ML OPH BOTH EYES SCH ×2 (08:18→21:14)
[2019-04-01] MEDS: PAROXETINE 20 MG TAB PO SCH (08:18)
[2019-04-01] MEDS: SUCRALFATE (100 MG/ML) 10ML CUP PO SCH ×4 (08:18→21:58)
[2019-04-01] MEDS: GABAPENTIN 100 MG CAP PO SCH ×3 (08:18→21:14)
[2019-04-01] MEDS: ISOSORBIDE MONONITRATE(SR)60 MG TAB PO SCH (08:20)
[2019-04-01] MEDS: METOPROLOL 50 MG TAB PO SCH ×2 (08:21→21:15)
--- NOTE | 2019-04-01 11:13 | PN ---
Date/Time of Note Date/Time of Note DATE: 04/01/19 TIME: 11:13 Assessment/Plan VTE Prophylaxis Risk score (from Ns)>0 risk: 4 SCD applied (from Ns): No SCD contraindicated: patient refusal Pharmacological prophylaxis: NA/contraindicated Pharm contraindication: anticoag not tolerated Lines/Catheters IV [facility]from [facility] Saline Lock Urinary Cath still in place: No Assessment/Plan Hospital Course SUBJECTIVE: No acute overnight episodes OBJECTIVE: Vital signs-see below PHYSICAL EXAM: Constitutional: Adequately built,not in acute distress. HEENT: Head atraumatic and normocephalic. Eyes: Extraocular muscles intact. Anicteric sclerae. Pupils equal bilaterally, reactive to light. NECK: Supple without lymph node. CHEST: Clear and good breath sounds equally. No wheezing. No rhonchi. HEART: S1, S2. Regular rate and rhythm. ABDOMEN: Soft/non tender with no rebound tenderness. Bowel sounds were present. EXTREMITIES: No cyanosis, clubbing or edema. NEUROLOGIC: Alert and oriented x3. No focal deficit. No sensory deficit. PSYCHOSOCIAL: No signs of depression. INTEGUMENTARY: No open wounds. ASSESSMENT AND PLAN:73-year old male with recently diagnosed gastric ulcers, opiate abuse, CHF, hypertension, prostate cancer, dementia, [facility]ness, chest pain, found to have hyperten reyes w/SBP ranging 80's... Hypotension, likely secondary to volume depletion. -Resolved. Acute kidney injury on CKD -Acute kidney injury likely secondary to NSAIDs -Renal function back to normal -Appreciate nephrology recommendations Gastritis with history of gastric ulcers in January 2019 -Likely culprit of intermittent abdominal pain -Appreciate GI recommendations.s/p EGD 03/30/19-pathology pending -On ppi/Carafate/reglan Microcytic anemia -Go ahead and obtain iron panel. -H&H stable. No overt bleeding Constipation -laxatives/stool softners -bowel regimen Chest pain, likely musculoskeletal -ACS ruled out, troponins negative Chronic congestive heart failure -Clinically stable. Continue Diuretics, beta-blockers, nitrates. Opiate abuse -Patient has a history of chronic opiate abuse, spoke with son during previous admission, patient is to have absolutely no opiates as he will constantly asked for opiates however he appears very comfortable -Tylenol and tramadol only for now History of prostate cancer -Follow-up outpatient Mild dementia -Continue home medications Hypertension -Tolerating antihypertensives. No further hypotension Glaucoma -Continue eyedrops Disposition -Case management working on intermediate facility placement as family is unable to take care of patient. [facility] DVT prophylaxis: SCDs Patient was seen in collaboration with Dr. Vargas. Result Diagram: 03/31/1936 03/31/1936 Exam/Review of Systems Exam Vitals Vital Signs Date Temp Pulse Resp B/P (MAP) Pulse Ox O2 O2 Flow FiO2 Time Delivery Rate 04/01/19 97.6 63 18 142/73 97 08:13 (96) 03/30/19 Room Air 23:34 Intake and Output 03/31/19 03/31/19 04/01/19 1515:00 23:00 07:00 IntakeIntake Total 900 ml BalanceBalance 900 ml Medications Medication Current Medications IV Flush (NS 3 ml) 3 ml PER PROTOCOL IV ; Start 03/29/19 at 17:30 Ondansetron HCl (Zofran Inj) 4 mg Q6H PRN IV NAUSEA/VOMITING Last administered on 03/31/19at 10:16; Admin Dose 4 MG; Start 03/29/19 at 17:30 Acetaminophen (Tylenol Tab) 650 mg Q6H PRN PO .PAIN 1-3 OR TEMP Last administered on 04/01/19at 00:31; Admin Dose 650 MG; Start 03/29/19 at 17:30 Pantoprazole (Protonix Iv) 40 mg BID@06,18 IV Last administered on 04/01/19 05:36; Admin Dose 40 MG; Start 03/29/19 at 18:00 Sucralfate (Carafate Susp) 1 gm QID PO Last administered on 04/01/19 08:18; Admin Dose 1 GM; Start 03/29/19 at 21:00 Brimonidine/ Timolol (Combigan Oph) 1 drop BID BOTH EYES Last administered on 04/01/19 08:18; Admin Dose 1 DROP; Start 03/29/19 at 21:00 Docusate Sodium (Colace) 100 mg Q12H PO Last administered on 04/01/19 05:33; Admin Dose 100 MG; Start 03/29/19 at 18:00 Furosemide (Lasix) 20 mg BID DIURETICS PO Last administered on 04/01/19 05:36; Admin Dose 20 MG; Start 03/29/19 at 18:32 Gabapentin (Neurontin) 100 mg TID PO Last administered on 04/01/19 08:18; Admin Dose 100 MG; Start 03/29/19 at 21:00 Isosorbide Mononitrate (Imdur) 60 mg DAILY PO Last administered on 04/01/19 08:20; Admin Dose 60 MG; Start 03/30/19 at 09:00 Metoprolol Tartrate (Lopressor) 50 mg BID PO Last administered on 04/01/19 08:21; Admin Dose 50 MG; Start 03/29/19 at 21:00 Paroxetine HCl (Paxil) 20 mg DAILY PO Last administered on 04/01/19 08:18; Adm in Dose 20 MG; Start 03/30/19 at 09:00 Tamsulosin HCl (Flomax) 0.4 mg HS PO Last administered on 03/31/19 20:51; Admin Dose 0.4 MG; Start 03/29/19 at 21:00 Tramadol HCl (Ultram) 50 mg Q6H PRN PO MODERATE PAIN LEVEL 4-6 Last administered on 04/01/19 05:46; Admin Dose 50 MG; Start 03/29/19 at 18:00 Metoclopramide HCl (Reglan) 10 mg Q6 IV Last administered on 04/01/19 05:36; Admin Dose 10 MG; Start 03/30/19 at 12:00 Levofloxacin (Levaquin) 500 mg DAILY@06 PO Last administered on 04/01/19 05:33; Admin Dose 500 MG; Start 03/31/19 at 09:30 DENITA DUONG NP Apr 01, 2019 11:13
--- NOTE | 2019-04-01 11:33 | CONS ---
Assessment/Plan Assessment/Plan Assessment/Plan (Daily) 1. Acute kidney injury 2/2 Prerenal azotemia + 2. HYponatremia due to CHF + hypovolemic hyponatremia 3. Severe metabolic acidosis with HCo3 13 4. h/o HTN 5. Intractable nausea/vomiting 6. Hypertensive urgency Plan: ECHO showed EF 55-60% stage I DD in January 2019 - BUN/Cr Improved to 30/1.05, Continue lasix 20mg pO BID Renally dose all medications, monitor electrolytes and replace as needed Renal US unremarkable, normal size kidneys with normal echogenicity will follow up Consultation Date/Type/Reason Admit Date/Time Mar 30, 2019 at 10:27 Initial Consult Date 03/29/19 Type of Consult NEPHROLOGY Requesting Provider: RYAN JAUREGUI Date/Time of Note DATE: 04/01/19 TIME: 11:33 Exam/Review of Systems Exam Vitals Vital Signs Date Temp Pulse Resp B/P (MAP) Pulse Ox O2 O2 Flow FiO2 Time Delivery Rate 04/01/19 97.6 63 18 142/73 97 08:13 (96) 03/30/19 Room Air 23:34 Intake and Output 03/31/19 03/31/19 04/01/19 1515:00 23:00 07:00 IntakeIntake Total 900 ml BalanceBalance 900 ml Results Result Diagram: 03/31/1936 03/31/1936 Medications Medication Current Medications IV Flush (NS 3 ml) 3 ml PER PROTOCOL IV ; Start 03/29/19 at 17:30 Ondansetron HCl (Zofran Inj) 4 mg Q6H PRN IV NAUSEA/VOMITING Last administered on 03/31/19at 10:16; Admin Dose 4 MG; Start 03/29/19 at 17:30 Acetaminophen (Tylenol Tab) 650 mg Q6H PRN PO .PAIN 1-3 OR TEMP Last administered on 04/01/19at 00:31; Admin Dose 650 MG; Start 03/29/19 at 17:30 Pantoprazole (Protonix Iv) 40 mg BID@06,18 IV Last administered on 04/01/19at 05:36; Admin Dose 40 MG; Start 03/29/19 at 18:00 Sucralfate (Carafate Susp) 1 gm QID PO Last administered on 04/01/19at 08:18; Admin Dose 1 GM; Start 03/29/19 at 21:00 Brimonidine/ Timolol (Combigan Oph) 1 drop BID BOTH EYES Last administered on 04/01/19 08:18; Admin Dose 1 DROP; Start 03/29/19 at 21:00 Docusate Sodium (Colace) 100 mg Q12H PO Last administered on 04/01/19 05:33; Admin Dose 100 MG; Start 03/29/19 at 18:00 Furosemide (Lasix) 20 mg BID DIURETICS PO Last administered on 04/01/19 05:36; Admin Dose 20 MG; Start 03/29/19 at 18:32 Gabapentin (Neurontin) 100 mg TID PO Last administered on 04/01/19 08:18; Admin Dose 100 MG; Start 03/29/19 at 21:00 Isosorbide Mononitrate (Imdur) 60 mg DAILY PO Last administered on 04/01/19 08:20; Admin Dose 60 MG; Start 03/30/19 at 09:00 Metoprolol Tartrate (Lopressor) 50 mg BID PO Last administered on 04/01/19 0 8:21; Admin Dose 50 MG; Start 03/29/19 at 21:00 Paroxetine HCl (Paxil) 20 mg DAILY PO Last administered on 04/01/19 08:18; Admin Dose 20 MG; Start 03/30/19 at 09:00 Tamsulosin HCl (Flomax) 0.4 mg HS PO Last administered on 03/31/19 20:51; Admin Dose 0.4 MG; Start 03/29/19 at 21:00 Tramadol HCl (Ultram) 50 mg Q6H PRN PO MODERATE PAIN LEVEL 4-6 Last administered on 04/01/19 05:46; Admin Dose 50 MG; Start 03/29/19 at 18:00 Metoclopramide HCl (Reglan) 10 mg Q6 IV Last administered on 04/01/19 05:36; Admin Dose 10 MG; Start 03/30/19 at 12:00 Levofloxacin (Levaquin) 500 mg DAILY@06 PO Last administered on 04/01/19 05:33; Admin Dose 500 MG; Start 03/31/19 at 09:30 SERINA NORIEGA MD Apr 01, 2019 11:33
--- NOTE | 2019-04-01 12:35 | PN ---
Date/Time of Note Date/Time of Note DATE: 04/01/19 TIME: 12:33 Assessment/Plan VTE Prophylaxis Risk score (from Nsg)>0 risk: 4 SCD applied (from Ns): No SCD contraindicated: other (scds) Pharmacological prophylaxis: other Lines/Catheters IV Catheter Type (from Nrs): Saline Lock Urinary Cath still in place: No Assessment/Plan Hospital Course Assessment/Plan Assessment: Persistent nausea and abdominal pain Rule out exacerbation peptic ulcer disease/GERD S/p EGD 03/30/19 -Mild gastritis -rule out infection, biopsies obtained -retained food material, possible gastroparesis Moderate anemia, worsening History of gastric ulcers January 2019 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 History of mild dementia Plan: Follow up results of biopsies when available. Continue PPI/Carafate/Reglan Continue regular diet MiraLAX daily Avoid NSAIDs D/c planning per hospitalist Patient seen in collaboration with Dr. Yuan Subjective: Patient c/o less epigastric pain. He states he has not had a Bm in the past 2 days Sury diet ok. PHYSICAL EXAMINATION: GENERAL: Well developed, well nourished, alert & oriented x 3, in no acute distress SKIN: No lesions, no stigmata chronic liver disease, no evidence of bleeding diathesis HEAD: Normocephalic, atraumatic, no tenderness. EYES: Pupils equal reactive to light, non-icteric, no discharge. EARS/NOSE AND THROAT: Ears normal, nose normal NECK: Supple, no masses CARDIOVASCULAR: Heart: Regular rate and rhythm GASTROINTESTINAL AND LIVER: Abdomen: Soft, no tenderness, non-distended, no hernias, no masses, no organomegaly, no ascites, no guarding, no rebound tenderness, normoactive bowel sounds. Rectal: Deferred. EXTREMITIES: No cyanosis, clubbing or edema. Result Diagram: 03/31/19 0536 03/31/1936 Exam/Review of Systems Exam Vitals Vital Signs Date Temp Pulse Resp B/P (MAP) Pulse Ox O2 O2 Flow FiO2 Time Delivery Rate 04/01/19 97.6 63 18 142/73 97 08:13 (96) 03/30/19 Room Air 23:34 Intake and Output 03/31/19 03/31/19 04/01/19 1515:00 23:00 07:00 IntakeIntake Total 900 ml BalanceBalance 900 ml Medications Medication Current Medications IV Flush (NS 3 ml) 3 ml PER PROTOCOL IV ; Start 03/29/19 at 17:30 Ondansetron HCl (Zofran Inj) 4 mg Q6H PRN IV NAUSEA/VOMITING Last administered on 03/31/19 10:16; Admin Dose 4 MG; Start 03/29/19 at 17:30 Acetaminophen (Tylenol Tab) 650 mg Q6H PRN PO .PAIN 1-3 OR TEMP Last administered on 04/01/19 00:31; Admin Dose 650 MG; Start 03/29/19 at 17:30 Pantoprazole (Protonix Iv) 40 mg BID@,18 IV Last administered on 04/01/19 05:36; Admin Dose 40 MG; Start 03/29/19 at 18:00 Sucralfate (Carafate Susp) 1 gm QID PO Last administered on 04/01/19 08:18; Admin Dose 1 GM; Start 03/29/19 at 21:00 Brimonidine/ Timolol (Combigan Oph) 1 drop BID BOTH EYES Last administered on 04/01/19 08:18; Admin Dose 1 DROP; Start 03/29/19 at 21:00 Docusate Sodium (Colace) 100 mg Q12H PO Last administered on 04/01/19 05:33; Admin Dose 100 MG; Start 03/29/19 at 18:00 Furosemide (Lasix) 20 mg BID DIURETICS PO Last administered on 04/01/19 05:36; Admin Dose 20 MG; Start 03/29/19 at 18:32 Gabapentin (Neurontin) 100 mg TID PO Last administered on 04/01/19 08:18; Admin Dose 100 MG; Start 03/29/19 at 21:00 Isosorbide Mononitrate (Imdur) 60 mg DAILY PO Last administered on 04/01/19 08:20; Admin Dose 60 MG; Start 03/30/19 at 09:00 Metoprolol Tartrate (Lopressor) 50 mg BID PO Last administered on 04/01/19 08:21; Admin Dose 50 MG; Start 03/29/19 at 21:00 Paroxetine HCl (Paxil) 20 mg DAILY PO Last administered on 04/01/19 08:18; Admin Dose 20 MG; Start 03/30/19 at 09:00 Tamsulosin HCl (Flomax) 0.4 mg HS PO Last administered on 03/31/19 20:51; Admin Dose 0.4 MG; Start 03/29/19 at 21:00 Tramadol HCl (Ultram) 50 mg Q6H PRN PO MODERATE PAIN LEVEL 4-6 Last administered on 04/01/19 11:52; Admin Dose 50 MG; Start 03/29/19 at 18:00 Metoclopramide HCl (Reglan) 10 mg Q6 IV Last administered on 04/01/19 11:52; Admin Dose 10 MG; Start 03/30/19 at 12:00 Levofloxacin (Levaquin) 500 mg DAILY@06 PO Last administered on 04/01/19 05:33; Admin Dose 500 MG; Start 03/31/19 at 09:30 RICKY TY Apr 01, 2019 12:35
[2019-04-01] MEDS: POLYETHYLENE GLYCOL 17 GM PACKET PO SCH (13:24)
[2019-04-01 15:11] VITALS: BP 134/65; PULSE 62; RESP 18
[2019-04-01] MEDS ORDERED: traZODone 50 MG TAB PO ONE (20:30)
[2019-04-01 20:55] VITALS: BP 147/74; PULSE 67; RESP 16
[2019-04-01] MEDS: TAMSULOSIN (SR) 0.4 MG CAP PO SCH (21:14)
[2019-04-02] MEDS: METOCLOPRAMIDE 10 MG INJ IV SCH ×3 (00:20→11:43)
[2019-04-02 02:00] VITALS: BP 110/71; PULSE 62; RESP 17
[2019-04-02] MEDS: DOCUSATE SODIUM 100 MG CAP PO SCH (05:53)
[2019-04-02] MEDS: FUROSEMIDE 20 MG TAB PO SCH (05:53)
[2019-04-02] MEDS: PANTOPRAZOLE 40 MG INJ IV SCH (05:54)
[2019-04-02 07:55] VITALS: BP 163/74; PULSE 63; RESP 16
[2019-04-02] MEDS: PAROXETINE 20 MG TAB PO SCH (08:50)
[2019-04-02] MEDS: GABAPENTIN 100 MG CAP PO SCH ×2 (08:51→12:24)
[2019-04-02] MEDS: ISOSORBIDE MONONITRATE(SR)60 MG TAB PO SCH (08:51)
[2019-04-02] MEDS: traMADol 50 MG TAB PO PRN ×2 (08:54→15:19)
[2019-04-02] MEDS: BRIMONIDINE 0.2%-TIMOLOL 0.5% 5ML OPH BOTH EYES SCH (08:58)
[2019-04-02] MEDS: POLYETHYLENE GLYCOL 17 GM PACKET PO SCH (08:59)
[2019-04-02] MEDS: METOPROLOL 50 MG TAB PO SCH (09:00)
[2019-04-02] MEDS: SUCRALFATE (100 MG/ML) 10ML CUP PO SCH ×3 (09:00→17:21)
[2019-04-02 11:33] VITALS: BP 150/70; PULSE 64
[2019-04-02] MEDS: ACETAMINOPHEN 325 MG TAB PO PRN (11:43)
--- NOTE | 2019-04-02 11:56 | PDOCDIS ---
Discharge Instructions CONDITION [id number] Patient Condition: [id number] Stable HOME CARE INSTRUCTIONS: [id number] Diet Instructions: [id number] Regular FOLLOW UP/APPOINTMENTS Follow-up Plan Follow-up with primary care physician in 1 week DENITA DUONG NP Apr 02, 2019 11:56
[2019-04-02] MEDS ORDERED: GABA100C14 PO (12:00)
[2019-04-02] MEDS ORDERED: POLY17PO6 PO (12:00)
[2019-04-02] MEDS ORDERED: POTA8CAP PO (12:00)
--- NOTE | 2019-04-02 12:09 | DS ---
Date/Time of Note Date/Time of Note DATE: 04/02/19 TIME: 12:06 Discharge Summary Admission/Discharge Info Admit Date/Time Mar 30, 2019 at 10:27 Discharge Date/Time Discharge Diagnosis Hypotension, likely secondary to volume depletion.-Resolved. Acute kidney injury on CKD.resolved Gastritis with history of gastric ulcers in January 2019 Chronic Anemia Constipation Chest pain, likely musculoskeletal Chronic congestive heart failure Opiate overuse History of prostate cancer Mild dementia Hypertension Glaucoma Patient Condition: Stable Consults Dr. Fontaine, nephrology Procedures S/p EGD 03/30/19 -Mild gastritis -rule out infection, biopsies obtained -retained food material, possible gastroparesis Hospital Course 73-year old male with recently diagnosed gastric ulcers, opiate abuse, CHF, hypertension, prostate cancer, dementia, transferred from [place] [facility] with confusion/lightheadedness, chest pain, found to have hypertension w/SBP ranging 80's... Patient was noted with possible volume depletion causing hypotension which is resolved with IV fluids. He was also noted with opiate overusage for chronic pain at home. Patient and family was counseled on this. He was also noted with acute kidney injury likely on chronic kidney disease which is most likely secondary to MARLENA inhibitors and NSAIDs. MARLENA inhibitors were held. Renal function back to normal. Patient was being followed by charge account clerk as well. Patient also complained of abdominal pain for which he was seen by meat curer and underwent EGD evaluation on 03/30/2019. EGD showed gastritis with possible gastroparesis. Pathology was negative for H. pylori. There was no evidence of malignancy. Pathology was suggestive of chronic gastritis. Patient was continued on PPI, Carafate and Reglan regimen per GI recommendations. Patient was also treated for constipation. He was continued on home medication for underlying comorbidities. At this time, patient appears clinically stable. There is no further evidence of hypertension. He is tolerating diet and activities. BP medications were resumed accordingly. He was evaluated by physical therapist. There was no further inpatient rehabilitation required. hops farmworker also spoke with patient's son and they are planning to send him back to [facility] per patient's decision soon. Case management to arrange home health for medication assistance and home safety evaluation. Patient will be discharged today with his son. Approximately 60 m spent on coordinating the discharge on this patient. Patient was seen in collaboration with Dr. Vargas. Home Meds Active Scripts Ferrous Sulfate* (Ferrous Sulfate*) 325 Mg Tabec, 325 MG PO BID, #60 TAB Prov:DUONG,DENITA V. HAND BOX FOLDER 04/02/19 Pantoprazole* (Protonix*) 40 Mg Tablet.dr, 40 MG PO BID, #60 TAB Prov:DUONG,DENITA V. HAND BOX FOLDER 04/02/19 Sucralfate* (Carafate*) 1 Gm Tab, 1 GM PO AC MEALS AND BEDTIME for 30 Days, #120 TAB Prov:DUONG,DENITA V. HAND BOX FOLDER 04/02/19 Metoclopramide* (Reglan*) 5 Mg Tablet, 5 MG PO AC MEALS, #30 TAB Prov:DUONG,DENITA V. HAND BOX FOLDER 04/02/19 Polyethylene Glycol* (Miralax*) 17 Gm Powd.pack, 17 GM PO DAILY, #30 DOSE Prov:DUONG,DENITA V. HAND BOX FOLDER 04/02/19 Potassium Chloride* (Potassium Chloride*) 8 Meq Capsule.er, 8 MEQ PO DAILY, #30 CAP Prov:DUONG,DENITA V. HAND BOX FOLDER 04/02/19 Gabapentin* (Gabapentin*) 100 Mg Capsule, 100 MG PO TID, #90 CAP Prov:DUONG,DENITA V. HAND BOX FOLDER 04/02/19 Magnesium Hydroxide* (Chavez' MOM*) 30 Ml Susp, 30 ML PO DAILY PRN for .CONSTIPATION, #30 Prov:DELFINA REILLY 03/12/19 Docusate Sodium* (Colace*) 100 Mg Capsule, 100 MG PO Q12H PRN for .CONSTIPATION, #60 CAP Prov:DELFINA REILLY 03/12/19 Tramadol HCl (Tramadol HCl) 50 Mg Tablet, 50 MG PO Q6H PRN for MODERATE PAIN LEVEL 4-6, #60 TAB Prov:DELFINA REILLY 03/12/19 Paroxetine Hcl* (Paroxetine*) 20 Mg Tablet, 20 MG PO DAILY, #60 TAB Prov:DELFINA REILLY 03/12/19 Ondansetron (Ondansetron Odt) 4 Mg Tab.rapdis, 4 MG PO Q6H PRN for NAUSEA AND/OR VOMITING, #10 TAB Prov:WILLIAM MELCHOR MD 02/21/18 Reported Medications Multivitamin with Minerals (Multivitamins with Minerals) 1 Each Tablet, 1 EACH PO DAILY, TAB 4/24/19 Brimonidine/Timolol* (Combigan*) 5 Ml Drops, 1 DROP BOTH EYES BID, BOTTLE 02/13/19 Isosorbide Mononitrate* (Isosorbide Mononitrate*) 60 Mg Tab.er.24h, 60 MG PO DAILY for 30 Days, #30 02/13/19 Furosemide* (Furosemide*) 20 Mg Tablet, 20 MG PO BID for 30 Days, #60 02/13/19 Metoprolol Tartrate* (Lopressor*) 50 Mg Tab, 50 MG PO BID for 30 Days, #60 02/13/19 Tamsulosin Hcl* (Tamsulosin Hcl*) 0.4 Mg Cap.er.24h, 0.4 MG PO HS, CAP 02/03/17 Discontinued Reported Medications Hydrochlorothiazide (Hydrochlorothiazide) 12.5 Mg Capsule, 12.5 MG PO DAILY for 30 Days, #30 02/13/19 Benazepril Hcl* (Benazepril Hcl*) 40 Mg Tablet, 40 MG PO DAILY for 90 Days, #90 02/13/19 Lorazepam* (Lorazepam*) 0.5 Mg Tablet, 0.5 MG PO HS PRN for ANXIETY, TAB 02/03/17 Gabapentin* (Gabapentin*) 100 Mg Capsule, 400 MG PO TID 06/12/13 Discontinued Scripts Potassium Chloride* (K-Dur*) 20 Meq Tab.prt.sr, 20 MEQ PO BID, #60 Prov:DELFINA REILLY 03/12/19 Follow-up Plan Follow-up with primary care physician in 1 week Primary Care Provider Not On Staff Doctor Pending Labs Laboratory Tests Test 04/02/19 05:35 White Blood Count 6.9 10^3/ul (4.8-10.8) Red Blood Count 3.74 10^6/ul (4.70-6.10) Hemoglobin 8.9 g/dl (14.0-18.0) Hematocrit 27.8 % (42.0-52.0) Mean Corpuscular Volume 74.3 fl (82.0-101.0) Mean Corpuscular Hemoglobin 23.8 pg (29.0-33.0) Mean Corpuscular Hemoglobin Concent 32.0 g/dl (32.0-37.0) Red Cell Distribution Width 23.2 % (11.5-14.5) Platelet Count 225 10^3/UL (140-415) Mean Platelet Volume 10.8 fl (7.4-10.4) Immature Granulocytes % 0.300 % (0.001-0.429) Neutrophils % 53.3 % (39.0-77.0) Lymphocytes % 34.0 % (15.0-51.0) Monocytes % 9.1 % (0.0-11.0) Eosinophils % 2.7 % (0.0-7.0) Basophils % 0.6 % (0.0-2.0) Nucleated Red Blood Cells % 0.0 /100WBC (0.0-0.0) Immature Granulocytes # 0.020 10^3/ul (0.0-0.031) Neutrophils # 3.7 10^3/ul (1.6-7.5) Lymphocytes # 2.4 10^3/ul (0.8-2.9) Monocytes # 0.6 10^3/ul (0.3-0.9) Eosinophils # 0.2 10^3/ul (0.0-0.5) Basophils # 0.0 10^3/ul (0.0-0.1) Nucleated Red Blood Cells # 0.0 10^3/ul (0.0-0.0) Iron Level 44 ug/dl (35-150) Total Iron Binding Capacity 307 ug/dl (241-421) Percent Iron Saturation 14 % SAT (22-52) Ferritin 35.7 ng/ml (11.1-264.0) DENITA DUONG NP Apr 02, 2019 12:09
[2019-04-02] MEDS ORDERED: PANT40TA3 PO (12:11)
[2019-04-02] MEDS ORDERED: SUCR1TAB56 PO (12:11)
[2019-04-02] MEDS ORDERED: METO5TAB58 PO (12:11)
[2019-04-02 14:20] VITALS: BP 131/69; PULSE 62; RESP 16
[2019-04-02] MEDS ORDERED: FER325 PO (14:47)
--- NOTE | 2019-04-03 02:50 | CONS ---
Assessment/Plan Assessment/Plan Assessment/Plan (Daily) 1. Acute kidney injury 2/2 Prerenal azotemia + 2. HYponatremia due to CHF + hypovolemic hyponatremia 3. Severe metabolic acidosis with HCo3 13 4. h/o HTN 5. Intractable nausea/vomiting 6. Hypertensive urgency Plan: ECHO showed EF 55-60% stage I DD in January 2019 - BUN/Cr Improved to 30/1.05, Continue lasix 20mg pO BID- no labs today to review yet Renally dose all medications, monitor electrolytes and replace as needed Renal US unremarkable, normal size kidneys with normal echogenicity will follow up Consultation Date/Type/Reason Admit Date/Time Mar 30, 2019 at 10:27 Initial Consult Date 03/29/19 Type of Consult NEPHROLOGY Requesting Provider: RYAN JAUREGUI Date/Time of Note DATE: 04/02/2019 Exam/Review of Systems Exam Vitals Vital Signs Date Temp Pulse Resp B/P (MAP) Pulse Ox O2 O2 Flow FiO2 Time Delivery Rate 04/02/19 98.0 62 16 131/69 96 Room Air 14:20 (89) Intake and Output 04/02/19 04/02/19 04/03/19 1515:00 23:00 07:00 IntakeIntake Total 600 ml BalanceBalance 600 ml Results Result Diagram: 04/02/19 0535 03/31/19 0536 Results 24hrs Laboratory Tests Test 04/02/19 05:35 White Blood Count 6.9 Red Blood Count 3.74 L Hemoglobin 8.9 L Hematocrit 27.8 L Mean Corpuscular Volume 74.3 L Mean Corpuscular Hemoglobin 23.8 L Mean Corpuscular Hemoglobin Concent 32.0 Red Cell Distribution Width 23.2 H Platelet Count 225 Mean Platelet Volume 10.8 H Immature Granulocytes % 0.300 Neutrophils % 53.3 Lymphocytes % 34.0 Monocytes % 9.1 Eosinophils % 2.7 Basophils % 0.6 Nucleated Red Blood Cells % 0.0 Immature Granulocytes # 0.020 Neutrophils # 3.7 Lymphocytes # 2.4 Monocytes # 0.6 Eosinophils # 0.2 Basophils # 0.0 Nucleated Red Blood Cells # 0.0 Iron Level 44 Total Iron Binding Capacity 307 Percent Iron Saturation 14 L Ferritin 35.7 SERINA NORIEGA MD Apr 03, 2019 02:50
== END 2019-04-02 17:34 | disposition home health service (06) | DRG 315 ==
LOC: E/R 12:26 → TEL 17:27 → EDBEDREQ 17:48 → CANRESERV 17:52 → PP2 18:05 → OBSVTOIN 03-30 10:27 → PP2 03-31 10:46
PROVIDERS: ADMIT Internal Medicine; ATTEND Internal Medicine
PROC: 0DB68ZX Excision of Stomach, Via Natural or Artificial Opening Endoscopic, Diagnostic (ICD-10-PCS; principal; 2019-03-30 12:00)
DX: I95.9 Hypotension, unspecified (principal); I13.0 Hypertensive heart and chronic kidney disease with heart failure and stage 1 through stage 4 chronic kidney disease, or unspecified chronic kidney disease; E87.2 Acidosis; E87.1 Hypo-osmolality and hyponatremia; N17.9 Acute kidney failure, unspecified; I50.9 Heart failure, unspecified; F03.90 Unspecified dementia, unspecified severity, without behavioral disturbance, psychotic disturbance, mood disturbance, and anxiety; N18.9 Chronic kidney disease, unspecified; I16.0 Hypertensive urgency; K29.70 Gastritis, unspecified, without bleeding; K31.84 Gastroparesis; H40.9 Unspecified glaucoma; Z85.46 Personal history of malignant neoplasm of prostate; F10.10 Alcohol abuse, uncomplicated; R74.8 Abnormal levels of other serum enzymes; F11.10 Opioid abuse, uncomplicated; D50.9 Iron deficiency anemia, unspecified; K59.00 Constipation, unspecified; R07.89 Other chest pain; K25.9 Gastric ulcer, unspecified as acute or chronic, without hemorrhage or perforation
CPT/HCPCS: 36415; 70450; 71045; 80048; 80053; 80061; 80307; 81001; 82150; 82550; 82553; 82728; 83036; 83540; 83690; 83735; 83880; 84100; 84443; 84484; 85014; 85018; 85025; 85610; 85730; 88305; 88312; 93005; 97162; 99217; G0378; C9113; J0692; J2405; J2765; J7030